=== PATIENT | male | born 1960 | race Caucasian/White ===

== ENCOUNTER 2020-07-30 06:42 | Day surgery (SDC) | payer BC, OTHER ==
[2020-07-23 13:14] LABS: Basophils % 0.6 % (0-1.3); Hematocrit 48.2 % (39.6-49.0); Lymphocytes % 13.7 % (15.3-44.8); MPV 10.3 fL (7.6-11.3); RBC Red Blood Cell Count 5.61 M/uL (4.33-5.43)
--- NOTE | 2020-07-23 13:14 | RAD REPORT ---
EXAM DESCRIPTION: RAD - Chest Pa And Lat (2 Views) - 07/23/2020 1:01 pm CLINICAL HISTORY: preoppatient pending right foot surgery, diabetes, dialysis patient COMPARISON: Portable July 2017, two view chest July 2014 TECHNIQUE: Frontal and lateral views of the chest were obtained. FINDINGS: The lungs are clear of failure, infiltrate or mass. Lung volumes are reduced compared to 2013 study. Interstitial pattern does not appear to be significantly different. Heart size is no rmal and central vasculature is within normal limits. No pleural effusion or pneumothorax seen. No acute bony finding noted. No aortic abnormality. No significant interval changes. IMPRESSION: No acute cardiopulmonary process.
[2020-07-23 13:22] LABS: Potassium 5.1 mmol/L (3.5-5.1)
--- NOTE | 2020-07-29 12:49 | PREOPHP ---
Date of Admission: 07/30/2020 History Of Present Illness: This patient presented to my office with a chief complaint of pain in th e plantar aspect of the right heel. Pain has been present for a number of months. The patient first presented earlier this year for this problem. Pain is throbbing in nature, relieved by rest, severe in severity, and the patient has tried modifying his shoe gear, orthotics, steroid injections, stret harrison, ice, and anti-inflammatory medications all to minimal avail. The patient requests surgical ma nagement at this time. Current Medical History: Includes history of hypertension and stroke. Medications: Includes Pepcid 20 mg, Sensipar 30 mg, tacrolimus 0.5 mg capsule, Toprol-XL 25 mg, meto prolol succinate ER 100 mg, hydralazine 50 mg, clonidine 0.3 mg, Prograf 1 mg capsule, and mycophenol ate 360 mg. Allergies: ANTI-INFLAMMATORY MEDICATIONS AND TYLENOL NO.3. Social History: The patient admits to dipping tobacco. No history of alcohol or IV drug use. Past Surgical History: Includes kidney transplant in August of 2015, surgery to his left arm and r ight patella. Physical Examination: General: The patient is healthy, well developed, well nourished, well oriented x3. Vascular: Evaluation for dorsalis pedis and posterior tibial pulses are 4/4 bilaterally. Capillary refill time is less than 3 seconds to all toes. Temperature gradient is within normal limits. There is no claudication complaint, varicosities, or signs of DVT bilaterally. Musculoskeletal: Evaluation reveals a semi flexible cavus foot type bilaterally. Subtalar joint bella ws normal position bilaterally. There are forefoot supinatus bilaterally. There is a medial eminenc e of the first metatarsal head bilaterally with a hallux valgus on the right. Equinus is noted to be -5 on the right and 0 on the left. Per goniometer measurement, digits on all are found to be in nor mal alignment. Muscle knee and ankle assessment is within normal limits. There is tenderness on pal pation of the right but not on the left plantar aponeurosis with no redness, swelling, or temp. No s ubcutaneous masses are palpated bilaterally. Skin evaluation reveals no rash, ulcer, tumor, or contr acture. There is abnormal thickened, brittle, crumbly, discolored nail growth present on the left franco llux. Neurologic: Exam reveals deep tendon reflexes for the patella and Achilles to be 5/5 bilaterally. V ibratory and sharp dull sensation within normal limits. Diagnostic Data: X-rays reviewed when the patient initially came in the office from a previous physi jason showed a posterior calcaneal spur with no fracture, tumor, or degenerative disease noted. Diagnosis: Calcaneal spur, right foot. Plantar fasciitis, right foot. Recommendation: The recommended treatment is for plantar fasciotomy due to the failure of conservati ve treatments mentioned earlier. The patient will be in a postop shoe for 2 weeks. No full work act ivity for 6-8 weeks if the patient is in a standing or strenuous job as he has been in the past. Cur rently, he is not working. The patient states he understands recommendations and requirements for he aling. The patient has been given a prescription for antibiotics due to his history of kidney transp lant prophylactically to take the night before and the day of surgery. A prescription for sophie Haq ch the patient states does not give him an issue as opposed to the codeine has been issued also for t he patient for postop pain. The patient understands risks, benefits, and alternatives of the above-m entioned procedure including, but not limited to the risk of pain, swelling, numbness, stiffness, inf ection, nonhealing of skin or soft tissue, and recurrence of the pain. Risk of DVT and PE have been explained to the patient as well as the signs and symptoms. The patient also was made aware of the i ncreased risk of complications due to the current pandemic due to COVID-19 and must maintain adequate precautions of mask wearing to prevent any infection postoperatively of COVID. Risks include an inc reased chance of blood clots. As mentioned, prophylactic antibiotics were given. Postop shoe will b e dispensed. The patient is scheduled for surgery on July 30, 2020 at [facility]. Preop erative labs have been performed. Medical H and P will be performed by Anesthesia. Abnormalities on the EKG were dressed with anesthesia and they feel it is not an adverse risk for the patient to have the surgery a s planned. TIA/EVERT Voice ID: [id number]
--- OUTSIDE RECORDS SUMMARY | 2020-07-30 06:44 | XMS REPORT | Summary of Care ---
:1960 Author Organization [facility] Address [address] [place] [id number] Care Team Providers Name Role Phone Francoise Dc RN Unavailable Unavailable Yokasta Edgar MD Primary Care Provider Reason for Visit Reason Comments LAB WORK Post Transplant Encounter Details Date Type Department Care Team Description 07/03/2020 Telephone [facility] Isai Taylor LAB WORK; Post Transplant-[place] MD [facility] [address] [facility] [address] [facility] [place] [address] [phone] Allergies No Known Allergiesdocumented as of this encounter (statuses as of 07/03/2020) Medications Medication Sig Dispensed Refills Start Date End Date Status multivitamin tablet Take 1 Tab by 0 Active mouth daily. FAMOTIDINE 20 mg TAKE 1 TABLET 90 tablet 3 09/12/2018 Active tabletIndications: DAILY Kidney replaced by transplant METOPROLOL SUCCINATE TAKE 1 TABLET 180 tablet 3 09/12/2018 Active XL 100 mg 24 hr tablet TWICE A DAY Diclofenac Sodium Take 2-4 grams 100 g 3 02/09/2018 Active (VOLTAREN) 1 % three times a gelIndications: day as needed Pleurisy, Back spasm for pain lidocaine 5 % ointment Apply to 35.44 g 2 04/18/2018 Active area(s) 2 (two) times daily as needed (pain). fluticasone 50 Use 1 [place] in 16 g 2 05/15/2018 Active mcg/actuation nasal each nostril 2 sprayIndications: (two) times Viral upper daily. respiratory tract infection metoprolol succinate Take 1 tablet by 180 tablet 3 10/17/2018 Active XL 100 mg 24 hr tablet mouth 2 (two) times daily. famotidine 20 mg Take 1 tablet by 90 tablet 0 12/18/2018 Active tabletIndications: mouth daily. No Kidney replaced by further refills transplant through transplant. Obtain through PCP urea 40 % Apply to 1 Tube 3 12/24/2018 Active creamIndications: area(s) daily. Stucco keratoses famotidine 10 mg Take 10 mg by 0 Active tablet mouth. hydralAZINE 25 mg Take 25 mg by 0 Active tablet mouth. magnesium oxide 400 mg Take 2 capsules 120 capsule 6 9 Active magnesium capsule by mouth 2 (two) times daily. tiZANidine 4 mg Take 1 tablet by 30 tablet 2 03/26/2019 Active tabletIndications: mouth every 8 Acute right flank pain (eight) hours as needed (muscle spasm/pain). Multivitamins-Minerals Take 1 tablet by 0 Active -Lutein (MULTIVITAMIN mouth daily. 50 PLUS) Tab CLONIDINE 0.3 mg TAKE 1 TABLET 180 tablet 4 08/06/2019 Active tabletIndications: TWICE A DAY Kidney replaced by transplant METOPROLOL SUCCINATE TAKE 1 TABLET 180 tablet 4 08/06/2019 Active XL 100 mg 24 hr tablet TWICE A DAY HYDRALAZINE 50 mg TAKE 1 TABLET 180 tablet 4 09/11/2019 Active tablet TWICE A DAY mycophenolate sodium TAKE 1 TABLET 60 tablet 11 11/27/2019 Active 360 mg EC tablet EVERY 12 HOURS CINACALCET 30 mg TAKE 1 TABLET 90 tablet 3 01/28/2020 Active tabletIndications: DAILY Kidney replaced by transplant cinacalcet 30 mg Take 1 tablet by 90 tablet 3 01/10/2020 Active tabletIndications: mouth daily. Kidney replaced by transplant PROGRAF 1 mg capsule TAKE 2 CAPSULES 90 capsule 11 02/20/2020 Active (2 MG) IN THE MORNING AND 1 CAPSULE (1 MG) IN THE EVENING triamcinolone Apply to 454 g 1 03/06/2020 Activ e acetonide 0.1 % area(s) 2 (two) creamIndications: Rash times daily. 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 10/19/2010 Overview: ICD10 Diagnosis 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 CVA (cerebral infarction) 09/25/2007 Hyperlipemia 09/25/2007 HTN (hypertension), malignant Basal cell carcinoma Squamous cell carcinoma documented as of this encounter (statuses as of 07/03/2020) Resolved Problems Problem Noted Date Resolved Date Anemia 09/18/2015 10/26/2015 Retention of urine 09/17/2015 10/26/2015 Organ transplant candidate 09/11/2015 09/13/2015 CKD (chronic kidney disease) stage V requiring chronic 12/2609/13/2015 dialysis Overview: 1st ever dialysis start date documented as of this encounter (statuses as of 07/03/2020) Immunizations Name Administration Dates Next Due Influenza High Dose 08/25/2016 (Deferred: Immunizations Up to Date) Influenza Virus Vaccine Quad ID [id number] 07/21/2016 YRS Influenza Virus Vaccine Quad IM 3+ 08/07/2017 YRS PPD (TB) 10/15/2014, 10/01/2014 Pneumococcal Polysaccharide, PPSV23 02/06/2015 (PNEUMOVAX) documented as of this encounter Social History Tobacco Use Types Packs/Day Years Used Date Former Smoker Smokeless Tobacco: Former User Q uit: 06/25/2015 Alcohol Use Drinks/Week oz/Week Comments No 0 Standard drinks or equivalent 0.0 Stopped in 2007 Sex Assigned at Date Recorded Not on file documented as of this encounter Last Filed Vital Signs Not on filedocumented in this encounter Miscellaneous Notes Telephone Encounter - Luciana Agrawal - 07/03/2020 10:07 AM CDTPatient [place] in [place], needs lab orders to be send to [facility] [phone] Patient stated that he feels like he is swollen everywhere, and his [facility] [place] is completely booked. Cindi is willing to see him if [facility] send orders immediately. Patient requested a call back from coordinator once it is completed documented in this encounter Plan of Treatment Health Maintenance Due Date Last Done Comments DTaP,Tdap,and Td Vaccines (1 - 1981 Tdap) COLON CANCER SCREENING ANNUAL 2012 FIT/FOBT COLON CANCER SCREENING FIT DNA 2012 EVERY 3 YEARS COLON CANCER SCREENING 2012 SIGMOIDOSCOPY EVERY 5 YEARS Zoster Recombinant Vaccine 2012 (SHINGRIX) (1 of 2) PNEUMOCOCCAL 0-64 YEARS COMBINED 02/07/2016 02/06/2015 SERIES (2 of 3 - PCV13) LUNG CANCER SCREEN: Recommended 02/14/2020 02/13/2019, 0505/2018, for age 55-80 with 30 + pack year 08/06/2017, Ad ditional history history exists INFLUENZA VACCINE (#1) 2020 08/21/2019, 08/07/2017 Depression Screening 07/11/2020 07/11/2019 COLONOSCOPY 01/07/2025 01/07/2015 (Previously completed) Colorectal Cancer Screening 01/07/2025 HEPATITIS C (HCV) SCREEN Completed 09/11/2015, 06/23/2015 documented as of this encounter Implants Implanted Type Area Project Manager Device Shelf Model / Identifier Expiration Date Ser ial / Lot Stent Ureteral Soft Flex Multi Length Cook #[id number] - [id number] STENT N/A: Ureter [employer] 06/04/2018 [id number] / Implanted: Qty: 1 on 09/11/2015 by Marisa Tamayo MD at [facility] 0000 / [id number] documented as of this encounter Results Not on filedocumented in this encounter Insurance Payer Benefit Plan Subscriber ID Effective Dates Phone Address Type / Group BCBS OF [facility] [id number] 2005-[place] [phone] [address] PPO/POS [place] - OUT OF t 7 [id number] [place] [address] documented as of this encounter
--- OUTSIDE RECORDS SUMMARY | 2020-07-30 06:44 | XMS REPORT | Continuity of Care Document ---
:1960 Author Organization [facility] t Address [address] [place] [address] Care Team Providers Name Role Phone Kay Palma MD N Attending Clinician Problems This patient has no known problems. Allergies, Adverse Reactions, Alerts This patient has no known allergies or adverse reactions. Medications This patient has no known medications. Procedures This patient has no known procedures. Encounters Start End Encounter Admission Attending Care Care Encounter Source Date/Time Date/Time Type Type Clinicians Facility Department ID 2020-07-27 2020-07-27 Office Cassie [facility] [id number] 09:45:42 11:13:09 Visit Sylvia schrader [facility] [id number] [facility] [id number] [facility] [phone] [facility] Results This patient has no known results.
--- OUTSIDE RECORDS SUMMARY | 2020-07-30 06:45 | XMS REPORT | Summary of Care ---
:1960 Author Organization [facility] Address [address] [place] [address] Care Team Providers Name Role Phone Francoise Dc RN Unavailable Unavailable Yokasta Edgar MD Primary Care Provider Encounter Details Date Type Department Care Team Description 04/07/2020 Orders Only [facility] Doctor Unassigned, No [address] [facility] [place] [address] [address] [place] [address] Allergies No Known Allergiesdocumented as of this encounter (statuses as of 07/13/2020) Medications Medication Sig Dispensed Refills Start Date [...] as needed (pain). fluticasone 50 Use 1 [place] in 16 g 2 05/15/2018 Active mcg/actuation [...] as of this encounter (statuses as of 07/13/2020) Active Problems Problem Noted Date Chest pain on breathing 08/17/2017 Costochondritis 08/17/2017 Essential hypertension 08/17/2017 Abnormal CXR 08/11/2017 Chest pain 08/06/2017 Diarrhea 10/26/2016 Renal osteodystrophy 02/04/2016 Immunosuppressive management encounter following kidne y transplant 12/17/2015 Hyperkalemia 09/28/2015 Kidney replaced by transplant 09/12/2015 Need for prophylactic immunotherapy 09/11/2015 Malignant neoplasm of skin of ear and regulatory auditor y canal 10/19/2010 Overview: ICD10 Diagnosis 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 CVA (cerebral infarction) 09/25/2007 Hyperlipemia 09/25/2007 HTN (hypertension), malignant Basal cell carcinoma Squamous cell carcinoma documented as of this encounter (statuses as of 07/13/2020) Resolved Problems Problem Noted Date Resolved Date Anemia 09/18/2015 10/26/2015 Retention of urine 09/17/2015 10/26/2015 Organ transplant candidate 09/11/2015 09/13/2015 CKD (chronic kidney disease) stage V requiring chronic 12/2609/13/2015 dialysis Overview: 1st ever dialysis start date documented as of this encounter (statuses as of 07/13/2020) Immunizations Name Administration Dates Next Due Influenza [...] Assigned at Date Recorded Not on file COVID-19 Exposure Response Date Recorded In the last month, have you been in contact with No / Unsure 04/28/2020 8:03 AM CDT someone who was confirmed or suspected to have Coronavirus / COVID-19? documented as of this encounter Last Filed Vital Signs Not on filedocumented in this encounter Plan of Treatment Health [...] PCV13) LUNG CANCER SCREEN: Recommended 02/14/2020 02/13/2019, 05/0 05/2018, for age 55-80 with 30 + pack year 08/06/2017, Ad ditional history history exists INFLUENZA VACCINE (#1) 2020 08/21/2019, 08/07/2017 Depression Screening 07/11/2020 07/11/2019 COLONOSCOPY 01/07/2025 01/07/2015 (Previously completed) Colorectal Cancer Screening 01/07/2025 HEPATITIS C (HCV) SCREEN Completed 09/11/2015, 06/23/2015 documented as of this encounter Implants Implanted Type Area Chief Of Hospital Medicine Device Shelf Model / Identifier Expiration Date Ser ial / Lot Stent Ureteral Soft Flex Multi Length Cook #[id number] - [id number] STENT N/A: Ureter [employer] 06/04/2018 [id number] / Implanted: Qty: 1 on 09/11/2015 by Marisa Tamayo MD at [facility] 0000 / [id number] documented as of this encounter Procedures Procedure Name Priority Date/Time Associated Diagnosis Comme nts REFERRAL- Routine 04/07/2020 12:01 AM CDT REQUEST/RESPONSE documented in this encounter Results Not on filedocumented in this encounter Additional Health Concerns Infection Onset Date Last Indicated Resolved Time COVID-19 Confirmed 04/13/2020 04/13/2020 05/13/2020 12 :59 AM CDT documented as of this encounter Insurance Payer Benefit Plan Subscriber ID Effective Dates Phone Address Type / Group BCBS OF [facility] [id number] 2005-[place] [phone] [address] PPO/POS [place] - OUT OF t 7 [id number] [place] [address] documented as of this encounter
--- OUTSIDE RECORDS SUMMARY | 2020-07-30 06:45 | XMS REPORT | Summary of Care ---
:1960 Author Organization [facility] Address [address] [place] [address] Care Team Providers Name Role Phone Francoise Dc RN Unavailable Unavailable Yokasta Edgar MD Primary Care Provider Encounter Details Date Type Department Care Team Description 07/21/2020 Orders Only [facility] Isai Taylor MD [address] [place] [address] [phone] Allergies No Known Allergiesdocumented as of this encounter (statuses as of 07/21/2020) Medications Medication Sig Dispensed Refills Start Date [...] as needed (pain). fluticasone 50 Use 1 [place] in 16 g 2 05/15/2018 Active mcg/actuation [...] as of this encounter (statuses as of 07/21/2020) Active Problems Problem Noted Date Chest pain on breathing 08/17/2017 Costochondritis 08/17/2017 Essential hypertension 08/17/2017 Abnormal CXR 08/11/2017 Chest pain 08/06/2017 Diarrhea 10/26/2016 Renal osteodystrophy 02/04/2016 Immunosuppressive management encounter following kidne y transplant 12/17/2015 Hyperkalemia 09/28/2015 Kidney replaced by transplant 09/12/2015 Need for prophylactic immunotherapy 09/11/2015 Malignant neoplasm of skin of ear and assurance auditor y canal 10/19/2010 Overview: ICD10 Diagnosis 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 CVA (cerebral infarction) 09/25/2007 Hyperlipemia 09/25/2007 HTN (hypertension), malignant Basal cell carcinoma Squamous cell carcinoma documented as of this encounter (statuses as of 07/21/2020) Resolved Problems Problem Noted Date Resolved Date Anemia 09/18/2015 10/26/2015 Retention of urine 09/17/2015 10/26/2015 Organ transplant candidate 09/11/2015 09/13/2015 CKD (chronic kidney disease) stage V requiring chronic 12/2609/13/2015 dialysis Overview: 1st ever dialysis start date documented as of this encounter (statuses as of 07/21/2020) Immunizations Name Administration Dates Next Due Influenza [...] filedocumented in this encounter Plan of Treatment Date Type Specialty Care Team Description 07/27/2020 Office Visit Nephrology Yokasta Palma MD [address] [place], [place] [address] Name Type Priority Associated Diagnoses Date/Ti me MAGNESIUM-Q LAB Routine 07/21/2020 7:2 0 AM CDT PHOSPHATE ( PHOSPHORUS)-Q LAB Routine 07/21/2020 7:20 AM CDT BASIC METABOLIC LAB Routine 07/21/2020 7:20 AM PANEL$W/EGFR-Q CDT URINALYSIS, COMPLETE W/RFL LAB Routine 1 7:20 AM CULTURE (REFL)-Q CDT B TYPE NATRIURETIC$PEPTIDE LAB Routine 1 7:20 AM (BNP)-Q CDT PROTEIN, TOTAL, RANDOM URINE LAB Routine 07/21/2020 7:20 AM (W/ CREATININE)-Q CDT TACROLIMUS, HIGHLY LAB Routine 0 7:20 AM SENSITIVE, LC/MS/MS-Q CDT CYTOMEGALOVIRUS DNA, QN REAL LAB Routine 07/21/2020 7:20 AM TIME PCR-Q CDT BK VIRUS DNA, QN PCR-Q LAB Routine 07/21 7:20 AM CDT BK VIRUS DNA, QN REAL TIME LAB Routine 1 7:20 AM PCR, URINE-Q CDT Health Maintenance Due Date Last Done Comments Depression Screening 1974 DTaP,Tdap,and Td Vaccines (1 - 1981 Tdap) [...] exists INFLUENZA VACCINE (#1) 2020 08/21/2019, 08/07/2017 COLONOSCOPY 01/07/2025 01/07/2015 (Previously completed) Colorectal Cancer Screening 01/07/2025 HEPATITIS C (HCV) SCREEN Completed 09/11/2015, 06/23/2015 documented as of this encounter Implants Implanted Type Area Permastone Applicator Device Shelf Model / Identifier Expiration Date Ser ial / Lot Stent Ureteral Soft Flex Multi Length Cook #[id number] - [id number] STENT N/A: Ureter [employer] 06/04/2018 [id number] / Implanted: Qty: 1 on 09/11/2015 by Marisa Tamayo MD at [facility] 0000 / [id number] documented as of this encounter Procedures Procedure Name Priority Date/Time Associated Diagnosis Comme nts CBC (INCLUDES Routine 07/21/2020 7:20 AM Results for this DIFF/PLT)-Q CDT procedure are i n the results section. documented in this encounter Results CBC (INCLUDES DIFF/PLT)-Q (07/21/2020 7:20 AM CDT) Pathologist Sig nature WHITE BLOOD CELL 6.5 3.8 - 10.8 [facility] ([facility]) COUNT-Q Thousand/uL RED BLOOD CELL COUNT-Q 5.65 4.20 - 5.80 [facility] ([facility]) Million/uL HEMOGLOBIN-Q 16.3 13.2 - 17.1 g/dL [facility] ([facility]) HEMATOCRIT-Q 48.8 38.5 - 50.0 % [facility] ([facility]) MCV-Q 86.4 80.0 - 100.0 fL [facility] ([facility]) MCH-Q 28.8 27.0 - 33.0 pg [facility] ([facility]) MCHC-Q 33.4 32.0 - 36.0 g/dL [facility] ([facility]) RDW-Q 13.2 11.0 - 15.0 % [facility] ([facility]) PLATELET COUNT-Q 187 140 - 400 [facility] ([facility]) Thousand/uL MPV-Q 13.0 (H) 7.5 - 12.5 fL [facility] ([facility]) ABSOLUTE NEUTROPHILS-Q 4596 1500 - 7800 [facility] ([facility]) cells/uL ABSOLUTE LYMPHOCYTES-Q 956 850 - 3900 [facility] ([facility]) cells/uL ABSOLUTE MONOCYTES-Q 767 200 - 950 cells/uL [facility] ([facility]) ABSOLUTE EOSINOPHILS-Q 150 15 - 500 cells/uL [facility] ([facility]) ABSOLUTE BASOPHILS-Q 33 0 - 200 cells/uL [facility] ([facility]) NEUTROPHILS-Q 70.7 % [facility] ([facility]) LYMPHOCYTES-Q 14.7 % [facility] ([facility]) MONOCYTES-Q 11.8 % [facility] ([facility]) EOSINOPHILS-Q 2.3 % [facility] ([facility]) BASOPHILS-Q 0.5 % [facility] ([facility]) Specimen Narrative Performed At [facility]; [address] [place] [address], [place] [facility] ([facility]) [phone]; LC ALLRED MD Performing Organization Address City/State/Zipcode Phone Number QST ([employer]) documented in this encounter Insurance Payer Benefit Plan Subscriber ID Effective Dates Phone Address Type / Group BCBS OF [facility] [id number] 2005-[place] [phone] [address] PPO/POS [place] - OUT OF t 7 [id number] [place] [address] documented as of this encounter
--- OUTSIDE RECORDS SUMMARY | 2020-07-30 06:45 | XMS REPORT | Summary of Care ---
:1960 Author Organization [facility] Address [address] [place] [address] Care Team Providers Name Role Phone Francoise Dc RN Unavailable Unavailable Yokasta Edgar MD Primary Care Provider Reason for Visit Reason Comments LAB WORK Post Transplant Encounter Details Date Type Department Care Team Description 07/03/2020 Telephone [facility] Isai Taylor LAB WORK; Post Transplant-Tehama MD Yokasta Transplant [facility] [address] [facility] [address] [place] [address] [phone] Allergies No Known Allergiesdocumented as of this [...] as needed (pain). 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 He will be in [place] until August. He will try to go to [facility] and call us a couple of days after labs are drawn. He did provide fax number for Cindi Sanchez F [phone] He was advised to go to local ED if symptoms worsened. Questions were encouraged and answered. Patient expressed understanding and acceptance. MEI Shirley RN [facility] Kidney/Pancreas Boomboat Operator [email or web address] Encounter - Luciana Agrawal - 07/03/2020 10:07 AM CDTPatient currently in [place], needs lab orders to be send to [facility] [phone] Patient stated that he feels like he is swollen everywhere, and his [facility] near him is completely booked. [place] is willing to see him if [facility] send orders immediately. Patient requested a call [...] of this encounter Implants Implanted Type Area Vb Net Programmer Device Shelf Model / Identifier Expiration Date Ser ial / Lot Stent Ureteral Soft Flex Multi Length Cook #[id number] - [id number] STENT N/A: Ureter [employer] 06/04/2018 [id number] / Implanted: Qty: 1 on 09/11/2015 by Marisa Tamayo MD at [facility] 0000 / [id number] documented as of this encounter Results Not on filedocumented in this encounter Insurance Payer Benefit Plan Subscriber ID Effective Dates Phone Address Type / Group [employer] [place] [id number] 2003-[place] [phone] [address] PPO/POS [place] - OUT OF t 7 [id number] [place] [address] documented as of this encounter
--- OUTSIDE RECORDS SUMMARY | 2020-07-30 06:45 | XMS REPORT | Summary of Care ---
:1960 Author Organization [facility] Address [address] [place] [address] Care Team Providers Name Role Phone Francoise Dc RN Unavailable Unavailable Yokasta Edgar MD Primary Care Provider Reason for Visit Reason Comments Assessment Post Transplant Encounter Details Date Type Department Care Team Description 07/03/2020 Telephone [facility] Transplant- Isai Taylor Assessment; Post [place] MD Yokasta Transplant [facility] [address] [facility] [address] [facility] [place] [phone] Allergies No Known Allergiesdocumented as of this [...] as needed (pain). 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 Patient reported he hasn't had labs recently and is experiencing some swelling BLE; no redness or pain. OC TC placed SO for routine labs in [facility] system and emailed patient requisition form as well. OC TC requested that if symptoms worsen or he develops pain, redness, increased swelling, decreased UOP; to please contact OC TC over the weekend. Miladis Whatley RN 07/03/2020 6:09 PM documented in this encounter Plan of Treatment [...] PCV13) LUNG CANCER SCREEN: Recommended 02/14/2020 02/13/2019, 05/05/2018, for age 55-80 with 30 + pack year 08/06/2017, Ad ditional history history exists INFLUENZA VACCINE (#1) 2020 08/21/2019, 08/07/2017 Depression Screening 07/11/2020 07/11/2019 COLONOSCOPY 01/07/2025 01/07/2015 (Previously completed) Colorectal Cancer Screening 01/07/2025 HEPATITIS C (HCV) SCREEN Completed 09/11/2015, 06/23/2015 documented as of this encounter Implants Implanted Type Area Director Of Health Care Marketing Device Shelf Model / Identifier Expiration Date Ser ial / Lot Stent Ureteral Soft Flex Multi Length Cook #[id number] - [id number] STENT N/A: Ureter Cook [employer] 06/04/2018 [id number] / Implanted: Qty: 1 on 09/11/2015 by Marisa Tamayo MD at [facility] 0000 / [id number] documented as of this encounter Results Not on filedocumented in this encounter Insurance Payer Benefit Plan Subscriber ID Effective Dates Phone Address Type / Group [facility] [id number] 2003-[place] [phone] [address] PPO/POS [place] - OUT OF t 7 [id number] [place] [address] documented as of this encounter
--- OUTSIDE RECORDS SUMMARY | 2020-07-30 06:46 | XMS REPORT | Summary of Care ---
:1960 Author Organization [facility] Address [address] [place] [address] Care Team Providers Name Role Phone Francoise Dc RN Unavailable Unavailable Yokasta Edgar MD Primary Care Provider Reason for Visit Reason Comments Post Transplant 09/11/2015 Follow-up Encounter Details Date Type Department Care Team Description 07/27/2020 Office Visit [facility] [place], Kidney replac ed by transplant (Primary Dx); Trans[place] Sylvia Yang MD Needs flu shot [facility] [address] [facility] [address] [place] [address], [id number] [place] [phone] Allergies No Known Allergiesdocumented as of this encounter (statuses as of 07/28/2020) Medications Medication Sig Dispensed Refills Start Date End Date Status Diclofenac Sodium Take 2-4 100 g 3 02/09/2018 A ctive (VOLTAREN) 1 % grams three gelIndications: times a day Pleurisy, Back as needed for spasm pain lidocaine 5 % Apply to 35.44 g 2 04/18/2018 Activ e ointment area(s) 2 (two) times daily as needed (pain). urea 40 % Apply to 1 Tube 3 12/24/2018 Active creamIndications: area(s) Stucco keratoses daily. Multivitamins-Mine Take 1 tablet 0 Active rals-Lutein by mouth (MULTIVITAMIN 50 daily. PLUS) Tab CLONIDINE 0.3 mg TAKE 1 TABLET 180 tablet 4 08/06/2019 Active tabletIndications: TWICE A DAY Kidney replaced by transplant METOPROLOL TAKE 1 TABLET 180 tablet 4 08/06/2019 Act nasim SUCCINATE XL 100 TWICE A DAY mg 24 hr tablet HYDRALAZINE 50 mg TAKE 1 TABLET 180 tablet 4 09/11/2019 Active tablet TWICE A DAY mycophenolate TAKE 1 TABLET 60 tablet 11 11/27/2019 A ctive sodium 360 mg EC EVERY 12 tablet HOURS PROGRAF 1 mg TAKE 2 90 capsule 11 02/20/2020 Activ e capsule CAPSULES (2 MG) IN THE MORNING AND 1 CAPSULE (1 MG) IN THE EVENING triamcinolone Apply to 454 g 1 03/06/2020 Activ e acetonide 0.1 % area(s) 2 creamIndications: (two) times Rash and other daily. nonspecific skin eruption multivitamin Take 1 Tab by 0 07/27/20 Dis continued tablet mouth daily. 20 (Duplic ate) FAMOTIDINE 20 mg TAKE 1 TABLET 90 tablet 3 09/12/2018 07/27/20 Discontinued tabletIndications: DAILY 20 ( Patient Kidney replaced by R eported) transplant METOPROLOL TAKE 1 TABLET 180 tablet 3 09/12/2018 07/27/20 Dis continued SUCCINATE XL 100 TWICE A DAY 20 ( Duplicate) mg 24 hr tablet fluticasone 50 Use 1 [place] 16 g 2 05/15/2018 07/27/20 Di scontinued mcg/actuation in each 20 (Patie nt nasal nostril 2 Reported) sprayIndications: (two) times Viral upper daily. respiratory tract infection metoprolol Take 1 tablet 180 tablet 3 10/17/2018 07/27/20 Dis continued succinate XL 100 by mouth 2 20 (D uplicate) mg 24 hr tablet (two) times daily. famotidine 20 mg Take 1 tablet 90 tablet 0 12/18/2018 07/27/20 Discontinued tabletIndications: by mouth 20 ( Patient Kidney replaced by daily. No R eported) transplant further refills through transplant. Obtain through PCP famotidine 10 mg Take 10 mg by 0 07/27/20 Discontinued tablet mouth. 20 (Patient Reported) hydralAZINE 25 mg Take 25 mg by 0 07/27/20 Discontinued tablet mouth. 20 (Duplicate ) magnesium oxide Take 2 120 capsule 6 03/25/2019 07/27/20 D iscontinued 400 mg magnesium capsules by 20 ( Patient capsule mouth 2 (two) Report ed) times daily. tiZANidine 4 mg Take 1 tablet 30 tablet 2 03/26/2019 07/27/20 Discontinued tabletIndications: by mouth 20 ( Patient Acute right flank every 8 Re ported) pain (eight) hours as needed (muscle spasm/pain). CINACALCET 30 mg TAKE 1 TABLET 90 tablet 3 01/28/2020 07/27/20 Discontinued tabletIndications: DAILY 20 ( Duplicate) Kidney replaced by transplant cinacalcet 30 mg Take 1 tablet 90 tablet 3 01/10/2020 07/27/20 Discontinued tabletIndications: by mouth 20 ( Condition no Kidney replaced by daily. 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 10/19/2010 Overview: ICD10 Diagnosis 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 CVA (cerebral infarction) 09/25/2007 Hyperlipemia 09/25/2007 HTN (hypertension), malignant Basal cell carcinoma Squamous cell carcinoma documented as of this encounter (statuses as of 07/28/2020) Resolved Problems Problem Noted Date Resolved Date Anemia 09/18/2015 10/26/2015 Retention of urine 09/17/2015 10/26/2015 Organ transplant candidate 09/11/2015 09/13/2015 CKD (chronic kidney disease) stage V requiring chronic 12/2609/13/2015 dialysis Overview: 1st ever dialysis start date documented as of this encounter (statuses as of 07/28/2020) Immunizations Name Administration Dates Next Due Influenza High Dose 08/25/2016 (Deferred: Immunizations Up to Date) Influenza Virus Vaccine Quad .5 mL IM 07/27/2020 6+ MO Influenza Virus Vaccine Quad ID [id number] 07/21/2016 [...] been in contact with No / Unsure 07/27/2020 9:45 AM 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 documented as of this encounter Last Filed Vital Signs Vital Sign Reading Time Taken Comments Blood Pressure 136/85 07/27/2020 9:59 AM TAKE AWAY WORKER Pulse 56 07/27/2020 9:59 AM TAKE AWAY WORKER Temperature 36.1 C (96.9 F) 07/27/2020 9:58 AM TAKE AWAY WORKER Respiratory Rate - - Oxygen Saturation 98% 07/27/2020 9:59 AM TAKE AWAY WORKER Inhaled Oxygen Concentration - - Weight 97.5 kg (215 lb) 07/27/2020 9:58 AM TAKE AWAY WORKER Height - - Body Mass Index 27.6 03/26/2019 11:46 AM CDT documented in this encounter Patient Instructions Patient InstructionsSylvia Palma MD - 07/27/2020 10:00 AM CSTStop sensipar Continue rest of your medications RTC in 6 months Labs before you leave for [place] Labs every 3 months AWAY WORKER documented in this encounter Progress Notes Sylvia Palma MD - 07/27/2020 10:00 AM CST Transplant Nephrology Note Date of Service: 07/27/2020 Date of transplant:09/11/15 Type of transplant:Kidney Chief Complaint: Follow up of kidney transplant status HPI: Gus Lambert is a 60 year old male s/p kidney transplant End Stage Kidney Disease due to HTN, recipient of kidney transplant, and stable from that perspective Allograft function is stable Blood pressure is controlled Immunosuppression use - On tac and myfortic. Patient not able to tolerate any Mg supplementation due to diarrhea UOP good. Some swelling towards the end of the day. Patient scheduled for left wrist ganglion cyst surgery on 08/06/2020. He will have plantar fasciitis surgery on 07/30/2020. He has been working in [place]. UOP good. Past Medical History Diagnosis Date CKD (chronic kidney disease) stage V requiring chronic dialysis 12/27/2007 1st ever dialysis start date HTN (hypertension) CVA (cerebral infarction) Squamous cell carcinoma Kidney transplanted Past Surgical History Procedure Laterality Date kidney transplant recipient (shx) N/A 09/11/2015 Surgeon: Marisa Arias MD; Location: [facility] Social History Social History Marital Status: Spouse Name: N/A Number of Children: N/A Years of Education: 12 Social History Main Topics Smoking status: Former Smoker Smokeless tobacco: Former User Quit date: 06/25/2015 Alcohol Use: No Comment: Stopped in 2007 Drug Use: No Sexual Activity: Partners: Female Other Topics Concern Service No Blood Transfusions No Caffeine Concern No Occupational Exposure No Hobby Hazards No Sleep Concern No Stress Concern No Weight Concern No Special Diet Yes renal Back Care Yes Exercise Yes Bike Helmet Yes Seat Belt Yes Self-Exams Yes Social History Narrative Family History Problem Relation Age of Onset Cancer Father Coronary Heart Disease Brother Current Outpatient Medications on File Prior to Visit Medication Sig Dispense Refill PROGRAF 1 mg capsule TAKE 2 CAPSULES (2 MG) IN THE MORNING AND 1 CAPSULE (1 MG) IN THE EVENING 90 capsule 11 mycophenolate sodium 360 mg EC tablet TAKE 1 TABLET EVERY 12 HOURS 60 tablet 11 HYDRALAZINE 50 mg tablet TAKE 1 TABLET TWICE A DAY 180 tablet 4 CLONIDINE 0.3 mg tablet TAKE 1 TABLET TWICE A DAY 180 tablet 4 METOPROLOL SUCCINATE XL 100 mg 24 hr tablet TAKE 1 TABLET TWICE A DAY 180 tablet 4 Wepwouxjvwezm-Yxecipaw-Eclkuc (MULTIVITAMIN 50 PLUS) Tab Take 1 tablet by mouth daily. triamcinolone acetonide 0.1 % cream Apply to area(s) 2 (two) times daily. 454 g 1 urea 40 % cream Apply to area(s) daily. 1 Tube 3 lidocaine 5 % ointment Apply to area(s) 2 (two) times daily as needed (pain). 35.44 g 2 Diclofenac Sodium (VOLTAREN) 1 % gel Take 2-4 grams three times a day as needed for pain 100 g 3 No current facility-administered medications on file prior to visit. No current facility-administered medications for this visit. No Known Allergies ROS: 12 point review of systems negative except as per HPI Physical Exam: General Exam: BP 136/85 (BP Location: Left arm, Patient Position: Standing, BP CUFF SIZE: Adult Medium) | Pulse 56 | Temp 36.1 C (96.9 F) (Tympanic) | Wt 215 lb (97.5 kg) | SpO2 98% | BMI 27.60 kg/m Appearance - Normal, in no apparent distress Eye Exam: Pupils react to light Conjunctival pallor - none ENT: External appearance of ear and nose: Normal Oral mucosa: Moist, no lesions Lymph Nodes: No cervical lymphadenopathy Other lymph node areas - Cardiovascular: Heart sounds heard, Regular rhythm no pericardial friction rub or murmur Extremity edema: - Respiratory System: Breathing pattern is normal clear to auscultation Abdomen: Surgical incision has healed well bowel sounds heard, no ventral hernia Neuro: Non focal exam Motor strength is grossly normal Psych: Alert and oriented to time, place and person no evidence of clinical depression Skin: Evidence of lesions: None Normal to touch: Yes Laboratory Data: Reviewed (or ordered the following labs): Drugs levels (Immunosuppresion monitoring) Complete Blood Count Metabolic Panel Urine testing for urinalysis and Urine Wtcqses-lq-Ekwhbudfel ratio Radiology testing (if any):None Assessment/Plan: 1. Graft Function/CKD - Creatinine is 1.09 .Allograft function is stable. 2. Overall Progress- Seems stable now. 3. Blood Pressure/HTN - Stable on the current regimen. Will closely monitor. 4. Anemia of CKD - Hgb is 16.3 Will closely monitor for now. 5. Immunosuppression - Prograf 6. Continue current dose. Target around 5-6. 6. Health Maintenance - Counseled regarding antibiotic prophylaxis and sunscreen use, age appropriate cancer screening, and annual vaccination. Flu vaccine today 7. Hypomagnesemia - start taking Mg oxide as prescribed. 8. Hypocalcemia - stop sensipar. Will continue to follow. Labs every 3 months RTC in 6 months Jennifer Love RN - 07/27/2020 10:00 AM CST Post Auto Tire Recapper Gus Lambert is a 60 year old male S/P DBDKTx 09/11/2015. Will have right plantar fascitis surgery , and left ganglion cyst removal on 08/06. Patient seen in transplant nephrology/surgery clinic today for routine follow up appointment. Patient reports feeling well overall. Hydrating well. Good UOP. Last labs complete: 07/21/2020, every 3 months. Component Latest Ref Rng & Units 07/21/2020 7:20 AM CALCIUM-Q 8.6 - 10.3 mg/dL 8.3 (L) Component Latest Ref Rng & Units 07/21/2020 7:20 AM MAGNESIUM-Q 1.5 - 2.5 mg/dL 1.3 (L) CONCERNS FOR MD: 1. Flu shot 2. Surgery on , has RX for prophylactic ABX Jennifer Vazquez RN 07/27/2020 9:58 AM Post Auto Tire Recapper After visit instructions: Stop sensipar Continue rest of your medications RTC in 6 months Labs before you leave for [place] Labs every 3 months Follow up clinic note: Medication orders updated. [facility] up to date. Requested follow-up appointment be scheduled by PSS. Milaids Javier MA - 07/27/2020 10:00 AM CST Gus Lambert came into clinic with no complaints and no distress noted. Chief Complaint Patient presents with Post Transplant 09/11/2015 Follow-up documented in this encounter Plan of Treatment Date Type Specialty Care Team Description 01/25/2021 Office Visit Nephrology Yokasta Palma MD [address] [place], [place] [address] 01/25/2021 Office Visit Nephrology Yokasta Palma MD [address] [place], [place] [address] Health Maintenance Due Date Last Done Comments Depression Screening 1974 DTaP,Tdap,and Td Vaccines (1 - 1981 Tdap) COLON CANCER SCREENING ANNUAL 2012 FIT/FOBT COLON CANCER SCREENING FIT DNA 2012 EVERY 3 YEARS COLON CANCER SCREENING 2012 SIGMOIDOSCOPY EVERY 5 YEARS PNEUMOCOCCAL 0-64 YEARS COMBINED 02/07/2016 02/06/2015 SERIES (2 of 3 - PCV13) LUNG CANCER SCREEN: Recommended 02/14/2020 02/13/2019, 0505/2018, for age 55-80 with 30 + pack year 08/06/2017, Ad ditional history history exists COLONOSCOPY 01/07/2025 01/07/2015 (Previously completed) Colorectal Cancer Screening 01/07/2025 HEPATITIS C (HCV) SCREEN Completed 09/11/2015, 06/23/2015 INFLUENZA VACCINE Completed 07/27/2020, 08/21/2019, 08/07/2017 Zoster Recombinant Vaccine Discontinued (SHINGRIX) documented as of this encounter Implants Implanted Type Area Director Of Early Childhood Device Shelf Model / Identifier Expiration Date Ser ial / Lot Stent Ureteral Soft Flex Multi Length Cook #[id number] - [id number] STENT N/A: Ureter [employer] 06/04/2018 [id number] / Implanted: Qty: 1 on 09/11/2015 by Marisa Tamayo MD at [facility] 0000 / [id number] documented as of this encounter Procedures Procedure Name Priority Date/Time Associated Diagnosis Comme nts FLU VACC ([id number]), Routine 07/27/2020 11:05 AM TAKE AWAY WORKER Needs fl u shot 6+ MONTHS, IM, QUAD documented in this encounter Results Not on filedocumented in this encounter Visit Diagnoses Diagnosis Kidney replaced by transplant - Primary Needs flu shot Need for prophylactic vaccination and in oculation against influenza documented in this encounter Insurance Payer Benefit Plan Subscriber ID Effective Dates Phone Address Type / Group [id number] 2003[place] [phone] [address] PPO/POS [place] - OUT OF t 7 [id number] [place] [address] documented as of this encounter"
--- OUTSIDE RECORDS SUMMARY | 2020-07-30 06:46 | XMS REPORT | Summary of Care ---
:1960 Author Organization [facility] Address [address] [place] [id number] Care Team Providers Name Role Phone Francoise Dc RN Unavailable Unavailable Yokasta Edgar MD Primary Care Provider Reason for Visit Reason Comments Post Transplant 09/11/2015 Follow-up Encounter Details Date Type Department Care Team Description 07/27/2020 Office Visit [facility], Kidney replac ed by transplant (Primary Dx); Transplant-[facility] Sylvia Yang MD Needs flu shot [facility] [address] [place] [address], [id number] [place] [id number] Allergies No Known Allergiesdocumented as of [...] 24 hr tablet fluticasone 50 Use 1 [place] 16 g 2 05/15/2018 07/27/20 Di scontinued [...] Malignant neoplasm of skin of ear and computer systems auditor y canal 10/19/2010 Overview: ICD10 Diagnosis 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 documented as of this encounter Last Filed Vital Signs Vital Sign Reading Time Taken Comments Blood Pressure 136/85 07/27/2020 9:59 AM PAINT COATING MACHINE OPERATOR Pulse 56 07/27/2020 9:59 AM PAINT COATING MACHINE OPERATOR Temperature 36.1 C (96.9 F) 07/27/2020 9:58 AM PAINT COATING MACHINE OPERATOR Respiratory Rate - - Oxygen Saturation 98% 07/27/2020 9:59 AM PAINT COATING MACHINE OPERATOR Inhaled Oxygen Concentration - - Weight 97.5 kg (215 lb) 07/27/2020 9:58 AM PAINT COATING MACHINE OPERATOR Height - - Body Mass Index 27.6 03/26/2019 11:46 AM CDT documented in this encounter Patient Instructions Patient InstructionsSylvia Palma MD - 07/27/2020 10:00 AM CSTStop sensipar Continue rest of your medications RTC in 6 months Labs before you leave for [place] Labs every 3 months T COATING MACHINE OPERATOR documented in this encounter Progress Notes Sylvia [...] on 07/30/2020. He has been working in [place]. UOP good. Past Medical History Diagnosis Date CKD (chronic kidney disease) stage V requiring chronic dialysis 12/27/2007 1st ever dialysis start date HTN (hypertension) CVA (cerebral infarction) Squamous cell carcinoma Kidney transplanted Past Surgical History Procedure Laterality Date kidney transplant recipient (shx) N/A 09/11/2015 Surgeon: Marisa Arias MD; Location: [facility] Social History Social History Marital Status: Spouse [...] TABLET TWICE A DAY 180 tablet 4 Qsyviqzljjbvs-Dudacffe-Jowths (MULTIVITAMIN 50 PLUS) Tab Take 1 tablet [...] Panel Urine testing for urinalysis and Urine Fqjelhh-me-Usllsjrobr ratio Radiology testing (if any):None Assessment/Plan: 1. [...] RN - 07/27/2020 10:00 AM CST Post Van Loader Gus Lambert is a 60 year old [...] Jennifer Vazquez RN 07/27/2020 9:58 AM Post Van Loader After visit instructions: Stop sensipar Continue rest of your medications RTC in 6 months Labs before you leave for [place] Labs every 3 months Follow up clinic note: Medication orders updated. [facility] up to date. Requested follow-up appointment be scheduled by PSS. Miladis Javier MA - 07/27/2020 10:00 AM CST Gus Lambert came into clinic with no complaints and no distress noted. Chief Complaint Patient presents with Post Transplant 09/11/2015 Follow-up documented in this encounter Plan of Treatment Date Type Specialty Care Team Description 01/25/2021 Office Visit Nephrology Yokasta Palma MD [address] [place], [place] [address] 01/25/2021 Office Visit Nephrology Yokasta Palma MD [address] [place], [place] [address] Health Maintenance Due Date [...] of this encounter Implants Implanted Type Area Criminal Justice Instructor Device Shelf Model / Identifier Expiration Date Ser ial / Lot Stent Ureteral Soft Flex Multi Length Cook #[id number] - [id number] STENT N/A: Ureter [employer] 06/04/2018 [id number] / Implanted: Qty: 1 on 09/11/2015 by Marisa Tamayo MD at [facility] 0000 / [id number] documented as of this encounter Procedures Procedure Name Priority Date/Time Associated Diagnosis Comme nts FLU VACC ([id number]), Routine 07/27/2020 11:05 AM PAINT COATING MACHINE OPERATOR Needs fl u shot 6+ MONTHS, IM, QUAD documented in this encounter Results Not on filedocumented in this encounter Visit Diagnoses Diagnosis Kidney replaced by transplant - Primary Needs flu shot Need for prophylactic vaccination and in oculation against influenza documented in this encounter Insurance Payer Benefit Plan Subscriber ID Effective Dates Phone Address Type / Group [facility] [id number] 2003-Raymond [phone] [address] [place] PPO/POS [place] - OUT OF t [id number] [place] [address] documented as of this encounter"
[2020-07-30] MEDS ORDERED: CEFAZOLIN/SWI 1gm 1 GM/10 ML SYR ONE (07:11)
[2020-07-30] MEDS ORDERED: KETOROLAC 30 MG/ML INJ ONE (07:13)
[2020-07-30] MEDS ORDERED: FENTANYL CITR 100 MCG/2 ML ONE (07:13)
[2020-07-30] MEDS ORDERED: MIDAZOLAM HCL 2 MG/2 ML INJ ONE (07:13)
[2020-07-30] MEDS ORDERED: propofoL 200 MG/20 ML VIAL IV ONE ×2 (07:13→07:45)
[2020-07-30] MEDS ORDERED: LIDOCAINE 2% MPF 5 ML VIAL ONE (07:13)
[2020-07-30] MEDS ORDERED: dexAMETHasone 4 MG/ML VIAL ONE (07:14)
[2020-07-30] MEDS ORDERED: ONDANSETRON 4 MG/2 ML VIAL ONE (07:14)
[2020-07-30] MEDS: Ringers Lactate 1,000 ML IV ONE ×2 (07:15→07:22)
[2020-07-30] MEDS ORDERED: LIDOCAINE 1% MPF 30 ML VIAL ONE (07:30)
[2020-07-30 08:37] VITALS: TEMP 96.9
--- NOTE | 2020-07-30 08:39 | OP ---
Date of Procedure: 07/30/2020 Surgeon: Mateusz Medina DPM Preoperative Diagnosis: Plantar fasciitis, right foot. Postoperative Diagnosis: Plantar fasciitis, right foot. Procedure: Plantar fasciotomy, right foot. Anesthesia: Via local anesthesia. Description Of Procedure: The patient was brought in to the operating room, placed on the operating table in supine position. Once adequate IV sedation was obtained, the patient was injected with a to anoop of 10 cc of 0.5% Marcaine plain. The patient was prepped and draped in usual sterile manner. Ri ght extremity was elevated to 60 degrees. An Esmarch bandage was applied to exsanguinate the blood s upply. Pneumatic ankle tourniquet was elevated to 250 mmHg. Attention was then directed to the plan tar aspect of the right foot at the plantar medial heel area just distal to the heel tuft. A 2.5 cm incision was made following the skin lines from medial plantar to laterally 2.5 cm. The incision was deepened via sharp and blunt dissection. There was superficial bleeding. Tourniquet was released. The foot was held up for an additional 3 minutes and Esmarch applied and then tourniquet was reinfla lizbeth. This provided better hemostasis. The incision was deepened via sharp and blunt dissection down to the level of the plantar fascia. Neurologic structures were avoided. All bleeders were clamped and bovied. The fascia was identified. Its medial border was identified with a Remus. Utilizing eunice interiano for separation, the plantar fascia was incised revealing the superior muscle belly, which was intact. The incision was carried medially to the end of the plantar fascia border thus i t. The incision was approximately 2 cm at this point. The area was flushed with copious amounts of sterile saline. Skin was reapproximated utilizing 3-0 nylon suture. The area was dressed with Adapt ic, dry sterile gauze, dry sterile Katie, Kerlix, and Waldemar bandage. Pneumatic ankle tourniquet was de flated and capillary return was seen to be instantaneous to all digits. The patient was discharged t o Recovery in satisfactory condition. Preoperative Diagnosis: Plantar fasciitis, right foot. Postoperative Diagnosis: Same. Procedure: Plantar fasciotomy, right foot. Hospital Course: The patient tolerated the procedure and anesthesia well. The patient was given pos top instructions in the written form as well as emergency phone number. Patient may ambulate in a po stop shoe, apropulsively, which has been demonstrated to the patient. The patient may resume normal diet. Will be discharged to home per anesthesia guidelines. CHARIS Voice ID: [id number] Report ID: [id number]
[2020-07-30] MEDS ORDERED: HYDROCODONE/APAP 10/325 TAB ONE (08:50)
[2020-07-30 09:12] VITALS: O2SAT 98
[2020-07-30 09:13] VITALS: BP 128/57
== END 2020-07-30 09:10 | disposition home or self-care (01) ==
LOC: OR 06:42
PROVIDERS: ATTEND Podiatrist
PROC: 0JNQ0ZZ Release Right Foot Subcutaneous Tissue and Fascia, Open Approach (ICD-10-PCS; principal; 2020-07-30 07:30)
DX: M72.2 Plantar fascial fibromatosis (principal); M77.31 Calcaneal spur, right foot; I10 Essential (primary) hypertension; Z86.73 Personal history of transient ischemic attack (TIA), and cerebral infarction without residual deficits; F17.290 Nicotine dependence, other tobacco product, uncomplicated; Z94.0 Kidney transplant status; Z20.828 Contact with and (suspected) exposure to other viral communicable diseases
CPT/HCPCS: 93005; 85025; 80048; 36415; 71046; 28008; U0002; J2704; J1100; J2250; J3010; J0690; J7120; J2405

== ENCOUNTER 2023-01-23 01:07 | Emergency (ER) | payer BC ==
--- OUTSIDE RECORDS SUMMARY | 2023-01-23 01:26 | XMS REPORT | Continuity of Care Document ---
:1960 Author Organization [facility] t Address [address] [place] [address] [address] [place] [address] Care Team Providers Name Role Phone Pcp, Patient Does Not Have A Primary Care Physician [phone] 00-0000 DONNIE RUTLEDGE Attending Clinician Unavailable JUSTIN PATTERSON Attending Clinician Unavailable Kay GRAJEDA Attending Clinician Unavailable Kay Gan Attending Clinician JANETTE CARREON Attending Clinician Unavailable Arnaldo GREER, Consuelo Narvaez Attending Clinician [phone] Janette Carreon MD Attending Clinician Hyun Ya MD Attending Clinician HYUN YA Attending Clinician Unavailable Doctor Unassigned, [place] Attending Clinician Unavailable Jarocho GREER, Miguel Gastelum Attending Clinician Minerva GREER, Samantha Yang Attending Clinician [phone] Justin Patterson MD Attending Clinician 2, [facility] Attending Clinician Unavailable Kaia Griggs MD Attending Clinician KAIA GRIGGS Attending Clinician Unavailable Anibal Fisher MD Attending Clinician Bijal Montgomery LVN Attending Clinician Unavailable Nusrat Johnson MA Attending Clinician Unavailable RYAN CRONIN Attending Clinician Unavailable Elan Mccracken MD Attending Clinician Ryan Croinn MD Attending Clinician Curt SIN, Clarisse Attending Clinician Unavailable Ham GREER, Tessie Attending Clinician Rachael GREER, Matt Attending Clinician [phone] Jane Flood Attending Clinician Maisha Turner MA Attending Clinician Unavailable Provider, Unknown Attending Clinician Unavailable Hernando Bower MD Attending Clinician DONNIE BLAKE JR Attending Clinician Unavailable Hayden Davis MD, Donnie Reilly Attending Clinician [phone] Sharon Echols MD Attending Clinician SAMANTHA YUAN Attending Clinician Unavailable [facility] Main Attending Clinician Unavailable Nicolle Edgar MD Attending Clinician [phone] Aissatou Ludwig MD Attending Clinician JOSH RINALDI Attending Clinician Unavailable [facility] Attending Clinician Unavailable Roseanna Gonzalez RN Attending Clinician MARTIN KENDRICK Attending Clinician Unavailable Didier Ta MD Attending Clinician Martin Kendrick MD Attending Clinician KEESHA CAMPBELL Attending Clinician Unavailable KEESHA CAMPBELL Attending Clinician Unavailable SHARON ECHOLS Attending Clinician Unavailable NICHOLAS LAROSE Attending Clinician Unavailable NICHOLAS LAROSE Attending Clinician Unavailable VICKY AQUINO Attending Clinician Unavailable RAFITA STACY Attending Clinician Unavailable DEON DÍAZ Attending Clinician Unavailable DONNIE RUTLEDGE Admitting Clinician Unavailable TESSIE CHEEK Admitting Clinician Unavailable JOSIE OLIVAS Admitting Clinician Unavailable MARTIN KENDRICK Admitting Clinician Unavailable Martin Kendrick MD Admitting Clinician Payers Payer Name Policy Type Policy Number Effective Date Expiration Date Aspen villar [facility] - [id number] 2005 00:00:00 OUT OF STATE Problems Condition Condition Condition Status Onset Resolution Last Treating Co mments Source Name Details Category Date Date Treatment Clinician Date Physical Physical Disease Active 2021-[address] rajat rajat 00:00: Hospita 00 l Hypertensi Hypertensi Disease Active 2021-09 M ethodi ve urgency ve urgency 11-22 00:00: Hospita 00 l S/P S/P Disease Active 2021-09 Methodi revision revision 11-21 st of total of total 00:00: Hospit a knee, left knee, left 00 l Primary Primary Disease Active 2021-09 Overview: Meth anuradha osteoarthr osteoarthr 10-[address] itis of itis of 00:00: g of this Hospi ta left knee left knee 00 note l might be different from the original. Added automatic ally from request for surgery [id number] Obesity Obesity Disease Active Univers (BMI (BMI 2-26 ity of 30-39.9) 30-39.9) 00:00: [place] [address] Medical Branch Screening Screening Disease Active 2019-09 Overview: Univers for for 11-02 Formattin ity of colorectal colorectal 00:00: g of this [place] cancer cancer 00 note Medical might be Branch different from the original. Added automatic ally from request for surgery [id number] Chest pain Chest pain Disease Active 2016-09 U nivers on on 10-17 [place] of breathing breathing [place] Costochond Costochond Disease Active 2016-09 U nivers ritis ritis 10-17 ity of 00:00: [place] [address] Medical Branch Essential Essential Disease Active 2016-09 Uni vers hypertensi hypertensi 10-17 it y of on on 00:00: [place] [facility] Abnormal Abnormal Disease Active 2016-09 Unive rs CXR CXR 10-11 ity of 00:00: [place] [facility] Chest pain Chest pain Disease Active 2016-09 U nivers 1-12 ity of 00:00: [place] 00 [facility] Branch Diarrhea Diarrhea Disease Active Unive rs 2-01 ity of 00:00: [place] [facility] Branch Renal Renal Disease Active Univers osteodystr osteodystr 5-12 it y of ophy ophy 00:00: [place] [facility] Branch Immunosupp Immunosupp Disease Active U nivers ressive ressive 3-24 it[place] of management [place] 00 [facility] parviz following following Bran ch kidney kidney transplant transplant Hyperkalem Hyperkalem Disease Recurre Univers ia ia nce 1-04 ity of 00:00: [place] 00 [facility] Branch Kidney Kidney Disease Recurre 2014-09 Univers replaced replaced nce 2-19 ity of by by 00:00: [place] transplant transplant 00 Me dical Branch Need for Need for Disease Recurre 2014-09 Univ ers prophylact prophylact nce 2-18 it y of ic ic 00:00: [place] immunother immunother 00 Il dical apy apy Branch Malignant Malignant Disease Recurre Overview: Univers neoplasm neoplasm nce 1-25 Formattin ity of of skin of of skin of 00:00: g of this [place] ear and ear and 00 note Medical external external might be Bran ch auditory auditory different canal canal from the original. ICD10 Diagnosis Term Block Sealer Utility CVA CVA Disease Recurre Univers (cerebral (cerebral nce 1- ity of infarction infarction [place] 00 [facility] Hyperlipem Hyperlipem Disease Recurre Univers ia ia nce 1- ity of 00:00: [place] 00 [facility] Branch HTN HTN Disease Recurre Univers (hypertens (hypertens nce it y of ion), ion), [place] malignant malignant [facility] Branch Basal cell Basal cell Disease Recurre Univers carcinoma carcinoma nce ity of [facility] Squamous Squamous Disease Recurre Univ ers cell cell nce ity of carcinoma carcinoma [facility] Allergies, Adverse Reactions, Alerts Allergy Allergy Status Severity Reaction(s) Onset Inactive Treating Comm ents Source Name Type Date Date Clinician NO KNOWN Drug Active Univers ALLERGIE Class ity of S [facility] Family History Family Member Diagnosis Comments Start Date Stop Date Source Natural father Heart attack [facility] Natural father Heart disease [facility] Natural mother [facility] Social History Social Habit Start Date Stop Date Quantity Comments Source Gender identity 2022-08-10 Identifies as male M ethodist 07:36:36 gender (finding) Hospital Sexual orientation 2022-08-10 Heterosexual Meth odist 07:36:36 (finding) Hospital History SDWI University o f Alcohol Frequency [place] M edical Branch History SDWI University o f Alcohol Std Drinks [place] [facility] History [facility] University o f Alcohol Binge [place] [facility] History of tobacco Occasional tobacco Jewish use smoker Hospital Exposure to 2023-01-11 2023-01-21 Not sure University of SARS-CoV-2 (event) 00:00:00 23:47:00 [facility] History of Social 2022-11-28 2022-11-[address] function 00:00:00 00:00:00 Hospital Alcohol intake 2022-10-31 2022-10-31 Current drinker of Me thodist 00:00:00 00:00:00 alcohol (finding) Hospita l Alcohol Comment 2022-09-08 2022-09-08 "socially" Jewish 00:00:00 00:00:00 Hospital Cigarettes smoked 2022-08-10 2022-08-10 [facility] ([facility] per 00:00:00 00:00:00 Hospita l day) - Reported Cigarette 2022-08-10 2022-08-10 [facility] pack-years 00:00:00 00:00:00 Hospital Tobacco use and 2022-08-10 2022-08-10 User of smokeless [facility] exposure 00:00:00 00:00:00 tobacco Hospital Sex Ass[birth year] At [birth year] M Jewish 00:00:00 00:00:00 Hospital Smoking Status Start Date Stop Date Source Occasional tobacco smoker 2022-08-10 00:00:00 [facility] Smokes tobacco daily 2022-07-14 00:00:00 Alejandro fossy [facility] Medications Ordered Filled Start Stop Current Ordering Indication Dosage Frequency Signature Comments Components Source Medication Medication Date Date Medication? Clinician (SIG) Name Name methylpredn No 125mg 125 mg, U nivers isolone sod 4-30 04-30 Intramuscu i ty of succ 08:00: 08:17 lar, ONCE, [place] (SOLU-MEDRO 00 :00 1 dose, On Me dical L) [place] Branch injection 01/22/23 at 125 mg 0300, MORENO azithromyci 2022-2022- No 500mg 500 mg, U nivers n -30 04-30 Oral, ity of (ZITHROMAX) 07:00: 08:17 [place]CE[place] 1 [place] tablet 500 00 :00 dose, On Medic al mg Sun Branch 01/22/23 at 0200, MORENO
Re ason for Anti-Infec tive: Documented Infection< br>Documen lizbeth Infection Site: Respirator y
Durat ion of Therapy: Other (see Comments) levalbutero 2022-2022- No 1.25mg 1.25 mg, Univers l (XOPENEX) 01-22 04-30 Inhalation i ty of nebulizer 06:30: 06:27 , [place]CE[place] 1 [place] solution 00 :00 dose, On Medical 1.25 mg Anita Branch 01/22/23 at 0130, Routine ipratropium 2022- No .5mg 0.5 mg, Un [place] (ATROVENT) 01-22 04-30 Inhalation it y of 0.02 % 06:30: 06:27 , ONCE, 1 [place] nebulizer 00 :00 dose, On Medica l solution Anita Branch 0.5 mg 01/22/23 at 0130, Routine azithromyci 2022-0 Yes [id number] 250mg Take 1 Univers n 4-30 tablet by ity of (ZITHROMAX 00:00: mouth [place] Z-ESTHELA) 250 00 SEE-INSTRU Med ical mg tablet CTIONS. Branch Take 500 mg day 1, then 250 mg days 2 to 5. predniSONE 2022-0 Yes [id number] 1 PO BID x Univers 20 mg 4-30 4 days ity of tablet 00:00: [place] 00 Medical Branch benzonatate 2022-0 Yes [id number] 200mg Take 1 Univers 200 mg 4-30 capsule by ity of capsule 00:00: mouth 3 [place] 00 (three) Medical times Branch daily as needed for Cough for up to 20 doses. albuterol 2022-0 Yes [id number] 2{puff} Inhale 2 Univers 90 4-30 Puffs ity of mcg/actuati 00:00: every 4 [place] as on inhaler 00 (four) Medical hours as Branch needed for Wheezing or Shortness of Breath. METOPROLOL 0 Yes TAKE 1 Unive rs SUCCINATE 2-27 TABLET ity of XL 100 mg 00:00: TWICE A Medical tablet Branch METOPROLOL 2022-0 Yes TAKE 1 Unive rs SUCCINATE 2-27 TABLET ity of XL 100 mg 00:00: TWICE A Medical tablet Branch METOPROLOL 2022-0 Yes TAKE 1 Unive rs SUCCINATE 2-27 TABLET ity of XL 100 mg 00:00: TWICE A Medical tablet Branch METOPROLOL 0 Yes TAKE 1 Unive rs SUCCINATE 2-27 TABLET ity of XL 100 mg 00:00: TWICE A Medical tablet Branch METOPROLOL 0 Yes TAKE 1 Unive rs SUCCINATE 2-27 TABLET ity of XL 100 mg 00:00: TWICE A Medical tablet Branch METOPROLOL 0 Yes TAKE 1 Unive rs SUCCINATE 2-27 TABLET ity of XL 100 mg 00:00: TWICE A Medical tablet Branch METOPROLOL 0 Yes TAKE 1 Unive rs SUCCINATE 2-27 TABLET ity of XL 100 mg 00:00: TWICE A Medical tablet Branch CLONIDINE 2022-0 Yes [id number] TAKE 1 U nivers 0.3 mg 2-20 TABLET ity of tablet 00:00: TWICE A Medical Branch CLONIDINE 3-0 Yes [id number] TAKE 1 U nivers 0.3 mg 2-20 TABLET ity of tablet 00:00: TWICE A Medical Branch CLONIDINE 3-0 Yes [id number] TAKE 1 U nivers 0.3 mg 2-20 TABLET ity of tablet 00:00: TWICE A Medical Branch CLONIDINE 2023-0 Yes [id number] TAKE 1 U nivers 0.3 mg 2-20 TABLET ity of tablet 00:00: TWICE A Medical Branch CLONIDINE 3-0 Yes [id number] TAKE 1 U nivers 0.3 mg 2-20 TABLET ity of tablet 00:00: TWICE A Medical Branch CLONIDINE 3-0 Yes [id number] TAKE 1 U nivers 0.3 mg 2-20 TABLET ity of tablet 00:00: TWICE A [place] [facility] CLONIDINE 2023-0 Yes [id number] TAKE 1 U nivers 0.3 mg 2-20 TABLET ity of tablet 00:00: TWICE A [place] [facility] CLONIDINE 2023-0 Yes [id number] TAKE 1 U nivers 0.3 mg 2-20 TABLET ity of tablet 00:00: TWICE A [place] [facility] magnesium 2023-0 Yes 400mg Take 1 Unive rs oxide 400 2-08 tablet by ity o f mg (241.3 00:00: [place] mg 00 the Medical magnesium) morning Branch tablet and 1 tablet in the evening. magnesium 2023-0 Yes 400mg Take 1 Unive rs oxide 400 2-08 tablet by ity o f mg (241.3 00:00: [place] mg 00 the Medical magnesium) morning Branch tablet and 1 tablet in the evening. magnesium 2023-0 Yes 400mg Take 1 Unive rs oxide 400 2-08 tablet by ity o f mg (241.3 00:00: [place] mg 00 the Medical magnesium) morning Branch tablet and 1 tablet in the evening. magnesium 2023-0 Yes 400mg Take 1 Unive rs oxide 400 2-08 tablet by ity o f mg (241.3 00:00: [place] mg 00 the Medical magnesium) morning Branch tablet and 1 tablet in the evening. magnesium 2023-0 Yes 400mg Take 1 Unive rs oxide 400 2-08 tablet by ity o f mg (241.3 00:00: [place] mg 00 the Medical magnesium) morning Branch tablet and 1 tablet in the evening. magnesium 2023-0 Yes 400mg Take 1 Unive rs oxide 400 2-08 tablet by ity o f mg (241.3 00:00: [place] mg 00 the Medical magnesium) morning Branch tablet and 1 tablet in the evening. magnesium 2023-0 Yes 400mg Take 1 Unive rs oxide 400 2-08 tablet by ity o f mg (241.3 00:00: [place] mg 00 the Medical magnesium) morning Branch tablet and 1 tablet in the evening. magnesium 2023-0 Yes 400mg Take 1 Unive rs oxide 400 2-08 tablet by ity o f mg (241.3 00:00: [place] mg 00 the Medical magnesium) morning Branch tablet and 1 tablet in the evening. magnesium 2023-0 Yes 400mg Take 1 Unive rs oxide 400 2-08 tablet by ity o f mg (241.3 00:00: [place] mg 00 the Medical magnesium) morning Branch tablet and 1 tablet in the evening. magnesium 2023-0 Yes 400mg Take 1 Unive rs oxide 400 2-08 tablet by ity o f mg (241.3 00:00: [place] mg 00 the Medical magnesium) morning Branch tablet and 1 tablet in the evening. magnesium 2023-0 Yes 400mg Take 1 Unive rs oxide 400 2-08 tablet by ity o f mg (241.3 00:00: [place] mg 00 the Medical magnesium) morning Branch tablet and 1 tablet in the evening. magnesium 2023-0 Yes 400mg Take 1 Unive rs oxide 400 2-08 tablet by ity o f mg (241.3 00:00: [place] mg 00 the Medical magnesium) morning Branch tablet and 1 tablet in the evening. magnesium 2023-0 Yes 400mg Take 1 Unive rs oxide 400 2-08 tablet by ity o f mg (241.3 00:00: [place] mg 00 the Medical magnesium) morning Branch tablet and 1 tablet in the evening. magnesium 2023-0 Yes 400mg Take 1 Unive rs oxide 400 2-08 tablet by ity o f mg (241.3 00:00: [place] mg 00 the Medical magnesium) morning Branch tablet and 1 tablet in the evening. multivitami 2023-0 Yes 1{tbl} QD Take 1 Me thodi n-minerals- 2-[address] lutein 14:45: mouth Hospita tablet 38 daily. l losartan 2023-0 Yes 100mg QD Take 1 Method i (COZAAR) 2-[address] 100 MG 14:45: (100 mg Hospita tablet 38 total) by l mouth daily. HYDROcodone 3-0 2023- No Postsurgic Method[facility] -acetaminop 20 11-[address] hen ([place]) 00:00: 05:59 one tablet Hospita 10-325 mg 00 :00 by mouth l per tablet every 6 hours NEEDED for pain. Must last for 4 weeks amoxicillin Yes Take 4 Meth anuradha (AMOXIL) 1-[address] 500 MG 00:00: one hour Hospita tablet 00 prior to l dental work mycophenola 2022- No 360mg Take 1 Un georgie te sodium 10-0822 tablet by ity of 360 mg EC 00:00: 05:59 mouth [place] tablet 00 :00 every 12 Medical (twelve) Branch hours for 7 days. clindamycin 2022- No 300mg [id number] Take 1 Methodi (CLEOCIN) 09-[id number] 300 MG 00:00: 05:59 3D (300 mg Hospita capsule 00 :00 total) by l mouth 3 (three) times a day for 10 days. amLODIPine 2021-09 No 10mg QD Take 1 Meth anuradha (NORVASC) - tablet (10 st 10 mg 00:00: 05:59 mg total) Hospit a tablet 00 :00 by mouth l daily for 30 days. furosemide 2021-09- No 20mg QD Take 1 Meth anuradha (LASIX) 20 2-30 12-30 tablet (20 st mg tablet 13:59: 00:00 mg total) Ho spita 48 :00 by mouth l daily. bisacodyL 2021-09 Yes 10mg Q24H Take 2 Method i (DULCOLAX) 2-[address] 5 mg EC 00:00: (10 mg Hospita tablet 00 total) by l mouth daily as needed for constipati on. hydrALAZINE 2021-09- No 100mg [id number] Take 1 Methodi (APRESOLINE 2-30 -[id number] ) 100 MG 00:00: 05:59 3D (100 mg Hospi ta tablet 00 :00 total) by l mouth every 8 (eight) hours for 30 days. gabapentin 2021-09 Yes 300mg QD Take 1 Meth anuradha (NEURONTIN) 2-[address] 300 mg 00:00: (300 mg Hospita capsule 00 total) by l mouth nightly. Discontinu e after 30 days. aspirin 325 2021-09- No 325mg QD Take 1 Me thodi MG tablet 11-[address] 00:00: 05:59 (325 mg Hospita 00 :00 total) by l mouth daily for 21 days. Discontinu e taking after 21 days. HYDROcodone 2021-09- No Postsurgic Methodi -acetaminop 11-[address] hen ([place]) 00:00: 05:59 one tablet Hospita 10-325 mg 00 :00 by mouth l per tablet every 6 hours NEEDED for pain. Must last for 2 weeks celecoxib 2021-09 No 200mg Q.5D Take 1 Meth anuradha (CeleBREX) 11-[address] 200 MG 00:00: 00:00 (200 mg Hospita capsule 00 :00 total) by l mouth 2 (two) times a day. HYDROcodone 2021-09 No Postsurgic Methodi -acetaminop 11-[address] hen ([place]) 00:00: 00:00 one tablet Hospita 10-325 mg 00 :00 by mouth l per tablet every 6 hours NEEDED for pain. Must last for 2 weeks mycophenola 2021-09 Yes 360mg Take 1 Uni vers te sodium 2-22 tablet by ity o f 360 mg EC 00:00: mouth [place] tablet 00 every 12 Medical (twelve) Branch hours. mycophenola 2021-09 Yes 360mg Take 1 Uni vers te sodium 2-22 tablet by ity o f 360 mg EC 00:00: mouth [place] tablet 00 every 12 Medical (twelve) Branch hours. mycophenola 2021-09 Yes 360mg Take 1 Uni vers te sodium 2-22 tablet by ity o f 360 mg EC 00:00: mouth [place] tablet 00 every 12 Medical (twelve) Branch hours. mycophenola 2021-09 Yes 360mg Take 1 Uni vers te sodium 2-22 tablet by ity o f 360 mg EC 00:00: mouth [place] tablet 00 every 12 Medical (twelve) Branch hours. mycophenola 2021-09 Yes 360mg Take 1 Uni vers te sodium 2-22 tablet by ity o f 360 mg EC 00:00: mouth [place] tablet 00 every 12 Medical (twelve) Branch hours. mycophenola 2022-1 Yes 360mg Take 1 Uni vers te sodium 2-22 tablet by ity o f 360 mg EC 00:00: mouth [place] tablet 00 every 12 Medical (twelve) Branch hours. mycophenola 2021-09 Yes 360mg Take 1 Uni vers te sodium 2-22 tablet by ity o f 360 mg EC 00:00: mouth [place] tablet 00 every 12 Medical (twelve) Branch hours. mycophenola 2021-09 Yes 360mg Take 1 Uni vers te sodium 2-22 tablet by ity o f 360 mg EC 00:00: mouth [place] tablet 00 every 12 Medical (twelve) Branch hours. mycophenola 2021-09 Yes 360mg Take 1 Uni vers te sodium 2-22 tablet by ity o f 360 mg EC 00:00: mouth [place] tablet 00 every 12 Medical (twelve) Branch hours. mycophenola 2021-09 Yes 360mg Take 1 Uni vers te sodium 2-22 tablet by ity o f 360 mg EC 00:00: mouth [place] tablet 00 every 12 Medical (twelve) Branch hours. mycophenola 2021-09 Yes 360mg Take 1 Uni vers te sodium 2-22 tablet by ity o f 360 mg EC 00:00: mouth [place] tablet 00 every 12 Medical (twelve) Branch hours. mycophenola 2021-09 Yes 360mg Take 1 Uni vers te sodium 2-22 tablet by ity o f 360 mg EC 00:00: mouth [place] tablet 00 every 12 Medical (twelve) Branch hours. mycophenola 2021-09 Yes 360mg Take 1 Uni vers te sodium 2-22 tablet by ity o f 360 mg EC 00:00: mouth [place] tablet 00 every 12 Medical (twelve) Branch hours. mycophenola 2021-09 Yes 360mg Take 1 Uni vers te sodium 2-22 tablet by ity o f 360 mg EC 00:00: mouth [place] tablet 00 every 12 Medical (twelve) Branch hours. mycophenola 2021-09 Yes 360mg Take 1 Uni vers te sodium 2-22 tablet by ity o f 360 mg EC 00:00: mouth [place] tablet 00 every 12 Medical (twelve) Branch hours. mycophenola 2021-09 Yes 360mg Take 1 Uni vers te sodium 2-22 tablet by ity o f 360 mg EC 00:00: mouth [place] tablet 00 every 12 Medical (twelve) Branch hours. mycophenola 2021-09 Yes 360mg Take 1 Uni vers te sodium 2-22 tablet by ity o f 360 mg EC 00:00: mouth [place] tablet 00 every 12 Medical (twelve) Branch hours. mycophenola 2021-09 Yes 360mg Take 1 Uni vers te sodium 2-22 tablet by ity o f 360 mg EC 00:00: mouth [place] tablet 00 every 12 Medical (twelve) Branch hours. mycophenola 2021-09 Yes 360mg Take 1 Uni vers te sodium 2-22 tablet by ity o f 360 mg EC 00:00: mouth [place] tablet 00 every 12 Medical (twelve) Branch hours. mycophenola 2021-09 Yes 360mg Take 1 Uni vers te sodium 2-22 tablet by ity o f 360 mg EC 00:00: mouth [place] tablet 00 every 12 Medical (twelve) Branch hours. mycophenola 2021-09 Yes 360mg Take 1 Uni vers te sodium 2-22 tablet by ity o f 360 mg EC 00:00: mouth [place] tablet 00 every 12 Medical (twelve) Branch hours. nut.tx.comp 2021-09- No 1{bottl Q.5D Take 1 Methodi . immune 2-22 12-30 e} Bottle by st syst,reg 00:00: 00:00 mouth 2 Hosp dami (Impact 00 :00 (two) l Advanced times a Recovery) day for 5 0.1 days. gram-1.12 kcal/mL liquid PROGRAF 2021-09 Yes 1mg Take 1 Univer s mg capsule 2-09 capsule by ity of 00:00: mouth [place] 00 every 12 Medical (twelve) Branch hours. Brand name medically necessary PROGRAF 2021-09 Yes 1mg Take 1 Univer s mg capsule 2-09 capsule by ity of 00:00: mouth [place] 00 every 12 Medical (twelve) Branch hours. Brand name medically necessary PROGRAF 2021-09 Yes 1mg Take 1 Univer s mg capsule 2-09 capsule by ity of 00:00: mouth [place] 00 every 12 Medical (twelve) Branch hours. Brand name medically necessary PROGRAF 2021-09 Yes 1mg Take 1 Univer s mg capsule 2-09 capsule by ity of 00:00: mouth [place] 00 every 12 Medical (twelve) Branch hours. Brand name medically necessary PROGRAF 2021-09 Yes 1mg Take 1 Univer s mg capsule 2-09 capsule by ity of 00:00: mouth [place] 00 every 12 Medical (twelve) Branch hours. Brand name medically necessary PROGRAF 1 2021-09 Yes 1mg Take 1 Univer s mg capsule 2-09 capsule by ity of 00:00: mouth [place] 00 every 12 Medical (twelve) Branch hours. Brand name medically necessary PROGRAF 1 2021-09 Yes 1mg Take 1 Univer s mg capsule 2-09 capsule by ity of 00:00: mouth [place] 00 every 12 Medical (twelve) Branch hours. Brand name medically necessary PROGRAF 1 2021-09 Yes 1mg Take 1 Univer s mg capsule 2-09 capsule by ity of 00:00: mouth [place] 00 every 12 Medical (twelve) Branch hours. Brand name medically necessary PROGRAF 1 2021-09 Yes 1mg Take 1 Univer s mg capsule 2-09 capsule by ity of 00:00: mouth [place] 00 every 12 Medical (twelve) Branch hours. Brand name medically necessary PROGRAF 1 2021-09 Yes 1mg Take 1 Univer s mg capsule 2-09 capsule by ity of 00:00: mouth [place] 00 every 12 Medical (twelve) Branch hours. Brand name medically necessary PROGRAF 1 2021-09 Yes 1mg Take 1 Univer s mg capsule 2-09 capsule by ity of 00:00: mouth [place] 00 every 12 Medical (twelve) Branch hours. Brand name medically necessary PROGRAF 1 2021-09 Yes 1mg Take 1 Univer s mg capsule 2-09 capsule by ity of 00:00: mouth [place] 00 every 12 Medical (twelve) Branch hours. Brand name medically necessary PROGRAF 1 2021-09 Yes 1mg Take 1 Univer s mg capsule 2-09 capsule by ity of 00:00: mouth [place] 00 every 12 Medical (twelve) Branch hours. Brand name medically necessary PROGRAF 1 2021-09 Yes 1mg Take 1 Univer s mg capsule 2-09 capsule by ity of 00:00: mouth [place] 00 every 12 Medical (twelve) Branch hours. Brand name medically necessary PROGRAF 1 2021-09 Yes 1mg Take 1 Univer s mg capsule 2-09 capsule by ity of 00:00: mouth [place] 00 every 12 Medical (twelve) Branch hours. Brand name medically necessary PROGRAF 1 2021-09 Yes 1mg Take 1 Univer s mg capsule 2-09 capsule by ity of 00:00: mouth [place] 00 every 12 Medical (twelve) Branch hours. Brand name medically necessary PROGRAF 1 2021-09 Yes 1mg Take 1 Univer s mg capsule 2-09 capsule by ity of 00:00: mouth [place] 00 every 12 Medical (twelve) Branch hours. Brand name medically necessary PROGRAF 1 2021-09 Yes 1mg Take 1 [facility] mg capsule 2-09 capsule by ity of 00:00: mouth [place] 00 every 12 Medical (twelve) Branch hours. Brand name medically necessary PROGRAF 1 2021-09 Yes 1mg Take 1 [facility] mg capsule 2-09 capsule by ity of 00:00: mouth [place] 00 every 12 Medical (twelve) Branch hours. Brand name medically necessary PROGRAF 1 2021-09 Yes 1mg Take 1 [facility] mg capsule 2-09 capsule by ity of 00:00: mouth [place] 00 every 12 Medical (twelve) Branch hours. Brand name medically necessary PROGRAF 1 2021-09 Yes 1mg Take 1 [facility] mg capsule 2-09 capsule by ity of 00:00: mouth [place] 00 every 12 Medical (twelve) Branch hours. Brand name medically necessary PROGRAF 1 2021-09 Yes 1mg Take 1 [facility] mg capsule 2-09 capsule by ity of 00:00: mouth [place] 00 every 12 Medical (twelve) Branch hours. Brand name medically necessary PROGRAF 1 2021-09 Yes 1mg Take 1 [facility] mg capsule 2-06 capsule by ity of 00:00: mouth [place] 00 every 12 Medical (twelve) Branch hours. PROGRAF 2021-09- No 1mg Take 1 [facility] mg capsule 2-06 12-09 capsule by it y of 00:00: 00:00 mouth [place] 00 :00 every 12 Medical (twelve) Branch hours. PROGRAF 1 2021-09 Yes 1mg Take 1 [facility] mg capsule 1-21 capsule by ity of 00:00: mouth [place] 00 every 12 Medical (twelve) Branch hours. PROGRAF 1 2021-09 Yes 1mg Take 1 [facility] mg capsule 1-21 capsule by ity of 00:00: mouth [place] 00 every 12 Medical (twelve) Branch hours. PROGRAF 1 2021-09 Yes 1mg Take 1 [facility] mg capsule 1-21 capsule by ity of 00:00: mouth [place] 00 every 12 Medical (twelve) Branch hours. PROGRAF 1 1 Yes 1mg Take 1 [facility] mg capsule 1-21 capsule by ity of 00:00: mouth [place] 00 every 12 Medical (twelve) Branch hours. PROGRAF 2021-09 Yes 1mg Take 1 [facility] mg capsule 1-21 capsule by ity of 00:00: mouth [place] 00 every 12 Medical (twelve) Branch hours. PROGRAF 2021-09 Yes 1mg Take 1 [facility] mg capsule 1-21 capsule by ity of 00:00: mouth [place] 00 every 12 Medical (twelve) Branch hours. PROGRAF 2021-09 Yes 1mg Take 1 [facility] mg capsule 1-21 capsule by ity of 00:00: mouth [place] 00 every 12 Medical (twelve) Branch hours. PROGRAF 2021-09 Yes 1mg Take 1 [facility] mg capsule 1-21 capsule by ity of 00:00: mouth [place] 00 every 12 Medical (twelve) Branch hours. PROGRAF 2021-09- No 1mg Take 1 [facility] mg capsule 1-21 12-06 capsule by it y of 00:00: 00:00 mouth [place] 00 :00 every 12 Medical (twelve) Branch hours. magnesium 2021-09 Yes 400mg Take 1 [facility] oxide 400 1-18 tablet by ity o f mg (241.3 00:00: mouth [place] mg 00 the Medical magnesium) morning Branch tablet and 1 tablet in the evening. magnesium 2021-09 Yes 400mg Take 1 [facility] oxide 400 1-18 tablet by ity o f mg (241.3 00:00: mouth [place] mg 00 the Medical magnesium) morning Branch tablet and 1 tablet in the evening. magnesium 2021-09 Yes 400mg Take 1 [facility] oxide 400 1-18 tablet by ity o f mg (241.3 00:00: mouth [place] mg 00 the Medical magnesium) morning Branch tablet and 1 tablet in the evening. magnesium 2021-09 Yes 400mg Take 1 [facility] oxide 400 1-18 tablet by ity o f mg (241.3 00:00: mouth [place] mg 00 the Medical magnesium) morning Branch tablet and 1 tablet in the evening. magnesium 2021-09 Yes 400mg Take 1 [facility] oxide 400 1-18 tablet by ity o f mg (241.3 00:00: mouth [place] mg 00 the Medical magnesium) morning Branch tablet and 1 tablet in the evening. magnesium 2022-1 Yes 400mg Take 1 [facility] oxide 400 1-18 tablet by ity o f mg (241.3 00:00: mouth [place] mg 00 the Medical magnesium) morning Branch tablet and 1 tablet in the evening. magnesium 2022-1 Yes 400mg Take 1 [facility] oxide 400 1-18 tablet by ity o f mg (241.3 00:00: mouth [place] mg 00 the Medical magnesium) morning Branch tablet and 1 tablet in the evening. magnesium 2022-1 Yes 400mg Take 1 [facility] oxide 400 1-18 tablet by ity o f mg (241.3 00:00: mouth [place] mg 00 the Medical magnesium) morning Branch tablet and 1 tablet in the evening. magnesium 2022-1 Yes 400mg Take 1 [facility] oxide 400 1-18 tablet by ity o f mg (241.3 00:00: mouth [place] mg 00 the Medical magnesium) morning Branch tablet and 1 tablet in the evening. magnesium 2022-1 Yes 400mg Take 1 [facility] oxide 400 1-18 tablet by ity o f mg (241.3 00:00: mouth [place] mg 00 the Medical magnesium) morning Branch tablet and 1 tablet in the evening. magnesium 2022-1 Yes 400mg Take 1 [facility] oxide 400 1-18 tablet by ity o f mg (241.3 00:00: mouth [place] mg 00 the Medical magnesium) morning Branch tablet and 1 tablet in the evening. magnesium 2022-1 Yes 400mg Take 1 [facility] oxide 400 1-18 tablet by ity o f mg (241.3 00:00: mouth [place] mg 00 the Medical magnesium) morning Branch tablet and 1 tablet in the evening. magnesium 2022-1 Yes 400mg Take 1 [facility] oxide 400 1-18 tablet by ity o f mg (241.3 00:00: mouth [place] mg 00 the Medical magnesium) morning Branch tablet and 1 tablet in the evening. magnesium 2022-1 Yes 400mg Take 1 [facility] oxide 400 1-18 tablet by ity o f mg (241.3 00:00: mouth [place] mg 00 the Medical magnesium) morning Branch tablet and 1 tablet in the evening. magnesium 2021-09 Yes 400mg Take 1 [facility] oxide 400 1-18 tablet by ity o f mg (241.3 00:00: mouth [place] mg 00 the Medical magnesium) morning Branch tablet and 1 tablet in the evening. magnesium 2021-09 Yes 400mg Take 1 [facility] oxide 400 1-18 tablet by ity o f mg (241.3 00:00: mouth [place] mg 00 the Medical magnesium) morning Branch tablet and 1 tablet in the evening. magnesium 2021-09 Yes 400mg Take 1 [facility] oxide 400 1-18 tablet by ity o f mg (241.3 00:00: mouth [place] mg 00 the Medical magnesium) morning Branch tablet and 1 tablet in the evening. magnesium 2021-09 Yes 400mg Take 1 [facility] oxide 400 1-18 tablet by ity o f mg (241.3 00:00: mouth [place] mg 00 the Medical magnesium) morning Branch tablet and 1 tablet in the evening. magnesium 2021-09- No 400mg Take 1 [facility] oxide 400 1-18 02-08 tablet by ity of mg (241.3 00:00: 00:00 mouth in [place] mg 00 :00 the Medical magnesium) morning Branch tablet and 1 tablet in the evening. tacrolimus 2021-09 Yes 1mg Take 1 [facility] (PROGRAF) 1 1-16 capsule by it y of mg capsule 00:00: mouth [place] 00 every 12 Medical (twelve) Branch hours. tacrolimus 2021-09 Yes 1mg Take 1 [facility] (PROGRAF) 1 1-16 capsule by it y of mg capsule 00:00: mouth [place] 00 every 12 Medical (twelve) Branch hours. tacrolimus 2021-09- No 1mg Take 1 [facility] (PROGRAF) 1 1-16 11-21 capsule by i ty of mg capsule 00:00: 00:00 mouth [place] 00 :00 every 12 Medical (twelve) Branch hours. MULTIVITAMI 2021-09 Yes Take by [facility] N ORAL 1-14 mouth. ity of 08:15: [address] Branch MULTIVITAMI 2021-09 Yes Take by [facility] N ORAL 1-14 mouth. ity of 08:15: [address] MULTIVITAMI 2021-09 Yes Take by [facility] N ORAL 1-14 mouth. ity of 08:15: [place] [address] Medical [place] MULTIVITAMI 2021-09 Yes Take by [facility] N ORAL 1-14 mouth. ity of 08:15: [place] [address] Medical Branch MULTIVITAMI 2021-09 Yes Take by [facility] N ORAL 1-14 mouth. ity of 08:15: [place] [address] Medical [place] MULTIVITAMI 2021-09 Yes Take by [facility] N ORAL 1-14 mouth. ity of 08:15: [place] [address] Medical Branch MULTIVITAMI 2021-09 Yes Take by [facility] N ORAL 1-14 mouth. ity of 08:15: [place] [address] Medical [place] MULTIVITAMI 2021-09 Yes Take by [facility] N ORAL 1-14 mouth. ity of 08:15: [address] MULTIVITAMI 2021-09 Yes Take by [facility] N ORAL 1-14 mouth. ity of 08:15: [address] MULTIVITAMI 2021-09 Yes Take by [facility] N ORAL 1-14 mouth. ity of 08:15: [address] MULTIVITAMI 2021-09 Yes Take by [facility] N ORAL 1-14 mouth. ity of 08:15: [address] MULTIVITAMI 2021-09 Yes Take by [facility] N ORAL 1-14 mouth. ity of 08:15: [address] MULTIVITAMI 2021-09 Yes Take by [facility] N ORAL 1-14 mouth. ity of 08:15: [address] MULTIVITAMI 2021-09 Yes Take by [facility] N ORAL 1-14 mouth. ity of 08:15: [place] [address] Medical [place] MULTIVITAMI 2021-09 Yes Take by [facility] vers N ORAL 1-14 mouth. ity of 08:15: [address] MULTIVITAMI 2021-09 Yes Take by [facility] N ORAL 1-14 mouth. ity of 08:15: [place] [address] Medical [place] MULTIVITAMI 2021-09 Yes Take by [facility] N ORAL 1-14 mouth. ity of 08:15: [address] MULTIVITAMI 2021-09 Yes Take by [facility] N ORAL 1-14 mouth. ity of 08:15: [place] [address] Medical [place] MULTIVITAMI 2021-09 Yes Take by [facility] N ORAL 1-14 mouth. ity of 08:15: [address] MULTIVITAMI 2021-09 Yes Take by [facility] N ORAL 1-14 mouth. ity of 08:15: [address] MULTIVITAMI 2021-09 Yes Take by [facility] N ORAL 1-14 mouth. ity of 08:15: [address] MULTIVITAMI 2021-09 Yes Take by [facility] N ORAL 1-14 mouth. ity of 08:15: [place] [address] Medical [place] MULTIVITAMI 2021-09 Yes Take by [facility] N ORAL 1-14 mouth. ity of 08:15: [place] [address] Medical [place] MULTIVITAMI 2021-09 Yes Take by [facility] N ORAL 1-14 mouth. ity of 08:15: [address] MULTIVITAMI 2021-09 Yes Take by [facility] N ORAL 1-14 mouth. ity of 08:15: [address] MULTIVITAMI 2021-09 Yes Take by [facility] N ORAL 1-14 mouth. ity of 08:15: [address] MULTIVITAMI 2021-09 Yes Take by [facility] N ORAL 1-14 mouth. ity of 08:15: [address] MULTIVITAMI 2021-09 Yes Take by [facility] N ORAL 1-14 mouth. ity of 08:15: [address] MULTIVITAMI 2021-09 Yes Take by [facility] N ORAL 1-14 mouth. ity of 08:15: [address] MULTIVITAMI 2021-09 Yes Take by [facility] N ORAL 1-14 mouth. ity of 08:15: [address] MULTIVITAMI 2021-09 Yes Take by [facility] N ORAL 1-14 mouth. ity of 08:15: [address] MULTIVITAMI 2021-09 Yes Take by [facility] N ORAL 1-14 mouth. ity of 08:15: [address] MULTIVITAMI 2021-09 Yes Take by [facility] N ORAL 1-14 mouth. ity of 08:15: [address] MULTIVITAMI 2021-09 Yes Take by [facility] N ORAL 1-14 mouth. ity of 08:15: [address] MULTIVITAMI 2021-09 Yes Take by [facility] N ORAL 1-14 mouth. ity of 08:15: [address] MULTIVITAMI 2021-09 Yes Take by [facility] vers N ORAL 1-14 mouth. ity of 08:15: [address] MULTIVITAMI 2021-09 Yes Take by [facility] vers N ORAL 1-14 mouth. ity of 08:15: [address] MULTIVITAMI 2021-09 Yes Take by Uni vers N ORAL 1-14 mouth. ity of 08:15: [address] Branch tacrolimus 2021-09 Yes 1mg Take 1 [facility] rs (PROGRAF) 1 1-10 capsule by it y of mg capsule 00:00: mouth [place] 00 every 12 Medical ([facility]) Branch hours. TAKE 2 CAPSULES IN THE MORNING AND 1 CAPSULE IN THE EVENING tacrolimus 2021-09 Yes 1mg Take 1 [facility] rs (PROGRAF) 1 1-10 capsule by it y of mg capsule 00:00: mouth [place] 00 every 12 Medical (twelve) Branch hours. TAKE 2 CAPSULES IN THE MORNING AND 1 CAPSULE IN THE EVENING tacrolimus 2021-09 Yes 1mg Take 1 [facility] (PROGRAF) 1 1-10 capsule by it y of mg capsule 00:00: mouth [place] 00 every 12 Medical ([facility]) Branch hours. TAKE 2 CAPSULES IN THE MORNING AND 1 CAPSULE IN THE EVENING tacrolimus 2021-09 Yes 1mg Take 1 [facility] (PROGRAF) 1 1-10 capsule by it y of mg capsule 00:00: mouth [place] 00 every 12 Medical ([facility]) Branch hours. TAKE 2 CAPSULES IN THE MORNING AND 1 CAPSULE IN THE EVENING tacrolimus 2021-09- No 1mg Take 1 [facility] ers (PROGRAF) 1 1-10 11-16 capsule by i ty of mg capsule 00:00: 00:00 mouth [place] 00 :00 every 12 [facility] (twelve) Branch hours. TAKE 2 CAPSULES IN THE MORNING AND 1 CAPSULE IN THE EVENING hydrALAZINE 2021-09 Yes 50mg Take 1 Univ ers 50 mg 1-09 tablet by ity of tablet 00:00: mouth in [place] 00 the Medical morning Branch and 1 tablet in the evening. hydrALAZINE 2021-09 Yes 50mg Take 1 [facility] ers 50 mg 1-09 tablet by ity of tablet 00:00: mouth in [place] 00 the Medical morning Branch and 1 tablet in the evening. hydrALAZINE 2021-09 Yes 50mg Take 1 [facility] ers 50 mg 1-09 tablet by ity of tablet 00:00: mouth in [place] [address] the Medical morning Branch and 1 tablet in the evening. hydrALAZINE 2022-1 Yes 50mg Take 1 [facility] ers 50 mg 1-09 tablet by ity of tablet 00:00: mouth in [place] 00 the Medical morning Branch and 1 tablet in the evening. hydrALAZINE 2022-1 Yes 50mg Take 1 [facility] 50 mg 1-09 tablet by ity of tablet 00:00: mouth in [place] 00 the Medical morning Branch and 1 tablet in the evening. hydrALAZINE 2022-1 Yes 50mg Take 1 [facility] ers 50 mg 1-09 tablet by ity of tablet 00:00: mouth in [place] 00 the Medical morning Branch and 1 tablet in the evening. hydrALAZINE 2-1 Yes 50mg Take 1 [facility] ers 50 mg 1-09 tablet by ity of tablet 00:00: mouth in [place] [address] the Medical morning Branch and 1 tablet in the evening. hydrALAZINE 2-1 Yes 50mg Take 1 [facility] ers 50 mg 1-09 tablet by ity of tablet 00:00: mouth in [place] [address] the Medical morning Branch and 1 tablet in the evening. hydrALAZINE 2-1 Yes 50mg Take 1 [facility] ers 50 mg 1-09 tablet by ity of tablet 00:00: mouth in [place] [address] the Medical morning Branch and 1 tablet in the evening. hydrALAZINE 2-1 Yes 50mg Take 1 [facility] 50 mg 1-09 tablet by ity of tablet 00:00: mouth in [place] [address] the Medical morning Branch and 1 tablet in the evening. hydrALAZINE 2-1 Yes 50mg Take 1 [facility] 50 mg 1-09 tablet by ity of tablet 00:00: mouth in [place] [address] the Medical morning Branch and 1 tablet in the evening. hydrALAZINE 2-1 Yes 50mg Take 1 [facility] 50 mg 1-09 tablet by ity of tablet 00:00: mouth in [place] [address] the Medical morning Branch and 1 tablet in the evening. hydrALAZINE 2022-1 Yes 50mg Take 1 [facility] 50 mg 1-09 tablet by ity of tablet 00:00: mouth in [place] [address] the Medical morning Branch and 1 tablet in the evening. hydrALAZINE 2022-1 Yes 50mg Take 1 [facility] 50 mg 1-09 tablet by ity of tablet 00:00: mouth in [place] [address] the Medical morning Branch and 1 tablet in the evening. hydrALAZINE 2-1 Yes 50mg Take 1 [facility] 50 mg 1-09 tablet by ity of tablet 00:00: mouth in [place] 00 the Medical morning Branch and 1 tablet in the evening. hydrALAZINE 2-1 Yes 50mg Take 1 [facility] 50 mg 1-09 tablet by ity of tablet 00:00: mouth in [place] 00 the Medical morning Branch and 1 tablet in the evening. hydrALAZINE 2-1 Yes 50mg Take 1 [facility] 50 mg 1-09 tablet by ity of tablet 00:00: mouth in [place] 00 the Medical morning Branch and 1 tablet in the evening. hydrALAZINE 2-1 Yes 50mg Take 1 [facility] ers 50 mg 1-09 tablet by ity of tablet 00:00: mouth in [place] 00 the Medical morning Branch and 1 tablet in the evening. hydrALAZINE 2-1 Yes 50mg Take 1 [facility] ers 50 mg 1-09 tablet by ity of tablet 00:00: mouth in [place] [address] the Medical morning Branch and 1 tablet in the evening. hydrALAZINE 2-1 Yes 50mg Take 1 [facility] ers 50 mg 1-09 tablet by ity of tablet 00:00: mouth in [place] [address] the Medical morning Branch and 1 tablet in the evening. hydrALAZINE 2-1 Yes 50mg Take 1 [facility] ers 50 mg 1-09 tablet by ity of tablet 00:00: mouth in [place] [address] the Medical morning Branch and 1 tablet in the evening. hydrALAZINE 2-1 Yes 50mg Take 1 [facility] 50 mg 1-09 tablet by ity of tablet 00:00: mouth in [place] [address] the Medical morning Branch and 1 tablet in the evening. hydrALAZINE 2-1 Yes 50mg Take 1 [facility] ers 50 mg 1-09 tablet by ity of tablet 00:00: mouth in [place] [address] the Medical morning Branch and 1 tablet in the evening. hydrALAZINE 2022-1 Yes 50mg Take 1 [facility] ers 50 mg 1-09 tablet by ity of tablet 00:00: mouth in [place] [address] the Medical morning Branch and 1 tablet in the evening. hydrALAZINE 2-1 Yes 50mg Take 1 [facility] ers 50 mg 1-09 tablet by ity of tablet 00:00: mouth in [place] [address] the Medical morning Branch and 1 tablet in the evening. hydrALAZINE 2-1 Yes 50mg Take 1 [facility] ers 50 mg 1-09 tablet by ity of tablet 00:00: mouth in [place] 00 the Medical morning Branch and 1 tablet in the evening. hydrALAZINE 2021-1 Yes 50mg Take 1 [facility] ers 50 mg 1-09 tablet by ity of tablet 00:00: mouth in [place] 00 the Medical morning Branch and 1 tablet in the evening. hydrALAZINE 2021-1 Yes 50mg Take 1 [facility] ers 50 mg 1-09 tablet by ity of tablet 00:00: mouth in [place] [address] the Medical morning Branch and 1 tablet in the evening. hydrALAZINE 2021-1 Yes 50mg Take 1 [facility] ers 50 mg 1-09 tablet by ity of tablet 00:00: mouth in [place] [address] the Medical morning Branch and 1 tablet in the evening. hydrALAZINE 2021-1 Yes 50mg Take 1 [facility] 50 mg 1-09 tablet by ity of tablet 00:00: mouth in [place] [address] the Medical morning Branch and 1 tablet in the evening. hydrALAZINE 2021-1 Yes 50mg Take 1 [facility] ers 50 mg 1-09 tablet by ity of tablet 00:00: mouth in [place] [address] the Medical morning Branch and 1 tablet in the evening. hydrALAZINE 2021-1 Yes 50mg Take 1 [facility] ers 50 mg 1-09 tablet by ity of tablet 00:00: mouth in [place] [address] the Medical morning Branch and 1 tablet in the evening. hydrALAZINE 2021-1 Yes 50mg Take 1 [facility] ers 50 mg 1-09 tablet by ity of tablet 00:00: mouth in [place] [address] the Medical morning Branch and 1 tablet in the evening. hydrALAZINE 2021-1 Yes 50mg Take 1 [facility] ers 50 mg 1-09 tablet by ity of tablet 00:00: mouth in [place] [address] the Medical morning Branch and 1 tablet in the evening. hydrALAZINE 2-1 Yes 50mg Take 1 [facility] ers 50 mg 1-09 tablet by ity of tablet 00:00: mouth in [place] [address] the Medical morning Branch and 1 tablet in the evening. hydrALAZINE 2-1 Yes 50mg Take 1 [facility] ers 50 mg 1-09 tablet by ity of tablet 00:00: mouth in [place] [address] the Medical morning [place] and 1 tablet in the evening. hydrALAZINE 2-1 Yes 50mg Take 1 [facility] ers 50 mg 1-09 tablet by ity of tablet 00:00: mouth in [place] [address] the Medical morning Branch and 1 tablet in the evening. hydrALAZINE 2021-1 Yes 50mg Take 1 [facility] ers 50 mg 1-09 tablet by ity of tablet 00:00: mouth in [place] [address] the Medical morning Branch and 1 tablet in the evening. hydrALAZINE 2021-1 Yes 50mg Take 1 [facility] ers 50 mg 1-09 tablet by ity of tablet 00:00: mouth in [place] [address] the Medical morning Branch and 1 tablet in the evening. hydrALAZINE 2021-1 Yes 50mg Take 1 [facility] ers 50 mg 1-09 tablet by ity of tablet 00:00: mouth in [place] [address] the Medical morning [place] and 1 tablet in the evening. hydrALAZINE 2021-1 Yes 50mg Take 1 [facility] ers 50 mg 1-09 tablet by ity of tablet 00:00: mouth in [place] [address] the Medical morning [place] and 1 tablet in the evening. hydrALAZINE 2021-1 Yes 50mg Take 1 [facility] ers 50 mg 1-09 tablet by ity of tablet 00:00: mouth in [address] morning [place] and 1 tablet in the evening. hydrALAZINE 2021- Yes 50mg Take 1 [facility] ers 50 mg 1-09 tablet by ity of tablet 00:00: mouth in [address] morning [place] and 1 tablet in the evening. hydrALAZINE 2021-2021- No 50mg Q.5D Take 1 Met [facility] (APRESOLINE 10-03 12-30 tablet (50 s t ) 50 MG 00:00: 00:00 mg total) [facility] tablet 00 :00 by mouth 2 l (two) times a day. hydrALAZINE 2021-1 Yes 50mg Take 1 [facility] ers 50 mg 1-07 tablet by ity of tablet 00:00: mouth in [address] morning [place] and 1 tablet in the evening. hydrALAZINE 2021-1 Yes 50mg Take 1 [facility] 50 mg 1-07 tablet by ity of tablet 00:00: mouth in [address] morning [place] and 1 tablet in the evening. hydrALAZINE 2021-1 Yes 50mg Take 1 [facility] ers 50 mg 1-07 tablet by ity of tablet 00:00: mouth in [address] morning [place] and 1 tablet in the evening. hydrALAZINE 2021-09 Yes 50mg Take 1 [facility] ers 50 mg 1-07 tablet by ity of tablet 00:00: mouth in [place] 00 the Medical morning Branch and 1 tablet in the evening. hydrALAZINE 2021-1 Yes 50mg Take 1 [facility] ers 50 mg 1-07 tablet by ity of tablet 00:00: mouth in [place] 00 the Medical morning Branch and 1 tablet in the evening. hydrALAZINE 2021- Yes 50mg Take 1 [facility] ers 50 mg 1-07 tablet by ity of tablet 00:00: mouth in [place] 00 the Medical morning Branch and 1 tablet in the evening. hydrALAZINE 2021-09 Yes 50mg Take 1 [facility] ers 50 mg 1-07 tablet by ity of tablet 00:00: mouth in [place] 00 the Medical morning Branch and 1 tablet in the evening. hydrALAZINE 2021-09 Yes 50mg Take 1 [facility] ers 50 mg 1-07 tablet by ity of tablet 00:00: mouth in [place] 00 the Medical morning Branch and 1 tablet in the evening. hydrALAZINE 2021-09 Yes 50mg Take 1 [facility] ers 50 mg 1-07 tablet by ity of tablet 00:00: mouth in [place] 00 the Medical morning Branch and 1 tablet in the evening. hydrALAZINE 2021-09 Yes 50mg Take 1 [facility] ers 50 mg 1-07 tablet by ity of tablet 00:00: mouth in [place] 00 the Medical morning Branch and 1 tablet in the evening. hydrALAZINE 2021-09- No 50mg Take 1 Uni vers 50 mg 1-07 11-14 tablet by ity of tablet 00:00: 00:00 mouth in [place] 00 :00 the Medical morning Branch and 1 tablet in the evening. hydrALAZINE 2021-09- No 50mg Take 1 Uni vers 50 mg 1-07 11-14 tablet by ity of tablet 00:00: 00:00 mouth in [place] 00 :00 the Medical morning Branch and 1 tablet in the evening. hydrALAZINE 2021-2021- No 50mg Take 1 Uni vers 50 mg 1-07 11-14 tablet by ity of tablet 00:00: 00:00 mouth in [place] 00 :00 the Medical morning Branch and 1 tablet in the evening. hydrALAZINE 2021-2021- No 50mg Take 1 Uni vers 50 mg 1-07 11-14 tablet by ity of tablet 00:00: 00:00 mouth in [place] 00 :00 the Medical morning Branch and 1 tablet in the evening. hydrALAZINE 2021-09 No 50mg Take 1 Uni vers 50 mg 10-01 tablet by ity of tablet 00:00: 00:00 mouth in [place] 00 :00 the Medical morning Branch and 1 tablet in the evening. calcipotrie 2021-09- No [id number] Apply to [facility] 024 10-29 area(s) 2 it y of acil cream 00:00: 04:59 (two) [place] 00 :00 times Medical daily for Branch 4 days. Apply to affected areas twice daily for 4 days. Stop use early if bleeding, blistering , or pain without touching occurs. Prograf 2021-09 Yes Q.5D Take by [facility] mg capsule 0-[address] 00:00: (two) [facility] 00 times a l day. losartan 2021-09 No [facility] (COZAAR) 25 0-04 12-15 st MG tablet 00:00: 00:00 Hospita 00 :00 l pantoprazol Yes 40mg QD 1 tablet Me thodi e 9-06 ([address] (PROTONIX) 00:00: total) Hospi ta 40 MG EC 00 daily. l tablet atorvastati Yes 40mg QD Take 1 Meth anuradha n (LIPITOR) 8-20 tablet (40 st 40 mg 00:00: mg total) Hospita tablet 00 by mouth l daily. PROGRAF Yes TAKE 2 Univer s mg capsule 7-20 CAPSULES ity o f 00:00: IN THE [place] MORNING Medical AND 1 Branch CAPSULE IN THE EVENING PROGRAF Yes TAKE 2 Univer s mg capsule 7-20 CAPSULES ity o f 00:00: IN THE [place] MORNING Medical AND 1 Branch CAPSULE IN THE EVENING PROGRAF Yes TAKE 2 Univer s mg capsule 7-20 CAPSULES ity o f 00:00: IN THE [place] MORNING Medical AND 1 Branch CAPSULE IN THE EVENING PROGRAF Yes TAKE 2 Univer s mg capsule 7-20 CAPSULES ity o f 00:00: IN THE [place] [address] MORNING Medical AND 1 Branch CAPSULE IN THE EVENING PROGRAF Yes TAKE 2 Univer s mg capsule 7-20 CAPSULES ity o f 00:00: IN THE [place] MORNING Medical AND 1 Branch CAPSULE IN THE EVENING PROGRAF Yes TAKE 2 Univer s mg capsule 7-20 CAPSULES ity o f 00:00: IN THE [place] MORNING Medical AND 1 Branch CAPSULE IN THE EVENING PROGRAF Yes TAKE 2 Univer s mg capsule 7-20 CAPSULES ity o f 00:00: IN THE [place] MORNING Medical AND 1 Branch CAPSULE IN THE EVENING PROGRAF Yes TAKE 2 Univer s mg capsule 7-20 CAPSULES ity o f 00:00: IN THE [place] MORNING Medical AND 1 Branch CAPSULE IN THE EVENING PROGRAF Yes TAKE 2 Univer s mg capsule 7-20 CAPSULES ity o f 00:00: IN THE [place] MORNING Medical AND 1 Branch CAPSULE IN THE EVENING PROGRAF Yes TAKE 2 Univer s mg capsule 7-20 CAPSULES ity o f 00:00: IN THE [place] MORNING Medical AND 1 Branch CAPSULE IN THE EVENING PROGRAF Yes TAKE 2 Univer s mg capsule 7-20 CAPSULES ity o f 00:00: IN THE [place] MORNING Medical AND 1 Branch CAPSULE IN THE EVENING PROGRAF Yes TAKE 2 Univer s mg capsule 7-20 CAPSULES ity o f 00:00: IN THE [place] MORNING Medical AND 1 Branch CAPSULE IN THE EVENING PROGRAF Yes TAKE 2 Univer s mg capsule 7-20 CAPSULES ity o f 00:00: IN THE [place] MORNING Medical AND 1 Branch CAPSULE IN THE EVENING PROGRAF 2021- No TAKE 2 Unive rs mg capsule 7-20 11-10 CAPSULES ity of 00:00: 00:00 IN THE [place] 00 :00 MORNING Medical AND 1 Branch CAPSULE IN THE EVENING PROGRAF 2021- No TAKE 2 Unive rs mg capsule 7-20 11-10 CAPSULES ity of 00:00: 00:00 IN THE [place] 00 :00 MORNING Medical AND 1 Branch CAPSULE IN THE EVENING PROGRAF 2021- No TAKE 2 [facility] mg capsule 7-20 11-10 CAPSULES ity of 00:00: 00:00 IN THE [place] 00 :00 MORNING Medical AND 1 Branch CAPSULE IN THE EVENING PROGRAF 1 2021- No TAKE 2 [facility] rs mg capsule 7-20 11-10 CAPSULES ity of 00:00: 00:00 IN THE [place] 00 :00 MORNING Medical AND 1 Branch CAPSULE IN THE EVENING PROGRAF 1 Yes TAKE 2 [facility] mg capsule 7-06 CAPSULES ity o f 00:00: IN THE [place] MORNING Medical AND 1 Branch CAPSULE IN THE EVENING PROGRAF 1 Yes TAKE 2 [facility] mg capsule 7-06 CAPSULES ity o f 00:00: IN THE [place] [address] MORNING Medical AND 1 Branch CAPSULE IN THE EVENING PROGRAF 1 Yes TAKE 2 [facility] mg capsule 7-06 CAPSULES ity o f 00:00: IN THE [place] [address] MORNING Medical AND 1 Branch CAPSULE IN THE EVENING ATORVASTATI Yes [id number] TAKE 1 [facility] N 40 mg 7-01 TABLET ity of tablet 00:00: EVERY [place] EVENING Medical Branch ATORVASTATI Yes [id number] TAKE 1 [facility] N 40 mg 7-01 TABLET ity of tablet 00:00: EVERY [place] EVENING Medical Branch ATORVASTATI 0 Yes [id number] TAKE 1 [facility] N 40 mg 7-01 TABLET ity of tablet 00:00: EVERY [place] EVENING Medical Branch ATORVASTATI 0 Yes [id number] TAKE 1 [facility] N 40 mg 7-01 TABLET ity of tablet 00:00: EVERY [place] EVENING Medical Branch ATORVASTATI 0 Yes [id number] TAKE 1 [facility] N 40 mg 7-01 TABLET ity of tablet 00:00: EVERY [place] EVENING Medical Branch ATORVASTATI 0 Yes [id number] TAKE 1 [facility] N 40 mg 7-01 TABLET ity of tablet 00:00: EVERY [place] EVENING Medical Branch ATORVASTATI 0 Yes [id number] TAKE 1 [facility] N 40 mg 7-01 TABLET ity of tablet 00:00: EVERY [place] EVENING Medical Branch ATORVASTATI 0 Yes [id number] TAKE 1 [facility] N 40 mg 7-01 TABLET ity of tablet 00:00: EVERY [place] EVENING Medical Branch ATORVASTATI 0 Yes [id number] TAKE 1 [facility] N 40 mg 7-01 TABLET ity of tablet 00:00: EVERY EVENING Medical Branch ATORVASTATI 0 Yes [id number] TAKE 1 [facility] N 40 mg 7-01 TABLET ity of tablet 00:00: EVERY EVENING Medical Branch ATORVASTATI Yes [id number] TAKE 1 [facility] N 40 mg 7-01 TABLET ity of tablet 00:00: EVERY EVENING Medical Branch ATORVASTATI 0 Yes [id number] TAKE 1 [facility] N 40 mg 7-01 TABLET ity of tablet 00:00: EVERY EVENING Medical Branch ATORVASTATI Yes [id number] TAKE 1 [facility] N 40 mg 7-01 TABLET ity of tablet 00:00: EVERY EVENING Medical Branch ATORVASTATI Yes [id number] TAKE 1 [facility] N 40 mg 7-01 TABLET ity of tablet 00:00: EVERY EVENING Medical Branch ATORVASTATI Yes [id number] TAKE 1 [facility] N 40 mg 7-01 TABLET ity of tablet 00:00: EVERY EVENING Medical Branch ATORVASTATI Yes [id number] TAKE 1 [facility] N 40 mg 7-01 TABLET ity of tablet 00:00: EVERY EVENING Medical Branch ATORVASTATI Yes [id number] TAKE 1 [facility] N 40 mg 7-01 TABLET ity of tablet 00:00: EVERY EVENING Medical Branch ATORVASTATI Yes [id number] TAKE 1 [facility] N 40 mg 7-01 TABLET ity of tablet 00:00: EVERY EVENING Medical Branch ATORVASTATI Yes [id number] TAKE 1 [facility] N 40 mg 7-01 TABLET ity of tablet 00:00: EVERY EVENING Medical Branch ATORVASTATI Yes [id number] TAKE 1 [facility] N 40 mg 7-01 TABLET ity of tablet 00:00: EVERY EVENING Medical Branch ATORVASTATI Yes [id number] TAKE 1 [facility] N 40 mg 7-01 TABLET ity of tablet 00:00: EVERY EVENING Medical Branch ATORVASTATI 0 Yes [id number] TAKE 1 [facility] N 40 mg 7-01 TABLET ity of tablet 00:00: EVERY EVENING Medical Branch ATORVASTATI Yes [id number] TAKE 1 [facility] 40 mg 7-01 TABLET ity of tablet 00:00: EVERY EVENING Medical Branch ATORVASTATI 2021-0 Yes [id number] TAKE 1 [facility] N 40 mg 7-01 TABLET ity of tablet 00:00: EVERY EVENING Medical Branch ATORVASTATI 0 Yes [id number] TAKE 1 [facility] 40 mg 7-01 TABLET ity of tablet 00:00: EVERY EVENING Medical Branch ATORVASTATI 2021-0 Yes [id number] TAKE 1 [facility] 40 mg 7-01 TABLET ity of tablet 00:00: EVERY EVENING Medical Branch ATORVASTATI 2021-0 Yes [id number] TAKE 1 [facility] 40 mg 7-01 TABLET ity of tablet 00:00: EVERY EVENING Medical Branch ATORVASTATI Yes [id number] TAKE 1 [facility] 40 mg 7-01 TABLET ity of tablet 00:00: EVERY EVENING Medical Branch ATORVASTATI Yes [id number] TAKE 1 [facility] 40 mg 7-01 TABLET ity of tablet 00:00: EVERY EVENING Medical Branch ATORVASTATI Yes [id number] TAKE 1 [facility] 40 mg 7-01 TABLET ity of tablet 00:00: EVERY EVENING Medical Branch ATORVASTATI 0 Yes [id number] TAKE 1 [facility] 40 mg 7-01 TABLET ity of tablet 00:00: EVERY EVENING Medical Branch ATORVASTATI 2021- Yes [id number] TAKE 1 [facility] 40 mg 7-01 TABLET ity of tablet 00:00: EVERY EVENING Medical Branch ATORVASTATI 2021- Yes [id number] TAKE 1 [facility] 40 mg 7-01 TABLET ity of tablet 00:00: EVERY EVENING Medical Branch ATORVASTATI 2021-0 Yes [id number] TAKE 1 [facility] 40 mg 7-01 TABLET ity of tablet 00:00: EVERY [place] EVENING Medical Branch ATORVASTATI 2021-0 Yes [id number] TAKE 1 [facility] N 40 mg 7-01 TABLET ity of tablet 00:00: EVERY [place] EVENING Medical Branch ATORVASTATI 2021-0 Yes [id number] TAKE 1 [facility] 40 mg 7-01 TABLET ity of tablet 00:00: EVERY EVENING Medical Branch ATORVASTATI 2021-0 Yes [id number] TAKE 1 [facility] N 40 mg 7-01 TABLET ity of tablet 00:00: EVERY EVENING Medical Branch ATORVASTATI 2021-0 Yes [id number] TAKE 1 [facility] N 40 mg 7-01 TABLET ity of tablet 00:00: EVERY EVENING Medical Branch ATORVASTATI 2021-0 Yes [id number] TAKE 1 [facility] 40 mg 7-01 TABLET ity of tablet 00:00: EVERY EVENING Medical Branch ATORVASTATI 2021-0 Yes [id number] TAKE 1 [facility] 40 mg 7-01 TABLET ity of tablet 00:00: EVERY EVENING Medical Branch ATORVASTATI 2021-0 Yes [id number] TAKE 1 [facility] 40 mg 7-01 TABLET ity of tablet 00:00: EVERY EVENING Medical Branch ATORVASTATI 2021- Yes [id number] TAKE 1 [facility] 40 mg 7-01 TABLET ity of tablet 00:00: EVERY EVENING Medical Branch ATORVASTATI 2021-0 Yes [id number] TAKE 1 [facility] 40 mg 7-01 TABLET ity of tablet 00:00: EVERY EVENING Medical Branch ATORVASTATI 2021- Yes [id number] TAKE 1 [facility] 40 mg 7-01 TABLET ity of tablet 00:00: EVERY EVENING Medical Branch ATORVASTATI 2021-0 Yes [id number] TAKE 1 [facility] 40 mg 7-01 TABLET ity of tablet 00:00: EVERY EVENING Medical Branch ATORVASTATI 2021-0 Yes [id number] TAKE 1 [facility] 40 mg 7-01 TABLET ity of tablet 00:00: EVERY EVENING Medical Branch ATORVASTATI 2021-0 Yes [id number] TAKE 1 [facility] 40 mg 7-01 TABLET ity of tablet 00:00: EVERY EVENING Medical Branch ATORVASTATI 2021-0 Yes [id number] TAKE 1 [facility] 40 mg 7-01 TABLET ity of tablet 00:00: EVERY EVENING Medical Branch ATORVASTATI 2021-0 Yes [id number] TAKE 1 [facility] 40 mg 7-01 TABLET ity of tablet 00:00: EVERY EVENING Medical Branch ATORVASTATI 2021-0 Yes [id number] TAKE 1 [facility] 40 mg 7-01 TABLET ity of tablet 00:00: EVERY EVENING Medical Branch ATORVASTATI 0 Yes [id number] TAKE 1 [facility] 40 mg 7-01 TABLET ity of tablet 00:00: EVERY [place] EVENING Medical Branch ATORVASTATI 2021-0 Yes [id number] TAKE 1 [facility] 40 mg 7-01 TABLET ity of tablet 00:00: EVERY [place] EVENING Medical Branch ATORVASTATI 2021-0 Yes [id number] TAKE 1 [facility] 40 mg 7-01 TABLET ity of tablet 00:00: EVERY [place] EVENING Medical Branch ATORVASTATI 2021-0 Yes [id number] TAKE 1 [facility] 40 mg 7-01 TABLET ity of tablet 00:00: EVERY [place] EVENING Medical Branch ATORVASTATI 0 Yes [id number] TAKE 1 [facility] 40 mg 7-01 TABLET ity of tablet 00:00: EVERY [place] EVENING Medical Branch ATORVASTATI 0 Yes [id number] TAKE 1 [facility] 40 mg 7-01 TABLET ity of tablet 00:00: EVERY [place] EVENING Medical Branch ATORVASTATI 0 Yes [id number] TAKE 1 [facility] 40 mg 7-01 TABLET ity of tablet 00:00: EVERY [place] EVENING Medical Branch magnesium 2-0 Yes 400mg Take 1 [facility] di oxide 4-[address] (MAG-OX) 00:00: (400 mg [facility] 400 mg 00 total) by l (241.3 mg mouth. magnesium) tablet magnesium 2021-0 Yes 400mg Take 400 [facility] oxide 400 4-21 mg by ity of mg 00:00: mouth 2 [place] magnesium 00 (two) Medical Tab times Branch daily. magnesium 2022-0 Yes 400mg Take 400 [facility] oxide 400 4-21 mg by ity of mg 00:00: mouth 2 [place] magnesium 00 (two) Medical Tab times Branch daily. magnesium 2022-0 Yes 400mg Take 400 [facility] oxide 400 4-21 mg by ity of mg 00:00: mouth 2 [place] magnesium 00 (two) Medical Tab times Branch daily. magnesium 2022-0 Yes 400mg Take 400 [facility] vers oxide 400 4-21 mg by ity of mg 00:00: mouth 2 [place] magnesium 00 (two) Medical Tab times Branch daily. magnesium 2022-0 Yes 400mg Take 400 [facility] vers oxide 400 4-21 mg by ity of mg 00:00: mouth 2 [place] magnesium 00 (two) Medical Tab times Branch daily. magnesium 2022-0 Yes 400mg Take 400 [facility] oxide 400 4-21 mg by ity of mg 00:00: mouth 2 [place] magnesium 00 (two) Medical Tab times Branch daily. magnesium 2022-0 Yes 400mg Take 400 [facility] vers oxide 400 4-21 mg by ity of mg 00:00: mouth 2 [place] magnesium 00 (two) Medical Tab times Branch daily. magnesium 2022-0 Yes 400mg Take 400 [facility] oxide 400 4-21 mg by ity of mg 00:00: mouth 2 [place] magnesium 00 (two) Medical Tab times Branch daily. magnesium 2022-0 Yes 400mg Take 400 [facility] oxide 400 4-21 mg by ity of mg 00:00: mouth 2 [place] magnesium 00 (two) Medical Tab times Branch daily. magnesium 2022-0 Yes 400mg Take 400 [facility] vers oxide 400 4-21 mg by ity of mg 00:00: mouth 2 [place] magnesium 00 (two) Medical Tab times Branch daily. magnesium 2022-0 Yes 400mg Take 400 [facility] vers oxide 400 4-21 mg by ity of mg 00:00: mouth 2 [place] magnesium 00 (two) Medical Tab times Branch daily. magnesium 2022-0 Yes 400mg Take 400 [facility] oxide 400 4-21 mg by ity of mg 00:00: mouth 2 [place] magnesium 00 (two) Medical Tab times Branch daily. magnesium 2022-0 Yes 400mg Take 400 [facility] vers oxide 400 4-21 mg by ity of mg 00:00: mouth 2 [place] magnesium 00 (two) Medical Tab times Branch daily. magnesium 2022-0 Yes 400mg Take 400 [facility] vers oxide 400 4-21 mg by ity of mg 00:00: mouth 2 [place] magnesium 00 (two) Medical Tab times Branch daily. magnesium 2022-0 Yes 400mg Take 400 [facility] oxide 400 4-21 mg by ity of mg 00:00: mouth 2 [place] magnesium 00 (two) Medical Tab times Branch daily. magnesium 2022-0 Yes 400mg Take 400 [facility] vers oxide 400 4-21 mg by ity of mg 00:00: mouth 2 [place] magnesium 00 (two) Medical Tab times Branch daily. magnesium 2022-0 Yes 400mg Take 400 [facility] vers oxide 400 4-21 mg by ity of mg 00:00: mouth 2 [place] magnesium 00 (two) Medical Tab times Branch daily. magnesium 2022-0 Yes 400mg Take 400 [facility] vers oxide 400 4-21 mg by ity of mg 00:00: mouth 2 [place] magnesium 00 (two) Medical Tab times Branch daily. magnesium 2022-0 Yes 400mg Take 400 [facility] vers oxide 400 4-21 mg by ity of mg 00:00: mouth 2 [place] magnesium 00 (two) Medical Tab times Branch daily. magnesium 2022-0 Yes 400mg Take 400 [facility] vers oxide 400 4-21 mg by ity of mg 00:00: mouth 2 [place] magnesium 00 (two) Medical Tab times Branch daily. magnesium 2022-0 Yes 400mg Take 400 [facility] vers oxide 400 4-21 mg by ity of mg 00:00: mouth 2 [place] magnesium 00 (two) Medical Tab times Branch daily. magnesium 2022-0 Yes 400mg Take 400 [facility] vers oxide 400 4-21 mg by ity of mg 00:00: mouth 2 [place] magnesium 00 (two) Medical Tab times Branch daily. magnesium 2022-0 Yes 400mg Take 400 [facility] vers oxide 400 4-21 mg by ity of mg 00:00: mouth 2 [place] magnesium 00 (two) Medical Tab times Branch daily. magnesium 2022-0 Yes 400mg Take 400 [facility] vers oxide 400 4-21 mg by ity of mg 00:00: mouth 2 [place] magnesium 00 (two) Medical Tab times Branch daily. magnesium 2022-0 2022- No 400mg Take 400 [facility] [place] oxide 400 4-21 11-18 mg by ity of mg 00:00: 00:00 mouth 2 [place] magnesium 00 :00 (two) Medical Tab times Branch daily. magnesium 2022-0 2022- No 400mg Take 400 [facility] [place] oxide 400 4-21 11-18 mg by ity of mg 00:00: 00:00 mouth 2 [place] magnesium 00 :00 (two) Medical Tab times Branch daily. pantoprazol 2021-0 Yes [id number] 40mg Take 1 [facility] 40 mg EC 3-28 tablet by ity of tablet 00:00: mouth [place] 00 daily. Medical Branch pantoprazol 2021-0 Yes [id number] 40mg Take 1 [facility] e 40 mg EC 3-28 tablet by ity of tablet 00:00: mouth [place] 00 daily. Medical Branch pantoprazol 2-0 Yes [id number] 40mg Take 1 [facility] e 40 mg EC 3-28 tablet by ity of tablet 00:00: mouth [place] 00 daily. Medical Branch pantoprazol 0 Yes [id number] 40mg Take 1 [facility] e 40 mg EC 3-28 tablet by ity of tablet 00:00: mouth [place] 00 daily. Medical Branch pantoprazol 0 Yes [id number] 40mg Take 1 [facility] e 40 mg EC 3-28 tablet by ity of tablet 00:00: mouth [place] 00 daily. Medical Branch pantoprazol 0 Yes [id number] 40mg Take 1 [facility] e 40 mg EC 3-28 tablet by ity of tablet 00:00: mouth [place] 00 daily. Medical Branch pantoprazol Yes [id number] 40mg Take 1 [facility] e 40 mg EC 3-28 tablet by ity of tablet 00:00: mouth [place] 00 daily. Medical Branch pantoprazol Yes [id number] 40mg Take 1 [facility] e 40 mg EC 3-28 tablet by ity of tablet 00:00: mouth [place] 00 daily. Medical Branch pantoprazol Yes [id number] 40mg Take 1 [facility] e 40 mg EC 3-28 tablet by ity of tablet 00:00: mouth [place] 00 daily. Medical Branch pantoprazol Yes [id number] 40mg Take 1 [facility] e 40 mg EC 3-28 tablet by ity of tablet 00:00: mouth [place] 00 daily. Medical Branch pantoprazol Yes [id number] 40mg Take 1 [facility] e 40 mg EC 3-28 tablet by ity of tablet 00:00: mouth [place] 00 daily. Medical Branch pantoprazol 2021- Yes [id number] 40mg Take 1 [facility] e 40 mg EC 3-28 tablet by ity of tablet 00:00: mouth [place] 00 daily. Medical Branch pantoprazol 2021-0 Yes [id number] 40mg Take 1 [facility] e 40 mg EC 3-28 tablet by ity of tablet 00:00: mouth [place] 00 daily. Medical Branch pantoprazol 2021-0 Yes [id number] 40mg Take 1 [facility] e 40 mg EC 3-28 tablet by ity of tablet 00:00: mouth [place] 00 daily. Medical Branch pantoprazol 2021-0 Yes [id number] 40mg Take 1 [facility] e 40 mg EC 3-28 tablet by ity of tablet 00:00: mouth [place] 00 daily. Medical Branch pantoprazol 2021-0 Yes [id number] 40mg Take 1 [facility] e 40 mg EC 3-28 tablet by ity of tablet 00:00: mouth [place] 00 daily. Medical Branch pantoprazol Yes [id number] 40mg Take 1 [facility] e 40 mg EC 3-28 tablet by ity of tablet 00:00: mouth [place] 00 daily. Medical Branch pantoprazol Yes [id number] 40mg Take 1 [facility] e 40 mg EC 3-28 tablet by ity of tablet 00:00: mouth [place] 00 daily. Medical Branch pantoprazol Yes [id number] 40mg Take 1 [facility] e 40 mg EC 3-28 tablet by ity of tablet 00:00: mouth [place] 00 daily. Medical Branch pantoprazol 2021- No [id number] 40mg Take 1 [facility] e 40 mg EC 3-28 11-14 tablet by ity of tablet 00:00: 00:00 mouth [place] 00 :00 daily. Medical Branch pantoprazol 2021- No [id number] 40mg Take 1 [facility] e 40 mg EC 3-28 11-14 tablet by ity of tablet 00:00: 00:00 mouth [place] 00 :00 daily. Medical Branch pantoprazol 2021- No [id number] 40mg Take 1 [facility] e 40 mg EC 3-28 11-14 tablet by ity of tablet 00:00: 00:00 mouth [place] 00 :00 daily. Medical Branch pantoprazol 2021- No [id number] 40mg Take 1 [facility] e 40 mg EC 3-28 11-14 tablet by ity of tablet 00:00: 00:00 mouth [place] 00 :00 daily. Medical Branch pantoprazol 2021- No [id number] 40mg Take 1 [facility] e 40 mg EC 3-28 11-14 tablet by ity of tablet 00:00: 00:00 mouth [place] 00 :00 daily. Medical Branch losartan 25 Yes 50mg Take 2 [facility] mg tablet 3-09 tablets by ity of 00:00: mouth [place] 00 daily. Medical Branch losartan 25 0 Yes 50mg Take 2 [facility] mg tablet 3-09 tablets by ity of 00:00: mouth [place] 00 daily. Medical Branch losartan 25 0 Yes 50mg Take 2 [facility] mg tablet 3-09 tablets by ity of 00:00: mouth [place] 00 daily. Medical Branch losartan 25 2021-0 Yes 50mg Take 2 [facility] mg tablet 3-09 tablets by ity of 00:00: mouth [place] 00 daily. Medical Branch losartan 25 2021-0 Yes 50mg Take 2 [facility] mg tablet 3-09 tablets by ity of 00:00: mouth [place] 00 daily. Medical Branch losartan 25 2021-0 Yes 50mg Take 2 [facility] mg tablet 3-09 tablets by ity of 00:00: mouth [place] 00 daily. Medical Branch losartan 25 2021-0 Yes 50mg Take 2 [facility] mg tablet 3-09 tablets by ity of 00:00: mouth [place] 00 daily. Medical Branch losartan 25 2021-0 Yes 50mg Take 2 [facility] mg tablet 3-09 tablets by ity of 00:00: mouth [place] 00 daily. Medical Branch losartan 25 2021-0 Yes 50mg Take 2 [facility] mg tablet 3-09 tablets by ity of 00:00: mouth [place] 00 daily. Medical Branch losartan 25 2021-0 Yes 50mg Take 2 [facility] mg tablet 3-09 tablets by ity of 00:00: mouth [place] 00 daily. Medical Branch losartan 25 2021-0 Yes 50mg Take 2 [facility] mg tablet 3-09 tablets by ity of 00:00: mouth [place] 00 daily. Medical Branch losartan 25 2021-0 Yes 50mg Take 2 [facility] mg tablet 3-09 tablets by ity of 00:00: mouth [place] 00 daily. Medical Branch losartan 25 2021-0 Yes 50mg Take 2 [facility] mg tablet 3-09 tablets by ity of 00:00: mouth [place] 00 daily. Medical Branch losartan 25 2021-0 Yes 50mg Take 2 [facility] mg tablet 3-09 tablets by ity of 00:00: mouth [place] 00 daily. Medical Branch losartan 25 2021-0 Yes 50mg Take 2 [facility] mg tablet 3-09 tablets by ity of 00:00: mouth [place] 00 daily. Medical Branch losartan 25 2021-0 Yes 50mg Take 2 [facility] mg tablet 3-09 tablets by ity of 00:00: mouth [place] 00 daily. Medical Branch losartan 25 2021-0 Yes 50mg Take 2 [facility] mg tablet 3-09 tablets by ity of 00:00: mouth [place] 00 daily. Medical Branch losartan 25 2021-0 Yes 50mg Take 2 [facility] mg tablet 3-09 tablets by ity of 00:00: mouth [place] 00 daily. Medical Branch losartan 25 2021-0 Yes 50mg Take 2 [facility] mg tablet 3-09 tablets by ity of 00:00: mouth [place] 00 daily. Medical Branch losartan 25 2021-0 Yes 50mg Take 2 [facility] mg tablet 3-09 tablets by ity of 00:00: mouth [place] 00 daily. Medical Branch losartan 25 2021-0 Yes 50mg Take 2 [facility] mg tablet 3-09 tablets by ity of 00:00: mouth [place] 00 daily. Medical Branch losartan 25 2021-0 Yes 50mg Take 2 [facility] mg tablet 3-09 tablets by ity of 00:00: mouth [place] 00 daily. Medical Branch losartan 25 2021-0 Yes 50mg Take 2 [facility] mg tablet 3-09 tablets by ity of 00:00: mouth [place] 00 daily. Medical Branch losartan 25 2021-0 Yes 50mg Take 2 [facility] mg tablet 3-09 tablets by ity of 00:00: mouth [place] 00 daily. Medical Branch losartan 25 2021-0 Yes 50mg Take 2 [facility] mg tablet 3-09 tablets by ity of 00:00: mouth [place] 00 daily. Medical Branch losartan 25 2021-0 Yes 50mg Take 2 [facility] mg tablet 3-09 tablets by ity of 00:00: mouth [place] 00 daily. Medical Branch losartan 25 2021-0 Yes 50mg Take 2 [facility] mg tablet 3-09 tablets by ity of 00:00: mouth [place] 00 daily. Medical Branch losartan 25 2021-0 Yes 50mg Take 2 [facility] mg tablet 3-09 tablets by ity of 00:00: mouth [place] 00 daily. Medical Branch losartan 25 2021-0 Yes 50mg Take 2 [facility] mg tablet 3-09 tablets by ity of 00:00: mouth [place] 00 daily. Medical Branch losartan 25 2021-0 Yes 50mg Take 2 [facility] mg tablet 3-09 tablets by ity of 00:00: mouth [place] 00 daily. Medical Branch losartan 25 2021-0 Yes 50mg Take 2 [facility] mg tablet 3-09 tablets by ity of 00:00: mouth [place] 00 daily. Medical Branch losartan 25 2021-0 Yes 50mg Take 2 [facility] mg tablet 3-09 tablets by ity of 00:00: mouth [place] 00 daily. Medical Branch losartan 25 2021-0 Yes 50mg Take 2 [facility] mg tablet 3-09 tablets by ity of 00:00: mouth [place] 00 daily. Medical Branch losartan 25 2021-0 Yes 50mg Take 2 [facility] mg tablet 3-09 tablets by ity of 00:00: mouth [place] 00 daily. Medical Branch losartan 25 2021-0 Yes 50mg Take 2 [facility] mg tablet 3-09 tablets by ity of 00:00: mouth [place] 00 daily. Medical Branch losartan 25 2021-0 Yes 50mg Take 2 [facility] mg tablet 3-09 tablets by ity of 00:00: mouth [place] 00 daily. Medical Branch losartan 25 2021-0 Yes 50mg Take 2 [facility] mg tablet 3-09 tablets by ity of 00:00: mouth [place] 00 daily. Medical Branch losartan 25 2021-0 Yes 50mg Take 2 [facility] mg tablet 3-09 tablets by ity of 00:00: mouth [place] 00 daily. Medical Branch losartan 25 2021-0 Yes 50mg Take 2 [facility] mg tablet 3-09 tablets by ity of 00:00: mouth [place] 00 daily. Medical Branch losartan 25 2021-0 Yes 50mg Take 2 [facility] mg tablet 3-09 tablets by ity of 00:00: mouth [place] 00 daily. Medical Branch losartan 25 2021-0 Yes 50mg Take 2 [facility] mg tablet 3-09 tablets by ity of 00:00: mouth [place] 00 daily. Medical Branch losartan 25 2021-0 Yes 50mg Take 2 [facility] mg tablet 3-09 tablets by ity of 00:00: mouth [place] 00 daily. Medical Branch losartan 25 2021-0 Yes 50mg Take 2 [facility] mg tablet 3-09 tablets by ity of 00:00: mouth [place] 00 daily. Medical Branch losartan 25 2021-0 Yes 50mg Take 2 [facility] mg tablet 3-09 tablets by ity of 00:00: mouth [place] 00 daily. Medical Branch losartan 25 2021-0 Yes 50mg Take 2 [facility] mg tablet 3-09 tablets by ity of 00:00: mouth [place] 00 daily. Medical Branch losartan 25 2021-0 Yes 50mg Take 2 [facility] mg tablet 3-09 tablets by ity of 00:00: mouth [place] 00 daily. Medical Branch losartan 25 2021-0 Yes 50mg Take 2 [facility] mg tablet 3-09 tablets by ity of 00:00: mouth [place] 00 daily. Medical Branch losartan 25 0 Yes 50mg Take 2 [facility] mg tablet 3-09 tablets by ity of 00:00: mouth [place] 00 daily. Medical Branch losartan 25 0 Yes 50mg Take 2 [facility] mg tablet 3-09 tablets by ity of 00:00: mouth [place] 00 daily. Medical Branch losartan 25 0 Yes 50mg Take 2 [facility] mg tablet 3-09 tablets by ity of 00:00: mouth [place] 00 daily. Medical Branch losartan 25 0 Yes 50mg Take 2 [facility] mg tablet 3-09 tablets by ity of 00:00: mouth [place] 00 daily. Medical Branch losartan 25 0 Yes 50mg Take 2 [facility] mg tablet 3-09 tablets by ity of 00:00: mouth [place] 00 daily. Medical Branch losartan 25 0 Yes 50mg Take 2 [facility] mg tablet 3-09 tablets by ity of 00:00: mouth [place] 00 daily. Medical Branch losartan 25 0 Yes 50mg Take 2 [facility] mg tablet 3-09 tablets by ity of 00:00: mouth [place] 00 daily. Medical Branch losartan 25 0 Yes 50mg Take 2 [facility] mg tablet 3-09 tablets by ity of 00:00: mouth [place] 00 daily. Medical Branch losartan 25 0 Yes 50mg Take 2 [facility] mg tablet 3-09 tablets by ity of 00:00: mouth [place] 00 daily. Medical Branch losartan 25 0 Yes 50mg Take 2 [facility] mg tablet 3-09 tablets by ity of 00:00: mouth [place] 00 daily. Medical Branch metoprolol Yes 100mg Q.5D Take 1 Meth anuradha succinate 3-[address] XL 00:00: (100 mg [facility] (TOPROL-XL) 00 total) by l 100 mg 24 mouth 2 hr tablet (two) times a day. METOPROLOL Yes TAKE 1 [facility] SUCCINATE 3-04 TABLET ity of XL 100 mg 00:00: TWICE A [place] 24 hr 00 DAY Medical tablet Branch METOPROLOL 0 Yes TAKE 1 [facility] SUCCINATE 3-04 TABLET ity of XL 100 mg 00:00: TWICE A [place] 24 hr 00 DAY Medical tablet Branch METOPROLOL Yes TAKE 1 [facility] SUCCINATE 3-04 TABLET ity of XL 100 mg 00:00: TWICE A Medical tablet Branch METOPROLOL 2021-0 Yes TAKE 1 [facility] SUCCINATE 3-04 TABLET ity of XL 100 mg 00:00: TWICE A Medical tablet Branch METOPROLOL 2021-0 Yes TAKE 1 [facility] SUCCINATE 3-04 TABLET ity of XL 100 mg 00:00: TWICE A Medical tablet Branch METOPROLOL 2021-0 Yes TAKE 1 [facility] SUCCINATE 3-04 TABLET ity of XL 100 mg 00:00: TWICE A Medical tablet Branch METOPROLOL 2021-0 Yes TAKE 1 [facility] SUCCINATE 3-04 TABLET ity of XL 100 mg 00:00: TWICE A Medical tablet Branch METOPROLOL 0 Yes TAKE 1 [facility] SUCCINATE 3-04 TABLET ity of XL 100 mg 00:00: TWICE A Medical tablet Branch METOPROLOL 2021-0 Yes TAKE 1 [facility] SUCCINATE 3-04 TABLET ity of XL 100 mg 00:00: TWICE A Medical tablet Branch METOPROLOL 2021-0 Yes TAKE 1 [facility] SUCCINATE 3-04 TABLET ity of XL 100 mg 00:00: TWICE A Medical tablet Branch METOPROLOL 2021-0 Yes TAKE 1 [facility] SUCCINATE 3-04 TABLET ity of XL 100 mg 00:00: TWICE A Medical tablet Branch METOPROLOL 2021-0 Yes TAKE 1 [facility] SUCCINATE 3-04 TABLET ity of XL 100 mg 00:00: TWICE A Medical tablet Branch METOPROLOL 2021-0 Yes TAKE 1 [facility] SUCCINATE 3-04 TABLET ity of XL 100 mg 00:00: TWICE A Medical tablet Branch METOPROLOL 2021-0 Yes TAKE 1 [facility] SUCCINATE 3-04 TABLET ity of XL 100 mg 00:00: TWICE A Medical tablet Branch METOPROLOL 2021-0 Yes TAKE 1 [facility] SUCCINATE 3-04 TABLET ity of XL 100 mg 00:00: TWICE A Medical tablet Branch METOPROLOL 2021-0 Yes TAKE 1 [facility] SUCCINATE 3-04 TABLET ity of XL 100 mg 00:00: TWICE A Medical tablet Branch METOPROLOL 2021-0 Yes TAKE 1 [facility] SUCCINATE 3-04 TABLET ity of XL 100 mg 00:00: TWICE A Medical tablet Branch METOPROLOL 2021-0 Yes TAKE 1 [facility] SUCCINATE 3-04 TABLET ity of XL 100 mg 00:00: TWICE A Medical tablet Branch METOPROLOL 2021-0 Yes TAKE 1 [facility] SUCCINATE 3-04 TABLET ity of XL 100 mg 00:00: TWICE A Medical tablet Branch METOPROLOL 2021-0 Yes TAKE 1 Unive rs SUCCINATE 3-04 TABLET ity of XL 100 mg 00:00: TWICE A Medical tablet Branch METOPROLOL 2021-0 Yes TAKE 1 Unive rs SUCCINATE 3-04 TABLET ity of XL 100 mg 00:00: TWICE A Medical tablet Branch METOPROLOL 2021-0 Yes TAKE 1 Unive rs SUCCINATE 3-04 TABLET ity of XL 100 mg 00:00: TWICE A Medical tablet Branch METOPROLOL 2021-0 Yes TAKE 1 Unive rs SUCCINATE 3-04 TABLET ity of XL 100 mg 00:00: TWICE A Medical tablet Branch METOPROLOL 2021-0 Yes TAKE 1 Unive rs SUCCINATE 3-04 TABLET ity of XL 100 mg 00:00: TWICE A Medical tablet Branch METOPROLOL 2021-0 Yes TAKE 1 Unive rs SUCCINATE 3-04 TABLET ity of XL 100 mg 00:00: TWICE A Medical tablet Branch METOPROLOL 2021-0 Yes TAKE 1 Unive rs SUCCINATE 3-04 TABLET ity of XL 100 mg 00:00: TWICE A Medical tablet Branch METOPROLOL 2021-0 Yes TAKE 1 Unive rs SUCCINATE 3-04 TABLET ity of XL 100 mg 00:00: TWICE A Medical tablet Branch METOPROLOL 2021-0 Yes TAKE 1 Unive rs SUCCINATE 3-04 TABLET ity of XL 100 mg 00:00: TWICE A Medical tablet Branch METOPROLOL 2021-0 Yes TAKE 1 Unive rs SUCCINATE 3-04 TABLET ity of XL 100 mg 00:00: TWICE A Medical tablet Branch METOPROLOL 0 Yes TAKE 1 Unive rs SUCCINATE 3-04 TABLET ity of XL 100 mg 00:00: TWICE A Medical tablet Branch METOPROLOL 0 Yes TAKE 1 Unive rs SUCCINATE 3-04 TABLET ity of XL 100 mg 00:00: TWICE A Medical tablet Branch METOPROLOL 0 Yes TAKE 1 Unive rs SUCCINATE 3-04 TABLET ity of XL 100 mg 00:00: TWICE A Medical tablet Branch METOPROLOL 0 Yes TAKE 1 Unive rs SUCCINATE 3-04 TABLET ity of XL 100 mg 00:00: TWICE A Medical tablet Branch METOPROLOL Yes TAKE 1 Unive rs SUCCINATE 3-04 TABLET ity of XL 100 mg 00:00: TWICE A Medical tablet Branch METOPROLOL Yes TAKE 1 Unive rs SUCCINATE 3-04 TABLET ity of XL 100 mg 00:00: TWICE A Medical tablet Branch METOPROLOL Yes TAKE 1 Unive rs SUCCINATE 3-04 TABLET ity of XL 100 mg 00:00: TWICE A Medical tablet Branch METOPROLOL 0 Yes TAKE 1 Unive rs SUCCINATE 3-04 TABLET ity of XL 100 mg 00:00: TWICE A Medical tablet Branch METOPROLOL 0 Yes TAKE 1 Unive rs SUCCINATE 3-04 TABLET ity of XL 100 mg 00:00: TWICE A Medical tablet Branch METOPROLOL 2021-0 Yes TAKE 1 [facility]ive rs SUCCINATE 3-04 TABLET ity of XL 100 mg 00:00: TWICE A Medical tablet Branch METOPROLOL 0 Yes TAKE 1 Unive rs SUCCINATE 3-04 TABLET ity of XL 100 mg 00:00: TWICE A Medical tablet Branch METOPROLOL 2021-0 Yes TAKE 1 Unive rs SUCCINATE 3-04 TABLET ity of XL 100 mg 00:00: TWICE A Medical tablet Branch METOPROLOL 2021-0 Yes TAKE 1 Unive rs SUCCINATE 3-04 TABLET ity of XL 100 mg 00:00: TWICE A Medical tablet Branch METOPROLOL 2022-0 Yes TAKE 1 Unive rs SUCCINATE 3-04 TABLET ity of XL 100 mg 00:00: TWICE A [place] 24 hr Medical tablet Branch METOPROLOL Yes TAKE 1 Unive rs SUCCINATE 3-04 TABLET ity of XL 100 mg 00:00: TWICE A 24 hr Medical tablet Branch METOPROLOL Yes TAKE 1 Unive rs SUCCINATE 3-04 TABLET ity of XL 100 mg 00:00: TWICE A hr Medical tablet Branch METOPROLOL Yes TAKE 1 Unive rs SUCCINATE 3-04 TABLET ity of XL 100 mg 00:00: TWICE A [place] hr Medical tablet Branch METOPROLOL Yes TAKE 1 Unive rs SUCCINATE 3-04 TABLET ity of XL 100 mg 00:00: TWICE A [place] hr Medical tablet Branch METOPROLOL Yes TAKE 1 Unive rs SUCCINATE 3-04 TABLET ity of XL 100 mg 00:00: TWICE A [place] hr Medical tablet Branch METOPROLOL Yes TAKE 1 Unive rs SUCCINATE 3-04 TABLET ity of XL 100 mg 00:00: TWICE A [place] hr Medical tablet Branch METOPROLOL Yes TAKE 1 Unive rs SUCCINATE 3-04 TABLET ity of XL 100 mg 00:00: TWICE A [place] hr Medical tablet Branch METOPROLOL 2022- No TAKE 1 Univ ers SUCCINATE 3-04 02-27 TABLET ity of XL 100 mg 00:00: 00:00 TWICE A [facility] 24 hr 00 :00 DAY Medical tablet Branch MULTIVITAMI Yes Take by Uni vers N ORAL 3-02 mouth. ity of 06:00: Medical Branch MULTIVITAMI Yes Take by Uni vers N ORAL 3-02 mouth. ity of 06:00: [place] [facility] MULTIVITAMI Yes Take by Uni vers N ORAL 3-02 mouth. ity of 06:00: Medical Branch MULTIVITAMI Yes Take by Uni vers N ORAL 3-02 mouth. ity of 06:00: Medical Branch MULTIVITAMI Yes Take by Uni vers N ORAL 3-02 mouth. ity of 06:00: [place] [address] Medical Branch MULTIVITAMI 0 Yes Take by Uni vers N ORAL 3-02 mouth. ity of 06:00: [place] [address] Medical Branch MULTIVITAMI 2021-0 Yes Take by Uni vers N ORAL 3-02 mouth. ity of 06:00: [place] [address] Medical Branch MULTIVITAMI 2021-0 Yes Take by Uni vers N ORAL 3-02 mouth. ity of 06:00: [place] [address] Medical Branch MULTIVITAMI 0 Yes Take by Uni vers N ORAL 3-02 mouth. ity of 06:00: [address] Branch MULTIVITAMI 2021-0 Yes Take by Uni vers N ORAL 3-02 mouth. ity of 06:00: [address] Branch MULTIVITAMI 0 Yes Take by Uni vers N ORAL 3-02 mouth. ity of 06:00: [place] [address] Medical Branch MULTIVITAMI 2021-0 Yes Take by Uni vers N ORAL 3-02 mouth. ity of 06:00: [place] [address] Medical Branch MULTIVITAMI 0 Yes Take by Uni vers N ORAL 3-02 mouth. ity of 06:00: [address] Branch MULTIVITAMI 2021-0 Yes Take by Uni vers N ORAL 3-02 mouth. ity of 06:00: [address] Branch MULTIVITAMI 0 Yes Take by Uni vers N ORAL 3-02 mouth. ity of 06:00: [address] Branch MULTIVITAMI 2021-0 Yes Take by Uni vers N ORAL 3-02 mouth. ity of 06:00: [address] Branch MULTIVITAMI 0 Yes Take by Uni vers N ORAL 3-02 mouth. ity of 06:00: [place] [address] Medical Branch MULTIVITAMI 2021-0 Yes Take by Uni vers N ORAL 3-02 mouth. ity of 06:00: [address] Branch MULTIVITAMI 2021-0 Yes Take by Uni vers N ORAL 3-02 mouth. ity of 06:00: [address] Branch Multivitami 2021-0 Yes 1{tbl} Take 1 Un georgie ns-Minerals 2-28 tablet by ity of -Lutein 18:19: mouth [place] (MULTIVITAM 37 daily. Medica l IN 50 PLUS) Branch Tab Multivitami 0 Yes 1{tbl} Take 1 Un georgie ns-Minerals 2-28 tablet by ity of -Lutein 18:19: mouth [place] (MULTIVITAM 37 daily. Medica l IN 50 PLUS) Branch Tab Multivitami Yes 1{tbl} Take 1 Un georgie ns-Minerals 2-28 tablet by ity of -Lutein 18:19: mouth [place] (MULTIVITAM 37 daily. Medica l IN 50 PLUS) Branch Tab Multivitami Yes 1{tbl} Take 1 Un georgie ns-Minerals 2-28 tablet by ity of -Lutein 18:19: mouth [place] (MULTIVITAM 37 daily. Medica l IN 50 PLUS) Branch Tab Multivitami Yes 1{tbl} Take 1 Un georgie ns-Minerals 2-28 tablet by ity of -Lutein 18:19: mouth [place] (MULTIVITAM 37 daily. Medica l IN 50 PLUS) Branch Tab Multivitami Yes 1{tbl} Take 1 Un georgie ns-Minerals 2-28 tablet by ity of -Lutein 18:19: mouth [place] (MULTIVITAM 37 daily. Medica l IN 50 PLUS) Branch Tab Multivitami Yes 1{tbl} Take 1 Un georgie ns-Minerals 2-28 tablet by ity of -Lutein 18:19: mouth [place] (MULTIVITAM 37 daily. Medica l IN 50 PLUS) Branch Tab Multivitami Yes 1{tbl} Take 1 Un georgie ns-Minerals 2-28 tablet by ity of -Lutein 18:19: mouth [place] (MULTIVITAM 37 daily. Medica l IN 50 PLUS) Branch Tab Multivitami Yes 1{tbl} Take 1 Un georgie ns-Minerals 2-28 tablet by ity of -Lutein 18:19: mouth [place] (MULTIVITAM 37 daily. Medica l IN 50 PLUS) Branch Tab Multivitami Yes 1{tbl} Take 1 Un georgie ns-Minerals 2-28 tablet by ity of -Lutein 18:19: mouth [place] (MULTIVITAM 37 daily. Medica l IN 50 PLUS) Branch Tab Multivitami Yes 1{tbl} Take 1 Un ge[place]ie ns-Minerals 2-28 tablet by ity of -Lutein 18:19: mouth [place] (MULTIVITAM 37 daily. Medica l IN 50 PLUS) Branch Tab Multivitami Yes 1{tbl} Take 1 Un georgie ns-Minerals 2-28 tablet by ity of -Lutein 18:19: mouth [place] (MULTIVITAM 37 daily. Medica l IN 50 PLUS) Branch Tab Multivitami Yes 1{tbl} Take 1 Un ge[place]ie ns-Minerals 2-28 tablet by ity of -Lutein 18:19: mouth [place] (MULTIVITAM 37 daily. Medica l IN 50 PLUS) Branch Tab Multivitami Yes 1{tbl} Take 1 Un georgie ns-Minerals 2-28 tablet by ity of -Lutein 18:19: mouth [place] (MULTIVITAM 37 daily. Medica l IN 50 PLUS) Branch Tab Multivitami Yes 1{tbl} Take 1 Un georgie ns-Minerals 2-28 tablet by ity of -Lutein 18:19: mouth [place] (MULTIVITAM 37 daily. Medica l IN 50 PLUS) Branch Tab Multivitami Yes 1{tbl} Take 1 Un ge[place]ie ns-Minerals 2-28 tablet by ity of -Lutein 18:19: mouth [place] (MULTIVITAM 37 daily. Medica l IN 50 PLUS) Branch Tab Multivitami Yes 1{tbl} Take 1 Un [facility]ie ns-Minerals 2-28 tablet by ity of -Lutein 18:19: mouth [place] (MULTIVITAM 37 daily. Medica l IN 50 PLUS) Branch Tab Multivitami Yes 1{tbl} Take 1 Un ge[place]ie ns-Minerals 2-28 tablet by ity of -Lutein 18:19: mouth [place] (MULTIVITAM 37 daily. Medica l IN 50 PLUS) Branch Tab Multivitami Yes 1{tbl} Take 1 Un ge[place]ie ns-Minerals 2-28 tablet by ity of -Lutein 18:19: mouth [place] (MULTIVITAM 37 daily. Medica l IN 50 PLUS) Branch Tab Multivitami Yes 1{tbl} Take 1 Un ge[place]ie ns-Minerals 2-28 tablet by ity of -Lutein 18:19: mouth [place] (MULTIVITAM 37 daily. Medica l IN 50 PLUS) Branch Tab Multivitami Yes 1{tbl} Take 1 Un ge[place]ie ns-Minerals 2-28 tablet by ity of -Lutein 18:19: mouth [place] (MULTIVITAM 37 daily. Medica l IN 50 PLUS) Branch Tab Multivitami Yes 1{tbl} Take 1 Un ge[place]ie ns-Minerals 2-28 tablet by ity of -Lutein 18:19: mouth [place] (MULTIVITAM 37 daily. Medica l IN 50 PLUS) Branch Tab Multivitami Yes 1{tbl} Take 1 Un ge[place]ie ns-Minerals 2-28 tablet by ity of -Lutein 18:19: mouth [place] (MULTIVITAM 37 daily. Medica l IN 50 PLUS) Branch Tab Multivitami Yes 1{tbl} Take 1 Un ge[place]ie ns-Minerals 2-28 tablet by ity of -Lutein 18:19: mouth [place] (MULTIVITAM 37 daily. Medica l IN 50 PLUS) Branch Tab Multivitami Yes 1{tbl} Take 1 Un ge[place]ie ns-Minerals 2-28 tablet by ity of -Lutein 18:19: mouth [place] (MULTIVITAM 37 daily. Medica l IN 50 PLUS) Branch Tab Multivitami Yes 1{tbl} Take 1 Un [facility]ie ns-Minerals 2-28 tablet by ity of -Lutein 18:19: mouth [place] (MULTIVITAM 37 daily. Medica l IN 50 PLUS) Branch Tab Multivitami Yes 1{tbl} Take 1 Un [facility]ie ns-Minerals 2-28 tablet by ity of -Lutein 18:19: mouth [place] (MULTIVITAM 37 daily. Medica l IN 50 PLUS) Branch Tab Multivitami Yes 1{tbl} Take 1 Un [facility]ie ns-Minerals 2-28 tablet by ity of -Lutein 18:19: mouth [place] (MULTIVITAM 37 daily. Medica l IN 50 PLUS) Branch Tab Multivitami Yes 1{tbl} Take 1 Un [facility]ie ns-Minerals 2-28 tablet by ity of -Lutein 18:19: mouth [place] (MULTIVITAM 37 daily. Medica l IN 50 PLUS) Branch Tab Multivitami Yes 1{tbl} Take 1 Un [facility]ie ns-Minerals 2-28 tablet by ity of -Lutein 18:19: mouth [place] (MULTIVITAM 37 daily. Medica l IN 50 PLUS) Branch Tab Multivitami Yes 1{tbl} Take 1 Un ge[place]ie ns-Minerals 2-28 tablet by ity of -Lutein 18:19: mouth [place] (MULTIVITAM 37 daily. Medica l IN 50 PLUS) Branch Tab Multivitami Yes 1{tbl} Take 1 Un ge[place]ie ns-Minerals 2-28 tablet by ity of -Lutein 18:19: mouth [place] (MULTIVITAM 37 daily. Medica l IN 50 PLUS) Branch Tab Multivitami Yes 1{tbl} Take 1 Un ge[place]ie ns-Minerals 2-28 tablet by ity of -Lutein 18:19: mouth [place] (MULTIVITAM 37 daily. Medica l IN 50 PLUS) Branch Tab Multivitami Yes 1{tbl} Take 1 Un [facility]ie ns-Minerals 2-28 tablet by ity of -Lutein 18:19: mouth [place] (MULTIVITAM 37 daily. Medica l IN 50 PLUS) Branch Tab Multivitami Yes 1{tbl} Take 1 Un ge[place]ie ns-Minerals 2-28 tablet by ity of -Lutein 18:19: mouth [place] (MULTIVITAM 37 daily. Medica l IN 50 PLUS) Branch Tab Multivitami Yes 1{tbl} Take 1 Un [facility]ie ns-Minerals 2-28 tablet by ity of -Lutein 18:19: mouth [place] (MULTIVITAM 37 daily. Medica l IN 50 PLUS) Branch Tab Multivitami Yes 1{tbl} Take 1 Un [facility]ie ns-Minerals 2-28 tablet by ity of -Lutein 18:19: mouth [place] (MULTIVITAM 37 daily. Medica l IN 50 PLUS) Branch Tab Multivitami Yes 1{tbl} Take 1 Un [facility]ie ns-Minerals 2-28 tablet by ity of -Lutein 18:19: mouth [place] (MULTIVITAM 37 daily. Medica l IN 50 PLUS) Branch Tab Multivitami Yes 1{tbl} Take 1 Un [facility]ie ns-Minerals 2-28 tablet by ity of -Lutein 18:19: mouth [place] (MULTIVITAM 37 daily. Medica l IN 50 PLUS) Branch Tab Multivitami Yes 1{tbl} Take 1 Un [facility]ie ns-Minerals 2-28 tablet by ity of -Lutein 18:19: mouth [place] (MULTIVITAM 37 daily. Medica l IN 50 PLUS) Branch Tab Multivitami Yes 1{tbl} Take 1 Un [facility]ie ns-Minerals 2-28 tablet by ity of -Lutein 18:19: mouth [place] (MULTIVITAM 37 daily. Medica l IN 50 PLUS) Branch Tab Multivitami Yes 1{tbl} Take 1 Un [facility]ie ns-Minerals 2-28 tablet by ity of -Lutein 18:19: mouth [place] (MULTIVITAM 37 daily. Medica l IN 50 PLUS) Branch Tab Multivitami Yes 1{tbl} Take 1 Un [facility]ie ns-Minerals 2-28 tablet by ity of -Lutein 18:19: mouth [place] (MULTIVITAM 37 daily. Medica l IN 50 PLUS) Branch Tab Multivitami Yes 1{tbl} Take 1 Un [facility]ie ns-Minerals 2-28 tablet by ity of -Lutein 18:19: mouth [place] (MULTIVITAM 37 daily. Medica l IN 50 PLUS) Branch Tab Multivitami Yes 1{tbl} Take 1 Un [facility]ie ns-Minerals 2-28 tablet by ity of -Lutein 18:19: mouth [place] (MULTIVITAM 37 daily. Medica l IN 50 PLUS) Branch Tab Multivitami Yes 1{tbl} Take 1 Un [facility]ie ns-Minerals 2-28 tablet by ity of -Lutein 18:19: mouth [place] (MULTIVITAM 37 daily. Medica l IN 50 PLUS) Branch Tab Multivitami Yes 1{tbl} Take 1 Un [facility]ie ns-Minerals 2-28 tablet by ity of -Lutein 18:19: mouth [place] (MULTIVITAM 37 daily. Medica l IN 50 PLUS) Branch Tab Multivitami Yes 1{tbl} Take 1 Un [facility]ie ns-Minerals 2-28 tablet by ity of -Lutein 18:19: mouth [place] (MULTIVITAM 37 daily. Medica l IN 50 PLUS) Branch Tab Multivitami Yes 1{tbl} Take 1 Un [facility]ie ns-Minerals 2-28 tablet by ity of -Lutein 18:19: mouth [place] (MULTIVITAM 37 daily. Medica l IN 50 PLUS) Branch Tab Multivitami Yes 1{tbl} Take 1 Un ge[place]ie ns-Minerals 2-28 tablet by ity of -Lutein 18:19: mouth [place] (MULTIVITAM 37 daily. Medica l IN 50 PLUS) Branch Tab Multivitami Yes 1{tbl} Take 1 Un ge[place]ie ns-Minerals 2-28 tablet by ity of -Lutein 18:19: mouth [place] (MULTIVITAM 37 daily. Medica l IN 50 PLUS) Branch Tab Multivitami Yes 1{tbl} Take 1 Un [facility]ie ns-Minerals 2-28 tablet by ity of -Lutein 18:19: mouth [place] (MULTIVITAM 37 daily. Medica l IN 50 PLUS) Branch Tab Multivitami Yes 1{tbl} Take 1 Un ge[place]ie ns-Minerals 2-28 tablet by ity of -Lutein 18:19: mouth [place] (MULTIVITAM 37 daily. Medica l IN 50 PLUS) Branch Tab Multivitami Yes 1{tbl} Take 1 Un [facility]ie ns-Minerals 2-28 tablet by ity of -Lutein 18:19: mouth [place] (MULTIVITAM 37 daily. Medica l IN 50 PLUS) Branch Tab Multivitami Yes 1{tbl} Take 1 Un [facility]ie ns-Minerals 2-28 tablet by ity of -Lutein 18:19: mouth [place] (MULTIVITAM 37 daily. Medica l IN 50 PLUS) Branch Tab Multivitami Yes 1{tbl} Take 1 Un [facility] ns-Minerals 2-28 tablet by ity of -Lutein 18:19: mouth [place] (MULTIVITAM 37 daily. Medica l IN 50 PLUS) Branch Tab Multivitami Yes 1{tbl} Take 1 Un [facility] ns-Minerals 2-28 tablet by ity of -Lutein 18:19: mouth [place] (MULTIVITAM 37 daily. Medica l IN 50 PLUS) Branch Tab CLONIDINE Yes [id number] TAKE 1 U nivers 0.3 mg 2-25 TABLET ity of tablet 00:00: TWICE A [place] 00 DAY Medical Branch CLONIDINE Yes [id number] TAKE 1 U nivers 0.3 mg 2-25 TABLET ity of tablet 00:00: TWICE A [facility] Branch CLONIDINE 2022-0 Yes [id number] TAKE 1 U nivers 0.3 mg 2-25 TABLET ity of tablet 00:00: TWICE A [facility] CLONIDINE 2022-0 Yes [id number] TAKE 1 U nivers 0.3 mg 2-25 TABLET ity of tablet 00:00: TWICE A [facility] CLONIDINE 2022-0 Yes [id number] TAKE 1 U nivers 0.3 mg 2-25 TABLET ity of tablet 00:00: TWICE A [facility] CLONIDINE 2022-0 Yes [id number] TAKE 1 U nivers 0.3 mg 2-25 TABLET ity of tablet 00:00: TWICE A [facility] CLONIDINE 2022-0 Yes [id number] TAKE 1 U nivers 0.3 mg 2-25 TABLET ity of tablet 00:00: TWICE A [facility] CLONIDINE 2022-0 Yes [id number] TAKE 1 U nivers 0.3 mg 2-25 TABLET ity of tablet 00:00: TWICE A [facility] CLONIDINE 2022-0 Yes [id number] TAKE 1 U nivers 0.3 mg 2-25 TABLET ity of tablet 00:00: TWICE A [facility] CLONIDINE 2022-0 Yes [id number] TAKE 1 U nivers 0.3 mg 2-25 TABLET ity of tablet 00:00: TWICE A [facility] CLONIDINE 2022-0 Yes [id number] TAKE 1 U nivers 0.3 mg 2-25 TABLET ity of tablet 00:00: TWICE A [facility] CLONIDINE 2022-0 Yes [id number] TAKE 1 U nivers 0.3 mg 2-25 TABLET ity of tablet 00:00: TWICE A [facility] CLONIDINE 2022-0 Yes [id number] TAKE 1 U nivers 0.3 mg 2-25 TABLET ity of tablet 00:00: TWICE A [facility] CLONIDINE 2022-0 Yes [id number] TAKE 1 U nivers 0.3 mg 2-25 TABLET ity of tablet 00:00: TWICE A [facility] CLONIDINE 2022-0 Yes [id number] TAKE 1 U nivers 0.3 mg 2-25 TABLET ity of tablet 00:00: TWICE A [facility] Branch CLONIDINE 2022-0 Yes [id number] TAKE 1 U nivers 0.3 mg 2-25 TABLET ity of tablet 00:00: TWICE A [facility] Branch CLONIDINE 2022-0 Yes [id number] TAKE 1 U nivers 0.3 mg 2-25 TABLET ity of tablet 00:00: TWICE A [facility] Branch CLONIDINE 2022-0 Yes [id number] TAKE 1 U nivers 0.3 mg 2-25 TABLET ity of tablet 00:00: TWICE A [facility] Branch CLONIDINE 2022-0 Yes [id number] TAKE 1 U nivers 0.3 mg 2-25 TABLET ity of tablet 00:00: TWICE A [facility] CLONIDINE 2022-0 Yes [id number] TAKE 1 U nivers 0.3 mg 2-25 TABLET ity of tablet 00:00: TWICE A [facility] CLONIDINE 2022-0 Yes [id number] TAKE 1 U nivers 0.3 mg 2-25 TABLET ity of tablet 00:00: TWICE A [facility] Branch CLONIDINE 2022-0 Yes [id number] TAKE 1 U nivers 0.3 mg 2-25 TABLET ity of tablet 00:00: TWICE A [facility] CLONIDINE 2022-0 Yes [id number] TAKE 1 U nivers 0.3 mg 2-25 TABLET ity of tablet 00:00: TWICE A [facility] CLONIDINE 2022-0 Yes [id number] TAKE 1 U nivers 0.3 mg 2-25 TABLET ity of tablet 00:00: TWICE A [facility] Branch CLONIDINE 2022-0 Yes [id number] TAKE 1 U nivers 0.3 mg 2-25 TABLET ity of tablet 00:00: TWICE A [facility] CLONIDINE 2022-0 Yes [id number] TAKE 1 U nivers 0.3 mg 2-25 TABLET ity of tablet 00:00: TWICE A [facility] CLONIDINE 2022-0 Yes [id number] TAKE 1 U nivers 0.3 mg 2-25 TABLET ity of tablet 00:00: TWICE A [facility] CLONIDINE 2022-0 Yes [id number] TAKE 1 U nivers 0.3 mg 2-25 TABLET ity of tablet 00:00: TWICE A Medical Branch CLONIDINE 2022-0 Yes [id number] TAKE 1 U nivers 0.3 mg 2-25 TABLET ity of tablet 00:00: TWICE A [facility] Branch CLONIDINE 2022-0 Yes [id number] TAKE 1 U nivers 0.3 mg 2-25 TABLET ity of tablet 00:00: TWICE A [facility] Branch CLONIDINE 2022-0 Yes [id number] TAKE 1 U nivers 0.3 mg 2-25 TABLET ity of tablet 00:00: TWICE A [facility] Branch CLONIDINE 2022-0 Yes [id number] TAKE 1 U nivers 0.3 mg 2-25 TABLET ity of tablet 00:00: TWICE A [facility] Branch CLONIDINE 2022-0 Yes [id number] TAKE 1 U nivers 0.3 mg 2-25 TABLET ity of tablet 00:00: TWICE A [facility] Branch CLONIDINE 2022-0 Yes [id number] TAKE 1 U nivers 0.3 mg 2-25 TABLET ity of tablet 00:00: TWICE A [facility] Branch CLONIDINE 2022-0 Yes [id number] TAKE 1 U nivers 0.3 mg 2-25 TABLET ity of tablet 00:00: TWICE A [facility] Branch CLONIDINE 2022-0 Yes [id number] TAKE 1 U nivers 0.3 mg 2-25 TABLET ity of tablet 00:00: TWICE A [facility] Branch CLONIDINE 2022-0 Yes [id number] TAKE 1 U nivers 0.3 mg 2-25 TABLET ity of tablet 00:00: TWICE A [facility] Branch CLONIDINE 2022-0 Yes [id number] TAKE 1 U nivers 0.3 mg 2-25 TABLET ity of tablet 00:00: TWICE A [facility] Branch CLONIDINE 2022-0 Yes [id number] TAKE 1 U nivers 0.3 mg 2-25 TABLET ity of tablet 00:00: TWICE A [facility] Branch CLONIDINE 2022-0 Yes [id number] TAKE 1 U nivers 0.3 mg 2-25 TABLET ity of tablet 00:00: TWICE A [facility] Branch CLONIDINE 2022-0 Yes [id number] TAKE 1 U nivers 0.3 mg 2-25 TABLET ity of tablet 00:00: TWICE A Medical Branch CLONIDINE 2021-0 Yes [id number] TAKE 1 U nivers 0.3 mg 2-25 TABLET ity of tablet 00:00: TWICE A Medical Branch CLONIDINE 2021-0 Yes [id number] TAKE 1 U nivers 0.3 mg 2-25 TABLET ity of tablet 00:00: TWICE A Medical Branch CLONIDINE 2021-0 Yes [id number] TAKE 1 U nivers 0.3 mg 2-25 TABLET ity of tablet 00:00: TWICE A Medical Branch CLONIDINE 2021-0 Yes [id number] TAKE 1 U nivers 0.3 mg 2-25 TABLET ity of tablet 00:00: TWICE A Medical Branch CLONIDINE 2021-0 Yes [id number] TAKE 1 U nivers 0.3 mg 2-25 TABLET ity of tablet 00:00: TWICE A Medical Branch CLONIDINE 2021-0 Yes [id number] TAKE 1 U nivers 0.3 mg 2-25 TABLET ity of tablet 00:00: TWICE A Medical Branch CLONIDINE 2021-0 Yes [id number] TAKE 1 U nivers 0.3 mg 2-25 TABLET ity of tablet 00:00: TWICE A [place] [facility] CLONIDINE 2021-0 Yes [id number] TAKE 1 U nivers 0.3 mg 2-25 TABLET ity of tablet 00:00: TWICE A [place] [facility] clonIDINE 2021-0 Yes .3mg Q.5D Take 1 [facility] HCl 2-[address] (CATAPRES) 00:00: (0.3 mg [facility] 0.3 MG 00 total) by l tablet mouth 2 (two) times a day. CLONIDINE 2021-0 2023- No [id number] TAKE 1 [facility] 0.3 mg 2-25 02-20 TABLET ity of tablet 00:00: 00:00 TWICE A [place] 00 Medical Branch furosemide 2021-0 Yes [id number] 20mg Take 1 U nivers (LASIX) 20 2-22 tablet by ity of mg tablet 00:00: mouth [place] every Medical morning Branch and evening. furosemide 2021-0 Yes 20mg Take 1 Unive rs 20 mg 2-22 tablet by ity of tablet 00:00: mouth [place] every Medical morning Branch and evening. furosemide 2021-0 Yes [id number] 20mg Take 1 U nivers (LASIX) 20 2-22 tablet by ity of mg tablet 00:00: mouth [place] 00 every Medical morning Branch and evening. furosemide 2022-0 Yes 20mg Take 1 Unive rs 20 mg 2-22 tablet by ity of tablet 00:00: mouth [place] 00 every Medical morning Branch and evening. furosemide 2022-0 Yes [id number] 20mg Take 1 U nivers (LASIX) 20 2-22 tablet by ity of mg tablet 00:00: mouth [place] 00 every Medical morning Branch and evening. furosemide 2022-0 Yes 20mg Take 1 Unive rs 20 mg 2-22 tablet by ity of tablet 00:00: mouth [place] 00 every Medical morning Branch and evening. furosemide 2022-0 Yes [id number] 20mg Take 1 U nivers (LASIX) 20 2-22 tablet by ity of mg tablet 00:00: mouth [place] 00 every Medical morning Branch and evening. furosemide 2022-0 Yes 20mg Take 1 Unive rs 20 mg 2-22 tablet by ity of tablet 00:00: mouth [place] 00 every Medical morning Branch and evening. furosemide 2022-0 Yes [id number] 20mg Take 1 U nivers (LASIX) 20 2-22 tablet by ity of mg tablet 00:00: mouth [place] 00 every Medical morning Branch and evening. furosemide 2022-0 Yes 20mg Take 1 Unive rs 20 mg 2-22 tablet by ity of tablet 00:00: mouth [place] 00 every Medical morning Branch and evening. furosemide 2022-0 Yes [id number] 20mg Take 1 U nivers (LASIX) 20 2-22 tablet by ity of mg tablet 00:00: mouth [place] 00 every Medical morning Branch and evening. furosemide 2022-0 Yes 20mg Take 1 Unive rs 20 mg 2-22 tablet by ity of tablet 00:00: mouth [place] 00 every Medical morning Branch and evening. furosemide 2022-0 Yes [id number] 20mg Take 1 U nivers (LASIX) 20 2-22 tablet by ity of mg tablet 00:00: mouth [place] 00 every Medical morning Branch and evening. furosemide 2022-0 Yes 20mg Take 1 Unive rs 20 mg 2-22 tablet by ity of tablet 00:00: mouth [place] 00 every Medical morning Branch and evening. furosemide 2022-0 Yes [id number] 20mg Take 1 U nivers (LASIX) 20 2-22 tablet by ity of mg tablet 00:00: mouth [place] 00 every Medical morning Branch and evening. furosemide 2022-0 Yes 20mg Take 1 Unive rs 20 mg 2-22 tablet by ity of tablet 00:00: mouth [place] 00 every Medical morning Branch and evening. furosemide 2022-0 Yes [id number] 20mg Take 1 [facility] nivers (LASIX) 20 2-22 tablet by [facility] of mg tablet 00:00: mouth [place] 00 every Medical morning Branch and evening. furosemide 2022-0 Yes 20mg Take 1 [facility] rs 20 mg 2-22 tablet by [facility] of tablet 00:00: mouth [place] 00 every Medical morning Branch and evening. furosemide 2022-0 Yes [id number] 20mg Take 1 [facility] nivers (LASIX) 20 2-22 tablet by [facility] of mg tablet 00:00: mouth [place] 00 every Medical morning Branch and evening. furosemide 2022-0 Yes 20mg Take 1 [facility] rs 20 mg 2-22 tablet by [facility] of tablet 00:00: mouth [place] 00 every Medical morning Branch and evening. furosemide 2022-0 Yes [id number] 20mg Take 1 [facility] (LASIX) 20 2-22 tablet by [facility] mg tablet 00:00: mouth [place] 00 every Medical morning Branch and evening. furosemide 2022-0 Yes 20mg Take 1 [facility] 20 mg 2-22 tablet by [facility] of tablet 00:00: mouth [place] 00 every Medical morning Branch and evening. furosemide 2022-0 Yes [id number] 20mg Take 1 [facility] (LASIX) 20 2-22 tablet by [facility] of mg tablet 00:00: mouth [place] 00 every Medical morning Branch and evening. furosemide 2022-0 Yes 20mg Take 1 [facility] 20 mg 2-22 tablet by [facility] of tablet 00:00: mouth [place] 00 every Medical morning Branch and evening. furosemide 2022-0 Yes [id number] 20mg Take 1 [facility] (LASIX) 20 2-22 tablet by [facility] of mg tablet 00:00: mouth [place] 00 every Medical morning Branch and evening. furosemide 2022-0 Yes 20mg Take 1 [facility] 20 mg 2-22 tablet by [facility] of tablet 00:00: mouth [place] 00 every Medical morning Branch and evening. furosemide 2022-0 Yes [id number] 20mg Take 1 [facility] (LASIX) 20 2-22 tablet by [facility] of mg tablet 00:00: mouth [place] 00 every Medical morning Branch and evening. furosemide 2022-0 Yes 20mg Take 1 [facility] 20 mg 2-22 tablet by [facility] of tablet 00:00: mouth [place] 00 every Medical morning Branch and evening. furosemide 2022-0 Yes [id number] 20mg Take 1 [facility] (LASIX) 20 2-22 tablet by [facility] of mg tablet 00:00: mouth [place] 00 every Medical morning Branch and evening. furosemide 2022-0 Yes 20mg Take 1 [facility] 20 mg 2-22 tablet by [facility] of tablet 00:00: mouth [place] 00 every Medical morning Branch and evening. furosemide 2022-0 Yes [id number] 20mg Take 1 [facility] (LASIX) 20 2-22 tablet by [facility] of mg tablet 00:00: mouth [place] 00 every Medical morning Branch and evening. furosemide 2022-0 Yes 20mg Take 1 [facility] 20 mg 2-22 tablet by [facility] of tablet 00:00: mouth [place] 00 every Medical morning Branch and evening. furosemide 2022-0 Yes [id number] 20mg Take 1 [facility] (LASIX) 20 2-22 tablet by [facility] of mg tablet 00:00: mouth [place] 00 every Medical morning Branch and evening. furosemide 2022-0 Yes 20mg Take 1 [facility] 20 mg 2-22 tablet by [facility] of tablet 00:00: mouth [place] 00 every Medical morning Branch and evening. furosemide 2022-0 Yes [id number] 20mg Take 1 [facility] (LASIX) 20 2-22 tablet by [facility] of mg tablet 00:00: mouth [place] 00 every Medical morning Branch and evening. furosemide 2022-0 Yes 20mg Take 1 [facility] 20 mg 2-22 tablet by [facility] of tablet 00:00: mouth [place] 00 every Medical morning Branch and evening. furosemide 2022-0 Yes [id number] 20mg Take 1 [facility] (LASIX) 20 2-22 tablet by [facility] of mg tablet 00:00: mouth [place] 00 every Medical morning Branch and evening. furosemide 2022-0 Yes 20mg Take 1 [facility] 20 mg 2-22 tablet by [facility] of tablet 00:00: mouth [place] 00 every Medical morning Branch and evening. furosemide 2022-0 Yes [id number] 20mg Take 1 [facility] (LASIX) 20 2-22 tablet by [facility] of mg tablet 00:00: mouth [place] 00 every Medical morning Branch and evening. furosemide 2022-0 Yes [id number] 20mg Take 1 [facility] (LASIX) 20 2-22 tablet by [facility] of mg tablet 00:00: mouth [place] 00 every Medical morning Branch and evening. furosemide 2022-0 Yes [id number] 20mg Take 1 [facility] (LASIX) 20 2-22 tablet by [facility] of mg tablet 00:00: mouth [place] 00 every Medical morning Branch and evening. furosemide 2022-0 Yes [id number] 20mg Take 1 [facility] (LASIX) 20 2-22 tablet by [facility] of mg tablet 00:00: mouth [place] 00 every Medical morning Branch and evening. furosemide 2022-0 Yes [id number] 20mg Take 1 [facility] (LASIX) 20 2-22 tablet by [facility] of mg tablet 00:00: mouth [place] 00 every Medical morning Branch and evening. furosemide 2022-0 Yes [id number] 20mg Take 1 [facility] (LASIX) 20 2-22 tablet by [facility] of mg tablet 00:00: mouth [place] 00 every Medical morning Branch and evening. furosemide 2022-0 Yes [id number] 20mg Take 1 [facility] (LASIX) 20 2-22 tablet by [facility] of mg tablet 00:00: mouth [place] 00 every Medical morning Branch and evening. furosemide 2022-0 Yes [id number] 20mg Take 1 [facility] (LASIX) 20 2-22 tablet by [facility] of mg tablet 00:00: mouth [place] 00 every Medical morning Branch and evening. furosemide 2022-0 Yes [id number] 20mg Take 1 [facility] (LASIX) 20 2-22 tablet by [facility] of mg tablet 00:00: mouth [place] 00 every Medical morning Branch and evening. furosemide 2022-0 Yes [id number] 20mg Take 1 [facility] (LASIX) 20 2-22 tablet by [facility] of mg tablet 00:00: mouth [place] 00 every Medical morning Branch and evening. furosemide 2022-0 Yes [id number] 20mg Take 1 [facility] (LASIX) 20 2-22 tablet by [facility] of mg tablet 00:00: mouth [place] 00 every Medical morning Branch and evening. furosemide 2022-0 Yes [id number] 20mg Take 1 [facility] (LASIX) 20 2-22 tablet by [facility] of mg tablet 00:00: mouth [place] 00 every Medical morning Branch and evening. furosemide 2022-0 Yes [id number] 20mg Take 1 [facility] (LASIX) 20 2-22 tablet by [facility] of mg tablet 00:00: mouth [place] 00 every Medical morning Branch and evening. furosemide 2022-0 Yes [id number] 20mg Take 1 [facility] (LASIX) 20 2-22 tablet by [facility] of mg tablet 00:00: mouth [place] 00 every Medical morning Branch and evening. furosemide 2022-0 Yes [id number] 20mg Take 1 [facility] (LASIX) 20 2-22 tablet by [facility] of mg tablet 00:00: mouth [place] 00 every Medical morning Branch and evening. furosemide 2021-0 Yes [id number] 20mg Take 1 [facility] (LASIX) 20 2-22 tablet by [facility] of mg tablet 00:00: mouth [place] 00 every Medical morning Branch and evening. furosemide 2021-0 Yes [id number] 20mg Take 1 [facility] (LASIX) 20 2-22 tablet by [facility] of mg tablet 00:00: mouth [place] 00 every Medical morning Branch and evening. furosemide 2021-0 Yes [id number] 20mg Take 1 [facility] (LASIX) 20 2-22 tablet by [facility] of mg tablet 00:00: mouth [place] 00 every Medical morning Branch and evening. furosemide 2022-0 Yes [id number] 20mg Take 1 [facility] (LASIX) 20 2-22 tablet by [facility] of mg tablet 00:00: mouth [place] 00 every Medical morning Branch and evening. furosemide 2022-0 Yes [id number] 20mg Take 1 [facility] (LASIX) 20 2-22 tablet by [facility] of mg tablet 00:00: mouth [place] 00 every Medical morning Branch and evening. furosemide 2022-0 Yes [id number] 20mg Take 1 [facility] (LASIX) 20 2-22 tablet by [facility] of mg tablet 00:00: mouth [place] 00 every Medical morning Branch and evening. furosemide 2022-0 Yes [id number] 20mg Take 1 [facility] (LASIX) 20 2-22 tablet by [facility] of mg tablet 00:00: mouth [place] 00 every Medical morning Branch and evening. furosemide 2022-0 Yes [id number] 20mg Take 1 [facility] (LASIX) 20 2-22 tablet by [facility] of mg tablet 00:00: mouth [place] 00 every Medical morning Branch and evening. furosemide 2022-0 Yes [id number] 20mg Take 1 [facility] (LASIX) 20 2-22 tablet by [facility] of mg tablet 00:00: mouth [place] 00 every Medical morning Branch and evening. furosemide 2022-0 Yes [id number] 20mg Take 1 [facility] (LASIX) 20 2-22 tablet by [facility] of mg tablet 00:00: mouth [place] 00 every Medical morning Branch and evening. furosemide 2022-0 Yes [id number] 20mg Take 1 [facility] (LASIX) 20 2-22 tablet by [facility] of mg tablet 00:00: mouth [place] 00 every Medical morning Branch and evening. furosemide 2022-0 Yes [id number] 20mg Take 1 [facility] (LASIX) 20 2-22 tablet by [facility] of mg tablet 00:00: mouth [place] 00 every Medical morning Branch and evening. furosemide 2022-0 Yes [id number] 20mg Take 1 [facility] (LASIX) 20 2-22 tablet by [facility] of mg tablet 00:00: mouth [place] 00 every Medical morning Branch and evening. furosemide 2022-0 Yes [id number] 20mg Take 1 [facility] (LASIX) 20 2-22 tablet by [facility] of mg tablet 00:00: mouth [place] 00 every Medical morning Branch and evening. furosemide 2022-0 Yes [id number] 20mg Take 1 [facility] (LASIX) 20 2-22 tablet by [facility] of mg tablet 00:00: mouth [place] 00 every Medical morning Branch and evening. furosemide 2022-0 Yes [id number] 20mg Take 1 [facility] (LASIX) 20 2-22 tablet by [facility] of mg tablet 00:00: mouth [place] 00 every Medical morning Branch and evening. furosemide 2022-0 Yes [id number] 20mg Take 1 [facility] (LASIX) 20 2-22 tablet by [facility] of mg tablet 00:00: mouth [place] 00 every Medical morning Branch and evening. furosemide 2022-0 Yes [id number] 20mg Take 1 [facility] (LASIX) 20 2-22 tablet by [facility] of mg tablet 00:00: mouth [place] 00 every Medical morning Branch and evening. furosemide 2022-0 Yes [id number] 20mg Take 1 [facility] (LASIX) 20 2-22 tablet by [facility] of mg tablet 00:00: mouth [place] 00 every Medical morning Branch and evening. furosemide 2022-0 Yes [id number] 20mg Take 1 [facility] (LASIX) 20 2-22 tablet by [facility] of mg tablet 00:00: mouth [place] 00 every Medical morning Branch and evening. furosemide 2022-0 Yes [id number] 20mg Take 1 [facility] (LASIX) 20 2-22 tablet by [facility] of mg tablet 00:00: mouth [place] 00 every Medical morning Branch and evening. furosemide 2022-0 Yes [id number] 20mg Take 1 [facility] (LASIX) 20 2-22 tablet by [facility] of mg tablet 00:00: mouth [place] 00 every Medical morning Branch and evening. furosemide 2022-0 Yes [id number] 20mg Take 1 [facility] (LASIX) 20 2-22 tablet by [facility] of mg tablet 00:00: mouth [place] 00 every Medical morning Branch and evening. furosemide 2022-0 2022- No 20mg Take 1 [facility] 20 mg 2-22 11-14 tablet by [facility] of tablet 00:00: 00:00 mouth [place] 00 :00 every Medical morning Branch and evening. furosemide 2022-0 2022- No 20mg Take 1 [facility] 20 mg 2-22 11-14 tablet by [facility] of tablet 00:00: 00:00 mouth [place] 00 :00 every Medical morning Branch and evening. furosemide 2022-0 2022- No 20mg Take 1 [facility] 20 mg 2-22 11-14 tablet by [facility] of tablet 00:00: 00:00 mouth [place] 00 :00 every Medical morning Branch and evening. furosemide 2022-0 2022- No 20mg Take 1 [facility] 20 mg 2-22 11-14 tablet by [facility] of tablet 00:00: 00:00 mouth [place] 00 :00 every Medical morning Branch and evening. furosemide 2022-0 2022- No 20mg Take 1 [facility] 20 mg 2-22 11-14 tablet by [facility] of tablet 00:00: 00:00 mouth [place] 00 :00 every Medical morning Branch and evening. MYCOPHENOLA 2-0 Yes TAKE 1 [facility] TE SODIUM 1-18 TABLET [facility] 360 mg EC 00:00: EVERY 12 [place] tablet 00 HOURS [facility] MYCOPHENOLA 2-0 Yes TAKE 1 [facility] TE SODIUM 1-18 TABLET [facility] 360 mg EC 00:00: EVERY 12 [place] tablet 00 HOURS [facility] MYCOPHENOLA 0 Yes TAKE 1 [facility] TE SODIUM 1-18 TABLET [facility] 360 mg EC 00:00: EVERY 12 [place] tablet 00 HOURS [facility] MYCOPHENOLA 0 Yes TAKE 1 [facility] TE SODIUM 1-18 TABLET [facility] of 360 mg EC 00:00: EVERY 12 [place] tablet 00 HOURS [facility] MYCOPHENOLA 0 Yes TAKE 1 [facility] TE SODIUM 1-18 TABLET [facility] of 360 mg EC 00:00: EVERY 12 [place] tablet 00 HOURS [facility] MYCOPHENOLA 0 Yes TAKE 1 [facility] TE SODIUM 1-18 TABLET [facility] of 360 mg EC 00:00: EVERY 12 [place] tablet 00 HOURS [facility] MYCOPHENOLA Yes TAKE 1 [facility] TE SODIUM 1-18 TABLET [facility] of 360 mg EC 00:00: EVERY 12 [place] tablet 00 HOURS [facility] MYCOPHENOLA Yes TAKE 1 [facility] TE SODIUM 1-18 TABLET [facility] of 360 mg EC 00:00: EVERY 12 [place] tablet 00 HOURS [facility] MYCOPHENOLA Yes TAKE 1 [facility] TE SODIUM 1-18 TABLET [facility] of 360 mg EC 00:00: EVERY 12 [place] tablet 00 HOURS [facility] MYCOPHENOLA 0 Yes TAKE 1 [facility] TE SODIUM 1-18 TABLET [facility] of 360 mg EC 00:00: EVERY 12 [place] tablet 00 HOURS [facility] MYCOPHENOLA 0 Yes TAKE 1 [facility] TE SODIUM 1-18 TABLET [facility] of 360 mg EC 00:00: EVERY 12 [place] tablet 00 HOURS [facility] MYCOPHENOLA 2021-0 Yes TAKE 1 [facility] TE SODIUM 1-18 TABLET [facility] of 360 mg EC 00:00: EVERY 12 [place] tablet 00 HOURS [facility] MYCOPHENOLA 2021-0 Yes TAKE 1 [facility] TE SODIUM 1-18 TABLET [facility] of 360 mg EC 00:00: EVERY 12 [place] tablet 00 HOURS [facility] MYCOPHENOLA 2021-0 Yes TAKE 1 [facility] TE SODIUM 1-18 TABLET [facility] of 360 mg EC 00:00: EVERY 12 [place] tablet 00 HOURS [facility] MYCOPHENOLA 2021-0 Yes TAKE 1 [facility] TE SODIUM 1-18 TABLET [facility] of 360 mg EC 00:00: EVERY 12 [place] tablet 00 HOURS [facility] MYCOPHENOLA Yes TAKE 1 [facility] TE SODIUM 1-18 TABLET [facility] of 360 mg EC 00:00: EVERY 12 [place] tablet 00 HOURS [facility] MYCOPHENOLA Yes TAKE 1 [facility] TE SODIUM 1-18 TABLET [facility] of 360 mg EC 00:00: EVERY 12 [place] tablet 00 HOURS [facility] MYCOPHENOLA Yes TAKE 1 [facility] TE SODIUM 1-18 TABLET [facility] of 360 mg EC 00:00: EVERY 12 [place] tablet 00 HOURS [facility] MYCOPHENOLA Yes TAKE 1 [facility] TE SODIUM 1-18 TABLET [facility] of 360 mg EC 00:00: EVERY 12 [place] tablet 00 HOURS [facility] MYCOPHENOLA Yes TAKE 1 [facility] TE SODIUM 1-18 TABLET [facility] of 360 mg EC 00:00: EVERY 12 [place] tablet 00 HOURS [facility] MYCOPHENOLA Yes TAKE 1 [facility] TE SODIUM 1-18 TABLET [facility] of 360 mg EC 00:00: EVERY 12 [place] tablet 00 HOURS [facility] MYCOPHENOLA Yes TAKE 1 [facility] TE SODIUM 1-18 TABLET [facility] of 360 mg EC 00:00: EVERY 12 [place] tablet 00 HOURS [facility] MYCOPHENOLA Yes TAKE 1 [facility] TE SODIUM 1-18 TABLET [facility] of 360 mg EC 00:00: EVERY 12 [place] tablet 00 HOURS [facility] MYCOPHENOLA Yes TAKE 1 [facility] TE SODIUM 1-18 TABLET [facility] of 360 mg EC 00:00: EVERY 12 [place] tablet 00 HOURS [facility] MYCOPHENOLA Yes TAKE 1 [facility] TE SODIUM 1-18 TABLET [facility] of 360 mg EC 00:00: EVERY 12 [place] tablet 00 HOURS [facility] MYCOPHENOLA Yes TAKE 1 [facility] TE SODIUM 1-18 TABLET [facility] of 360 mg EC 00:00: EVERY 12 [place] tablet 00 HOURS [facility] MYCOPHENOLA Yes TAKE 1 [facility] TE SODIUM 1-18 TABLET [facility] of 360 mg EC 00:00: EVERY 12 [place] tablet 00 HOURS [facility] MYCOPHENOLA Yes TAKE 1 [facility] TE SODIUM 1-18 TABLET [facility] of 360 mg EC 00:00: EVERY 12 [place] tablet 00 HOURS [facility] MYCOPHENOLA Yes TAKE 1 [facility] TE SODIUM 1-18 TABLET [facility] of 360 mg EC 00:00: EVERY 12 [place] tablet 00 HOURS [facility] MYCOPHENOLA Yes TAKE 1 [facility] TE SODIUM 1-18 TABLET [facility] of 360 mg EC 00:00: EVERY 12 [place] tablet 00 HOURS [facility] MYCOPHENOLA Yes TAKE 1 [facility] TE SODIUM 1-18 TABLET it[facility] of 360 mg EC 00:00: EVERY 12 [place] tablet 00 HOURS [facility] MYCOPHENOLA Yes TAKE 1 [facility] TE SODIUM 1-18 TABLET [facility] of 360 mg EC 00:00: EVERY 12 [place] tablet 00 HOURS [facility] MYCOPHENOLA Yes TAKE 1 [facility] TE SODIUM 1-18 TABLET [facility] of 360 mg EC 00:00: EVERY 12 [place] tablet 00 HOURS [facility] MYCOPHENOLA Yes TAKE 1 [facility] TE SODIUM 1-18 TABLET [facility] of 360 mg EC 00:00: EVERY 12 [place] tablet 00 HOURS [facility] MYCOPHENOLA Yes TAKE 1 [facility] TE SODIUM 1-18 TABLET it[facility] of 360 mg EC 00:00: EVERY 12 [place] tablet 00 HOURS [facility] MYCOPHENOLA Yes TAKE 1 [facility] TE SODIUM 1-18 TABLET [facility] of 360 mg EC 00:00: EVERY 12 [place] tablet 00 HOURS [facility] mycophenola Yes 360mg Q12H Take 1 [facility] (MYFORTIC) 00:00: (360 mg [facility] 360 MG 00 total) by l tablet,[facility] mouth yed release every 12 (DR/EC) EC (twelve) tablet hours. MYCOPHENOLA 2021- No TAKE 1 [facility] TE SODIUM 1-18 12-22 TABLET ity of 360 mg EC 00:00: 00:00 EVERY 12 [place] tablet 00 :00 HOURS [facility] Branch fluorouraci 2019-09 Yes Mix in a [facility] L 5 % cream 2-23 1:1 ratio ity of 00:00: with [place] 00 calcipotri Medical hoa and Branch apply to affected areas twice a day for 4 days calcipotrie 2019-09 Yes Mix in a [facility] ne 0.005 % 2-23 1:1 ratio ity of cream 00:00: with [place] 00 fluorourac Medical il and Branch apply to affected areas twice a day for 4 days fluorouraci 2020- Yes Mix in a [facility] L 5 % cream 2-23 1:1 ratio ity of 00:00: with [place] 00 calcipotri Medical hoa and Branch apply to affected areas twice a day for 4 days calcipotrie 2020- Yes Mix in a [facility] ne 0.005 % 2-23 1:1 ratio ity of cream 00:00: with [place] 00 fluorourac Medical il and Branch apply to affected areas twice a day for 4 days fluorouraci 2020- Yes Mix in a [facility] L 5 % cream 2-23 1:1 ratio ity of 00:00: with [place] 00 calcipotri Medical hoa and Branch apply to affected areas twice a day for 4 days calcipotrie 2020 Yes Mix in a [facility] ne 0.005 % 2-23 1:1 ratio ity of cream 00:00: with [place] 00 fluorourac Medical il and Branch apply to affected areas twice a day for 4 days fluorouraci 2020- Yes Mix in a [facility] L 5 % cream 2-23 1:1 ratio ity of 00:00: with [place] 00 calcipotri Medical hoa and Branch apply to affected areas twice a day for 4 days calcipotrie 2020 Yes Mix in a [facility] ne 0.005 % 2-23 1:1 ratio ity of cream 00:00: with [place] 00 fluorourac [facility] il and Branch apply to affected areas twice a day for 4 days fluorouraci 2020- Yes Mix in a [facility] L 5 % cream 2-23 1:1 ratio ity of 00:00: with [place] 00 calcipotri Medical hoa and Branch apply to affected areas twice a day for 4 days calcipotrie 2020- Yes [id number] Mix in a [facility] ne 0.005 % 2-23 1:1 ratio ity of cream 00:00: with [place] 00 fluorourac [facility] il and Branch apply to affected areas twice a day for 4 days fluorouraci 2020- Yes [id number] Mix in a [facility] L 5 % cream 2-23 1:1 ratio ity of 00:00: with [place] 00 calcipotri Medical hoa and Branch apply to affected areas twice a day for 4 days calcipotrie 2020- Yes Mix in a [facility] ne 0.005 % 2-23 1:1 ratio ity of cream 00:00: with [place] 00 fluorourac [facility] il and Branch apply to affected areas twice a day for 4 days fluorouraci 2020- Yes Mix in a [facility] L 5 % cream 2-23 1:1 ratio ity of 00:00: with [place] 00 calcipotri Medical hoa and Branch apply to affected areas twice a day for 4 days calcipotrie 2020- Yes Mix in a [facility] ne 0.005 % 2-23 1:1 ratio ity of cream 00:00: with [place] 00 fluorourac Medical il and Branch apply to affected areas twice a day for 4 days fluorouraci 2020- Yes Mix in a [facility] L 5 % cream 2-23 1:1 ratio ity of 00:00: with [place] 00 calcipotri Medical hoa and Branch apply to affected areas twice a day for 4 days calcipotrie 2020- Yes Mix in a [facility] ne 0.005 % 2-23 1:1 ratio ity of cream 00:00: with [place] 00 fluorourac [facility] il and Branch apply to affected areas twice a day for 4 days fluorouraci 2020- Yes Mix in a [facility] L 5 % cream 2-23 1:1 ratio ity of 00:00: with [place] 00 calcipotri Medical hoa and Branch apply to affected areas twice a day for 4 days calcipotrie 2020- Yes Mix in a [facility] ne 0.005 % 2-23 1:1 ratio ity of cream 00:00: with [place] 00 fluorourac [facility] il and Branch apply to affected areas twice a day for 4 days fluorouraci 2020- Yes Mix in a [facility] L 5 % cream 2-23 1:1 ratio ity of 00:00: with [place] 00 calcipotri [facility] hoa and Branch apply to affected areas twice a day for 4 days calcipotrie 2020- Yes [id number] Mix in a [facility] ne 0.005 % 2-23 1:1 ratio ity of cream 00:00: with [place] 00 fluor[facility]ac [facility] and Branch apply to affected areas twice a day for 4 days fluorouraci 2020- Yes Mix in a [facility] L 5 % cream 2-23 1:1 ratio ity of 00:00: with [place] 00 calcipotri Medical hoa and Branch apply to affected areas twice a day for 4 days calcipotrie 2020- Yes Mix in a [facility] ne 0.005 % 2-23 1:1 ratio ity of cream 00:00: with [place] 00 fluorourac [facility] il and Branch apply to affected areas twice a day for 4 days fluorouraci 2020- Yes Mix in a [facility] L 5 % cream 2-23 1:1 ratio ity of 00:00: with [place] 00 calcipotri Medical hoa and Branch apply to affected areas twice a day for 4 days calcipotrie 2020- Yes Mix in a [facility] ne 0.005 % 2-23 1:1 ratio ity of cream 00:00: with [place] 00 fluorourac [facility] il and Branch apply to affected areas twice a day for 4 days fluorouraci 2020- Yes Mix in a [facility] L 5 % cream 2-23 1:1 ratio ity of 00:00: with [place] 00 calcipotri Medical hoa and Branch apply to affected areas twice a day for 4 days calcipotrie 2020- Yes Mix in a [facility] ne 0.005 % 2-23 1:1 ratio ity of cream 00:00: with [place] 00 fluorourac [facility] il and Branch apply to affected areas twice a day for 4 days fluorouraci 2020- Yes Mix in a [facility] L 5 % cream 2-23 1:1 ratio ity of 00:00: with [place] 00 calcipotri Medical hoa and Branch apply to affected areas twice a day for 4 days calcipotrie 2020- Yes [id number] Mix in a [facility] ne 0.005 % 2-23 1:1 ratio ity of cream 00:00: with [place] 00 fluor[facility]ac [facility] il and Branch apply to affected areas twice a day for 4 days fluorouraci 2020- Yes [id number] Mix in a [facility] L 5 % cream 2-23 1:1 ratio ity of 00:00: with [place] 00 calcipotri Medical hoa and Branch apply to affected areas twice a day for 4 days calcipotrie 2020- Yes Mix in a [facility] ne 0.005 % 2-23 1:1 ratio ity of cream 00:00: with [place] 00 fluor[facility]ac [facility] and Branch apply to affected areas twice a day for 4 days fluorouraci 2020- Yes Mix in a [facility] L 5 % cream 2-23 1:1 ratio ity of 00:00: with [place] 00 calcipotri [facility] hoa and Branch apply to affected areas twice a day for 4 days calcipotrie 2020- Yes Mix in a [facility] ne 0.005 % 2-23 1:1 ratio ity of cream 00:00: with [place] 00 fluor[facility]ac [facility] and Branch apply to affected areas twice a day for 4 days fluorouraci 2020- Yes Mix in a [facility] L 5 % cream 2-23 1:1 ratio ity of 00:00: with [place] 00 calcipotri Medical hoa and Branch apply to affected areas twice a day for 4 days calcipotrie 2020- Yes Mix in a [facility] ne 0.005 % 2-23 1:1 ratio ity of cream 00:00: with [place] 00 fluor[facility]ac [facility] and Branch apply to affected areas twice a day for 4 days fluorouraci 2020- Yes Mix in a [facility] L 5 % cream 2-23 1:1 ratio ity of 00:00: with [place] 00 calcipotri Medical hoa and Branch apply to affected areas twice a day for 4 days calcipotrie 2020- Yes Mix in a [facility] ne 0.005 % 2-23 1:1 ratio ity of cream 00:00: with [place] 00 fluorourac [facility] il and Branch apply to affected areas twice a day for 4 days fluorouraci 2020- Yes Mix in a [facility] L 5 % cream 2-23 1:1 ratio ity of 00:00: with [place] 00 calcipotri [facility] hoa and Branch apply to affected areas twice a day for 4 days calcipotrie 2020- Yes [id number] Mix in a [facility] ne 0.005 % 2-23 1:1 ratio ity of cream 00:00: with [place] 00 fluor[facility]ac [facility] and Branch apply to affected areas twice a day for 4 days fluorouraci 2020- Yes Mix in a [facility] L 5 % cream 2-23 1:1 ratio ity of 00:00: with [place] 00 calcipotri [facility] hoa and Branch apply to affected areas twice a day for 4 days calcipotrie 2020- Yes Mix in a [facility] ne 0.005 % 2-23 1:1 ratio ity of cream 00:00: with [place] 00 fluor[facility]ac [facility] and Branch apply to affected areas twice a day for 4 days fluorouraci 2020- Yes Mix in a [facility] L 5 % cream 2-23 1:1 ratio ity of 00:00: with [place] 00 calcipotri [facility] hoa and Branch apply to affected areas twice a day for 4 days calcipotrie 2020- Yes Mix in a [facility] ne 0.005 % 2-23 1:1 ratio ity of cream 00:00: with [place] 00 [facility] and Branch apply to affected areas twice a day for 4 days fluorouraci 2020- Yes Mix in a [facility] L 5 % cream 2-23 1:1 ratio ity of 00:00: with [place] 00 calcipotri [facility] hoa and Branch apply to affected areas twice a day for 4 days calcipotrie 2020- Yes Mix in a [facility] ne 0.005 % 2-23 1:1 ratio ity of cream 00:00: with [place] 00 [facility] and Branch apply to affected areas twice a day for 4 days fluorouraci 2020- Yes Mix in a [facility] L 5 % cream 2-23 1:1 ratio ity of 00:00: with [place] 00 calcipotri [facility] hoa and Branch apply to affected areas twice a day for 4 days calcipotrie 2020- Yes Mix in a [facility] ne 0.005 % 2-23 1:1 ratio ity of cream 00:00: with [place] 00 [facility] and Branch apply to affected areas twice a day for 4 days fluorouraci 2020- Yes Mix in a [facility] L 5 % cream 2-23 1:1 ratio ity of 00:00: with [place] 00 calcipotri [facility] hoa and Branch apply to affected areas twice a day for 4 days calcipotrie 2020- Yes [id number] Mix in a [facility] ne 0.005 % 2-23 1:1 ratio ity of cream 00:00: with [place] 00 [facility] and Branch apply to affected areas twice a day for 4 days fluorouraci 2020- Yes Mix in a [facility] L 5 % cream 2-23 1:1 ratio ity of 00:00: with [place] 00 calcipotri [facility] hoa and Branch apply to affected areas twice a day for 4 days calcipotrie 2020- Yes Mix in a [facility] ne 0.005 % 2-23 1:1 ratio ity of cream 00:00: with [place] 00 [facility] and Branch apply to affected areas twice a day for 4 days fluorouraci 2020- Yes Mix in a [facility] L 5 % cream 2-23 1:1 ratio ity of 00:00: with [place] 00 calcipotri [facility] hoa and Branch apply to affected areas twice a day for 4 days calcipotrie 2020- Yes Mix in a [facility] ne 0.005 % 2-23 1:1 ratio ity of cream 00:00: with [place] 00 [facility] and Branch apply to affected areas twice a day for 4 days fluorouraci 2020 Yes Mix in a [facility] L 5 % cream 2-23 1:1 ratio ity of 00:00: with [place] 00 calcipotri [facility] hoa and Branch apply to affected areas twice a day for 4 days calcipotrie 2020- Yes Mix in a [facility] ne 0.005 % 2-23 1:1 ratio ity of cream 00:00: with [place] [facility] apply to affected areas twice a day for 4 days fluorouraci 2020- Yes [facility] 5 % cream 2-23 1:1 ratio ity of 00:00: with [place] [facility] apply to affected areas twice a day for 4 days calcipotrie 2020- Yes [facility] ne 0.005 % 2-23 1:1 ratio ity of cream 00:00: with [place] [facility] apply to affected areas twice a day for 4 days fluorouraci 2020- Yes [facility] L 5 % cream 2-23 1:1 ratio ity of 00:00: with [place] 00 [facility] apply to affected areas twice a day for 4 days calcipotrie 2020- Yes [facility] in [facility] ne 0.005 % 2-23 1:1 ratio ity of cream 00:00: with [place] [facility] apply to affected areas twice a day for 4 days fluorouraci 2020- Yes [facility] L 5 % cream 2-23 1:1 ratio ity of 00:00: with [place] 00 [facility] apply to affected areas twice a day for 4 days calcipotrie 2020- Yes [facility] ne 0.005 % 2-23 1:1 ratio ity of cream 00:00: with [place] [facility] apply to affected areas twice a day for 4 days fluorouraci 2020- Yes [facility] L 5 % cream 2-23 1:1 ratio ity of 00:00: with [place] 00 [facility] apply to affected areas twice a day for 4 days calcipotrie 2020- Yes [facility] in [facility] ne 0.005 % 2-23 1:1 ratio ity of cream 00:00: with [place] [facility] apply to affected areas twice a day for 4 days fluorouraci 2020 Yes [facility] L 5 % cream 2-23 1:1 ratio ity of 00:00: with [place] 00 [facility] apply to affected areas twice a day for 4 days calcipotrie 2020- Yes [id number] [facility] in a [facility] ne 0.005 % 2-23 1:1 ratio ity of cream 00:00: with [place] [facility] apply to affected areas twice a day for 4 days fluorouraci 2020- Yes [facility] L 5 % cream 2-23 1:1 ratio ity of 00:00: with [place] 00 [facility] apply to affected areas twice a day for 4 days calcipotrie 2020- Yes [id number] [facility] in [facility] ne 0.005 % 2-23 1:1 ratio ity of cream 00:00: with [place] [facility] apply to affected areas twice a day for 4 days fluorouraci 2020- Yes [facility] L 5 % cream 2-23 1:1 ratio ity of 00:00: with [place] 00 [facility] apply to affected areas twice a day for 4 days calcipotrie 2020- Yes [id number] [facility] ne 0.005 % 2-23 1:1 ratio ity of cream 00:00: with [place] [facility] apply to affected areas twice a day for 4 days fluorouraci 2020- Yes [facility] L 5 % cream 2-23 1:1 ratio ity of 00:00: with [place] 00 [facility] apply to affected areas twice a day for 4 days calcipotrie 2020- Yes [facility] ne 0.005 % 2-23 1:1 ratio ity of cream 00:00: with [place] [facility] apply to affected areas twice a day for 4 days fluorouraci 2020- Yes [facility] L 5 % cream 2-23 1:1 ratio ity of 00:00: with [place] 00 [facility] apply to affected areas twice a day for 4 days calcipotrie 2020- Yes [facility] ne 0.005 % 2-23 1:1 ratio ity of cream 00:00: with [place] [facility] apply to affected areas twice a day for 4 days fluorouraci 2020- Yes [facility] L 5 % cream 2-23 1:1 ratio ity of 00:00: with [place] 00 [facility] apply to affected areas twice a day for 4 days calcipotrie 2020- Yes [facility] ne 0.005 % 2-23 1:1 ratio ity of cream 00:00: with [place] [facility] apply to affected areas twice a day for 4 days fluorouraci 2020- Yes [id number] [facility] L 5 % cream 2-23 1:1 ratio ity of 00:00: with [place] 00 [facility] apply to affected areas twice a day for 4 days calcipotrie 2020- Yes [id number] [facility] ne 0.005 % 2-23 1:1 ratio ity of cream 00:00: with [place] [facility] apply to affected areas twice a day for 4 days fluorouraci 2020- Yes [facility] L 5 % cream 2-23 1:1 ratio ity of 00:00: with [place] 00 [facility] apply to affected areas twice a day for 4 days calcipotrie 2020- Yes [facility] in [facility] ne 0.005 % 2-23 1:1 ratio [facility] of cream 00:00: with [place] [facility] apply to affected areas twice a day for 4 days fluorouraci 2020- Yes [facility] L 5 % cream 2-23 1:1 ratio ity of 00:00: with [place] 00 [facility] apply to affected areas twice a day for 4 days calcipotrie 2020- Yes [facility] in [facility] ne 0.005 % 2-23 1:1 ratio ity of cream 00:00: with [place] [facility] apply to affected areas twice a day for 4 days fluorouraci 2020- Yes [facility] L 5 % cream 2-23 1:1 ratio ity of 00:00: with [place] 00 [facility] apply to affected areas twice a day for 4 days calcipotrie 2020- Yes [facility] in [facility] ne 0.005 % 2-23 1:1 ratio [facility] of cream 00:00: with [place] [facility] apply to affected areas twice a day for 4 days fluorouraci 2020- Yes [facility] L 5 % cream 2-23 1:1 ratio ity of 00:00: with [place] 00 [facility] apply to affected areas twice a day for 4 days calcipotrie 2020- Yes [id number] [facility] in [facility] ne 0.005 % 2-23 1:1 ratio ity of cream 00:00: with [place] [facility] apply to affected areas twice a day for 4 days fluorouraci 2020- Yes [id number] [facility] L 5 % cream 2-23 1:1 ratio ity of 00:00: with [place] 00 [facility] apply to affected areas twice a day for 4 days calcipotrie 2020- Yes [id number] [facility] in [facility] ne 0.005 % 2-23 1:1 ratio ity of cream 00:00: with [place] [facility] apply to affected areas twice a day for 4 days fluorouraci 2020- Yes [facility] L 5 % cream 2-23 1:1 ratio ity of 00:00: with [place] 00 [facility] apply to affected areas twice a day for 4 days calcipot[facility] 2020- Yes [facility] in [facility] ne 0.005 % 2-23 1:1 ratio [facility] of cream 00:00: with [place] [facility] apply to affected areas twice a day for 4 days fluorouraci 2020- Yes [facility] L 5 % cream 2-23 1:1 ratio ity of 00:00: with [place] 00 [facility] apply to affected areas twice a day for 4 days calcipotrie 2020- Yes [facility] in [facility] ne 0.005 % 2-23 1:1 ratio [facility]y of cream 00:00: with [place] [facility] apply to affected areas twice a day for 4 days fluorouraci 2020- Yes [facility] L 5 % cream 2-23 1:1 ratio ity of 00:00: with [place] 00 [facility] apply to affected areas twice a day for 4 days calcipot[facility] 2020- Yes [id number] [facility] ne 0.005 % 2-23 1:1 ratio [facility]y of cream 00:00: with [place] [facility] apply to affected areas twice a day for 4 days fluorouraci 2020- Yes [id number] [facility] L 5 % cream 2-23 1:1 ratio ity of 00:00: with [place] 00 [facility] apply to affected areas twice a day for 4 days calcipot[facility] 2020- Yes [id number] [facility] ne 0.005 % 2-23 1:1 ratio it[facility] of cream 00:00: with [place] [facility] apply to affected areas twice a day for 4 days fluorouraci 2020- Yes [facility] L 5 % cream 2-23 1:1 ratio ity of 00:00: with [place] 00 [facility] apply to affected areas twice a day for 4 days calcipot[facility] 2020- Yes [facility] in [facility] ne 0.005 % 2-23 1:1 ratio [facility]y of cream 00:00: with [place] [facility] apply to affected areas twice a day for 4 days fluorouraci 2020- Yes [facility] L 5 % cream 2-23 1:1 ratio ity of 00:00: with [place] 00 [facility] apply to affected areas twice a day for 4 days calcipot[facility] 2020- Yes [facility] in [facility] ne 0.005 % 2-23 1:1 ratio [facility] of cream 00:00: with [place] [facility] apply to affected areas twice a day for 4 days fluor[facility]aci 2020 Yes [facility] L 5 % cream 2-23 1:1 ratio ity of 00:00: with [place] 00 [facility] apply to affected areas twice a day for 4 days calcipotrie 2020 Yes [facility] in [facility] ne 0.005 % 2-23 1:1 ratio [facility] of cream 00:00: with [place] [facility] apply to affected areas twice a day for 4 days fluorouraci 2020- Yes [facility] L 5 % cream 2-23 1:1 ratio ity of 00:00: with [place] 00 [facility] apply to affected areas twice a day for 4 days calc[facility] 2020- Yes [facility] in [facility] ne 0.005 % 2-23 1:1 ratio [facility] of cream 00:00: with [place] [facility] apply to affected areas twice a day for 4 days fluor[facility]aci 2020- Yes [id number] [facility] L 5 % cream 2-23 1:1 ratio ity of 00:00: with [place] 00 [facility] apply to affected areas twice a day for 4 days calcipotrie 2020- Yes [facility] ne 0.005 % 2-23 1:1 ratio [facility] of cream 00:00: with [place] [facility] apply to affected areas twice a day for 4 days fluor[facility]aci 2020- Yes [facility] L 5 % cream 2-23 1:1 ratio ity of 00:00: with [place] 00 [facility] apply to affected areas twice a day for 4 days calcipot[facility] 2020- Yes [facility] in [facility] ne 0.005 % 2-23 1:1 ratio [facility] of cream 00:00: with [place] [facility] apply to affected areas twice a day for 4 days fluor[facility]aci 2020- Yes [facility] L 5 % cream 2-23 1:1 ratio ity of 00:00: with [place] 00 [facility] apply to affected areas twice a day for 4 days [facility] 2020 Yes [facility] ne 0.005 % 2-23 1:1 ratio [facility] of cream 00:00: with [place] [facility] apply to affected areas twice a day for 4 days [facility]aci 2020 Yes [facility] L 5 % cream 2-23 1:1 ratio ity of 00:00: with [place] 00 [facility] apply to affected areas twice a day for 4 days [facility] 2020 Yes [id number] [facility] in [facility] ne 0.005 % 2-23 1:1 ratio it[facility] of cream 00:00: with [place] [facility] apply to affected areas twice a day for 4 days fluor[facility]aci 2020- Yes [facility] L 5 % cream 2-23 1:1 ratio ity of 00:00: with [place] 00 [facility] apply to affected areas twice a day for 4 days calcipotrie 2020- Yes [id number] [facility] in [facility] ne 0.005 % 2-23 1:1 ratio ity of cream 00:00: with [place] [facility] apply to affected areas twice a day for 4 days fluorouraci 2020- Yes [id number] [facility] L 5 % cream 2-23 1:1 ratio ity of 00:00: with [place] 00 [facility] apply to affected areas twice a day for 4 days calcipotrie 2020-1 Yes [id number] [facility] ne 0.005 % 2-23 1:1 ratio ity of cream 00:00: with [place] [facility] apply to affected areas twice a day for 4 days triamcinolo 2020-0 Yes [id number] Apply to [facility] ne 6-12 area(s) 2 ity of acetonide 00:00: (two) [place] 0.1 % cream 00 times Medical daily. Branch triamcinolo 2020-0 Yes [id number] Apply to [facility] ne 6-12 area(s) 2 ity of acetonide 00:00: (two) [place] 0.1 % cream 00 times Medical daily. Branch triamcinolo 2020-0 Yes [id number] Apply to [facility] ne 6-12 area(s) 2 ity of acetonide 00:00: (two) [place] 0.1 % cream 00 times Medical daily. Branch triamcinolo 2020-0 Yes [id number] Apply to [facility] ne 6-12 area(s) 2 ity of acetonide 00:00: (two) [place] 0.1 % cream 00 times Medical daily. Branch triamcinolo 2020-0 Yes [id number] Apply to [facility] ne 6-12 area(s) 2 ity of acetonide 00:00: (two) [place] 0.1 % cream 00 times Medical daily. Branch triamcinolo 2020-0 Yes [id number] Apply to [facility] ne 6-12 area(s) 2 ity of acetonide 00:00: (two) [place] 0.1 % cream 00 times Medical daily. Branch triamcinolo 2020-0 Yes [id number] Apply to [facility] ne 6-12 area(s) 2 ity of acetonide 00:00: (two) [place] 0.1 % cream 00 times Medical daily. Branch triamcinolo 2020-0 Yes [id number] Apply to [facility] ne 6-12 area(s) 2 ity of acetonide 00:00: (two) [place] 0.1 % cream 00 times Medical daily. Branch triamcinolo 2020-0 Yes [id number] Apply to [facility] ne 6-12 area(s) 2 ity of acetonide 00:00: (two) [place] 0.1 % cream 00 times Medical daily. Branch triamcinolo 2020-0 Yes [id number] Apply to [facility] ne 6-12 area(s) 2 ity of acetonide 00:00: (two) [place] 0.1 % cream 00 times Medical daily. Branch triamcinolo 2020-0 Yes [id number] Apply to [facility] ne 6-12 area(s) 2 ity of acetonide 00:00: (two) [place] 0.1 % cream 00 times Medical daily. Branch triamcinolo 2020-0 Yes [id number] Apply to [facility] ne 6-12 area(s) 2 ity of acetonide 00:00: (two) [place] 0.1 % cream 00 times Medical daily. Branch triamcinolo 2020-0 Yes [id number] Apply to [facility] ne 6-12 area(s) 2 ity of acetonide 00:00: (two) [place] 0.1 % cream 00 times Medical daily. Branch triamcinolo 2020-0 Yes [id number] Apply to [facility] ne 6-12 area(s) 2 ity of acetonide 00:00: (two) [place] 0.1 % cream 00 times Medical daily. Branch triamcinolo 2020-0 Yes [id number] Apply to [facility] ne 6-12 area(s) 2 ity of acetonide 00:00: (two) [place] 0.1 % cream 00 times Medical daily. Branch triamcinolo 2020-0 Yes [id number] Apply to [facility] ne 6-12 area(s) 2 ity of acetonide 00:00: (two) [place] 0.1 % cream 00 times Medical daily. Branch triamcinolo 2020-0 Yes [id number] Apply to [facility] ne 6-12 area(s) 2 ity of acetonide 00:00: (two) [place] 0.1 % cream 00 times Medical daily. Branch triamcinolo 2020-0 Yes [id number] Apply to [facility] ne 6-12 area(s) 2 ity of acetonide 00:00: (two) [place] 0.1 % cream 00 times Medical daily. Branch triamcinolo 2020-0 Yes [id number] Apply to [facility] ne 6-12 area(s) 2 ity of acetonide 00:00: (two) [place] 0.1 % cream 00 times Medical daily. Branch triamcinolo 2020-0 Yes [id number] Apply to [facility] ne 6-12 area(s) 2 ity of acetonide 00:00: (two) [place] 0.1 % cream 00 times Medical daily. Branch triamcinolo 2020-0 Yes [id number] Apply to [facility] ne 6-12 area(s) 2 ity of acetonide 00:00: (two) [place] 0.1 % cream 00 times Medical daily. Branch triamcinolo 2020-0 Yes [id number] Apply to [facility] ne 6-12 area(s) 2 ity of acetonide 00:00: (two) [place] 0.1 % cream 00 times Medical daily. Branch triamcinolo 2020-0 Yes [id number] Apply to [facility] ne 6-12 area(s) 2 ity of acetonide 00:00: (two) [place] 0.1 % cream 00 times Medical daily. Branch triamcinolo 2020-0 Yes [id number] Apply to [facility] ne 6-12 area(s) 2 ity of acetonide 00:00: (two) [place] 0.1 % cream 00 times Medical daily. Branch triamcinolo 2020-0 Yes [id number] Apply to [facility] ne 6-12 area(s) 2 ity of acetonide 00:00: (two) [place] 0.1 % cream 00 times Medical daily. Branch triamcinolo 2020-0 Yes [id number] Apply to [facility] ne 6-12 area(s) 2 ity of acetonide 00:00: (two) [place] 0.1 % cream 00 times Medical daily. Branch triamcinolo 2020-0 Yes [id number] Apply to [facility] ne 6-12 area(s) 2 ity of acetonide 00:00: (two) [place] 0.1 % cream 00 times Medical daily. Branch triamcinolo 2020-0 Yes [id number] Apply to [facility] ne 6-12 area(s) 2 ity of acetonide 00:00: (two) [place] 0.1 % cream 00 times Medical daily. Branch triamcinolo 2020-0 Yes [id number] Apply to [facility] ne 6-12 area(s) 2 ity of acetonide 00:00: (two) [place] 0.1 % cream 00 times Medical daily. Branch triamcinolo 2020-0 Yes [id number] Apply to [facility] ne 6-12 area(s) 2 ity of acetonide 00:00: (two) [place] 0.1 % cream 00 times Medical daily. Branch triamcinolo 2020-0 Yes [id number] Apply to [facility] ne 6-12 area(s) 2 ity of acetonide 00:00: (two) [place] 0.1 % cream 00 times Medical daily. Branch triamcinolo 2020-0 Yes [id number] Apply to [facility] ne 6-12 area(s) 2 ity of acetonide 00:00: (two) [place] 0.1 % cream 00 times Medical daily. Branch triamcinolo 2020-0 Yes [id number] Apply to [facility] ne 6-12 area(s) 2 ity of acetonide 00:00: (two) [place] 0.1 % cream 00 times Medical daily. Branch triamcinolo 2020-0 Yes [id number] Apply to [facility] ne 6-12 area(s) 2 ity of acetonide 00:00: (two) [place] 0.1 % cream 00 times Medical daily. Branch triamcinolo 2020-0 Yes [id number] Apply to [facility] ne 6-12 area(s) 2 ity of acetonide 00:00: (two) [place] 0.1 % cream 00 times Medical daily. Branch triamcinolo 2020-0 Yes [id number] Apply to [facility] ne 6-12 area(s) 2 ity of acetonide 00:00: (two) [place] 0.1 % cream 00 times Medical daily. Branch triamcinolo 2020-0 Yes [id number] Apply to [facility] ne 6-12 area(s) 2 ity of acetonide 00:00: (two) [place] 0.1 % cream 00 times Medical daily. Branch triamcinolo 2020-0 Yes [id number] Apply to [facility] ne 6-12 area(s) 2 ity of acetonide 00:00: (two) [place] 0.1 % cream 00 times Medical daily. Branch triamcinolo 2020-0 Yes [id number] Apply to [facility] ne 6-12 area(s) 2 ity of acetonide 00:00: (two) [place] 0.1 % cream 00 times Medical daily. Branch triamcinolo 2020-0 Yes [id number] Apply to [facility] ne 6-12 area(s) 2 ity of acetonide 00:00: (two) [place] 0.1 % cream 00 times Medical daily. Branch triamcinolo 2020-0 Yes [id number] Apply to [facility] ne 6-12 area(s) 2 ity of acetonide 00:00: (two) [place] 0.1 % cream 00 times Medical daily. Branch triamcinolo 2020-0 Yes [id number] Apply to [facility] ne 6-12 area(s) 2 ity of acetonide 00:00: (two) [place] 0.1 % cream 00 times Medical daily. Branch triamcinolo 2020-0 Yes [id number] Apply to [facility] ne 6-12 area(s) 2 ity of acetonide 00:00: (two) [place] 0.1 % cream 00 times Medical daily. Branch triamcinolo 2020-0 Yes [id number] Apply to [facility] ne 6-12 area(s) 2 ity of acetonide 00:00: (two) [place] 0.1 % cream 00 times Medical daily. Branch triamcinolo 2020-0 Yes [id number] Apply to [facility] ne 6-12 area(s) 2 ity of acetonide 00:00: (two) [place] 0.1 % cream 00 times Medical daily. Branch triamcinolo 2020-0 Yes [id number] Apply to [facility] ne 6-12 area(s) 2 ity of acetonide 00:00: (two) [place] 0.1 % cream 00 times Medical daily. Branch triamcinolo 2020-0 Yes [id number] Apply to [facility] ne 6-12 area(s) 2 ity of acetonide 00:00: (two) [place] 0.1 % cream 00 times Medical daily. Branch triamcinolo 2020-0 Yes [id number] Apply to [facility] ne 6-12 area(s) 2 ity of acetonide 00:00: (two) [place] 0.1 % cream 00 times Medical daily. Branch triamcinolo 2020-0 Yes [id number] Apply to [facility] ne 6-12 area(s) 2 ity of acetonide 00:00: (two) [place] 0.1 % cream 00 times Medical daily. Branch triamcinolo 2020-0 Yes [id number] Apply to [facility] ne 6-12 area(s) 2 ity of acetonide 00:00: (two) [place] 0.1 % cream 00 times Medical daily. Branch triamcinolo 2020-0 Yes [id number] Apply to [facility] ne 6-12 area(s) 2 ity of acetonide 00:00: (two) [place] 0.1 % cream 00 times Medical daily. Branch triamcinolo 2020-0 Yes [id number] Apply to [facility] ne 6-12 area(s) 2 ity of acetonide 00:00: (two) [place] 0.1 % cream 00 times Medical daily. Branch triamcinolo 2020-0 Yes [id number] Apply to [facility] ne 6-12 area(s) 2 ity of acetonide 00:00: (two) [place] 0.1 % cream 00 times Medical daily. Branch triamcinolo 2020-0 Yes [id number] Apply to [facility] ne 6-12 area(s) 2 ity of acetonide 00:00: (two) [place] 0.1 % cream 00 times Medical daily. Branch triamcinolo 2020-0 Yes [id number] Apply to [facility] ne 6-12 area(s) 2 ity of acetonide 00:00: (two) [place] 0.1 % cream 00 times Medical daily. Branch triamcinolo 2020-0 Yes [id number] Apply to [facility] ne 6-12 area(s) 2 ity of acetonide 00:00: (two) [place] 0.1 % cream 00 times Medical daily. Branch triamcinolo 2020-0 Yes [id number] Apply to [facility] ne 6-12 area(s) 2 ity of acetonide 00:00: (two) [place] 0.1 % cream 00 times Medical daily. Branch urea 40 % 2019-0 Yes [id number] Apply to [facility] cream 4-01 area(s) ity of 00:00: daily. [facility] urea 40 % 2019-0 Yes [id number] Apply to [facility] cream 4-01 area(s) ity of 00:00: daily. [facility] urea 40 % 2019-0 Yes [id number] Apply to [facility] cream 4-01 area(s) ity of 00:00: daily. [facility] urea 40 % 2019-0 Yes [id number] Apply to [facility] cream 4-01 area(s) ity of 00:00: daily. [facility] urea 40 % 2019-0 Yes [id number] Apply to [facility] cream 4-01 area(s) ity of 00:00: daily. [facility] urea 40 % 2019-0 Yes [id number] Apply to [facility] cream 4-01 area(s) ity of 00:00: daily. [facility] urea 40 % 2019-0 Yes [id number] Apply to [facility] cream 4-01 area(s) ity of 00:00: daily. [facility] urea 40 % 2019-0 Yes [id number] Apply to [facility] cream 4-01 area(s) ity of 00:00: daily. [facility] urea 40 % 2019-0 Yes [id number] Apply to [facility] cream 4-01 area(s) ity of 00:00: daily. [facility] urea 40 % 2019-0 Yes [id number] Apply to [facility] cream 4-01 area(s) ity of 00:00: daily. [facility] urea 40 % 2019-0 Yes [id number] Apply to [facility] cream 4-01 area(s) ity of 00:00: daily. [facility] urea 40 % 2019-0 Yes [id number] Apply to [facility] cream 4-01 area(s) ity of 00:00: daily. [facility] urea 40 % 2019-0 Yes [id number] Apply to [facility] cream 4-01 area(s) ity of 00:00: daily. [facility] urea 40 % 2019-0 Yes [id number] Apply to [facility] cream 4-01 area(s) ity of 00:00: daily. [facility] urea 40 % 2019-0 Yes [id number] Apply to [facility] cream 4-01 area(s) ity of 00:00: daily. [facility] urea 40 % 2019-0 Yes [id number] Apply to [facility] cream 4-01 area(s) ity of 00:00: daily. [facility] urea 40 % 2019-0 Yes [id number] Apply to [facility] cream 4-01 area(s) ity of 00:00: daily. [facility] urea 40 % 2019-0 Yes [id number] Apply to [facility] cream 4-01 area(s) ity of 00:00: daily. [facility] urea 40 % 2019-0 Yes [id number] Apply to [facility] cream 4-01 area(s) ity of 00:00: daily. [facility] urea 40 % 2019-0 Yes [id number] Apply to [facility] cream 4-01 area(s) ity of 00:00: daily. [facility] urea 40 % 2019-0 Yes [id number] Apply to [facility] cream 4-01 area(s) ity of 00:00: daily. [facility] urea 40 % 2019-0 Yes [id number] Apply to [facility] cream 4-01 area(s) ity of 00:00: daily. [facility] urea 40 % 2019-0 Yes [id number] Apply to [facility] cream 4-01 area(s) ity of 00:00: daily. [facility] urea 40 % 2019-0 Yes [id number] Apply to [facility] cream 4-01 area(s) ity of 00:00: daily. [facility] urea 40 % 2019-0 Yes [id number] Apply to [facility] cream 4-01 area(s) ity of 00:00: daily. [facility] urea 40 % 2019-0 Yes [id number] Apply to [facility] cream 4-01 area(s) ity of 00:00: daily. [facility] urea 40 % 2019-0 Yes [id number] Apply to [facility] cream 4-01 area(s) ity of 00:00: daily. [facility] urea 40 % 2019-0 Yes [id number] Apply to [facility] cream 4-01 area(s) ity of 00:00: daily. [facility] urea 40 % 2019-0 Yes [id number] Apply to [facility] cream 4-01 area(s) ity of 00:00: daily. [facility] urea 40 % 2019-0 Yes [id number] Apply to [facility] cream 4-01 area(s) ity of 00:00: daily. [facility] urea 40 % 2019-0 Yes [id number] Apply to [facility] cream 4-01 area(s) ity of 00:00: daily. [facility] urea 40 % 2019-0 Yes [id number] Apply to [facility] cream 4-01 area(s) ity of 00:00: daily. [facility] urea 40 % 2019-0 Yes [id number] Apply to [facility] cream 4-01 area(s) ity of 00:00: daily. [facility] urea 40 % 2019-0 Yes [id number] Apply to [facility] cream 4-01 area(s) ity of 00:00: daily. [facility] urea 40 % 2019-0 Yes [id number] Apply to [facility] cream 4-01 area(s) ity of 00:00: daily. [facility] urea 40 % 2019-0 Yes [id number] Apply to [facility] cream 4-01 area(s) ity of 00:00: daily. [facility] urea 40 % 2019-0 Yes [id number] Apply to [facility] cream 4-01 area(s) ity of 00:00: daily. [facility] urea 40 % 2019-0 Yes [id number] Apply to [facility] cream 4-01 area(s) ity of 00:00: daily. [facility] urea 40 % 2019-0 Yes [id number] Apply to [facility] cream 4-01 area(s) ity of 00:00: daily. [facility] urea 40 % 2019-0 Yes [id number] Apply to [facility] cream 4-01 area(s) ity of 00:00: daily. [place] [facility] urea 40 % 2019-0 Yes [id number] Apply to [facility] cream 4-01 area(s) ity of 00:00: daily. [facility] urea 40 % 2019-0 Yes [id number] Apply to [facility] cream 4-01 area(s) ity of 00:00: daily. [facility] urea 40 % 2019-0 Yes [id number] Apply to [facility] cream 4-01 area(s) ity of 00:00: daily. [facility] urea 40 % 2019-0 Yes [id number] Apply to [facility] cream 4-01 area(s) ity of 00:00: daily. [facility] urea 40 % 2019-0 Yes [id number] Apply to [facility] cream 4-01 area(s) ity of 00:00: daily. [facility] urea 40 % 2019-0 Yes [id number] Apply to [facility] cream 4-01 area(s) ity of 00:00: daily. [facility] urea 40 % 2019-0 Yes [id number] Apply to [facility] cream 4-01 area(s) [facility] of 00:00: daily. [facility] urea 40 % 2019-0 Yes [id number] Apply to [facility] cream 4-01 area(s) ity of 00:00: daily. [facility] urea 40 % 2019-0 Yes [id number] Apply to [facility] cream 4-01 area(s) ity of 00:00: daily. [facility] urea 40 % 2019-0 Yes [id number] Apply to [facility] cream 4-01 area(s) ity of 00:00: daily. [facility] urea 40 % 2019-0 Yes [id number] Apply to [facility] cream 4-01 area(s) ity of 00:00: daily. [facility] urea 40 % 2019-0 Yes [id number] Apply to [facility] cream 4-01 area(s) ity of 00:00: daily. [facility] urea 40 % 2019-0 Yes [id number] Apply to [facility] cream 4-01 area(s) ity of 00:00: daily. [facility] urea 40 % 2019-0 Yes [id number] Apply to [facility] cream 4-01 area(s) ity of 00:00: daily. [facility] urea 40 % 2019-0 Yes [id number] Apply to [facility] cream 4-01 area(s) ity of 00:00: daily. [facility] urea 40 % 2019-0 Yes [id number] Apply to [facility] cream 4-01 area(s) ity of 00:00: daily. [facility] urea 40 % 2019-0 Yes [id number] Apply to [facility] cream 4-01 area(s) ity of 00:00: daily. [place] [facility] lidocaine 5 2018-0 Yes Apply to [facility] [place] % ointment 7-25 area(s) 2 ity of 00:00: (two) [place] 00 times Medical daily as Branch needed (pain). lidocaine 5 2018-0 Yes Apply to [facility] [place] % ointment 7-25 area(s) 2 ity of 00:00: (two) [place] 00 times Medical daily as Branch needed (pain). lidocaine 5 2018-0 Yes Apply to [facility] [place] % ointment 7-25 area(s) 2 ity of 00:00: (two) [place] 00 times Medical daily as Branch needed (pain). lidocaine 5 2018-0 Yes Apply to [facility] [place] % ointment 7-25 area(s) 2 ity of 00:00: (two) [place] 00 times Medical daily as Branch needed (pain). lidocaine 5 2018-0 Yes Apply to [facility] [place] % ointment 7-25 area(s) 2 ity of 00:00: (two) [place] 00 times Medical daily as Branch needed (pain). lidocaine 5 2018-0 Yes Apply to [facility] [place] % ointment 7-25 area(s) 2 ity of 00:00: (two) [place] 00 times Medical daily as Branch needed (pain). lidocaine 5 2018-0 Yes Apply to [facility] [place] % ointment 7-25 area(s) 2 ity of 00:00: (two) [place] 00 times Medical daily as Branch needed (pain). lidocaine 5 2018-0 Yes Apply to [facility] [place] % ointment 7-25 area(s) 2 ity of 00:00: (two) [place] 00 times Medical daily as Branch needed (pain). lidocaine 5 2018-0 Yes Apply to [facility] [place] % ointment 7-25 area(s) 2 ity of 00:00: (two) [place] 00 times Medical daily as Branch needed (pain). lidocaine 5 2018-0 Yes Apply to [facility] [place] % ointment 7-25 area(s) 2 ity of 00:00: (two) [place] 00 times Medical daily as Branch needed (pain). lidocaine 5 2018-0 Yes Apply to [facility] [place] % ointment 7-25 area(s) 2 ity of 00:00: (two) [place] 00 times Medical daily as Branch needed (pain). lidocaine 5 2018-0 Yes Apply to [facility] [place] % ointment 7-25 area(s) 2 ity of 00:00: (two) [place] 00 times Medical daily as Branch needed (pain). lidocaine 5 2018-0 Yes Apply to [facility] [place] % ointment 7-25 area(s) 2 ity of 00:00: (two) [place] 00 times Medical daily as Branch needed (pain). lidocaine 5 2018-0 Yes Apply to [facility] [place] % ointment 7-25 area(s) 2 ity of 00:00: (two) [place] 00 times Medical daily as Branch needed (pain). lidocaine 5 2018-0 Yes Apply to [facility] [place] % ointment 7-25 area(s) 2 ity of 00:00: (two) [place] 00 times Medical daily as Branch needed (pain). lidocaine 5 2018-0 Yes Apply to [facility] [place] % ointment 7-25 area(s) 2 ity of 00:00: (two) [place] 00 times Medical daily as Branch needed (pain). lidocaine 5 2018-0 Yes Apply to [facility] [place] % ointment 7-25 area(s) 2 ity of 00:00: (two) [place] 00 times Medical daily as Branch needed (pain). lidocaine 5 2018-0 Yes Apply to [facility] [place] % ointment 7-25 area(s) 2 ity of 00:00: (two) [place] 00 times Medical daily as Branch needed (pain). lidocaine 5 2018-0 Yes Apply to [facility] [place] % ointment 7-25 area(s) 2 ity of 00:00: (two) [place] 00 times Medical daily as Branch needed (pain). lidocaine 5 2018-0 Yes Apply to [facility] [place] % ointment 7-25 area(s) 2 ity of 00:00: (two) [place] 00 times Medical daily as Branch needed (pain). lidocaine 5 2018-0 Yes Apply to [facility] [place] % ointment 7-25 area(s) 2 ity of 00:00: (two) [place] 00 times Medical daily as Branch needed (pain). lidocaine 5 2018-0 Yes Apply to [facility] [place] % ointment 7-25 area(s) 2 ity of 00:00: (two) [place] 00 times Medical daily as Branch needed (pain). lidocaine 5 2018-0 Yes Apply to [facility] [place] % ointment 7-25 area(s) 2 ity of 00:00: (two) [place] 00 times Medical daily as Branch needed (pain). lidocaine 5 2018-0 Yes Apply to [facility] [place] % ointment 7-25 area(s) 2 ity of 00:00: (two) [place] 00 times Medical daily as Branch needed (pain). lidocaine 5 2018-0 Yes Apply to [facility] [place] % ointment 7-25 area(s) 2 ity of 00:00: (two) [place] 00 times Medical daily as Branch needed (pain). lidocaine 5 2018-0 Yes Apply to [facility] [place] % ointment 7-25 area(s) 2 ity of 00:00: (two) [place] 00 times Medical daily as Branch needed (pain). lidocaine 5 2018-0 Yes Apply to [facility] [place] % ointment 7-25 area(s) 2 ity of 00:00: (two) [place] 00 times Medical daily as Branch needed (pain). lidocaine 5 2018-0 Yes Apply to [facility] [place] [facility] ointment 7-25 area(s) 2 ity of 00:00: (two) [place] 00 times Medical daily as Branch needed (pain). lidocaine 5 2018-0 Yes Apply to [facility] [place] % ointment 7-25 area(s) 2 ity of 00:00: (two) [place] 00 times Medical daily as Branch needed (pain). lidocaine 5 2018-0 Yes Apply to [facility] [place] % ointment 7-25 area(s) 2 ity of 00:00: (two) [place] 00 times Medical daily as Branch needed (pain). lidocaine 5 2018-0 Yes Apply to [facility] [place] % ointment 7-25 area(s) 2 ity of 00:00: (two) [place] 00 times Medical daily as Branch needed (pain). lidocaine 5 2018-0 Yes Apply to [facility] [place] % ointment 7-25 area(s) 2 ity of 00:00: (two) [place] 00 times Medical daily as Branch needed (pain). lidocaine 5 2018-0 Yes Apply to [facility] [place] [facility] ointment 7-25 area(s) 2 ity of 00:00: (two) [place] 00 times Medical daily as Branch needed (pain). lidocaine 5 2018-0 Yes Apply to [facility] [place] [facility] ointment 7-25 area(s) 2 ity of 00:00: (two) [place] 00 times Medical daily as Branch needed (pain). lidocaine 5 2018-0 Yes Apply to [facility] [place] [facility] ointment 7-25 area(s) 2 ity of 00:00: (two) [place] 00 times Medical daily as Branch needed (pain). lidocaine 5 2018-0 Yes Apply to [facility] [place] % ointment 7-25 area(s) 2 ity of 00:00: (two) [place] 00 times Medical daily as Branch needed (pain). lidocaine 5 2018-0 Yes Apply to [facility] [place] % ointment 7-25 area(s) 2 ity of 00:00: (two) [place] 00 times Medical daily as Branch needed (pain). lidocaine 5 2018-0 Yes Apply to [facility] [place] % ointment 7-25 area(s) 2 ity of 00:00: (two) [place] 00 times Medical daily as Branch needed (pain). lidocaine 5 2018-0 Yes Apply to [facility] [place] % ointment 7-25 area(s) 2 ity of 00:00: (two) [place] 00 times Medical daily as Branch needed (pain). lidocaine 5 2018-0 Yes Apply to [facility] [place] % ointment 7-25 area(s) 2 ity of 00:00: (two) [place] 00 times Medical daily as Branch needed (pain). lidocaine 5 2018-0 Yes Apply to [facility] [place] % ointment 7-25 area(s) 2 ity of 00:00: (two) [place] 00 times Medical daily as Branch needed (pain). lidocaine 5 2018-0 Yes Apply to [facility] [place] % ointment 7-25 area(s) 2 ity of 00:00: (two) [place] 00 times Medical daily as Branch needed (pain). lidocaine 5 2018-0 Yes Apply to [facility] [place] % ointment 7-25 area(s) 2 ity of 00:00: (two) [place] 00 times Medical daily as Branch needed (pain). lidocaine 5 2018-0 Yes Apply to [facility] [place] % ointment 7-25 area(s) 2 ity of 00:00: (two) [place] 00 times Medical daily as Branch needed (pain). lidocaine 5 2018-0 Yes Apply to [facility] [place] % ointment 7-25 area(s) 2 ity of 00:00: (two) [place] 00 times Medical daily as Branch needed (pain). lidocaine 5 2018-0 Yes Apply to [facility] [place] % ointment 7-25 area(s) 2 ity of 00:00: (two) [place] 00 times Medical daily as Branch needed (pain). lidocaine 5 2018-0 Yes Apply to [facility] [place] % ointment 7-25 area(s) 2 ity of 00:00: (two) [place] 00 times Medical daily as Branch needed (pain). lidocaine 5 2018-0 Yes Apply to [facility] [place] % ointment 7-25 area(s) 2 ity of 00:00: (two) [place] 00 times Medical daily as Branch needed (pain). lidocaine 5 2018-0 Yes Apply to [facility] [place] % ointment 7-25 area(s) 2 ity of 00:00: (two) [place] 00 times Medical daily as Branch needed (pain). lidocaine 5 2018-0 Yes Apply to [facility] [place] % ointment 7-25 area(s) 2 ity of 00:00: (two) [place] 00 times Medical daily as Branch needed (pain). lidocaine 5 2018-0 Yes Apply to [facility] [place] % ointment 7-25 area(s) 2 ity of 00:00: (two) [place] 00 times Medical daily as Branch needed (pain). lidocaine 5 2018-0 Yes Apply to [facility] [place] % ointment 7-25 area(s) 2 ity of 00:00: (two) [place] 00 times Medical daily as Branch needed (pain). lidocaine 5 2018-0 Yes Apply to [facility] [place] % ointment 7-25 area(s) 2 ity of 00:00: (two) [place] 00 times Medical daily as Branch needed (pain). lidocaine 5 2018-0 Yes Apply to [facility] [place] % ointment 7-25 area(s) 2 ity of 00:00: (two) [place] 00 times Medical daily as Branch needed (pain). lidocaine 5 2018-0 Yes Apply to [facility] [place] % ointment 7-25 area(s) 2 ity of 00:00: (two) [place] 00 times Medical daily as Branch needed (pain). lidocaine 5 2018-0 Yes Apply to [facility] [place] % ointment 7-25 area(s) 2 ity of 00:00: (two) [place] 00 times Medical daily as Branch needed (pain). lidocaine 5 2018-0 Yes Apply to [facility] [place] % ointment 7-25 area(s) 2 ity of 00:00: (two) [place] 00 times Medical daily as Branch needed (pain). Diclofenac 2018-0 Yes [id number] Take 2-4 [facility] Sodium 5-18 grams ity of (VOLTAREN) 00:00: three [place] 1 % gel 00 times a Medical day as Branch needed for pain Diclofenac 2018-0 Yes [id number] Take 2-4 [facility] Sodium 5-18 grams ity of (VOLTAREN) 00:00: three [place] 1 % gel 00 times a Medical day as Branch needed for pain Diclofenac 2018-0 Yes [id number] Take 2-4 [facility] Sodium 5-18 grams ity of (VOLTAREN) 00:00: three [place] 1 % gel 00 times a Medical day as Branch needed for pain Diclofenac 2018-0 Yes [id number] Take 2-4 [facility] Sodium 5-18 grams ity of (VOLTAREN) 00:00: three [place] 1 % gel 00 times a Medical day as Branch needed for pain Diclofenac 2018-0 Yes [id number] Take 2-4 [facility] Sodium 5-18 grams ity of (VOLTAREN) 00:00: three [place] 1 % gel 00 times a Medical day as Branch needed for pain Diclofenac 2018-0 Yes [id number] Take 2-4 [facility] Sodium 5-18 grams ity of (VOLTAREN) 00:00: three [place] 1 % gel 00 times a Medical day as Branch needed for pain Diclofenac 2018-0 Yes [id number] Take 2-4 [facility] Sodium 5-18 grams ity of (VOLTAREN) 00:00: three [place] 1 % gel 00 times a Medical day as Branch needed for pain Diclofenac 2018-0 Yes [id number] Take 2-4 [facility] Sodium 5-18 grams ity of (VOLTAREN) 00:00: three [place] 1 % gel 00 times a Medical day as Branch needed for pain Diclofenac 2018-0 Yes [id number] Take 2-4 [facility] Sodium 5-18 grams ity of (VOLTAREN) 00:00: three [place] 1 % gel 00 times a Medical day as Branch needed for pain Diclofenac 2018-0 Yes [id number] Take 2-4 [facility] Sodium 5-18 grams ity of (VOLTAREN) 00:00: three [place] 1 % gel 00 times a Medical day as Branch needed for pain Diclofenac 2018-0 Yes [id number] Take 2-4 [facility] Sodium 5-18 grams ity of (VOLTAREN) 00:00: three [place] 1 % gel 00 times a Medical day as Branch needed for pain Diclofenac 2018-0 Yes [id number] Take 2-4 [facility] Sodium 5-18 grams ity of (VOLTAREN) 00:00: three [place] 1 % gel 00 times a Medical day as Branch needed for pain Diclofenac 2018-0 Yes [id number] Take 2-4 [facility] Sodium 5-18 grams ity of (VOLTAREN) 00:00: three [place] 1 % gel 00 times a Medical day as Branch needed for pain Diclofenac 2018-0 Yes [id number] Take 2-4 [facility] Sodium 5-18 grams ity of (VOLTAREN) 00:00: three [place] 1 % gel 00 times a Medical day as Branch needed for pain Diclofenac 2018-0 Yes [id number] Take 2-4 [facility] Sodium 5-18 grams ity of (VOLTAREN) 00:00: three [place] 1 % gel 00 times a Medical day as Branch needed for pain Diclofenac 2018-0 Yes [id number] Take 2-4 [facility] Sodium 5-18 grams ity of (VOLTAREN) 00:00: three [place] 1 % gel 00 times a Medical day as Branch needed for pain Diclofenac 2018-0 Yes [id number] Take 2-4 [facility] Sodium 5-18 grams ity of (VOLTAREN) 00:00: three [place] 1 % gel 00 times a Medical day as Branch needed for pain Diclofenac 2018-0 Yes [id number] Take 2-4 [facility] Sodium 5-18 grams ity of (VOLTAREN) 00:00: three [place] 1 % gel 00 times a Medical day as Branch needed for pain Diclofenac 2018-0 Yes [id number] Take 2-4 [facility] Sodium 5-18 grams ity of (VOLTAREN) 00:00: three [place] 1 % gel 00 times a Medical day as Branch needed for pain Diclofenac 2018-0 Yes [id number] Take 2-4 [facility] Sodium 5-18 grams ity of (VOLTAREN) 00:00: three [place] 1 % gel 00 times a Medical day as Branch needed for pain Diclofenac 2018-0 Yes [id number] Take 2-4 [facility] Sodium 5-18 grams ity of (VOLTAREN) 00:00: three [place] 1 % gel 00 times a Medical day as Branch needed for pain Diclofenac 2018-0 Yes [id number] Take 2-4 [facility] Sodium 5-18 grams ity of (VOLTAREN) 00:00: three [place] 1 % gel 00 times a Medical day as Branch needed for pain Diclofenac 2018-0 Yes [id number] Take 2-4 [facility] Sodium 5-18 grams ity of (VOLTAREN) 00:00: three [place] 1 % gel 00 times a Medical day as Branch needed for pain Diclofenac 2018-0 Yes [id number] Take 2-4 [facility] Sodium 5-18 grams ity of (VOLTAREN) 00:00: three [place] 1 % gel 00 times a Medical day as Branch needed for pain Diclofenac 2018-0 Yes [id number] Take 2-4 [facility] Sodium 5-18 grams ity of (VOLTAREN) 00:00: three [place] 1 % gel 00 times a Medical day as Branch needed for pain Diclofenac 2018-0 Yes [id number] Take 2-4 [facility] Sodium 5-18 grams ity of (VOLTAREN) 00:00: three [place] 1 % gel 00 times a Medical day as Branch needed for pain Diclofenac 2018-0 Yes [id number] Take 2-4 [facility] Sodium 5-18 grams ity of (VOLTAREN) 00:00: three [place] 1 % gel 00 times a Medical day as Branch needed for pain Diclofenac 2018-0 Yes [id number] Take 2-4 [facility] Sodium 5-18 grams ity of (VOLTAREN) 00:00: three [place] 1 % gel 00 times a Medical day as Branch needed for pain Diclofenac 2018-0 Yes [id number] Take 2-4 [facility] Sodium 5-18 grams ity of (VOLTAREN) 00:00: three [place] 1 % gel 00 times a Medical day as Branch needed for pain Diclofenac 2018-0 Yes [id number] Take 2-4 [facility] Sodium 5-18 grams ity of (VOLTAREN) 00:00: three [place] 1 % gel 00 times a Medical day as Branch needed for pain Diclofenac 2018-0 Yes [id number] Take 2-4 [facility] Sodium 5-18 grams ity of (VOLTAREN) 00:00: three [place] 1 % gel 00 times a Medical day as Branch needed for pain Diclofenac 2018-0 Yes [id number] Take 2-4 [facility] Sodium 5-18 grams ity of (VOLTAREN) 00:00: three [place] 1 % gel 00 times a Medical day as Branch needed for pain Diclofenac 2018-0 Yes [id number] Take 2-4 [facility] Sodium 5-18 grams ity of (VOLTAREN) 00:00: three [place] 1 % gel 00 times a Medical day as Branch needed for pain Diclofenac 2018-0 Yes [id number] Take 2-4 [facility] Sodium 5-18 grams ity of (VOLTAREN) 00:00: three [place] 1 % gel 00 times a Medical day as Branch needed for pain Diclofenac 2018-0 Yes [id number] Take 2-4 [facility] Sodium 5-18 grams ity of (VOLTAREN) 00:00: three [place] 1 % gel 00 times a Medical day as Branch needed for pain Diclofenac 2018-0 Yes [id number] Take 2-4 [facility] Sodium 5-18 grams ity of (VOLTAREN) 00:00: three [place] 1 % gel 00 times a Medical day as Branch needed for pain Diclofenac 2018-0 Yes [id number] Take 2-4 [facility] Sodium 5-18 grams ity of (VOLTAREN) 00:00: three [place] 1 % gel 00 times a Medical day as Branch needed for pain Diclofenac 2018-0 Yes [id number] Take 2-4 [facility] Sodium 5-18 grams ity of (VOLTAREN) 00:00: three [place] 1 % gel 00 times a Medical day as Branch needed for pain Diclofenac 2018-0 Yes [id number] Take 2-4 [facility] Sodium 5-18 grams ity of (VOLTAREN) 00:00: three [place] 1 % gel 00 times a Medical day as Branch needed for pain Diclofenac 2018-0 Yes [id number] Take 2-4 [facility] Sodium 5-18 grams ity of (VOLTAREN) 00:00: three [place] 1 % gel 00 times a Medical day as Branch needed for pain Diclofenac 2018-0 Yes [id number] Take 2-4 [facility] Sodium 5-18 grams ity of (VOLTAREN) 00:00: three [place] 1 % gel 00 times a Medical day as Branch needed for pain Diclofenac 2018-0 Yes [id number] Take 2-4 [facility] Sodium 5-18 grams ity of (VOLTAREN) 00:00: three [place] 1 % gel 00 times a Medical day as Branch needed for pain Diclofenac 2018-0 Yes [id number] Take 2-4 [facility] Sodium 5-18 grams ity of (VOLTAREN) 00:00: three [place] 1 % gel 00 times a Medical day as Branch needed for pain Diclofenac 2018-0 Yes [id number] Take 2-4 [facility] Sodium 5-18 grams ity of (VOLTAREN) 00:00: three [place] 1 % gel 00 times a Medical day as Branch needed for pain Diclofenac 2018-0 Yes [id number] Take 2-4 [facility] Sodium 5-18 grams ity of (VOLTAREN) 00:00: three [place] 1 % gel 00 times a Medical day as Branch needed for pain Diclofenac 2018-0 Yes [id number] Take 2-4 [facility] Sodium 5-18 grams ity of (VOLTAREN) 00:00: three [place] 1 % gel 00 times a Medical day as Branch needed for pain Diclofenac 2018-0 Yes [id number] Take 2-4 [facility] Sodium 5-18 grams ity of (VOLTAREN) 00:00: three [place] 1 % gel 00 times a Medical day as Branch needed for pain Diclofenac 2018-0 Yes [id number] Take 2-4 [facility] Sodium 5-18 grams ity of (VOLTAREN) 00:00: three [place] 1 % gel 00 times a Medical day as Branch needed for pain Diclofenac 2018-0 Yes [id number] Take 2-4 [facility] Sodium 5-18 grams ity of (VOLTAREN) 00:00: three [place] 1 % gel 00 times a Medical day as Branch needed for pain Diclofenac 2018-0 Yes [id number] Take 2-4 [facility] Sodium 5-18 grams ity of (VOLTAREN) 00:00: three [place] 1 % gel 00 times a Medical day as Branch needed for pain Diclofenac 2018-0 Yes [id number] Take 2-4 [facility] Sodium 5-18 grams ity of (VOLTAREN) 00:00: three [place] 1 % gel 00 times a Medical day as Branch needed for pain Diclofenac 2018-0 Yes [id number] Take 2-4 [facility] Sodium 5-18 grams ity of (VOLTAREN) 00:00: three [place] 1 % gel 00 times a Medical day as Branch needed for pain Diclofenac 2018-0 Yes [id number] Take 2-4 [facility] Sodium 5-18 grams ity of (VOLTAREN) 00:00: three [place] 1 % gel 00 times a Medical day as Branch needed for pain Diclofenac 2018-0 Yes [id number] Take 2-4 [facility] Sodium 5-18 grams ity of (VOLTAREN) 00:00: three [place] 1 % gel 00 times a Medical day as Branch needed for pain Diclofenac 2018-0 Yes [id number] Take 2-4 [facility] Sodium 5-18 grams ity of (VOLTAREN) 00:00: three [place] 1 % gel 00 times a Medical day as Branch needed for pain Diclofenac 2018-0 Yes [id number] Take 2-4 [facility] Sodium 5-18 grams ity of (VOLTAREN) 00:00: three [place] 1 % gel 00 times a Medical day as Branch needed for pain Diclofenac 2018-0 Yes [id number] Take 2-4 [facility] Sodium 5-18 grams ity of (VOLTAREN) 00:00: three [place] 1 % gel 00 times a Medical day as Branch needed for pain Immunizations Ordered Filled Immunization Date Status Comments [facility] e Immunization Name Name Pneumococcal 2022-08-04 Completed [place] [facility] f Polysaccharide, 00:00:00 [place] [facility] PPSV23 (PNEUMOVAX) Branch Pneumococcal 2022-08-04 Completed [place] [facility] f Polysaccharide, 00:00:00 [place] [facility] PPSV23 (PNEUMOVAX) Branch Pneumococcal 2022-08-04 Completed [facility] Polysaccharide, 00:00:00 [place] [facility] ical PPSV23 (PNEUMOVAX) Branch Pneumococcal 2022-08-04 Completed [facility] o f Polysaccharide, 00:00:00 [place] [facility] ical PPSV23 (PNEUMOVAX) Branch Pneumococcal 2022-08-04 Completed [facility] o f Polysaccharide, 00:00:00 [place] [facility] ical PPSV23 (PNEUMOVAX) Branch Pneumococcal 2022-08-04 Completed [facility] o f Polysaccharide, 00:00:00 [place] [facility] PPSV23 (PNEUMOVAX) Branch Pneumococcal 2022-08-04 Completed [facility] o f Polysaccharide, 00:00:00 [place] [facility] PPSV23 (PNEUMOVAX) Branch Pneumococcal 2022-08-04 Completed [facility] o f Polysaccharide, 00:00:00 [place] [facility] ical PPSV23 (PNEUMOVAX) Branch Pneumococcal 2022-08-04 Completed [facility] o f Polysaccharide, 00:00:00 [place] [facility] PPSV23 (PNEUMOVAX) Branch Pneumococcal 2022-08-04 Completed [facility] o f Polysaccharide, 00:00:00 [place] [facility] PPSV23 (PNEUMOVAX) Branch Pneumococcal 2022-08-04 Completed [facility] o f Polysaccharide, 00:00:00 [place] [facility] PPSV23 (PNEUMOVAX) Branch Pneumococcal 2022-08-04 Completed [facility] o f Polysaccharide, 00:00:00 [place] [facility] PPSV23 (PNEUMOVAX) Branch Pneumococcal 2022-08-04 Completed [facility] o f Polysaccharide, 00:00:00 [place] [facility] PPSV23 (PNEUMOVAX) Branch Pneumococcal 2022-08-04 Completed [facility] o f Polysaccharide, 00:00:00 [place] [facility] PPSV23 (PNEUMOVAX) Branch Pneumococcal 2022-08-04 Completed [facility] o f Polysaccharide, 00:00:00 [place] [facility] PPSV23 (PNEUMOVAX) Branch Pneumococcal 2022-08-04 Completed [facility] o f Polysaccharide, 00:00:00 [place] [facility] PPSV23 (PNEUMOVAX) Branch Pneumococcal 2022-08-04 Completed [facility] o f Polysaccharide, 00:00:00 [place] [facility] PPSV23 (PNEUMOVAX) Branch Pneumococcal 2022-08-04 Completed [facility] o f Polysaccharide, 00:00:00 [place] [facility] PPSV23 (PNEUMOVAX) Branch Pneumococcal 2022-08-04 Completed [facility] o f Polysaccharide, 00:00:00 [place] [facility] PPSV23 (PNEUMOVAX) Branch Pneumococcal 2022-08-04 Completed [facility] o f Polysaccharide, 00:00:00 [place] [facility] PPSV23 (PNEUMOVAX) Branch Pneumococcal 2022-08-04 Completed [facility] o f Polysaccharide, 00:00:00 [place] [facility] PPSV23 (PNEUMOVAX) Branch Pneumococcal 2022-08-04 Completed [facility] o f Polysaccharide, 00:00:00 [place] [facility] PPSV23 (PNEUMOVAX) Branch Pneumococcal 2022-08-04 Completed [facility] o f Polysaccharide, 00:00:00 [place] [facility] PPSV23 (PNEUMOVAX) Branch Pneumococcal 2022-08-04 Completed [facility] o f Polysaccharide, 00:00:00 [place] [facility] PPSV23 (PNEUMOVAX) Branch Pneumococcal 2022-08-04 Completed [facility] o f Polysaccharide, 00:00:00 [place] [facility] PPSV23 (PNEUMOVAX) Branch Pneumococcal 2022-08-04 Completed [facility] o f Polysaccharide, 00:00:00 [place] [facility] PPSV23 (PNEUMOVAX) Branch Pneumococcal 2022-08-04 Completed [facility] o f Polysaccharide, 00:00:00 [place] [facility] PPSV23 (PNEUMOVAX) Branch Pneumococcal 2022-08-04 Completed [facility] o f Polysaccharide, 00:00:00 [place] [facility] PPSV23 (PNEUMOVAX) Branch Pneumococcal 2022-08-04 Completed [facility] o f Polysaccharide, 00:00:00 [place] [facility] PPSV23 (PNEUMOVAX) Branch Pneumococcal 2022-08-04 Completed [facility] o f Polysaccharide, 00:00:00 [place] [facility] PPSV23 (PNEUMOVAX) Branch Pneumococcal 2022-08-04 Completed [facility] o f Polysaccharide, 00:00:00 [place] [facility] PPSV23 (PNEUMOVAX) Branch Pneumococcal 2022-08-04 Completed [facility] o f Polysaccharide, 00:00:00 [place] [facility] PPSV23 (PNEUMOVAX) Branch Pneumococcal 2022-08-04 Completed [facility] o f Polysaccharide, 00:00:00 [place] [facility] PPSV23 (PNEUMOVAX) Branch Pneumococcal 2022-08-04 Completed [facility] o f Polysaccharide, 00:00:00 [place] [facility] PPSV23 (PNEUMOVAX) Branch Pneumococcal 2022-08-04 Completed [facility] o f Polysaccharide, 00:00:00 [place] [facility] PPSV23 (PNEUMOVAX) Branch Pneumococcal 2022-08-04 Completed [facility] o f Polysaccharide, 00:00:00 [place] [facility] PPSV23 (PNEUMOVAX) Branch Pneumococcal 2022-08-04 Completed [facility] o f Polysaccharide, 00:00:00 [place] [facility] PPSV23 (PNEUMOVAX) Branch Pneumococcal 2022-08-04 Completed [facility] o f Polysaccharide, 00:00:00 [place] [facility] PPSV23 (PNEUMOVAX) Branch Pneumococcal 2022-08-04 Completed [facility] o f Polysaccharide, 00:00:00 [place] [facility] PPSV23 (PNEUMOVAX) Branch Pneumococcal 2022-08-04 Completed [facility] o f Polysaccharide, 00:00:00 [place] [facility] PPSV23 (PNEUMOVAX) Branch Influenza Virus 2022-07-18 Completed [facility] Vaccine [facility]:00 [facility] Td 2022-07-18 Completed [facility] of 00:00:00 [facility] Influenza Virus 2022-07-18 Completed [facility] Vaccine 00:00:00 [facility] Td 2022-07-18 Completed [facility] of 00:00:00 [facility] Influenza Virus 2022-07-18 Completed [facility] Vaccine 00:00:00 [facility] Td 2022-07-18 Completed [facility] of 00:00:00 [facility] Influenza Virus 2022-07-18 Completed [facility] Vaccine 00:00:00 [facility] Td 2022-07-18 Completed [facility] of 00:00:00 [facility] Influenza Virus 2022-07-18 Completed [facility] Vaccine [facility]:00 [facility] Td 2022-07-18 Completed [facility] 00:[facility]00 [facility] Influenza Virus 2022-07-18 Completed [facility] Vaccine 00:00:00 [facility] Td 2022-07-18 Completed [facility] 00:00:00 [facility] Influenza Virus 2022-07-18 Completed [facility] Vaccine 00:00:00 [facility] Td 2022-07-18 Completed [facility] 00:00:00 [facility] Influenza Virus 2022-07-18 Completed [facility] Vaccine 00:00:00 [facility] Td 2022-07-18 Completed [facility] 00:00: [facility] Influenza Virus 2022-07-18 Completed [facility] Vaccine 00:00:00 [facility] Td 2022-07-18 Completed [facility] 00:00:00 [facility] Influenza Virus 2022-07-18 Completed [facility] Vaccine 00:00:00 [facility] Td 2022-07-18 Completed [facility] 00:00:00 [facility] Influenza Virus 2022-07-18 Completed [facility] Vaccine 00:00:00 [facility] Td 2022-07-18 Completed [facility] 00:00:00 [facility] Influenza Virus 2022-07-18 Completed [facility] Vaccine 00:00:00 [facility] Td 2022-07-18 Completed [facility] 00:00:00 [facility] Influenza Virus 2022-07-18 Completed [facility] Vaccine 00:00:00 [facility] Td 2022-07-18 Completed [facility] 00:00:00 [facility] Influenza Virus 2022-07-18 Completed [facility] Vaccine 00:00:00 [facility] Td 2022-07-18 Completed [facility] 00:00:00 [facility] Influenza Virus 2022-07-18 Completed [facility] Vaccine 00:00:00 [facility] Td 2022-07-18 Completed [facility] 00:00:00 [facility] Influenza Virus 2022-07-18 Completed [facility] Vaccine 00:00:00 [facility] Td 2022-07-18 Completed [facility] 00:00:00 [facility] Influenza Virus 2022-07-18 Completed [facility] Vaccine 00:00:00 [facility] Td 2022-07-18 Completed [facility] 00:00:00 [facility] Influenza Virus 2022-07-18 Completed [facility] Vaccine 00:00:00 [facility] Td 2022-07-18 Completed [facility] 00:00:00 [facility] Influenza Virus 2022-07-18 Completed [facility] Vaccine 00:00:00 [facility] Td 2022-07-18 Completed [facility] 00:00:00 [facility] Influenza Virus 2022-07-18 Completed [facility] Vaccine 00:00:00 [facility] Td 2022-07-18 Completed [facility] 00:00:00 [facility] Influenza Virus 2022-07-18 Completed [facility] Vaccine 00:00:00 [facility] TD, NOS 2022-07-18 Completed [facility] 00:00:00 [facility] Influenza Virus 2022-07-18 Completed [facility] Vaccine 00:00:00 [facility] TD, NOS 2022-07-18 Completed [facility] 00:00:00 [facility] Influenza Virus 2022-07-18 Completed [facility] Vaccine 00:00:00 [facility] TD, NOS 2022-07-18 Completed [facility] 00:00:00 [facility] Influenza Virus 2022-07-18 Completed [facility] Vaccine 00:00:00 [facility] TD, NOS 2022-07-18 Completed [facility] 00:00:00 [facility] Influenza Virus 2022-07-18 Completed [facility] Vaccine 00:00:00 [facility] TD, NOS 2022-07-18 Completed [facility] 00:00:00 [facility] Influenza Virus 2022-07-18 Completed [facility] Vaccine 00:00:00 [facility] TD, NOS 2022-07-18 Completed [facility] 00:00:00 [facility] Influenza Virus 2022-07-18 Completed [facility] Vaccine 00:00:00 [facility] TD, NOS 2022-07-18 Completed [facility] 00:00:00 [facility] Influenza Virus 2022-07-18 Completed [facility] Vaccine 00:00:00 [facility] TD, NOS 2022-07-18 Completed [facility] 00:00:00 [facility] Influenza Virus 2022-07-18 Completed [facility] Vaccine 00:00:00 [facility] TD, NOS 2022-07-18 Completed [facility] 00:00:00 [facility] Influenza Virus 2022-07-18 Completed [facility] Vaccine 00:00:00 [facility] TD, NOS 2022-07-18 Completed [facility] 00:00:00 [facility] Influenza Virus 2022-07-18 Completed [facility] Vaccine 00:00:00 [facility] TD, NOS 2022-07-18 Completed [facility] 00:00:00 [facility] Influenza Virus 2022-07-18 Completed [facility] Vaccine 00:00:00 [facility] TD, NOS 2022-07-18 Completed [facility] 00:00:00 [facility] Influenza Virus 2022-07-18 Completed [facility] Vaccine 00:00:00 [facility] TD, NOS 2022-07-18 Completed [facility] 00:00:00 [facility] Influenza Virus 2022-07-18 Completed [facility] Vaccine 00:00:00 [facility] TD, NOS 2022-07-18 Completed [facility] 00:00:00 [facility] Influenza Virus 2022-07-18 Completed [facility] Vaccine 00:00:00 [facility] TD, NOS 2022-07-18 Completed [facility] 00:00:00 [facility] Influenza Virus 2022-07-18 Completed [facility] Vaccine 00:00:00 [facility] TD, NOS 2022-07-18 Completed [facility] 00:00:00 [facility] Influenza Virus 2022-07-18 Completed [facility] Vaccine 00:00:00 [facility] TD, NOS 2022-07-18 Completed [facility] 00:00:00 [facility] Influenza Virus 2022-07-18 Completed [facility] Vaccine 00:00:00 [facility] TD, NOS 2022-07-18 Completed [facility] 00:00:00 [facility] Influenza Virus 2022-07-18 Completed [facility] Vaccine 00:00:00 [facility] TD, NOS 2022-07-18 Completed [facility] 00:00:00 [facility] Influenza Virus 2022-07-18 Completed [facility] Vaccine 00:00:00 [facility] TD, NOS 2022-07-18 Completed [facility] 00:00:00 [facility] Influenza Virus 2022-07-18 Completed [facility] Vaccine 00:00:00 [facility] TD, NOS 2022-07-18 Completed [facility] 00:00:00 [facility] Influenza Virus 2020-07-27 Completed [facility] Vaccine Quad .5 mL 00:00:00 [facility] 6[facility] Influenza Virus 2020-07-27 Completed [facility] Vaccine 00:00:00 [facility] Influenza Virus 2020-07-27 Completed [facility] Vaccine Quad .5 mL 00:00:00 [facility] 6[facility] Influenza Virus 2020-07-27 Completed [facility] Vaccine 00:00:00 [facility] Influenza Virus 2020-07-27 Completed [facility] Vaccine Quad .5 mL 00:00:00 [facility] Influenza Virus 2020-07-27 Completed [facility] Vaccine 00:00:00 [facility] Influenza Virus 2020-07-27 Completed [facility] Vaccine Quad .5 mL 00:00:00 [facility] 6[facility] Influenza Virus 2020-07-27 Completed [facility] Vaccine 00:00:00 [facility] Influenza Virus 2020-07-27 Completed [facility] Vaccine Quad .5 mL 00:00:00 [facility] 6[facility] Influenza Virus 2020-07-27 Completed [facility] Vaccine 00:00:00 [facility] Influenza Virus 2020-07-27 Completed [facility] Vaccine Quad .5 mL 00:00:00 [facility] 6[facility] Influenza Virus 2020-07-27 Completed [facility] Vaccine 00:00:00 [facility] Influenza Virus 2020-07-27 Completed [facility] Vaccine Quad .5 mL 00:00:00 [facility] 6[facility] Influenza Virus 2020-07-27 Completed [facility] Vaccine 00:00:00 [facility] Influenza Virus 2020-07-27 Completed [facility] Vaccine Quad .5 mL 00:00:00 [facility] 6+ [place] Influenza Virus 2020-07-27 Completed [facility] Vaccine 00:00:00 [facility] Influenza Virus 2020-07-27 Completed [facility] Vaccine Quad .5 mL 00:00:00 [facility] 6+ [place] Influenza Virus 2020-07-27 Completed [facility] Vaccine 00:00:00 [facility] Influenza Virus 2020-07-27 Completed [facility] Vaccine (3+ yrs) 00:00:00 [facility] Influenza Virus 2020-07-27 Completed [facility] Vaccine Quad .5 mL 00:00:00 [facility] 6+ [place] Influenza Virus 2020-07-27 Completed [facility] Vaccine 00:00:00 [facility] Influenza Virus 2020-07-27 Completed [facility] Vaccine (3+ yrs) 00:00:00 [facility] Influenza Virus 2020-07-27 Completed [facility] Vaccine Quad .5 mL 00:00:00 [facility] 6+ [place] Influenza Virus 2020-07-27 Completed [facility] Vaccine 00:00:00 [facility] Influenza Virus 2020-07-27 Completed [facility] Vaccine (3+ yrs) 00:00:00 [facility] Influenza Virus 2020-07-27 Completed [facility] Vaccine Quad .5 mL 00:00:00 [facility] 6[facility] Influenza Virus 2020-07-27 Completed [facility] Vaccine 00:00:00 [facility] Influenza Virus 2020-07-27 Completed [facility] Vaccine (3+ yrs) 00:00:00 [facility] Influenza Virus 2020-07-27 Completed [facility] Vaccine Quad .5 mL 00:00:00 [facility] 6[facility] Influenza Virus 2020-07-27 Completed [facility] Vaccine 00:00:00 [facility] Influenza Virus 2020-07-27 Completed [facility] Vaccine (3+ yrs) 00:00:00 [facility] Influenza Virus 2020-07-27 Completed [facility] Vaccine Quad .5 mL 00:00:00 [facility] 6[facility] Influenza Virus 2020-07-27 Completed [facility] Vaccine 00:00:00 [facility] Influenza Virus 2020-07-27 Completed [facility] Vaccine (3+ yrs) 00:00:00 [facility] Influenza Virus 2020-07-27 Completed [facility] Vaccine Quad .5 mL 00:00:00 [facility] 6[facility] Influenza Virus 2020-07-27 Completed [facility] Vaccine 00:00:00 [facility] Influenza Virus 2020-07-27 Completed [facility] Vaccine (3+ yrs) 00:00:00 [facility] Influenza Virus 2020-07-27 Completed [facility] Vaccine Quad .5 mL 00:00:00 [facility] 6[facility] Influenza Virus 2020-07-27 Completed [facility] Vaccine 00:00:00 [facility] Influenza Virus 2020-07-27 Completed [facility] Vaccine (3+ yrs) 00:00:00 [facility] Influenza Virus 2020-07-27 Completed [facility] Vaccine Quad .5 mL 00:00:00 [facility] 6[facility] Influenza Virus 2020-07-27 Completed [facility] Vaccine 00:00:00 [facility] Influenza Virus 2020-07-27 Completed [facility] Vaccine (3+ yrs) 00:00:00 [facility] Influenza Virus 2020-07-27 Completed [facility] Vaccine Quad .5 mL 00:00:00 [facility] 6[facility] Influenza Virus 2020-07-27 Completed [facility] Vaccine 00:00:00 [facility] Influenza Virus 2020-07-27 Completed [facility] Vaccine (3+ yrs) 00:00:00 [facility] Influenza Virus 2020-07-27 Completed [facility] Vaccine Quad .5 mL 00:00:00 [facility] 6[facility] Influenza Virus 2020-07-27 Completed [facility] Vaccine 00:00:00 [facility] Influenza Virus 2020-07-27 Completed [facility] Vaccine (3+ yrs) 00:00:00 [facility] Influenza Virus 2020-07-27 Completed [facility] Vaccine Quad .5 mL 00:00:00 [facility] 6[facility] Influenza Virus 2020-07-27 Completed [facility] Vaccine 00:00:00 [facility] Influenza Virus 2020-07-27 Completed [facility] Vaccine (3+ yrs) 00:00:00 [facility] Influenza Virus 2020-07-27 Completed [facility] Vaccine Quad .5 mL 00:00:00 [facility] 6[facility] Influenza Virus 2020-07-27 Completed [facility] Vaccine 00:00:00 [facility] Influenza Virus 2020-07-27 Completed [facility] Vaccine (3+ yrs) 00:00:00 [facility] Influenza Virus 2020-07-27 Completed [facility] Vaccine Quad .5 mL 00:00:00 [facility] 6[facility] Influenza Virus 2020-07-27 Completed [facility] Vaccine 00:00:00 [facility] Influenza Virus 2020-07-27 Completed [facility] Vaccine (3+ yrs) 00:00:00 [facility] Influenza Virus 2020-07-27 Completed [facility] Vaccine Quad .5 mL 00:00:00 [facility] 6[facility] Influenza Virus 2020-07-27 Completed [facility] Vaccine 00:00:00 [facility] Influenza Virus 2020-07-27 Completed [facility] Vaccine (3+ yrs) 00:00:00 [facility] Influenza Virus 2020-07-27 Completed [facility] Vaccine Quad .5 mL 00:00:00 [facility] 6[facility] Influenza Virus 2020-07-27 Completed [facility] Vaccine 00:00:00 [facility] Influenza Virus 2020-07-27 Completed [facility] Vaccine (3+ yrs) 00:00:00 [facility] Influenza Virus 2020-07-27 Completed [facility] Vaccine Quad .5 mL 00:00:00 [facility] 6[facility] Influenza Virus 2020-07-27 Completed [facility] Vaccine 00:00:00 [facility] Influenza Virus 2020-07-27 Completed [facility] Vaccine (3+ yrs) 00:00:00 [facility] Influenza Virus 2020-07-27 Completed [facility] Vaccine Quad .5 mL 00:00:00 [facility] 6[facility] Influenza Virus 2020-07-27 Completed [facility] Vaccine 00:00:00 [facility] Influenza Virus 2020-07-27 Completed [facility] Vaccine (3+ yrs) 00:00:00 [facility] Influenza Virus 2020-07-27 Completed [facility] Vaccine Quad .5 mL 00:00:00 [facility] 6[facility] Influenza Virus 2020-07-27 Completed [facility] Vaccine 00:00:00 [facility] Influenza Virus 2020-07-27 Completed [facility] Vaccine (3+ yrs) 00:00:00 [facility] Influenza Virus 2020-07-27 Completed [facility] Vaccine Quad .5 mL 00:00:00 [facility] 6[facility] Influenza Virus 2020-07-27 Completed [facility] Vaccine 00:00:00 [facility] Influenza Virus 2020-07-27 Completed [facility] Vaccine (3+ yrs) 00:00:00 [facility] Influenza Virus 2020-07-27 Completed [facility] Vaccine Quad .5 mL 00:00:00 [facility] 6[facility] Influenza Virus 2020-07-27 Completed [facility] Vaccine 00:00:00 [facility] Influenza Virus 2020-07-27 Completed [facility] Vaccine (3+ yrs) 00:00:00 [facility] Influenza Virus 2020-07-27 Completed [facility] Vaccine Quad .5 mL 00:00:00 [facility] 6[facility] Influenza Virus 2020-07-27 Completed [facility] Vaccine 00:00:00 [facility] Influenza Virus 2020-07-27 Completed [facility] Vaccine (3+ yrs) 00:00:00 [facility] Influenza Virus 2020-07-27 Completed [facility] Vaccine Quad .5 mL 00:00:00 [facility] 6[facility] Influenza Virus 2020-07-27 Completed [facility] Vaccine 00:00:00 [facility] Influenza Virus 2020-07-27 Completed [facility] Vaccine (3+ yrs) 00:00:00 [facility] Influenza Virus 2020-07-27 Completed [facility] Vaccine Quad .5 mL 00:00:00 [facility] 6[facility] Influenza Virus 2020-07-27 Completed [facility] Vaccine 00:00:00 [facility] Influenza Virus 2020-07-27 Completed [facility] Vaccine (3+ yrs) 00:00:00 [facility] Influenza Virus 2020-07-27 Completed [facility] Vaccine Quad .5 mL 00:00:00 [facility] 6[facility] Influenza Virus 2020-07-27 Completed [facility] Vaccine 00:00:00 [facility] Influenza Virus 2020-07-27 Completed [facility] Vaccine (3+ yrs) 00:00:00 [facility] Influenza Virus 2020-07-27 Completed [facility] Vaccine Quad .5 mL 00:00:00 [facility] 6[facility] Influenza Virus 2020-07-27 Completed [facility] Vaccine 00:00:00 [facility] Influenza Virus 2020-07-27 Completed [facility] Vaccine (3+ yrs) 00:00:00 [facility] Influenza Virus 2020-07-27 Completed [facility] Vaccine Quad .5 mL 00:00:00 [facility] 6[facility] Influenza Virus 2020-07-27 Completed [facility] Vaccine 00:00:00 [facility] Influenza Virus 2020-07-27 Completed [facility] Vaccine (3+ yrs) 00:00:00 [facility] Influenza Virus 2020-07-27 Completed [facility] Vaccine Quad .5 mL 00:00:00 [facility] 6[facility] Influenza Virus 2020-07-27 Completed [facility] Vaccine 00:00:00 [facility] Influenza Virus 2020-07-27 Completed [facility] Vaccine (3+ yrs) 00:00:00 [facility] Influenza Virus 2020-07-27 Completed [facility] Vaccine Quad .5 mL 00:00:00 [facility] 6[facility] Influenza Virus 2020-07-27 Completed [facility] Vaccine 00:00:00 [facility] Influenza Virus 2020-07-27 Completed [facility] Vaccine (3+ yrs) 00:00:00 [facility] Influenza Virus 2020-07-27 Completed [facility] Vaccine Quad .5 mL 00:00:00 [facility] 6[facility] Influenza Virus 2020-07-27 Completed [facility] Vaccine 00:00:00 [facility] Influenza Virus 2020-07-27 Completed [facility] Vaccine (3+ yrs) 00:00:00 [facility] Influenza Virus 2020-07-27 Completed [facility] Vaccine Quad .5 mL 00:00:00 [facility] 6[facility] Influenza Virus 2020-07-27 Completed [facility] Vaccine 00:00:00 [facility] Influenza Virus 2020-07-27 Completed [facility] Vaccine (3+ yrs) 00:00:00 [facility] Influenza Virus 2020-07-27 Completed [facility] Vaccine Quad .5 mL 00:00:00 [facility] 6[facility] Influenza Virus 2020-07-27 Completed [facility] Vaccine 00:00:00 [facility] Influenza Virus 2020-07-27 Completed [facility] Vaccine (3+ yrs) 00:00:00 [facility] Influenza Virus 2020-07-27 Completed [facility] Vaccine Quad .5 mL 00:00:00 [facility] 6[facility] Influenza Virus 2020-07-27 Completed [facility] Vaccine 00:00:00 [facility] Influenza Virus 2020-07-27 Completed [facility] Vaccine (3+ yrs) 00:00:00 [facility] Influenza Virus 2020-07-27 Completed [facility] Vaccine Quad .5 mL 00:00:00 [facility] 6[facility] Influenza Virus 2020-07-27 Completed [facility] Vaccine 00:00:00 [facility] Influenza Virus 2020-07-27 Completed [facility] Vaccine (3+ yrs) 00:00:00 [facility] Influenza Virus 2020-07-27 Completed [facility] Vaccine Quad .5 mL 00:00:00 [facility] 6[facility] Influenza Virus 2020-07-27 Completed [facility] Vaccine 00:00:00 [facility] Influenza Virus 2020-07-27 Completed [facility] Vaccine (3+ yrs) 00:00:00 [facility] Influenza Virus 2020-07-27 Completed [facility] Vaccine Quad .5 mL 00:00:00 [facility] 6[facility] Influenza Virus 2020-07-27 Completed [facility] Vaccine 00:00:00 [facility] Influenza Virus 2020-07-27 Completed [facility] Vaccine (3+ yrs) 00:00:00 [facility] Influenza Virus 2020-07-27 Completed [facility] Vaccine Quad .5 mL 00:00:00 [facility] 6[facility] Influenza Virus 2020-07-27 Completed [facility] Vaccine 00:00:00 [facility] Influenza Virus 2020-07-27 Completed [facility] Vaccine (3+ yrs) 00:00:00 [facility] Influenza Virus 2020-07-27 Completed [facility] Vaccine Quad .5 mL 00:00:00 [facility] 6[facility] Influenza Virus 2020-07-27 Completed [facility] Vaccine 00:00:00 [facility] Influenza Virus 2020-07-27 Completed [facility] Vaccine (3+ yrs) 00:00:00 [facility] Influenza Virus 2020-07-27 Completed [facility] Vaccine Quad .5 mL 00:00:00 [facility] 6[facility] Influenza Virus 2020-07-27 Completed [facility] Vaccine 00:00:00 [facility] Influenza Virus 2020-07-27 Completed [facility] Vaccine (3+ yrs) 00:00:00 [facility] Influenza Virus 2020-07-27 Completed [facility] Vaccine Quad .5 mL 00:00:00 [facility] 6[facility] [place] [facility] Influenza Virus 2020-07-27 Completed [facility] Vaccine 00:00:00 [facility] Influenza Virus 2020-07-27 Completed [facility] Vaccine (3+ yrs) 00:00:00 [facility] Influenza Virus 2020-07-27 Completed [facility] Vaccine Quad .5 mL 00:00:00 [facility] 6[facility] [place] [facility] Influenza Virus 2020-07-27 Completed [facility] Vaccine 00:00:00 [facility] Influenza Virus 2020-07-27 Completed [facility] Vaccine (3+ yrs) 00:00:00 [facility] Influenza Virus 2020-07-27 Completed [facility] Vaccine Quad .5 mL 00:00:00 [facility] Influenza Virus 2020-07-27 Completed [facility]00 [facility] Influenza Virus 2020-07-27 Completed [facility] Vaccine (3+ yrs) 00:00:00 [facility] Influenza Virus 2020-07-27 Completed [facility] Vaccine Quad .5 mL 00:00:00 [facility] 6+ [facility] Influenza Virus 2020-07-27 Completed [facility] Vaccine 00:00:00 [facility] Influenza Virus 2020-07-27 Completed [facility] Vaccine (3+ yrs) 00:00:00 [facility] Influenza Virus 2020-07-27 Completed [facility] Vaccine Quad .5 mL 00:00:00 [facility] 6+ MO [facility] Influenza Virus 2020-07-27 Completed [facility] Vaccine 00:00:00 [facility] Influenza Virus 2020-07-27 Completed [facility] Vaccine (3+ yrs) 00:00:00 [facility] Influenza Virus 2020-07-27 Completed [facility] Vaccine Quad .5 mL 00:00:00 [facility] 6+ [facility] Influenza Virus 2020-07-27 Completed [facility] Vaccine 00[facility]00:00 [facility] Influenza Virus 2020-07-27 Completed [facility] Vaccine (3+ yrs) 00:00:00 [facility] Influenza Virus 2020-07-27 Completed [facility] Vaccine Quad .5 mL 00:00:00 [facility] 6+ [facility] Influenza Virus 2020-07-27 Completed [facility] Vaccine 00:00:00 [facility] Influenza Virus 2020-07-27 Completed [facility] Vaccine (3+ yrs) 00:00:00 [facility] Influenza Virus 2020-07-27 Completed [facility] Vaccine Quad .5 mL 00:00:00 [facility] 6+ [facility] Influenza Virus 2020-07-27 Completed [facility] Vaccine 00:00:00 [facility] Influenza Virus 2020-07-27 Completed [facility] Vaccine (3+ yrs) 00:00:00 [facility] Influenza Virus 2020-07-27 Completed [facility] Vaccine Quad .5 mL 00:00:00 [facility] 6+ [facility] Influenza Virus 2020-07-27 Completed [facility] Vaccine 00:00:00 [facility] Influenza Virus 2020-07-27 Completed [facility] Vaccine (3+ yrs) 00:00:00 [facility] [place] Influenza Virus 2020-07-27 Completed [facility] Vaccine Quad .5 mL 00:00:00 [facility] 6+ MO [facility] Influenza Virus 2020-07-27 Completed [facility] Vaccine 00:00:00 [facility] Influenza Virus 2020-07-27 Completed [facility] Vaccine (3+ yrs) 00:00:00 [facility] Influenza Virus 2019-08-21 Completed [facility] Vaccine 00:00:00 [facility] Influenza Virus 2019-08-21 Completed [facility] Vaccine 00[facility]00:00 [facility] Influenza Virus 2019-08-21 Completed [facility] Vaccine 00[facility]00:00 [facility] Influenza Virus 2019-08-21 Completed [facility] Vaccine 00:00:00 [facility] Influenza Virus 2019-08-21 Completed [facility] Vaccine 00[facility]00:00 [facility] Influenza Virus 2019-08-21 Completed [facility] Vaccine 00:00:00 [facility] Influenza Virus 2019-08-21 Completed [facility] Vaccine 00[facility]00:00 [facility] Influenza Virus 2019-08-21 Completed [facility] Vaccine 00:00:00 [facility] Influenza Virus 2019-08-21 Completed [facility] Vaccine 00[facility]00:00 [facility] Influenza Virus 2019-08-21 Completed [facility] Vaccine 00:00:00 [facility] Influenza Virus 2019-08-21 Completed [facility] Vaccine 00[facility]00:00 [facility] Influenza Virus 2019-08-21 Completed [facility] Vaccine 00[facility]00:00 [facility] Influenza Virus 2019-08-21 Completed [facility] Vaccine 00[facility]00:00 [facility] Influenza Virus 2019-08-21 Completed [facility] Vaccine 00[facility]00:00 [facility] Influenza Virus 2019-08-21 Completed [facility] Vaccine 00:00:00 [facility] Influenza Virus 2019-08-21 Completed [facility] Vaccine 00[facility]00:00 [facility] Influenza Virus 2019-08-21 Completed [facility] Vaccine 00[facility]00:00 [facility] Influenza Virus 2019-08-21 Completed [facility] Vaccine 00[facility]00:00 [facility] Influenza Virus 2019-08-21 Completed [facility] Vaccine 00:00:00 [facility] Influenza Virus 2019-08-21 Completed [facility] Vaccine 00[facility]00:00 [facility] Influenza Virus 2019-08-21 Completed [facility] Vaccine 00:00:00 [facility] Influenza Virus 2019-08-21 Completed [facility] Vaccine 00[facility]00:00 [facility] Influenza Virus 2019-08-21 Completed [facility] Vaccine 00:00:00 [facility] Influenza Virus 2019-08-21 Completed [facility] Vaccine 00[facility]00:00 [facility] Influenza Virus 2019-08-21 Completed [facility] Vaccine 00[facility]00:00 [facility] Influenza Virus 2019-08-21 Completed [facility] Vaccine 00:00:00 [facility] Influenza Virus 2019-08-21 Completed [facility] Vaccine 00[facility]00:00 [facility] Influenza Virus 2019-08-21 Completed [facility] Vaccine 00[facility]00:00 [facility] Influenza Virus 2019-08-21 Completed [facility] Vaccine 00[facility]00:00 [facility] Influenza Virus 2019-08-21 Completed [facility] Vaccine 00[facility]00:00 [facility] Influenza Virus 2019-08-21 Completed [facility] Vaccine 00[facility]00:00 [facility] Influenza Virus 2019-08-21 Completed [facility] Vaccine 00:00:00 [facility] Influenza Virus 2019-08-21 Completed [facility] Vaccine 00[facility]00:00 [facility] Influenza Virus 2019-08-21 Completed [facility] Vaccine 00:00:00 [facility] Influenza Virus 2019-08-21 Completed [facility] Vaccine 00[facility]00:00 [facility] Influenza Virus 2019-08-21 Completed [facility] Vaccine 00:00:00 [facility] Influenza Virus 2019-08-21 Completed [facility] Vaccine 00[facility]00:00 [facility] Influenza Virus 2019-08-21 Completed [facility] Vaccine 00[facility]00:00 [facility] Influenza Virus 2019-08-21 Completed [facility] Vaccine 00[facility]00:00 [facility] Influenza Virus 2019-08-21 Completed [facility] Vaccine 00[facility]00:00 [facility] Influenza Virus 2019-08-21 Completed [facility] Vaccine 00[facility]00:00 [facility] Influenza Virus 2019-08-21 Completed [facility] Vaccine 00[facility]00:00 [facility] Influenza Virus 2019-08-21 Completed [facility] Vaccine 00[facility]00:00 [facility] Influenza Virus 2019-08-21 Completed [facility] Vaccine 00[facility]00:00 [facility] Influenza Virus 2019-08-21 Completed [facility] Vaccine 00:00:00 [facility] Influenza Virus 2019-08-21 Completed [facility] Vaccine 00[facility]00:00 [facility] Influenza Virus 2019-08-21 Completed [facility] Vaccine 00[facility]00:00 [facility] Influenza Virus 2019-08-21 Completed [facility] Vaccine 00[facility]00:00 [facility] Influenza Virus 2019-08-21 Completed [facility] Vaccine 00[facility]00:00 [facility] Influenza Virus 2019-08-21 Completed [facility] Vaccine 00:00:00 [facility] Influenza Virus 2019-08-21 Completed [facility] Vaccine 00[facility]00:00 [facility] Influenza Virus 2019-08-21 Completed [facility] Vaccine 00:00:00 [facility] Influenza Virus 2019-08-21 Completed [facility] Vaccine 00:00:00 [facility] Influenza Virus 2019-08-21 Completed [facility] Vaccine 00:00:00 [facility] Influenza Virus 2019-08-21 Completed [facility] Vaccine 00:00:00 [facility] Influenza Virus 2019-08-21 Completed [facility] Vaccine 00[facility]00:00 [facility] Influenza Virus 2019-08-21 Completed [facility] Vaccine 00:00:00 [facility] Influenza Virus 2017-08-07 Completed [facility] Vaccine Quad IM 3+ 00:00:00 [facility] Influenza Virus 2017-08-07 Completed [facility] Vaccine 00:00:00 [facility] Influenza Virus 2017-08-07 Completed [facility] of Vaccine Quad IM 3+ 00:00:00 [facility] Influenza Virus 2017-08-07 Completed [facility] Vaccine 00:00:00 [facility] Influenza Virus 2017-08-07 Completed [facility] Vaccine Quad IM 3+ 00:00:00 [facility] Influenza Virus 2017-08-07 Completed [facility] Vaccine 00:00:00 [facility] Influenza Virus 2017-08-07 Completed [facility] of Vaccine Quad IM 3+ 00:00:00 [facility] Influenza Virus 2017-08-07 Completed [facility] Vaccine 00:00:00 [facility] Influenza Virus 2017-08-07 Completed [facility] Vaccine Quad IM 3+ 00:00:00 [facility] Influenza Virus 2017-08-07 Completed [facility] Vaccine 00:00:00 [facility] Influenza Virus 2017-08-07 Completed [facility] Vaccine Quad IM 3+ 00:00:00 [facility] Influenza Virus 2017-08-07 Completed [facility] Vaccine 00:00:00 [facility] Influenza Virus 2017-08-07 Completed [facility] of Vaccine Quad IM 3+ 00:00:00 [facility] Influenza Virus 2017-08-07 Completed [facility] Vaccine 00:00:00 [facility] Influenza Virus 2017-08-07 Completed [facility] of Vaccine Quad IM 3+ 00:00:00 [facility] Influenza Virus 2017-08-07 Completed [facility] Vaccine 00:00:00 [facility] Influenza Virus 2017-08-07 Completed [facility] of Vaccine Quad IM 3+ 00:00:00 [facility] Influenza Virus 2017-08-07 Completed [facility] Vaccine 00:00:00 [facility] Influenza Virus 2017-08-07 Completed [facility] Vaccine (3+ yrs) 00:00:00 [facility] Influenza Virus 2017-08-07 Completed [facility] of Vaccine Quad IM 3+ 00:00:00 [facility] Influenza Virus 2017-08-07 Completed [facility] Vaccine 00:00:00 [facility] Influenza Virus 2017-08-07 Completed [facility] Vaccine (3+ yrs) 00:00:00 [facility] Influenza Virus 2017-08-07 Completed [facility] of Vaccine Quad IM 3+ 00:00:00 [facility] Influenza Virus 2017-08-07 Completed [facility] Vaccine 00:00:00 [facility] Influenza Virus 2017-08-07 Completed [facility] Vaccine (3+ yrs) 00:00:00 [facility] Influenza Virus 2017-08-07 Completed [facility] Vaccine Quad IM 3+ 00:00:00 [facility] Influenza Virus 2017-08-07 Completed [facility] Vaccine 00:00:00 [facility] Influenza Virus 2017-08-07 Completed [facility] Vaccine (3+ yrs) 00:00:00 [facility] Influenza Virus 2017-08-07 Completed [facility] of Vaccine Quad IM 3+ 00:00:00 [facility] Influenza Virus 2017-08-07 Completed [facility] Vaccine 00:00:00 [facility] Influenza Virus 2017-08-07 Completed [facility] Vaccine (3+ yrs) 00:00:00 [facility] Influenza Virus 2017-08-07 Completed [facility] of Vaccine Quad IM 3+ 00:00:00 [facility] Influenza Virus 2017-08-07 Completed [facility] Vaccine 00:00:00 [facility] Influenza Virus 2017-08-07 Completed [facility] Vaccine (3+ yrs) 00:00:00 [facility] Influenza Virus 2017-08-07 Completed [facility] of Vaccine Quad IM 3+ 00:00:00 [facility] Influenza Virus 2017-08-07 Completed [facility] Vaccine 00:00:00 [facility] Influenza Virus 2017-08-07 Completed [facility] Vaccine (3+ yrs) 00:00:00 [facility] Influenza Virus 2017-08-07 Completed [facility] of Vaccine Quad IM 3+ 00:00:00 [facility] Influenza Virus 2017-08-07 Completed [facility] Vaccine 00:00:00 [facility] Influenza Virus 2017-08-07 Completed [facility] Vaccine (3+ yrs) 00:00:00 [facility] Influenza Virus 2017-08-07 Completed [facility] of Vaccine Quad IM 3+ 00:00:00 [facility] Influenza Virus 2017-08-07 Completed [facility] Vaccine 00:00:00 [facility] Influenza Virus 2017-08-07 Completed [facility] Vaccine (3+ yrs) 00:00:00 [facility] Influenza Virus 2017-08-07 Completed [facility] of Vaccine Quad IM 3+ 00:00:00 [facility] Influenza Virus 2017-08-07 Completed [facility] Vaccine 00:00:00 [facility] Influenza Virus 2017-08-07 Completed [facility] Vaccine (3+ yrs) 00:00:00 [facility] Influenza Virus 2017-08-07 Completed [facility] Vaccine Quad IM 3+ 00:00:00 [facility] Influenza Virus 2017-08-07 Completed [facility] Vaccine 00:00:00 [facility] Influenza Virus 2017-08-07 Completed [facility] Vaccine (3+ yrs) 00:00:00 [facility] Influenza Virus 2017-08-07 Completed [facility] of Vaccine Quad IM 3+ 00:00:00 [facility] Influenza Virus 2017-08-07 Completed [facility] Vaccine 00:00:00 [facility] Influenza Virus 2017-08-07 Completed [facility] Vaccine (3+ yrs) 00:00:00 [facility] Influenza Virus 2017-08-07 Completed [facility] of Vaccine Quad IM 3+ 00:00:00 [facility] Influenza Virus 2017-08-07 Completed [facility] Vaccine 00:00:00 [facility] Influenza Virus 2017-08-07 Completed [facility] Vaccine (3+ yrs) 00:00:00 [facility] Influenza Virus 2017-08-07 Completed [facility] of Vaccine Quad IM 3+ 00:00:00 [facility] Influenza Virus 2017-08-07 Completed [facility] Vaccine 00:00:00 [facility] Influenza Virus 2017-08-07 Completed [facility] Vaccine (3+ yrs) 00:00:00 [facility] Influenza Virus 2017-08-07 Completed [facility] of Vaccine Quad IM 3+ 00:00:00 [facility] Influenza Virus 2017-08-07 Completed [facility] Vaccine 00:00:00 [facility] Influenza Virus 2017-08-07 Completed [facility] Vaccine (3+ yrs) 00:00:00 [facility] Influenza Virus 2017-08-07 Completed [facility] of Vaccine Quad IM 3+ 00:00:00 [facility] Influenza Virus 2017-08-07 Completed [facility] Vaccine 00:00:00 [facility] Influenza Virus 2017-08-07 Completed [facility] Vaccine (3+ yrs) 00:00:00 [facility] Influenza Virus 2017-08-07 Completed [facility] of Vaccine Quad IM 3+ 00:00:00 [facility] Influenza Virus 2017-08-07 Completed [facility] Vaccine 00:00:00 [facility] Influenza Virus 2017-08-07 Completed [facility] Vaccine (3+ yrs) 00:00:00 [facility] Influenza Virus 2017-08-07 Completed [facility] of Vaccine Quad IM 3+ 00:00:00 [facility] Influenza Virus 2017-08-07 Completed [facility] Vaccine 00:00:00 [facility] Influenza Virus 2017-08-07 Completed [facility] Vaccine (3+ yrs) 00:00:00 [facility] Influenza Virus 2017-08-07 Completed [facility] of Vaccine Quad IM 3+ 00:00:00 [facility] Influenza Virus 2017-08-07 Completed [facility] Vaccine 00:00:00 [facility] Influenza Virus 2017-08-07 Completed [facility] Vaccine (3+ yrs) 00:00:00 [facility] Influenza Virus 2017-08-07 Completed [facility] of Vaccine Quad IM 3+ 00:00:00 [facility] Influenza Virus 2017-08-07 Completed [facility] Vaccine 00:00:00 [facility] Influenza Virus 2017-08-07 Completed [facility] Vaccine (3+ yrs) 00:00:00 [facility] Influenza Virus 2017-08-07 Completed [facility] of Vaccine Quad IM 3+ 00:00:00 [facility] Influenza Virus 2017-08-07 Completed [facility] Vaccine 00:00:00 [facility] Influenza Virus 2017-08-07 Completed [facility] Vaccine (3+ yrs) 00:00:00 [facility] Influenza Virus 2017-08-07 Completed [facility] of Vaccine Quad IM 3+ 00:00:00 [facility] Influenza Virus 2017-08-07 Completed [facility] Vaccine 00:00:00 [facility] Influenza Virus 2017-08-07 Completed [facility] Vaccine (3+ yrs) 00:00:00 [facility] Influenza Virus 2017-08-07 Completed [facility] of Vaccine Quad IM 3+ 00:00:00 [facility] Influenza Virus 2017-08-07 Completed [facility] Vaccine 00:00:00 [facility] Influenza Virus 2017-08-07 Completed [facility] Vaccine (3+ yrs) 00:00:00 [facility] Influenza Virus 2017-08-07 Completed [facility] of Vaccine Quad IM 3+ 00:00:00 [facility] Influenza Virus 2017-08-07 Completed [facility] Vaccine 00:00:00 [facility] Influenza Virus 2017-08-07 Completed [facility] Vaccine (3+ yrs) 00:00:00 [facility] Influenza Virus 2017-08-07 Completed [facility] of Vaccine Quad IM 3+ 00:00:00 [facility] Influenza Virus 2017-08-07 Completed [facility] Vaccine 00:00:00 [facility] Influenza Virus 2017-08-07 Completed [facility] Vaccine (3+ yrs) 00:00:00 [facility] Influenza Virus 2017-08-07 Completed [facility] of Vaccine Quad IM 3+ 00:00:00 [facility] Influenza Virus 2017-08-07 Completed [facility] Vaccine 00:00:00 [facility] Influenza Virus 2017-08-07 Completed [facility] Vaccine (3+ yrs) 00:00:00 [facility] Influenza Virus 2017-08-07 Completed [facility] of Vaccine Quad IM 3+ 00:00:00 [facility] Influenza Virus 2017-08-07 Completed [facility] Vaccine 00:00:00 [facility] Influenza Virus 2017-08-07 Completed [facility] Vaccine (3+ yrs) 00:00:00 [facility] Influenza Virus 2017-08-07 Completed [facility] of Vaccine Quad IM 3+ 00:00:00 [facility] Influenza Virus 2017-08-07 Completed [facility] Vaccine 00:00:00 [facility] Influenza Virus 2017-08-07 Completed [facility] Vaccine (3+ yrs) 00:00:00 [facility] Influenza Virus 2017-08-07 Completed [facility] of Vaccine Quad IM 3+ 00:00:00 [facility] Influenza Virus 2017-08-07 Completed [facility] Vaccine 00:00:00 [facility] Influenza Virus 2017-08-07 Completed [facility] Vaccine (3+ yrs) 00:00:00 [facility] Influenza Virus 2017-08-07 Completed [facility] of Vaccine Quad IM 3+ 00:00:00 [facility] Influenza Virus 2017-08-07 Completed [facility] Vaccine 00:00:00 [facility] Influenza Virus 2017-08-07 Completed [facility] Vaccine (3+ yrs) 00:00:00 [facility] Influenza Virus 2017-08-07 Completed [facility] of Vaccine Quad IM 3+ 00:00:00 [facility] Influenza Virus 2017-08-07 Completed [facility] Vaccine 00:00:00 [facility] Influenza Virus 2017-08-07 Completed [facility] Vaccine (3+ yrs) 00:00:00 [facility] Influenza Virus 2017-08-07 Completed [facility] of Vaccine Quad IM 3+ 00:00:00 [facility] Influenza Virus 2017-08-07 Completed [facility] Vaccine 00:00:00 [facility] Influenza Virus 2017-08-07 Completed [facility] Vaccine (3+ yrs) 00:00:00 [facility] Influenza Virus 2017-08-07 Completed [facility] of Vaccine Quad IM 3+ 00:00:00 [facility] Influenza Virus 2017-08-07 Completed [facility] Vaccine 00:00:00 [facility] Influenza Virus 2017-08-07 Completed [facility] Vaccine (3+ yrs) 00:00:00 [facility] Influenza Virus 2017-08-07 Completed [facility] of Vaccine Quad IM 3+ 00:00:00 [facility] Influenza Virus 2017-08-07 Completed [facility] Vaccine 00:00:00 [facility] Influenza Virus 2017-08-07 Completed [facility] Vaccine (3+ yrs) 00:00:00 [facility] Influenza Virus 2017-08-07 Completed [facility] of Vaccine Quad IM 3+ 00:00:00 [facility] Influenza Virus 2017-08-07 Completed [facility] Vaccine 00:00:00 [facility] Influenza Virus 2017-08-07 Completed [facility] Vaccine (3+ yrs) 00:00:00 [facility] Influenza Virus 2017-08-07 Completed [facility] of Vaccine Quad IM 3+ 00:00:00 [facility] Influenza Virus 2017-08-07 Completed [facility] Vaccine 00:00:00 [facility] Influenza Virus 2017-08-07 Completed [facility] Vaccine (3+ yrs) 00:00:00 [facility] Influenza Virus 2017-08-07 Completed [facility] of Vaccine Quad IM 3+ 00:00:00 [facility] Influenza Virus 2017-08-07 Completed [facility] Vaccine 00:00:00 [facility] Influenza Virus 2017-08-07 Completed [facility] Vaccine (3+ yrs) 00:00:00 [facility] Influenza Virus 2017-08-07 Completed [facility] of Vaccine Quad IM 3+ 00:00:00 [facility] Influenza Virus 2017-08-07 Completed [facility] Vaccine 00:00:00 [facility] Influenza Virus 2017-08-07 Completed [facility] Vaccine (3+ yrs) 00:00:00 [facility] Influenza Virus 2017-08-07 Completed [facility] of Vaccine Quad IM 3+ 00:00:00 [facility] Influenza Virus 2017-08-07 Completed [facility] Vaccine 00:00:00 [facility] Influenza Virus 2017-08-07 Completed [facility] Vaccine (3+ yrs) 00:00:00 [facility] Influenza Virus 2017-08-07 Completed [facility] of Vaccine Quad IM 3+ 00:00:00 [facility] Influenza Virus 2017-08-07 Completed [facility] Vaccine 00:00:00 [facility] Influenza Virus 2017-08-07 Completed [facility] Vaccine (3+ yrs) 00:00:00 [facility] Influenza Virus 2017-08-07 Completed [facility] Vaccine Quad IM 3+ 00:00:00 [facility] Influenza Virus 2017-08-07 Completed [facility] Vaccine 00:00:00 [facility] Influenza Virus 2017-08-07 Completed [facility] Vaccine (3+ yrs) 00:00:00 [facility] Influenza Virus 2017-08-07 Completed [facility] Vaccine Quad IM 3+ 00:00:00 [facility] Influenza Virus 2017-08-07 Completed [facility] Vaccine 00:00:00 [facility] Influenza Virus 2017-08-07 Completed [facility] Vaccine (3+ yrs) 00:00:00 [facility] Influenza Virus 2017-08-07 Completed [facility] Vaccine Quad IM 3+ 00:00:00 [facility] Influenza Virus 2017-08-07 Completed [facility] Vaccine 00:00:00 [facility] Influenza Virus 2017-08-07 Completed [facility] Vaccine (3+ yrs) 00:00:00 [facility] Influenza Virus 2017-08-07 Completed [facility] Vaccine Quad IM 3+ 00:00:00 [facility] Influenza Virus 2017-08-07 Completed [facility] Vaccine 00[facility]00:00 [facility] Influenza Virus 2017-08-07 Completed [facility] Vaccine (3+ yrs) 00:00:00 [facility] Influenza Virus 2017-08-07 Completed [facility] Vaccine Quad IM 3+ 00:00:00 [facility] Influenza Virus 2017-08-07 Completed [facility] Vaccine 00:00:00 [facility] Influenza Virus 2017-08-07 Completed [facility] Vaccine (3+ yrs) 00:00:00 [facility] Influenza Virus 2017-08-07 Completed [facility] Vaccine Quad IM 3+ 00:00:00 [facility] Influenza Virus 2017-08-07 Completed [facility] Vaccine 00:00:00 [facility] Influenza Virus 2017-08-07 Completed [facility] Vaccine (3+ yrs) 00:00:00 [facility] Influenza Virus 2017-08-07 Completed [facility] Vaccine Quad IM 3+ 00:00:00 [facility] Influenza Virus 2017-08-07 Completed [facility] Vaccine 00:00:00 [facility] Influenza Virus 2017-08-07 Completed [facility] Vaccine (3+ yrs) 00:00:00 [facility] Influenza Virus 2017-08-07 Completed [facility] Vaccine Quad IM 3+ 00:00:00 [facility] Influenza Virus 2017-08-07 Completed [facility] Vaccine 00:00:00 [facility] Influenza Virus 2017-08-07 Completed [facility] Vaccine (3+ yrs) 00:00:00 [facility] Influenza Virus 2017-08-07 Completed [facility] Vaccine Quad IM 3+ 00:00:00 [facility] Influenza Virus 2017-08-07 Completed [facility] Vaccine 00:00:00 [facility] Influenza Virus 2017-08-07 Completed [facility] Vaccine (3+ yrs) 00:00:00 [facility] Influenza Virus 2016-07-21 Completed [facility] Vaccine Quad ID 00:00:00 [place] [facility] Influenza Virus 2016-07-21 Completed [facility] Vaccine Quad IM 00:00:00 [place] [facility] 6[facility] Influenza Virus 2016-07-21 Completed [facility] Vaccine Quad ID 00:00:00 [place] [facility] 18-64 Y[facility] Influenza Virus 2016-07-21 Completed [facility] Vaccine Quad IM 00:00:00 [place] [facility] 6[facility] MO [facility] Influenza Virus 2016-07-21 Completed [facility] Vaccine Quad ID 00:00:00 [place] [facility] 18-64 Y[facility] Influenza Virus 2016-07-21 Completed [facility] Vaccine Quad IM 00:00:00 [place] [facility] 6[facility] MO [facility] Influenza Virus 2016-07-21 Completed [facility] Vaccine Quad ID 00:00:00 [place] [facility] 18-64 Y[facility] Influenza Virus 2016-07-21 Completed [facility] Vaccine Quad IM 00:00:00 [place] [facility] 6[facility] MO [facility] Influenza Virus 2016-07-21 Completed [facility] Vaccine Quad ID 00:00:00 [place] [facility] 18-64 Y[facility] Influenza Virus 2016-07-21 Completed [facility] Vaccine Quad IM 00:00:00 [place] [facility] 6[facility] MO [facility] Influenza Virus 2016-07-21 Completed [facility] Vaccine Quad ID 00:00:00 [place] [facility] 18-64 Y[facility] Influenza Virus 2016-07-21 Completed [facility] Vaccine Quad IM 00:00:00 [place] [facility] 6[facility] MO [facility] Influenza Virus 2016-07-21 Completed [facility] Vaccine Quad ID 00:00:00 [place] [facility] 18-64 Y[facility] Influenza Virus 2016-07-21 Completed [facility] Vaccine Quad IM 00:00:00 [place] [facility] 6[facility] MO [facility] Influenza Virus 2016-07-21 Completed [facility] Vaccine Quad ID 00:00:00 [place] [facility] 18-64 Y[facility] Influenza Virus 2016-07-21 Completed [facility] Vaccine Quad IM 00:00:00 [place] [facility] 6[facility] MO [facility] Influenza Virus 2016-07-21 Completed [facility] Vaccine Quad ID 00:00:00 [place] [facility] 18-64 Y[facility] Influenza Virus 2016-07-21 Completed [facility] Vaccine Quad IM 00:00:00 [place] [facility] 6[facility] MO [facility] Influenza Virus 2016-07-21 Completed [facility] Vaccine Quad ID 00:00:00 [place] [facility] 18-64 Y[facility] Influenza Virus 2016-07-21 Completed [facility] Vaccine Quad IM 00:00:00 [place] [facility] 6[facility] MO [facility] Influenza Virus 2016-07-21 Completed [facility] Vaccine Quad ID 00:00:00 [place] [facility] 18-64 Y[facility] Influenza Virus 2016-07-21 Completed [facility] Vaccine Quad IM 00:00:00 [place] [facility] 6[facility] MO [facility] Influenza Virus 2016-07-21 Completed [facility] Vaccine Quad ID 00:00:00 [place] [facility] 18-64 Y[facility] Influenza Virus 2016-07-21 Completed [facility] Vaccine Quad IM 00:00:00 [place] [facility] 6[facility] MO [facility] Influenza Virus 2016-07-21 Completed [facility] Vaccine Quad ID 00:00:00 [place] [facility] 18-64 Y[facility] Influenza Virus 2016-07-21 Completed [facility] Vaccine Quad IM 00:00:00 [place] [facility] 6[facility] MO [facility] Influenza Virus 2016-07-21 Completed [facility] Vaccine Quad ID 00:00:00 [place] [facility] 18-64 Y[facility] Influenza Virus 2016-07-21 Completed [facility] Vaccine Quad IM 00:00:00 [place] [facility] 6[facility] MO [facility] Influenza Virus 2016-07-21 Completed [facility] Vaccine Quad ID 00:00:00 [place] [facility] 18-64 Y[facility] Influenza Virus 2016-07-21 Completed [facility] Vaccine Quad IM 00:00:00 [place] [facility] 6[facility] MO [facility] Influenza Virus 2016-07-21 Completed [facility] Vaccine Quad ID 00:00:00 [place] [facility] 18-64 Y[facility] Influenza Virus 2016-07-21 Completed [facility] Vaccine Quad IM 00:00:00 [place] [facility] 6[facility] MO [facility] Influenza Virus 2016-07-21 Completed [facility] Vaccine Quad ID 00:00:00 [place] [facility] 18-64 Y[facility] Influenza Virus 2016-07-21 Completed [facility] Vaccine Quad IM 00:00:00 [place] [facility] 6[facility] MO [facility] Influenza Virus 2016-07-21 Completed [facility] Vaccine Quad ID 00:00:00 [place] [facility] 18-64 Y[facility] Influenza Virus 2016-07-21 Completed [facility] Vaccine Quad IM 00:00:00 [place] [facility] 6[facility] MO [facility] Influenza Virus 2016-07-21 Completed [facility] Vaccine Quad ID 00:00:00 [place] [facility] 18-64 YRS [facility] Influenza Virus 2016-07-21 Completed [facility] Vaccine Quad IM 00:00:00 [place] [facility] 6[facility] MO [facility] Influenza Virus 2016-07-21 Completed [facility] Vaccine Quad ID 00:00:00 [place] [facility] 18-64 YRS [facility] Influenza Virus 2016-07-21 Completed [facility] Vaccine Quad IM 00:00:00 [place] [facility] 6[facility] MO [facility] Influenza Virus 2016-07-21 Completed [facility] Vaccine Quad ID 00:00:00 [place] [facility] 18-64 YRS [facility] Influenza Virus 2016-07-21 Completed [facility] Vaccine Quad IM 00:00:00 [place] [facility] 6[facility] MO [facility] Influenza Virus 2016-07-21 Completed [facility] Vaccine Quad ID 00:00:00 [place] [facility] 18-64 YRS [facility] Influenza Virus 2016-07-21 Completed [facility] Vaccine Quad IM 00:00:00 [place] [facility] 6[facility] MO [facility] Influenza Virus 2016-07-21 Completed [facility] Vaccine Quad ID 00:00:00 [place] [facility] 18-64 Y[facility] Influenza Virus 2016-07-21 Completed [facility] Vaccine Quad IM 00:00:00 [place] [facility] 6[facility] MO [facility] Influenza Virus 2016-07-21 Completed [facility] Vaccine Quad ID 00:00:00 [place] [facility] 18-64 Y[facility] Influenza Virus 2016-07-21 Completed [facility] Vaccine Quad IM 00:00:00 [place] [facility] 6[facility] MO [facility] Influenza Virus 2016-07-21 Completed [facility] Vaccine Quad ID 00:00:00 [place] [facility] 18-64 Y[facility] Influenza Virus 2016-07-21 Completed [facility] Vaccine Quad IM 00:00:00 [place] [facility] 6[facility] MO [facility] Influenza Virus 2016-07-21 Completed [facility] Vaccine Quad ID 00:00:00 [place] [facility] 18-64 Y[facility] Influenza Virus 2016-07-21 Completed [facility] Vaccine Quad IM 00:00:00 [place] [facility] 6[facility] MO [facility] Influenza Virus 2016-07-21 Completed [facility] Vaccine Quad ID 00:00:00 [place] [facility] 18-64 Y[facility] Influenza Virus 2016-07-21 Completed [facility] Vaccine Quad IM 00:00:00 [place] [facility] 6[facility] MO [facility] Influenza Virus 2016-07-21 Completed [facility] Vaccine Quad ID 00:00:00 [place] [facility] 18-64 Y[facility] Influenza Virus 2016-07-21 Completed [facility] Vaccine Quad IM 00:00:00 [place] [facility] 6[facility] MO [facility] Influenza Virus 2016-07-21 Completed [facility] Vaccine Quad ID 00:00:00 [place] [facility] 18-64 YRS [facility] Influenza Virus 2016-07-21 Completed [facility] Vaccine Quad IM 00:00:00 [place] [facility] 6[facility] MO [facility] Influenza Virus 2016-07-21 Completed [facility] Vaccine Quad ID 00:00:00 [place] [facility] 18-64 YRS [facility] Influenza Virus 2016-07-21 Completed [facility] Vaccine Quad IM 00:00:00 [place] [facility] 6[facility] MO [facility] Influenza Virus 2016-07-21 Completed [facility] Vaccine Quad ID 00:00:00 [place] [facility] 18-64 Y[facility] Influenza Virus 2016-07-21 Completed [facility] Vaccine Quad IM 00:00:00 [place] [facility] 6[facility] MO [facility] Influenza Virus 2016-07-21 Completed [facility] Vaccine Quad ID 00:00:00 [place] [facility] 18-64 YRS [facility] Influenza Virus 2016-07-21 Completed [facility] Vaccine Quad IM 00:00:00 [place] [facility] 6[facility] MO [facility] Influenza Virus 2016-07-21 Completed [facility] Vaccine Quad ID 00:00:00 [place] [facility] 18-64 Y[facility] Influenza Virus 2016-07-21 Completed [facility] Vaccine Quad IM 00:00:00 [place] [facility] 6[facility] MO [facility] Influenza Virus 2016-07-21 Completed [facility] Vaccine Quad ID 00:00:00 [place] [facility] 18-64 Y[facility] Influenza Virus 2016-07-21 Completed [facility] Vaccine Quad IM 00:00:00 [place] [facility] 6[facility]35 MO [facility] Influenza Virus 2016-07-21 Completed [facility] Vaccine Quad ID 00:00:00 [place] [facility] 18-64 YRS [facility] Influenza Virus 2016-07-21 Completed [facility] Vaccine Quad IM 00:00:00 [place] [facility] 6[facility]35 MO [facility] Influenza Virus 2016-07-21 Completed [facility] Vaccine Quad ID 00:00:00 [place] [facility] 18-64 YRS [facility] Influenza Virus 2016-07-21 Completed [facility] Vaccine Quad IM 00:00:00 [place] [facility] 6[facility] MO [facility] Influenza Virus 2016-07-21 Completed [facility] Vaccine Quad ID 00:00:00 [place] [facility] 18-64 Y[facility] Influenza Virus 2016-07-21 Completed [facility] Vaccine Quad IM 00:00:00 [place] [facility] 6[facility] MO [facility] Influenza Virus 2016-07-21 Completed [facility] Vaccine Quad ID 00:00:00 [place] [facility] 18-64 YRS [facility] Influenza Virus 2016-07-21 Completed [facility] Vaccine Quad IM 00:00:00 [place] [facility] 6[facility]35 MO [facility] Influenza Virus 2016-07-21 Completed [facility] Vaccine Quad ID 00:00:00 [place] [facility] 18-64 YRS [facility] Influenza Virus 2016-07-21 Completed [facility] Vaccine Quad IM 00:00:00 [place] [facility] 6[facility]35 MO [facility] Influenza Virus 2016-07-21 Completed [facility] Vaccine Quad ID 00:00:00 [place] [facility] 18-64 YRS [facility] Influenza Virus 2016-07-21 Completed [facility] Vaccine Quad IM 00:00:00 [place] [facility] 6-35 MO [facility] Influenza Virus 2016-07-21 Completed [facility] Vaccine Quad ID 00:00:00 [place] [facility] 18-64 YRS [facility] Influenza Virus 2016-07-21 Completed [facility] Vaccine Quad IM 00:00:00 [place] [facility] 6-35 MO [facility] Influenza Virus 2016-07-21 Completed [facility] Vaccine Quad ID 00:00:00 [place] [facility] 18-64 YRS [facility] Influenza Virus 2016-07-21 Completed [facility] Vaccine Quad IM 00:00:00 [place] [facility] 6-35 MO [facility] Influenza Virus 2016-07-21 Completed [facility] Vaccine Quad ID 00:00:00 [place] [facility] 18-64 YRS [facility] Influenza Virus 2016-07-21 Completed [facility] Vaccine Quad IM 00:00:00 [place] [facility] 6-35 MO [facility] Influenza Virus 2016-07-21 Completed [facility] Vaccine Quad ID 00:00:00 [place] [facility] 18-64 YRS [facility] Influenza Virus 2016-07-21 Completed [facility] Vaccine Quad IM 00:00:00 [place] [facility] 6-35 MO [facility] Influenza Virus 2016-07-21 Completed [facility] Vaccine Quad ID 00:00:00 [place] [facility] 18-64 YRS [facility] Influenza Virus 2016-07-21 Completed [facility] Vaccine Quad IM 00:00:00 [place] [facility] 6[facility]35 MO [facility] Influenza Virus 2016-07-21 Completed [facility] Vaccine Quad ID 00:00:00 [place] [facility] 18-64 YRS [facility] Influenza Virus 2016-07-21 Completed [facility] Vaccine Quad IM 00:00:00 [place] [facility] 6-35 MO [facility] Influenza Virus 2016-07-21 Completed [facility] Vaccine Quad ID 00:00:00 [place] [facility] 18-64 YRS [facility] Influenza Virus 2016-07-21 Completed [facility] Vaccine Quad IM 00:00:00 [place] [facility] 6-35 MO [facility] Influenza Virus 2016-07-21 Completed [facility] Vaccine Quad ID 00:00:00 [place] [facility] 18-64 YRS [facility] Influenza Virus 2016-07-21 Completed [facility] Vaccine Quad IM 00:00:00 [place] [facility] 6[facility]35 MO [facility] Influenza Virus 2016-07-21 Completed [facility] Vaccine Quad ID 00:00:00 [place] [facility] 18-64 YRS [facility] Influenza Virus 2016-07-21 Completed [facility] Vaccine Quad IM 00:00:00 [place] [facility] 6[facility]35 MO [facility] Influenza Virus 2016-07-21 Completed [facility] Vaccine Quad ID 00:00:00 [place] [facility] 18-64 YRS [facility] Influenza Virus 2016-07-21 Completed [facility] Vaccine Quad IM 00:00:00 [place] [facility] 6[facility]35 MO [facility] Influenza Virus 2016-07-21 Completed [facility] Vaccine Quad ID 00:00:00 [place] [facility] 18-64 YRS [facility] Influenza Virus 2016-07-21 Completed [facility] Vaccine Quad IM 00:00:00 [place] [facility] 6-35 MO [facility] Influenza Virus 2016-07-21 Completed [facility] Vaccine Quad ID 00:00:00 [place] [facility] 18-64 YRS [facility] Influenza Virus 2016-07-21 Completed [facility] Vaccine Quad IM 00:00:00 [place] [facility] 6-35 MO [facility] Influenza Virus 2016-07-21 Completed [facility] Vaccine Quad ID 00:00:00 [place] [facility] 18-64 YRS [facility] Influenza Virus 2016-07-21 Completed [facility] Vaccine Quad IM 00:00:00 [place] [facility] 6-35 MO [facility] Influenza Virus 2016-07-21 Completed [facility] Vaccine Quad ID 00:00:00 [place] [facility] 18-64 YRS [facility] Influenza Virus 2016-07-21 Completed [facility] Vaccine Quad IM 00:00:00 [place] [facility] 6-35 MO [facility] Influenza Virus 2016-07-21 Completed [facility] Vaccine Quad ID 00:00:00 [place] [facility] 18-64 YRS [facility] Influenza Virus 2016-07-21 Completed [facility] Vaccine Quad IM 00:00:00 [place] [facility] 6-35 MO [facility] Influenza Virus 2016-07-21 Completed [facility] Vaccine Quad ID 00:00:00 [place] [facility] 18-64 YRS [facility] Influenza Virus 2016-07-21 Completed [facility] Vaccine Quad IM 00:00:00 [place] [facility] 6-35 MO [facility] Influenza Virus 2016-07-21 Completed [facility] Vaccine Quad ID 00:00:00 [place] [facility] 18-64 YRS [facility] Influenza Virus 2016-07-21 Completed [facility] Vaccine Quad IM 00:00:00 [place] [facility] 6[facility] MO [facility] Pneumococcal 2015-02-06 Completed [facility] f Polysaccharide, 00:00:00 [place] [facility] PPSV23 (PNEUMOVAX) Branch Pneumococcal 2015-02-06 Completed [facility] f Polysaccharide, 00:00:00 [place] [facility] PPSV23 (PNEUMOVAX) Branch Pneumococcal 2015-02-06 Completed [facility] f Polysaccharide, 00:00:00 [place] [facility] PPSV23 (PNEUMOVAX) Branch Pneumococcal 2015-02-06 Completed [facility] f Polysaccharide, 00:00:00 [place] [facility] PPSV23 (PNEUMOVAX) Branch Pneumococcal 2015-02-06 Completed [facility] f Polysaccharide, 00:00:00 [place] [facility] PPSV23 (PNEUMOVAX) Branch Pneumococcal 2015-02-06 Completed [facility] f Polysaccharide, 00:00:00 [place] [facility] PPSV23 (PNEUMOVAX) Branch Pneumococcal 2015-02-06 Completed [facility] f Polysaccharide, 00:00:00 [place] [facility] PPSV23 (PNEUMOVAX) Branch Pneumococcal 2015-02-06 Completed [facility] f Polysaccharide, 00:00:00 [place] [facility] PPSV23 (PNEUMOVAX) Branch Pneumococcal 2015-02-06 Completed [facility] f Polysaccharide, 00:00:00 [place] [facility] PPSV23 (PNEUMOVAX) Branch Pneumococcal 2015-02-06 Completed [facility] f Polysaccharide, 00:00:00 [place] [facility] PPSV23 (PNEUMOVAX) Branch Pneumococcal 2015-02-06 Completed [facility] f Polysaccharide, 00:00:00 [place] [facility] PPSV23 (PNEUMOVAX) Branch Pneumococcal 2015-02-06 Completed [facility] f Polysaccharide, 00:00:00 [place] [facility] PPSV23 (PNEUMOVAX) Branch Pneumococcal 2015-02-06 Completed [facility] f Polysaccharide, 00:00:00 [place] [facility] PPSV23 (PNEUMOVAX) Branch Pneumococcal 2015-02-06 Completed [facility] f Polysaccharide, 00:00:00 [place] [facility] PPSV23 (PNEUMOVAX) Branch Pneumococcal 2015-02-06 Completed [facility] f Polysaccharide, 00:00:00 [place] [facility] PPSV23 (PNEUMOVAX) Branch Pneumococcal 2015-02-06 Completed [facility] f Polysaccharide, 00:00:00 [place] [facility] PPSV23 (PNEUMOVAX) Branch Pneumococcal 2015-02-06 Completed [facility] f Polysaccharide, 00:00:00 [place] [facility] PPSV23 (PNEUMOVAX) Branch Pneumococcal 2015-02-06 Completed [facility] f Polysaccharide, 00:00:00 [place] [facility] PPSV23 (PNEUMOVAX) Branch Pneumococcal 2015-02-06 Completed [facility] f Polysaccharide, 00:00:00 [place] [facility] PPSV23 (PNEUMOVAX) Branch Pneumococcal 2015-02-06 Completed [facility] f Polysaccharide, 00:00:00 [place] [facility] PPSV23 (PNEUMOVAX) Branch Pneumococcal 2015-02-06 Completed [facility] f Polysaccharide, 00:00:00 [place] [facility] PPSV23 (PNEUMOVAX) Branch Pneumococcal 2015-02-06 Completed [facility] f Polysaccharide, 00:00:00 [place] [facility] PPSV23 (PNEUMOVAX) Branch Pneumococcal 2015-02-06 Completed [facility] f Polysaccharide, 00:00:00 [place] [facility] PPSV23 (PNEUMOVAX) Branch Pneumococcal 2015-02-06 Completed [facility] f Polysaccharide, 00:00:00 [place] [facility] PPSV23 (PNEUMOVAX) Branch Pneumococcal 2015-02-06 Completed [facility] f Polysaccharide, 00:00:00 [place] [facility] PPSV23 (PNEUMOVAX) Branch Pneumococcal 2015-02-06 Completed [facility] f Polysaccharide, 00:00:00 [place] [facility] PPSV23 (PNEUMOVAX) Branch Pneumococcal 2015-02-06 Completed [facility] f Polysaccharide, 00:00:00 [place] [facility] PPSV23 (PNEUMOVAX) Branch Pneumococcal 2015-02-06 Completed [facility] f Polysaccharide, 00:00:00 [place] [facility] PPSV23 (PNEUMOVAX) Branch Pneumococcal 2015-02-06 Completed [facility] f Polysaccharide, 00:00:00 [place] [facility] PPSV23 (PNEUMOVAX) Branch Pneumococcal 2015-02-06 Completed [facility] f Polysaccharide, 00:00:00 [place] [facility] PPSV23 (PNEUMOVAX) Branch Pneumococcal 2015-02-06 Completed [facility] f Polysaccharide, 00:00:00 [place] [facility] PPSV23 (PNEUMOVAX) Branch Pneumococcal 2015-02-06 Completed [facility] f Polysaccharide, 00:00:00 [place] [facility] PPSV23 (PNEUMOVAX) Branch Pneumococcal 2015-02-06 Completed [facility] f Polysaccharide, 00:00:00 [place] [facility] PPSV23 (PNEUMOVAX) Branch Pneumococcal 2015-02-06 Completed [facility] f Polysaccharide, 00:00:00 [place] [facility] PPSV23 (PNEUMOVAX) Branch Pneumococcal 2015-02-06 Completed [facility] f Polysaccharide, 00:00:00 [place] [facility] PPSV23 (PNEUMOVAX) Branch Pneumococcal 2015-02-06 Completed [facility] f Polysaccharide, 00:00:00 [place] [facility] PPSV23 (PNEUMOVAX) Branch Pneumococcal 2015-02-06 Completed [facility] f Polysaccharide, 00:00:00 [place] [facility] PPSV23 (PNEUMOVAX) Branch Pneumococcal 2015-02-06 Completed [facility] f Polysaccharide, 00:00:00 [place] [facility] PPSV23 (PNEUMOVAX) Branch Pneumococcal 2015-02-06 Completed [facility] f Polysaccharide, 00:00:00 [place] [facility] PPSV23 (PNEUMOVAX) Branch Pneumococcal 2015-02-06 Completed [facility] f Polysaccharide, 00:00:00 [place] [facility] PPSV23 (PNEUMOVAX) Branch Pneumococcal 2015-02-06 Completed [facility] f Polysaccharide, 00:00:00 [place] [facility] PPSV23 (PNEUMOVAX) Branch Pneumococcal 2015-02-06 Completed [facility] f Polysaccharide, 00:00:00 [place] [facility] PPSV23 (PNEUMOVAX) Branch Pneumococcal 2015-02-06 Completed [facility] f Polysaccharide, 00:00:00 [place] [facility] PPSV23 (PNEUMOVAX) Branch Pneumococcal 2015-02-06 Completed [facility] f Polysaccharide, 00:00:00 [place] [facility] PPSV23 (PNEUMOVAX) Branch Pneumococcal 2015-02-06 Completed [facility] f Polysaccharide, 00:00:00 [place] [facility] PPSV23 (PNEUMOVAX) Branch Pneumococcal 2015-02-06 Completed [facility] o f Polysaccharide, 00:00:00 [place] [facility] PPSV23 (PNEUMOVAX) Branch Pneumococcal 2015-02-06 Completed [facility] o f Polysaccharide, 00:00:00 [place] [facility] PPSV23 (PNEUMOVAX) Branch Pneumococcal 2015-02-06 Completed [facility] f Polysaccharide, 00:00:00 [place] [facility] PPSV23 (PNEUMOVAX) Branch Pneumococcal 2015-02-06 Completed [facility] o f Polysaccharide, 00:00:00 [place] [facility] PPSV23 (PNEUMOVAX) Branch Pneumococcal 2015-02-06 Completed [facility] f Polysaccharide, 00:00:00 [place] [facility] PPSV23 (PNEUMOVAX) Branch Pneumococcal 2015-02-06 Completed [facility] f Polysaccharide, 00:00:00 [place] [facility] PPSV23 (PNEUMOVAX) Branch Pneumococcal 2015-02-06 Completed [facility] o f Polysaccharide, 00:00:00 [place] [facility] PPSV23 (PNEUMOVAX) Branch Pneumococcal 2015-02-06 Completed [facility] o f Polysaccharide, 00:00:00 [place] [facility] PPSV23 (PNEUMOVAX) Branch Pneumococcal 2015-02-06 Completed [facility] o f Polysaccharide, 00:00:00 [place] [facility] PPSV23 (PNEUMOVAX) Branch Pneumococcal 2015-02-06 Completed [facility] o f Polysaccharide, 00:00:00 [place] [facility] PPSV23 (PNEUMOVAX) Branch Pneumococcal 2015-02-06 Completed [facility] o f Polysaccharide, 00:00:00 [place] [facility] PPSV23 (PNEUMOVAX) Branch Pneumococcal 2015-02-06 Completed [facility] o f Polysaccharide, 00:00:00 [place] [facility] PPSV23 (PNEUMOVAX) Branch PPD (TB) 2014-10-15 Completed [facility] 00:00:00 [facility] PPD (TB) 2014-10-15 Completed [facility] of 00[facility]00:00 [facility] PPD (TB) 2014-10-15 Completed [facility] of 00[facility]00:00 [facility] PPD (TB) 2014-10-15 Completed [facility] of 00[facility]00:00 [facility] PPD (TB) 2014-10-15 Completed [facility] of 00:00:00 [facility] PPD (TB) 2014-10-15 Completed [facility] of 00[facility]00:00 [facility] PPD (TB) 2014-10-15 Completed [facility] of 00[facility]00:00 [facility] PPD (TB) 2014-10-15 Completed [facility] of 00:00:00 [facility] PPD (TB) 2014-10-15 Completed [facility] of 00:00:00 [facility] PPD (TB) 2014-10-15 Completed [facility] of 00:00:00 [facility] PPD (TB) 2014-10-15 Completed [facility] of 00:00:00 [facility] PPD (TB) 2014-10-15 Completed [facility] of 00:00:00 [facility] PPD (TB) 2014-10-15 Completed [facility] of 00:00:00 [facility] PPD (TB) 2014-10-15 Completed [facility] of 00:00:00 [facility] PPD (TB) 2014-10-15 Completed [facility] of 00:00:00 [facility] PPD (TB) 2014-10-15 Completed [facility] of 00:00:00 [facility] PPD (TB) 2014-10-15 Completed [facility] of 00:00:00 [facility] PPD (TB) 2014-10-15 Completed [facility] of 00:00:00 [facility] PPD (TB) 2014-10-15 Completed [facility] of 00[facility]00:00 [facility] PPD (TB) 2014-10-15 Completed [facility] of 00:00:00 [facility] PPD (TB) 2014-10-15 Completed [facility] of 00:00:00 [facility] PPD (TB) 2014-10-15 Completed [facility] of 00:00:00 [facility] PPD (TB) 2014-10-15 Completed [facility] of 00:00:00 [facility] PPD (TB) 2014-10-15 Completed [facility] of 00:00:00 [facility] PPD (TB) 2014-10-15 Completed [facility] 00:00:00 [facility] PPD (TB) 2014-10-15 Completed [facility] 00:00:00 [facility] PPD (TB) 2014-10-15 Completed [facility] 00:00:00 [facility] PPD (TB) 2014-10-15 Completed [facility] 00:00:00 [facility] PPD (TB) 2014-10-15 Completed [facility] 00:00:00 [facility] PPD (TB) 2014-10-15 Completed [facility] 00:00:00 [facility] PPD (TB) 2014-10-15 Completed [facility] 00:00:00 [facility] PPD (TB) 2014-10-15 Completed [facility] 00:00:00 [facility] PPD (TB) 2014-10-15 Completed [facility] 00:00:00 [facility] PPD (TB) 2014-10-15 Completed [facility] 00:00:00 [facility] PPD (TB) 2014-10-15 Completed [facility] 00:00:00 [facility] PPD (TB) 2014-10-15 Completed [facility] 00:00:00 [facility] PPD (TB) 2014-10-15 Completed [facility] 00:00:00 [facility] PPD (TB) 2014-10-15 Completed [facility] 00:00:00 [facility] PPD (TB) 2014-10-15 Completed [facility] 00:00:00 [facility] PPD (TB) 2014-10-15 Completed [facility] 00:00:00 [facility] PPD (TB) 2014-10-15 Completed [facility] 00:00:00 [facility] PPD (TB) 2014-10-15 Completed [facility] 00:00:00 [facility] PPD (TB) 2014-10-15 Completed [facility] 00:00:00 [facility] PPD (TB) 2014-10-15 Completed [facility] 00:00:00 [facility] PPD (TB) 2014-10-15 Completed [facility] 00:00:00 [facility] PPD (TB) 2014-10-15 Completed [facility] 00:00:00 [facility] PPD (TB) 2014-10-15 Completed [facility] 00:00:00 [facility] PPD (TB) 2014-10-15 Completed [facility] 00:00:00 [facility] PPD (TB) 2014-10-15 Completed [facility] of 00:00:00 [facility] PPD (TB) 2014-10-15 Completed [facility] 00:00:00 [facility] PPD (TB) 2014-10-15 Completed [facility] 00:00:00 [facility] PPD (TB) 2014-10-15 Completed [facility] 00:00:00 [facility] PPD (TB) 2014-10-15 Completed [facility] 00:00:00 [facility] PPD (TB) 2014-10-15 Completed [facility] 00:00:00 [facility] PPD (TB) 2014-10-15 Completed [facility] 00:00:00 [facility] PPD (TB) 2014-10-15 Completed [facility] 00:00:00 [facility] PPD (TB) 2014-10-15 Completed [facility] 00:00:00 [facility] PPD (TB) 2014-10-01 Completed [facility] 00:00:00 [facility] PPD (TB) 2014-10-01 Completed [facility] 00:00:00 [facility] PPD (TB) 2014-10-01 Completed [facility] 00:00:00 [facility] PPD (TB) 2014-10-01 Completed [facility] 00:00:00 [facility] PPD (TB) 2014-10-01 Completed [facility] 00:00:00 [facility] PPD (TB) 2014-10-01 Completed [facility] 00:00:00 [facility] PPD (TB) 2014-10-01 Completed [facility] of 00:00:00 [facility] PPD (TB) 2014-10-01 Completed [facility] 00:00:00 [facility] PPD (TB) 2014-10-01 Completed [facility] 00:00:00 [facility] PPD (TB) 2014-10-01 Completed [facility] 00:00:00 [facility] PPD (TB) 2014-10-01 Completed [facility] 00:00:00 [facility] PPD (TB) 2014-10-01 Completed [facility] 00:00:00 [facility] PPD (TB) 2014-10-01 Completed [facility] 00:00:00 [facility] PPD (TB) 2014-10-01 Completed [facility] of 00:00:00 [facility] PPD (TB) 2014-10-01 Completed [facility] of 00:00:00 [facility] PPD (TB) 2014-10-01 Completed [facility] of 00:00:00 [facility] PPD (TB) 2014-10-01 Completed [facility] 00:00:00 [facility] PPD (TB) 2014-10-01 Completed [facility] of 00:00:00 [facility] PPD (TB) 2014-10-01 Completed [facility] of 00:00:00 [facility] PPD (TB) 2014-10-01 Completed [facility] 00:00:00 [facility] PPD (TB) 2014-10-01 Completed [facility] 00:00:00 [facility] PPD (TB) 2014-10-01 Completed [facility] 00:00:00 [facility] PPD (TB) 2014-10-01 Completed [facility] of 00:00:00 [facility] PPD (TB) 2014-10-01 Completed [facility] 00:00:00 [facility] PPD (TB) 2014-10-01 Completed [facility] 00:00:00 [facility] PPD (TB) 2014-10-01 Completed [facility] of 00:00:00 [facility] PPD (TB) 2014-10-01 Completed [facility] 00:00:00 [facility] PPD (TB) 2014-10-01 Completed [facility] of 00:00:00 [facility] PPD (TB) 2014-10-01 Completed [facility] of 00:00:00 [facility] PPD (TB) 2014-10-01 Completed [facility] of 00:00:00 [facility] PPD (TB) 2014-10-01 Completed [facility] of 00:00:00 [facility] PPD (TB) 2014-10-01 Completed [facility] of 00:00:00 [facility] PPD (TB) 2014-10-01 Completed [facility] of 00:00:00 [facility] PPD (TB) 2014-10-01 Completed [facility] 00:00:00 [facility] PPD (TB) 2014-10-01 Completed [facility] 00:00:00 [facility] PPD (TB) 2014-10-01 Completed [facility] 00:00:00 [facility] PPD (TB) 2014-10-01 Completed [facility] of 00:00:00 [facility] PPD (TB) 2014-10-01 Completed [facility] 00:00:00 [facility] PPD (TB) 2014-10-01 Completed [facility] of 00:00:00 [facility] PPD (TB) 2014-10-01 Completed [facility] of 00:00:00 [facility] PPD (TB) 2014-10-01 Completed [facility] of 00:00:00 [facility] PPD (TB) 2014-10-01 Completed [facility] of 00:00:00 [facility] PPD (TB) 2014-10-01 Completed [facility] of 00:00:00 [facility] PPD (TB) 2014-10-01 Completed [facility] 00:00:00 [facility] PPD (TB) 2014-10-01 Completed [facility] of 00:00:00 [facility] PPD (TB) 2014-10-01 Completed [facility] of 00:00:00 [facility] PPD (TB) 2014-10-01 Completed [facility] of 00:00:00 [facility] PPD (TB) 2014-10-01 Completed [facility] of 00:00:00 [facility] PPD (TB) 2014-10-01 Completed [facility] 00:00:00 [facility] PPD (TB) 2014-10-01 Completed [facility] 00:00:00 [facility] PPD (TB) 2014-10-01 Completed [facility] 00:00:00 [facility] PPD (TB) 2014-10-01 Completed [facility] of 00:00:00 [facility] PPD (TB) 2014-10-01 Completed [facility] 00:00:00 [facility] PPD (TB) 2014-10-01 Completed [facility] 00:00:00 [facility] PPD (TB) 2014-10-01 Completed [facility] 00:00:00 [facility] PPD (TB) 2014-10-01 Completed [facility] 00:00:00 [facility] PPD (TB) 2014-10-01 Completed [facility] 00:00:00 [facility] Vital Signs Vital Name Observation Time Observation Value Comments Source Systolic blood 2023-01-22 04:41:00 156 mm[Hg] Univer sity of pressure [facility] Diastolic blood 2023-01-22 04:41:00 75 mm[Hg] Unive rsity of [facility] Heart rate 2023-01-22 04:41:00 66 /min [facility] Body temperature 2023-01-22 04:41:00 36.72 [facility] Respiratory rate 2023-01-22 04:41:00 17 /min Univ [facility] Body height 2023-01-22 04:41:00 185.4 cm [facility] Body weight 2023-01-22 04:41:00 104.327 kg [facility] BMI 2023-01-22 04:41:00 30.34 kg/m2 [facility] Oxygen saturation in 2023-01-22 04:41:00 95 /min [facility] Arterial blood by [facility] Pulse oximetry Branch Systolic blood 2022-08-17 19:52:00 139 mm[Hg] Univer sity of pressure [facility] Diastolic blood 2022-08-17 19:52:00 83 mm[Hg] Unive rsity of pressure [facility] Heart rate 2022-08-17 19:52:00 58 [facility] 2022-08-17 19:52:00 16 /min [facility] height 2022-08-17 19:52:00 185.4 cm [facility] Body weight 2022-08-17 19:52:00 104.327 kg Universi ty [facility] BMI 2022-08-17 19:52:00 30.34 kg/m2 Universi ty [facility] Oxygen saturation in 2022-08-17 19:52:00 97 /min University of Arterial blood by [facility] Pulse oximetry Branch Systolic blood 2022-08-08 14:05:00 166 mm[Hg] Univer sity of pressure [facility] Diastolic blood 2022-08-08 14:05:00 94 mm[Hg] Unive rsity of pressure [facility] Heart rate 2022-08-08 14:05:00 52 /min Universi ty of [facility] Oxygen saturation in 2022-08-08 14:05:00 99 /min University of Arterial blood by [facility] Pulse oximetry Branch Body temperature 2022-08-08 14:02:00 36.56 Clara [address] of [facility] Body height 2022-08-08 14:02:00 185.4 cm Universi ty [facility] Body weight 2022-08-08 14:02:00 106.777 kg Universi ty [facility] BMI 2022-08-08 14:02:00 31.06 kg/m2 Universi ty [facility] Body height 2022-07-14 14:44:00 185.4 cm Universi ty [facility] Body height 2022-09-29 22:17:00 185.4 cm [facility] Body weight 2022-09-29 22:17:00 107.502 kg [facility] BMI 2022-09-29 22:17:00 31.27 kg/m2 [facility] Systolic blood 2022-09-23 13:21:13 137 mm[Hg] [facility] Diastolic blood 2022-09-23 13:21:13 67 mm[Hg] [facility] pressure Heart rate 2022-09-23 13:21:13 72 /min [facility] Body temperature 2022-09-23 13:21:13 36 Clara [facility] Respiratory rate 2022-09-23 13:21:13 18 /min [facility] Oxygen saturation in 2022-09-23 13:21:13 96 /min [facility] Arterial blood by Pulse oximetry Procedures Procedure Date / Time Performing Clinician Source Performed COVID-19 (ID NOW RAPID 2023-01-22 06:14:00 [facility] Medical Branch XR CHEST 1 VW 2023-01-22 05:52:09 Kay Grajeda [place] o [facility] NOTICE OF PRIVACY 2023-01-22 04:44:31 Doctor Unassigned, [facility] PRACTICES [place] [facility] CONSENT/REFUSAL FOR 2023-01-22 04:41:34 Doctor Unassbriana, [facility] DIAGNOSIS AND TREATMENT [place] [facility] PATIENT FINANCIAL 2023-01-04 20:43:34 Doctor Unassbriana, [facility] POLICY [place] [facility] DERMATOPATHOLOGY TISSUE 2022-10-06 00:00:00 [facility] KNEE 3 VW LEFT 2022-10-05 20:13:54 [facility] 1 VW PORTABLE 2022-09-23 11:26:37 Remy Richardson [facility] COMPREHENSIVE METABOLIC 2022-09-23 10:27:00 Remy Richardson [facility] PANEL CBC WITH PLATELET AND 2022-09-23 10:27:00 Remy Richardson [facility] DIFFERENTIAL MAGNESIUM LEVEL 2022-09-23 10:27:00 [facility] PHOSPHORUS LEV[facility] 2022-09-23 10:27:00 Dylan [facility] IONIZED CALCIUM 2022-09-23 10:27:00 [facility] PROTHROMBIN TIME WITH INR 2022-09-23 10:27:00 Remy Richardson [facility] PARTIAL THROMBOPLASTIN 2022-09-23 10:27:00 [facility] TIME (PTT) ESTIMATED GFR 2022-09-23 10:27:00 Remy Richardson [facility] ospital XR CHEST 1 VW PORTABLE 2022-09-22 13:25:58 Dylan [facility] COMPREHENSIVE METABOLIC 2022-09-22 11:03:00 Remy Richardson [facility] PANEL CBC WITH PLATELET AND 2022-09-22 11:03:00 Dylan, [facility] DIFFERENTIAL MAGNESIUM LEVEL 2022-09-22 11:03:00 [facility] PHOSPHORUS LEVEL 2022-09-22 11:03:00 Dylan [facility] IONIZED CALCIUM 2022-09-22 11:03:00 [facility]ital PROTHROMBIN TIME WITH INR 2022-09-22 11:03:00 [facility] PARTIAL THROMBOPLASTIN 2022-09-22 11:03:00 Dylan, [facility] TIME (PTT) ESTIMATED GFR 2022-09-22 11:03:00 Ryan Selby nils Benavides MAGNESIUM LEVEL 2022-09-21 17:45:00 [facility] CHEST 1 VW PORTABLE 2022-09-21 12:14:39 Dylan, [facility] [id number] TACROLIMUS LEVEL, 2022-09-21 10:01:00 Ryan Selby [facility] TROUGH Chenzira COMPREHENSIVE METABOLIC 2022-09-21 09:48:00 Remy Richardson [facility] PANEL CBC WITH PLATELET AND 2022-09-21 09:48:00 [facility]NESIUM LEVEL 2022-09-21 09:48:00 [facility] PHOSPHORUS LEVEL 2022-09-21 09:48:00 [facility]UM 2022-09-21 09:48:00 Dylan [facility] ospital PROTHROMBIN TIME WITH INR 2022-09-21 09:48:00 Dylan [facility] PARTIAL THROMBOPLASTIN 2022-09-21 09:48:00 Dylan, [facility] TIME (PTT) ESTIMATED GFR 2022-09-21 09:48:00 Ryan Selby spianoop Benavides CBC WITH PLATELET AND 2022-09-21 02:59:00 Bal, [facility] DIFFERENTIAL [facility] COMPREHENSIVE METABOLIC 2022-09-21 02:59:00 Bal [facility] PANEL [facility] IONIZED CALCIUM 2022-09-21 02:59:00 Ryan Selby [facility] LACTIC ACID LEVEL 2022-09-21 02:59:00 Bal [facility] MAGNESIUM LEVEL 2022-09-21 02:59:00 Ryan Selby [facility] PHOSPHORUS LEVEL 2022-09-21 02:59:00 Ryan Selby ospital [facility] PROTHROMBIN TIME WITH INR 2022-09-21 02:59:00 [facility] TH[facility]IN 2022-09-21 02:59:00 Bal [facility] TIME (PTT) [facility] ESTIMATED GFR 2022-09-21 02:59:00 Ryan Selby [facility] XR CHEST 1 VW PORTABLE 2022-09-21 02:57:43 Bal [facility] ECG 12-LEAD 2022-09-21 02:48:27 Ryan Selby spital [facility] POC GLUCOSE 2022-09-21 02:26:[address] [facility] ARTHROPLASTY, KNEE, TOTAL 2022-09-20 15:47:00 Phillip [facility] HC NERVE BLOCK INJ OTHER 2022-09-20 15:14:23 [facility] PERIPHERAL Matt HC NERVE BLOCK INJ FEMORAL 2022-09-20 15:13:56 [facility]entinaU[facility] - [facility] HospitalJean Pierre, [facility] SINGLE W IMG GUID Matt ANESTHESIA SPINAL BLOCK 2022-09-20 15:13:02 [facility] POC GLUCOSE 2022-09-20 14:51:00 Phillip [facility] COVID-19 QUALITATIVE 2022-09-15 18:00:00 Jane Olivas [facility] RT-PCR TYPE AND SCREEN 2022-09-08 14:25:00 [facility] WITH PLATELET AND 2022-09-08 14:17:00 Anibal Fisher [facility] DIFFERENTIAL COMPREHENSIVE METABOLIC 2022-09-08 14:17:00 [facility] PANEL HEMOGLOBIN A1C 2022-09-08 14:17:00 Anibal Fisher [facility] ESTIMATED GFR 2022-09-08 14:17:00 [facility] key [facility] ASSIGNMENT OF BENEFITS 2022-08-26 14:07:12 Doctor Unassigned, [facility] Name Medical Branch XR KNEE 3 VW LEFT 2022-08-10 14:28:34 [facility] KNEE AP STANDING 2022-08-10 14:28:15 Anibal Fisher [facility] BILATERAL REFERRAL- REQUEST/RESPONSE 2022-08-03 06:01:00 Doctor Unassbriana , [facility] [place] [facility] EXTERNAL PROVIDER RECORDS 2022-07-18 05:01:00 Doctor Elizabethssbriana, [facility] Name [facility] Plan of Care Planned Activity Planned Date Details Comments Source Future Scheduled 2023-01-21 COVID-19 VACCINE (#1) [facility] Test 23:41:42 [code = COVID-19 VACCINE (#1)] Future Scheduled 2023-01-21 Pneumococcal Vaccine: [facility] Test 23:41:42 Pediatrics (0 to 5 Years) and At-Risk Patients (6 to 64 Years) (1 - PCV) [code = Pneumococcal Vaccine: Pediatrics (0 to 5 Years) and At-Risk Patients (6 to 64 Years) (1 - PCV)] Future Scheduled 2023-01-21 Hepatitis C screening [facility] Test 23:41:42 (procedure) [code = 688949864] Future Scheduled 2023-01-21 SHINGLES VACCINES (1 [facility] Test 23:41:42 of 2) [code = SHINGLES VACCINES (1 of 2)] Future Scheduled 2023-01-21 COLONOSCOPY SCREENING [facility] Test 23:41:42 [code = COLONOSCOPY SCREENING] Future Scheduled 2023-01-21 Screening for [facility] Test 23:41:42 malignant neoplasm of lung (procedure) [code = 074450798] Future Scheduled 2023-01-21 INFLUENZA VACCINE [facility] 23:41:42 [code = INFLUENZA VACCINE] Encounters Start End Encounter Admission Attending Care Care Encounter Source Date/Time Date/Time Type Type Clinicians Facility Department ID 2021-11-[address] [facility] [id number] Common 07:54:02 [facility] 2021-07-24 Outpatient R MATY [facility] MED [id number] Univers 10:01:[address] [facility] 2023-02-02 2023-02-02 Outpatient R YESENIASELECT MEDICAL [facility] [id number] Univers 16:00:00 16:00:00 ANDERSON ity o f [facility] 2023-01-27 2023-01-27 Outpatient R YESENIASELECT MEDICAL [facility] [id number] Univers 07:30:00 07:30:00 ANDERSON joni o f [facility] 2023-01-21 2023-01-22 Emergency X Kay GRAJEDA [facility] ERT [id number] Univers 23:50:00 03:37:[address] [facility] 2023-01-21 2023-01-22 Emergency Kay Grajeda [facility] 1.2.840.114 [id number] Univers 23:50:00 03:37:00 Jane VALDIVIA 350.1.13.10 i ty [facility] 4.2.7.2.686 [facility] [id number] [facility] 084 Branch 2023-01-18 2023-01-18 Outpatient R JANETTE CARREON [facility] [id number] Univers 16:30:00 17:11:[address] [facility] 2023-01-18 2023-01-18 Office Consuelo Mcintosh [facility] 1.2.840.114 [id number] Univers 16:30:00 17:11:29 [facility] 350.1.13.10 ity [facility] 4.2.7.2.686 [facility] [id number] [facility] AND RAMOS 027 Branch [facility] 2023-01-04 2023-01-04 Office Consuelo Mcintosh [facility] 1.2.840.114 [id number] Univers 16:00:00 16:15:00 Visit Hyun Ya MULTISPEC 350.1.13.10 ity of IALTY 4.2.7.2.686 [facility] [place] [id number] [facility] [address] [place] [facility] 2023-01-04 2023-01-04 Outpatient R BHAKTI [facility] [id number] Univers 16:00:00 16:00:[address] o f [facility] 2023-01-04 2023-01-04 Orders Doctor JEAN PAUL 1.2.840.114 [id number] [facility] 00:00:00 00:00:00 Only Unassigned, BBAAR 350.1.13.10 ity of [place] [facility] 4.2.7.2.686 [facility] [id number] [address] 2022-11-20 2022-11-20 Refluke Avenda[facility] 1.2.840.114 [id number] Univers 00:00:00 00:00:00 Miguel Nirav MULTISPEC 350.1.13.10 ity of [place] 4.2.7.2.686 [facility] [place] [id number] [address] [facility] 2022-11-13 2022-11-13 [facility] 1.2.840.114 [id number] Univers 00:00:00 00:00:00 Samantha machado MULTISPEC 350.1.13.10 ity of [place] 4.2.7.2.686 [facility] [place] [id number] [address] [facility] 2022-11-04 2022-11-04 Telephone [facility] 1.2.840.114 [id number] Univers 00:00:00 00:00:00 Justin Templeton MULTISPEC 350.1.13.10 ity of [place] 4.2.7.2.686 [facility] [id number] [address] DI[facility]ETES [facility]IC 2022-11-03 2022-11-03 [facility]phone [facility] 1.2.840.114 [id number] Univers 00:00:00 00:00:00 Samantha machado MULTISPEC 350.1.13.10 ity of [place]2.7.2.686 [place] [id number] [facility] 189 Branch DIABETES [facility]IC 2022-11-02 2022-11-02 Outdoor Adventure Instructor 2, Adc Lab [facility] 1.2.840.114 [id number] Univers 08:00:00 08:10:12 Visit Kaia Griggs 350.1.13. 10 ity [facility] 4.2.7.2.686 [place] [facility] [id number] Il dical [address] 2022-11-02 2022-11-02 Outpatient R KAIA GRIGGS [facility] [id number] [facility] 08:00:00 08:00:[address] [facility] 2022-11-02 2022-11-02 Telephone Yesenia [facility] 1.2.840.114 [id number] [facility] 00:00:00 00:00:00 Justin Templeton MULTISPEC 350.1.13.10 ity [place].686 [place] [id number] [facility] 312 Branch DIABETES CLINIC 2022-10-31 2022-10-31 Office Sitter, 1.2.840.1 [id number] Methodi 14:40:00 15:05:02 Visit Anibal Hammer 33965.1.1 722 s t 3.430.2.7 Hospit a .3.371675 l .8 2022-10-31 2022-10-31 Travel 1.2.840.1 1.2.601.015 [id number] Methodi 00:00:00 00:00:[address] 3.430.2.7 0.2.7.3.698 Ho spita .3.018735 084.8 l .8 2022-10-31 2022-10-31 Outpatient SITTER, [facility] [id number] [address] [place] 00:00:00 00:00:00 ANIBAL Mike Method i st 2022-10-19 2022-10-19 Telephone [place], 1.2.840.1 [id number] [id number] Methodi 00:00:00 00:00:[address] 3.430.2.7 Hospit a .3.049385 l .8 2022-10-14 2022-10-14 Telephone [place], 1.2.840.1 [id number] 2100 [id number] Methodi 00:00:00 00:00:[address] 3.430.2.7 Hospit a .3.317492 l .8 2022-10-12 2022-10-12 Telephone [place], 1.2.840.1 [id number] 2099 [id number] Methodi 00:00:00 00:00:[address] 3.430.2.7 Hospit a .3.888097 l .8 2022-10-12 2022-10-12 Orders Alex, 1.2.840.1 [id number] 2099 [id number] Methodi 00:00:00 00:00:00 Only Nusrat [address]04.1.[address] 3.430.2.7 Hospit a .3.412974 l .8 2022-10-11 2022-10-11 Refill Sitter, 1.2.840.1 [id number] 9051 Methodi 00:00:00 00:00:00 Anibal C. 45799.1.1 634 s t 3.430.2.7 Hospit a .3.331290 l .8 2022-10-10 2022-10-10 Office Sitter, 1.2.840.1 [id number] 6855 Methodi 13:40:00 14:14:40 Visit Anibal C. 79525.1.1 335 s t 3.430.2.7 Hospit a .3.329171 l .8 2022-10-10 2022-10-10 Travel 1.2.840.1 1.2.632.222 [id number] Methodi 00:00:00 00:00:[address] 3.430.2.7 0.2.7.3.698 Ho spita .3.862959 084.8 l .8 2022-10-10 2022-10-10 Outpatient SITTER, [facility] [id number] [address] [place] 00:00:00 00:00:00 ANIBAL Issa Method i st 2022-10-08 2022-10-08 Telephone [facility] 1.2.840.114 [id number] [facility] 00:00:00 00:00:00 Samantha machado MULTISPEC 350.1.13.10 ity of IALTY 4.2.7.2.686 [facility] s [place] [id number] [address] [facility] 2022-10-06 2022-10-06 Outpatient [facility] [id number] Univers 15:30:00 16:40:14 RYAN quinones [facility] 2022-10-06 2022-10-06 Office Elan Mccracken [facility] 1.2.840.11 4 [id number] Univers 15:30:00 16:40:14 Visit Ryan Cronin MULTISPEC 350.1.13.1 0 ity of IALTY 4.2.7.2.686 [facility] [id number] [address] [facility]IC 2022-10-05 2022-10-05 Office Sitter, 1.2.840.1 [id number] 603288 9472 Methodi 13:40:00 14:27:58 Visit Anibal Hammer 81733.1.1 136 s t 3.430.2.7 Hospit a .3.492416 l .8 2022-10-05 2022-10-05 Travel 1.2.840.1 1.2.507.501 6156 998300 Methodi 00:00:00 00:00:[address] 3.430.2.7 0.2.7.3.698 Ho spita .3.835663 084.8 l .8 2022-10-05 2022-10-05 Outpatient SITTER, [facility] [id number] 469 [place] 00:00:00 00:00:00 ANIBAL [address] 2022-10-05 2022-10-05 Outpatient SITTER, [facility] [id number] 470 [place] 00:00:00 00:00:00 ANIBAL [address] 2022-09-29 2022-09-29 Office Sitter, 1.2.840.1 [id number] 424849 6840 Methodi 16:00:00 16:33:47 Visit Anibal Hammer 59995.1.1 409 s t 3.430.2.7 Hospit a .3.487055 l .8 2022-09-29 2022-09-29 Travel 1.2.840.1 1.2.480.038 6092 859955 Methodi 00:00:00 00:00:[address] 3.430.2.7 0.2.7.3.698 Ho spita .3.512808 084.8 l .8 2022-09-29 2022-09-29 Outpatient SITTER, [facility] [id number] 985 [place] 00:00:00 00:00:00 ANIBAL [address] 2022-09-27 2022-09-27 Orders Alex, 1.2.840.1 [id number] 2100 847489 Methodi 00:00:00 00:00:00 Only [place] [address]347.1.[address] 3.430.2.7 Hospit a .3.997767 l .8 2022-09-27 2022-09-27 Telephone Alex 1.2.840.1 [id number] 21 [id number] Methodi 00:00:00 00:00:[address] [place] [address] 3.430.2.7 Hospit a .3.868508 l .8 2022-09-27 2022-09-27 Patient Clarisse Elias 1.2.840.1 [id number] Methodi 00:00:00 00:00:[address] 3.430.2.7 Hospit a .3.570298 l .8 2022-09-20 2022-09-23 Hospital Anibal Fisher 1.2.840.1 1041 83137 [id number] Methodi 07:36:00 13:59:00 Encounter Tessie Cheek 99386.1.[address] 3.430.2.7 Hospit a .3.481053 l .8 2022-09-20 2022-09-23 Inpatient [facility] [id number] 89 [place] 00:00:00 00:00:00 POANNI [address] 2022-09-20 2022-09-20 Surgery Sitter, 1.2.840.1 [id number] 517797 3583 Methodi 09:55:00 12:05:00 Anibal C. 17822.1.1 366 s t 3.430.2.7 Hospit a .3.209566 l .8 2022-09-20 2022-09-20 Anesthesia RenMatt [place] 1.2.8 40.1 [id number] [id number] Methodi 09:47:00 11:24:[address]Jane [address]563.1.[address] 3.430.2.7 Hospit a .3.479710 l .8 2022-09-20 2022-09-20 Orders [facility], 1.2.840.1 [id number] 131556 1497 Methodi 00:00:00 00:00:00 Only Anibal GambleMary 28522.1.1 535 s t 3.430.2.7 Hospit a .3.602343 l .8 2022-09-15 2022-09-15 Telephone [facility] 1.2.840.114 [id number] Univers 00:00:00 00:00:00 Samantha machado MULTISPEC 350.1.13.10 ity of [place] 4.2.7.2.686 [facility] [phone] [facility] [place] [address] [address] [facility] 2022-09-15 2022-09-15 Travel 1.2.840.1 1.2.465.121 3323 441840 Methodi 00:00:00 00:00:[address] 3.430.2.7 0.2.7.3.698 Ho spita .3.845299 084.8 l .8 2022-09-15 2022-09-15 Orders Sitter, 1.2.840.1 [id number] 417672 2176 Methodi 00:00:00 00:00:00 Only Anibal Gamble. 18626.1.1 655 s t 3.430.2.7 Hospit a .3.116006 l .8 2022-09-15 2022-09-15 Outpatient SITTER, [facility] [id number] [address] [place] [address] 00:00:00 00:00:00 ANIBAL [address] 2022-09-08 2022-09-08 Pre-Admiss Sitter, 1.2.840.1 [id number] 898 0900242 Methodi 07:30:00 08:30:00 ion Anibal Hammer 45757.1.1 675 s t Testing 3.430.2.7 Hospit a .3.831776 l .8 2022-09-08 2022-09-08 Travel 1.2.840.1 1.2.744.527 9348 067277 Methodi 00:00:00 00:00:[address] 3.430.2.7 0.2.7.3.698 Ho spita .3.101544 084.8 l .8 2022-09-08 2022-09-08 Outpatient SITTER, [facility] [id number] [address] [place] [address] 00:00:00 00:00:00 ANIBAL [address] 2022-09-02 2022-09-02 Orders Johnny, 1.2.840.1 096343019 2100 756769 Methodi 00:00:00 00:00:00 Only Maisha 44519.1.[address] 3.430.2.7 Hospit a .3.396445 l .8 2022-09-01 2022-09-01 Telephone LEOBARDO Patterson 1.2.840.114 989 57964 [facility] 00:00:00 00:00:00 Justin Templeton MULTISPEC 350.1.13.10 it[place] of [place]2.686 [place] [id number] [address] [facility]IC 2022-08-30 2022-08-30 Documentat Provider, 1.2.840.1 [id number] 2 [id number] Methodi 00:00:00 00:00:00 ion Unknown 66368.1.[address] 3.430.2.7 Hospit a .3.655719 l .8 2022-08-30 2022-08-30 Travel 1.2.840.1 1.2.428.932 0482 228311 Methodi 00:00:00 00:00:[address] 3.430.2.7 0.2.7.3.698 Ho spita .3.382273 084.8 l .8 2022-08-30 2022-08-30 Transcribe Sitter, 1.2.840.1 [id number] 839 4853230 Methodi 00:00:00 00:00:00 Orders Anibal Gamble. 17662.1.1 017 s t 3.430.2.7 Hospit a .3.041316 l .8 2022-08-29 2022-08-29 Telephone Watson-Esthela [facility] 1.2.840.114 [id number] Univers 00:00:00 00:00:00 Samantha machado MULTISPEC 350.1.13.10 it[place] [id number] [address] [facility]INIC 2022-08-26 2022-08-26 Outdoor Adventure Instructor 2, Adc Lab [facility] 1.2.840.114 [id number] Univers 08:00:00 08:15:00 Visit Kaia Griggs 350.1.13. 10 ity of [place].2.686 [place] [phone] [address] 2022-08-26 2022-08-26 Outpatient R KAIA GRIGGS [facility] 594 [id number] Univers 08:00:00 08:00:[address] [facility] 2022-08-26 2022-08-26 Orders Doctor JEAN PAUL 1.2.840.114 [id number] Univers 00:00:00 00:00:00 Only Unassigned, BABAR 350.1.13.10 ity of [place] [facility] 4.2.7.2.686 Darryl as [id number] [facility] [address] 2022-08-24 2022-08-24 Telephone [facility] 1.2.840.114 9 [id number] Univers 00:00:00 00:00:00 Hernando VALDIVIA 350.1.13.10 i ty of [place]2.7.2.686 [place] 565.5259346 Il dical [address] 2022-08-17 2022-08-17 Outpatient R HAYDEN BABB, [facility] 1042 [id number] Univers 14:30:00 14:34:[address] [facility] 2022-08-17 2022-08-17 Office TERESA Blake 1.2.878.400 6166 3661 [facility] 14:30:00 14:34:51 Visit Donnie [facility] 350.1.13.10 ity of CL[place].2.7.2.686 [place] [id number] [address] 2022-08-15 2022-08-15 Telephone [facility] 1.2.840.114 [id number] Univers 00:00:00 00:00:00 Samantha machado MULTISPEC 350.1.13.10 it[place] 4.2.[place]2.[place] 820.6884675 [address] [facility]ES [facility]INIC 2022-08-11 2022-08-11 Refill [facility] 1.2.840.114 98 [id number] Univers 00:00:00 00:00:00 Samantha machado MULTISPEC 350.1.13.10 it[place]2.[place] [id number] [address] [facility]ES CLINIC 2022-08-10 2022-08-10 Office Phillip 1.2.840.1 [id number] 524035 2566 Methodi 08:10:00 08:54:29 Visit Anibal GambleMary 80975.1.1 553 s t 3.430.2.7 Hospit a .3.832770 l .8 2022-08-10 2022-08-10 Telephone Sharon Echols [facility] 1.2.840.114 [id number] [facility] 00:00:00 00:00:00 MULTISPEC 350.1.13.10 ity of IALTY 4.2.7.2.686 [facility] [id number] [address] DIABETES CLINIC 2022-08-10 2022-08-10 Travel 1.2.840.1 1.2.844.309 9495 252340 Methodi 00:00:00 00:00:[address] 3.430.2.7 0.2.7.3.698 Ho spita .3.219609 084.8 l .8 2022-08-10 2022-08-10 Outpatient SITTER, [facility] [id number] 663 [place] 00:00:00 00:00:00 ANIBAL 553 Method i 2022-08-10 2022-08-10 Outpatient SITTER, [facility] [id number] 865 [place] 00:00:00 00:00:00 ANIBAL 928 Method i 2022-08-10 2022-08-10 Outpatient SITTER, [facility] [id number] 865 [place] 00:00:00 00:00:00 ANIBAL 944 Method i 2022-08-08 2022-08-08 Outpatient R WATSON-CRU [facility] 906 [id number] [facility] 08:00:00 09:05:[address] [facility] 2022-08-08 2022-08-08 Office [facility] 1.2.840.114 98 [id number] [facility] 08:00:00 09:05:04 Visit Samantha machado MULTISPEC 350.1.13.10 ity of IAL[place] 4.2.7.2.686 [facility] [place] [id number] [address] [facility]ES CLINIC 2022-08-04 2022-08-04 Outdoor Adventure Instructor Ezio, Adc Lab Main [facility] 1.2.8 40.114 [id number] Univers 09:15:00 09:30:00 Visit Silvino Pattersonjarrod Templeton [place] 350.1.13. 10 ity of [place].7.2.[place] [phone] [facility] [address] [facility] 2022-08-04 2022-08-04 Outpatient R [facility]LECT [facility] [id number] Univers 09:15:00 09:15:00 JUSTIN fossy o f [facility] 2022-08-04 2022-08-04 Telephone [facility] 1.2.840.114 9 [id number] Univers 00:00:00 00:00:00 Nicolle VALDIVIA 350.1.13.10 ity of [place].7.2.[place] [id number] [facility] [address] [facility] 2022-08-04 2022-08-04 Telephone Sharon Echols [facility] 1.2.840.114 [id number] Univers 00:00:00 00:00:00 MULTISPEC 350.1.13.10 it[place] of [place] 4.2.7.2.686 [place] [id number] [address] [facility]ES [facility]INIC 2022-08-03 2022-08-03 Outdoor Adventure Instructor Ezio, Adc Lab Main [facility] 1.2.8 40.114 [id number] Univers 08:15:00 08:30:00 Visit Jen Pattersonsivakumar VALDIVIA 350.1.13. 10 ity of [place] 4.2.7.2.686 [place] [phone] [facility] [address] [facility] 2022-08-03 2022-08-03 Outpatient R YESEN[facility]LECT [facility] [id number] Univers 08:15:00 08:15:00 ANDERSON ity o f [facility] 2022-08-03 2022-08-03 Telephone Sharon Echols [facility]ERS[facility] 1.2.840.11 4 [id number] Univers 00:00:00 00:00:00 Y HEALTH 350.1.13.10 i ty of CL[place] 4[place]2.7.2.[place] 377.9950054 [facility] [address] 2022-08-03 2022-08-03 Orders Doctor JEAN PAUL 1.2.840.114 [id number] Univers 00:00:00 00:00:00 Only Unassigned, BABAR 350.1.13.10 ity of [place] [facility] 4.2.7.2.686 Darryl as [id number] [facility] [address] 2022-08-02 2022-08-02 Outpatient R WATSON-ESTHELA [facility] 764 [id number] Univers 16:00:00 16:00:00 SAMANTHA MACHADO ity [facility] 2022-07-31 2022-07-31 Telephone Sharon Echols [facility] 1.2.840.11 4 [id number] Univers 00:00:00 00:00:00 Y HEALTH 350.1.13.10 i ty of CL[place] 4[place]2.7.2.[place] 189.1992738 [facility] [address] 2022-07-25 2022-07-25 Travel 1.2.840.1 1.2.798.373 5291 075617 Methodi 00:00:00 00:00:[address] 3.430.2.7 0.2.7.3.698 Ho spita .3.832842 084.8 l .8 2022-07-18 2022-07-18 Telephone [facility] 1.2.840.114 977 00131 Univers 00:00:00 00:00:00 Justin Templeton MULTISPEC 350.1.13.10 ity of IALTY 4.2.7.2.686 [facility] [place] [id number] [place] [address] [address] [facility] 2022-07-18 2022-07-18 Telephone [facility] 1.2.982.435 5987 9739 Univers 00:00:00 00:00:00 Aissatou MULTISPEC 350.1.13.10 ity of IAL[place] 4.2.7.2.686 [facility] [place] [id number] [address] [facility]IC 2022-07-18 2022-07-18 Orders Doctor JEAN PAUL 1.2.840.114 [id number] Univers 00:00:00 00:00:00 Only Unassigned, BABAR 350.1.13.10 ity of [place] [facility] 4.2.7.2.686 Darryl [id number] [address] 2022-07-14 2022-07-14 Outpatient R JANETTE CARREON [facility] 096 [id number] Univers 09:30:00 10:08:[address] [facility] 2022-07-14 2022-07-14 Office Aissatou Ludwig [facility] 1.2.840.114 [id number] Univers 09:30:00 10:08:09 Visit Janette Carreon MULTISPEC 350.1.13.10 ity of IAL[place] 4.2.7.2.686 [facility] [place] [id number] [address] [facility]ES CLINIC 2022-07-13 2022-07-13 Travel 1.2.840.1 1.2.651.206 2076 340635 Methodi 00:00:00 00:00:[address] 3.430.2.7 0.2.7.3.698 Ho spita .3.584729 084.8 l .8 2022-07-01 2022-07-01 Refill Adrianilla[facility] 1.2.840.114 97 [id number] Univers 00:00:00 00:00:00 Samantha machado MULTISPEC 350.1.13.10 ity of IAL[place] 4.2.7.2.686 [facility] [place] [id number] [facility] [address] [facility] 2022-05-24 2022-05-24 Outpatient R GAMILLA-CRU [facility] [id number] [id number] Univers 13:00:00 13:00:00 SAMANTHA MACHADO [facility] 2022-05-24 2022-05-24 Outpatient R GAMILLA-CRU [facility] 636 [id number] Univers 13:00:00 13:00:00 SAMANTHA MACHADO [facility] 2022-05-24 2022-05-24 Outpatient R WAT[facility] 477 [id number] Univers 13:00:00 13:00:00 SAMANTHA MACHADO [facility] 2022-04-19 2022-04-19 Outdoor Adventure Instructor Vtc-Lab [facility] 1.2.840.114 [id number] [id number] Univers 13:30:00 13:45:00 Visit Justin Patterson MULTISPEC 350.1.13 .10 ity of IAL[place] 4.2.7.2.686 [facility] [place] [id number] [address] [facility]IC 2022-04-19 2022-04-19 Outpatient R YESENIA [facility] [id number] Univers 13:30:00 13:30:00 JUSTIN ity o f [facility] 2022-04-13 2022-04-13 Telephone [facility] 1..840.114 951 [id number] Univers 00:00:00 00:00:00 Justin Templeton MULTISPEC 350.1.13.10 ity of IALTY 4.2.7.2.686 [facility] [place] [id number] [address] [facility]ES CLINIC 2022-04-05 2022-04-05 Outpatient R [facility] [id number] [id number] Univers 11:00:00 11:00:00 SAMANTHA MACHADO [facility] 2022-04-05 2022-04-05 [facility] 1.2.840.114 [id number] Univers 00:00:00 00:00:00 doSamantha MULTISPEC 350.1.13.10 ity of IALTY 4.2.7.2.686 [facility] [place] [id number] [address] [facility]ES [facility]INIC 2022-04-05 2022-04-05 Telephone Sharon Echols [facility] 1.2.840.114 [id number] Univers 00:00:00 00:00:00 MULTISPEC 350.1.13.10 ity of [place] 4.2.7.2.686 [place] [id number] [facility] AND [address] DIABETES CLINIC 2022-04-04 2022-04-04 Orders Yesenia [facility] 1.2.840.114 [id number] [id number] Univers 00:00:00 00:00:00 Only Anderson A BABAR 350.1.13.10 ity of [facility] 4.2.7.2.686 Darryl as [id number] [address] 2022-03-30 2022-03-30 Telephone [facility] 1.2.840.114 947 [id number] Univers 00:00:00 00:00:00 Anderson A MULTISPEC 350.1.13.10 ity of [facility] 4.2.7.2.686 [facility] [place] [id number] [address] [facility]IC 2022-03-24 2022-03-24 [facility]ill [facility] 1.2.840.114 94 [id number] Univers 00:00:00 00:00:00 Samantha machado MULTISPEC 350.1.13.10 ity of [place] 4.2.7.2.686 [facility] [place] [id number] [address] [facility] 2022-03-23 2022-03-23 Telephone [facility] 1.2.840.114 946 [id number] Univers 00:00:00 00:00:00 Anderson A MULTISPEC 350.1.13.10 ity of IALTY 4.2.7.2.686 [facility] [place] [id number] [address] [facility] 2022-03-23 2022-03-23 Telephone [facility] 1.2.840.114 946 [id number] Univers 00:00:00 00:00:00 Anderson A MULTISPEC 350.1.13.10 ity of IALTY 4.2.7.2.686 [facility] [id number] [address] [facility]ES [facility]INIC 2022-03-08 2022-03-08 [facility] 1.2.840.114 [id number] [id number] Univers 00:00:00 00:00:00 Anderson A MULTISPEC 350.1.13.10 it[place] of [place]2.7.2.[place] [id number] [facility] AND [address] [facility]ES [facility]IC 2022-01-13 2022-01-13 Telephone [facility] 1.2.840.114 929 [id number] Univers 00:00:00 00:00:00 Anderson A MULTISPEC 350.1.13.10 ity of [place] 4[place]2.7.2.[place] [id number] [address] [facility]IC 2022-01-12 2022-01-12 Orders [facility] 1.2.840.114 [id number] Univers 00:00:00 00:00:00 Only Justin Templeton [place]AB[place] 350.1.13.10 ity of HOSPITAL 4.2.7.2.686 Darryl as [id number] [address] 2021-12-20 2021-12-20 Telephone [facility] 1.2.840.114 [id number] Univers 00:00:00 00:00:00 Samantha machado MULTISPEC 350.1.13.10 ity of [place]2.[place].2.[place] [id number] [address] [facility] 2021-12-15 2021-12-15 Telephone [facility] 1.2.840.114 921 [id number] Univers 00:00:00 00:00:00 Anderson A MULTISPEC 350.1.13.10 ity of [place] 4[place]2.7.2.[place] [id number] [address] [facility] 2021-11-29 2021-11-29 Refill [facility] 1.2.840.114 91 [id number] Univers 00:00:00 00:00:00 Samantha machado MULTISPEC 350.1.13.10 ity of [place] 4[place]2.7.2.[place] 196.1529482 [address] [facility] 2021-11-25 2021-11-25 Telephone Yesenia [facility] 1.2.840.114 917 [id number] Univers 00:00:00 00:00:00 Anderson A MULTISPEC 350.1.13.10 ity of [place] 4.2.7.2.[place] [id number] [address] [facility]ES [facility]INIC 2021-11-24 2021-11-24 Juan Avendaño [facility] 1.2.840.114 [id number] Univers 00:00:00 00:00:00 Miguelsherrie Gastelum MULTISPEC 350.1.13.10 ity of [place].2.[place] [id number] [facility] AND [address] [facility]IC 2021-11-23 2021-11-23 Transition CATRACHITA Gonzalez 1.2.840.114 [id number] [id number] Univers 00:00:00 00:00:00 of Care Roseanna COOPER 350.1.13.10 i ty of [place]2.7.2.686 [place] [id number] [facility] [address] 2021-11-19 2021-11-22 In[address]IN KEN[address]ICK [facility] [id number] Univers 19:42:00 18:00:[address] [facility] 2021-11-19 2021-11-22 [facility] Didier Ta 1.2.840.1 14 [id number] Univers 19:42:00 18:00:00 Encounter Martin Kendrick 350.1.13.10 ity of [facility] 4.2.7.2.686 Darryl as [id number] [facility] [address] 2021-11-19 2021-11-19 Inpatient X MARTIN KENDRICK [facility] 94313 08511 Univers 19:42:00 19:42:[address] [facility] 2021-11-19 2021-11-19 Telephone Cassie [facility] 1.2.840.114 [id number] Univers 00:00:00 00:00:00 Samantha machado MULTISPEC 350.1.13.10 ity of [place] [id number] [facility] AND [address] DI[facility]ETES CLINIC 2021-11-19 2021-11-19 Telephone BrandonEsthela [facility] 1.2.840.114 [id number] Univers 00:00:00 00:00:00 Samantha machado MULTISPEC 350.1.13.10 ity of IAL[place] 4.2.7.2.686 [facility] [place] [id number] [address] [facility] 2021-11-18 2021-11-18 Telephone [facility] 1.2.840.114 915 [id number] Univers 00:00:00 00:00:00 Justin Templeton MULTISPEC 350.1.13.10 ity of IALTY 4.2.7.2.686 [facility] [place] [id number] [address] [facility]INIC 2021-11-17 2021-11-17 Outpatient R KEESHA CAMPBELL [facility] [id number] Univers 10:40:00 11:25:07 KEESHA CAMPBELL it y of [facility] 2021-11-17 2021-11-17 Office Keesha Campbell [facility] 1..840.114 [id number] Univers 10:40:00 11:25:07 Visit MULTISPEC 350.1.13.10 ity of [place] 4.2.7.2.686 [facility] [place] [id number] [address] [facility] 2021-11-17 2021-11-17 Juan Avendaño [facility] 1.2.840.114 [id number] Univers 00:00:00 00:00:00 Miguel Nirav MULTISPEC 350.1.13.10 ity of [place] 4.2.7.2.686 [facility] [id number] [address] [facility] 2021-11-17 2021-11-17 [facility]phone [facility] 1.2.840.114 [id number] Univers 00:00:00 00:00:00 Justin Templeton MULTISPEC 350.1.13.10 ity of [place] 4.2.7.2.686 [facility] [id number] [address] [facility] 2021-11-17 2021-11-17 Telephone Cassie [facility] 1.2.840.114 [id number] Univers 00:00:00 00:00:00 Samantha machado MULTISPEC 350.1.13.10 [place] [id number] [address] [facility] 2021-11-17 2021-11-17 Telephone Yesenia [facility] 1.2.840.114 [id number] Univers 00:00:00 00:00:00 Justin Templeton MULTISPEC 350.1.13.10 [place] [id number] [address] [facility] 2021-11-16 2021-11-16 Outpatient R ONESIMO [facility] [id number] Univers 10:00:00 12:25:[address] [facility] 2021-11-16 2021-11-16 Office Onesimo [facility] 1.2.840.114 [id number] Univers 10:00:00 12:25:46 Visit Samantha Yuan MULTISPEC 350.1 .13.10 ity of [place] 4.2.7.2.686 [facility] [place] [id number] [address] [facility] 2021-11-16 2021-11-16 Outpatient [facility] [id number] Univers 10:00:00 12:25:[address] [facility] 2021-11-16 2021-11-16 Outpatient R ONESIMO [facility] [id number] Univers 10:00:00 12:25:[address] [facility] 2021-11-15 2021-11-15 Outdoor Adventure Instructor Clair Holguin [facility] Main [facility] 1.2.8 40.114 [id number] Univers 09:45:00 10:00:00 Visit Justin Patterson [place] 350.1.13. 10 [place] 4[place]2.7.2.[place] [id number] Il dical [address] 2021-11-15 2021-11-15 [facility] [id number] Univers 09:45:00 09:45:00 ANDERSON ity o f [facility] 2021-11-15 2021-11-15 Outpatient R [facility]OLAS [facility] [id number] Univers 09:45:00 09:45:00 ANDERSON ity o f [facility] 2021-11-12 2021-11-12 Telephone [facility] 1.2.840.114 [id number] Univers 00:00:00 00:00:00 Justin Templeton MULTISPEC 350.1.13.10 ity of [place] 4.2.7.2.686 [facility] [id number] [address] [facility] 2021-11-09 2021-11-09 Telephone Onesimo [facility] 1.2.840.114 [id number] Univers 00:00:00 00:00:00 MULTISPEC 350.1.13.10 [place] [id number] [facility] AND [address] [facility] 2021-11-09 2021-11-09 Telephone Onesimo [facility] 1.2.840.114 [id number] Univers 00:00:00 00:00:00 MULTISPEC 350.1.13.10 ity of [place] 4.2.7.2.686 [facility] [id number] [address] [facility] 2021-11-08 2021-11-08 Telephone Jarocho [facility] 1.2.840.114 [id number] Univers 00:00:00 00:00:00 Miguel [facility] MULTISPEC 350.1.13.10 [place] [id number] [address] [facility] 2021-11-01 2021-11-01 [facility]phone [facility] 1.2.840.114 [id number] Univers 00:00:00 00:00:00 Justin Templeton MULTISPEC 350.1.13.10 [place] [phone] [facility] AND [address] [facility] 2021-10-12 2021-10-12 Refill Jarocho [facility] 1.2.840.114 [id number] Univers 00:00:00 00:00:00 Miguel Gastelum MULTISPEC 350.1.13.10 [place] [phone] [facility] AND [address] [facility] 2021-10-10 2021-10-10 Refill Cassie [facility] 1.2.840.114 [id number] Univers 00:00:00 00:00:00 Samantha machado MULTISPEC 350.1.13.10 [place] [id number] [facility] [address] [facility] 2021-10-07 2021-10-07 Outdoor Adventure Instructor [facility] 1.2.840.114 [id number] Univers 12:15:00 12:30:00 Visit Justin Patterson MULTISPEC 350.1.13 .10 [place] [id number] [address] [facility] 2021-10-07 2021-10-07 Outpatient R YESENIA [facility] [id number] Univers 12:15:00 12:15:00 JUSTIN ity o f [facility] 2021-10-04 2021-10-04 Telephone [facility] [id number] Univers 00:00:00 00:00:00 MULTISPEC 350.1.13.10 [place] [id number] [address] [facility] 2021-10-01 2021-10-01 Telephone Sharon Echols [facility] 1.2.840.114 [id number] Univers 00:00:00 00:00:00 MULTISPEC 350.1.13.10 [place] [id number] [facility] [address] [facility] 2021-09-16 2021-09-16 Outpatient R [facility] [id number] Univers 10:00:00 10:00:[address] [facility] 2021-09-13 2021-09-13 Orders Doctor REAVES 1.2.840.114 [id number] Univers 00:00:00 00:00:00 Only Unassigned, BABAR 350.1.13.10 ity of [place] [facility] 4.2.7.2.686 Darryl [id number] [address] 2021-08-24 2021-08-24 Telephone Yesenia FLARON 1.2.840.114 [id number] Univers 00:00:00 00:00:00 Justin Templeton MULTISPEC 350.1.13.10 ity of [place] 4.2.7.2.686 [facility] [place] [phone] [address] [facility] 2021-08-18 2021-08-18 Office Justin Patterson [facility] 1.2.84 0.114 [id number] Univers 08:17:03 10:20:30 Visit Samantha Yuan MULTISPEC 350.1 .13.10 ity of [place] 4.2.7.2.686 [facility] [place] [id number] [address] [facility] 2021-08-18 2021-08-18 Outpatient [facility] [id number] Univers 08:00:00 10:20:30 SAMANTHA MACHADO ity [facility] 2021-08-18 2021-08-18 Outpatient R ADRIANILLA-CRU [facility] [id number] Univers 08:00:00 08:00:00 SAMANTHA MACHADO ity [facility] 2021-08-13 2021-08-13 Orders JEAN PAUL Patterson 1.2.840.114 [id number] Univers 00:00:00 00:00:00 Only Anderson A BABAR 350.1.13.10 ity of HOSPITAL 4.2.7.2.686 Darryl [place] [phone] [place] [address] [address] 2021-07-09 2021-07-09 Telephone [facility] 1.2.840.114 [id number] Univers 00:00:00 00:00:00 Anderson A MULTISPEC 350.1.13.10 [place] [id number] [facility] [address] [facility] 2021-06-22 2021-06-22 Telephone [facility] 1.2.840.114 [id number] Univers 00:00:00 00:00:00 Anderson A MULTISPEC 350.1.13.10 [place] [id number] [address] [facility] 2021-06-22 2021-06-22 Orders Doctor JEAN PAUL 1.2.840.114 [id number] Univers 00:00:00 00:00:00 Only Unassigned, BABAR 350.1.13.10 ity of [place] [facility] 4.2.7.2.686 Darryl as [id number] [place] [address] [place] 2021-04-30 2021-04-30 Outpatient R [facility] [id number] Univers 08:15:00 08:15:[facility] 2021-01-25 2021-01-25 Outpatient R CASSIE [facility] [id number] Univers 09:00:00 09:00:00 SAMANTHA MACHADO [facility] 2020-12-02 2020-12-02 Outpatient R NICHOLAS LAROSE [facility] [id number] Univers 16:00:00 16:00:00 NICHOLAS LAROSE i [facility] 2020-09-16 2020-09-16 Outpatient R MILES [facility] [id number] Univers 10:45:00 10:45:00 VICKY [facility] 2020-09-04 2020-09-04 Outpatient R MATY [facility] [id number] Univers 12:15:00 12:15:00 DONNIE quinones [facility] 2020-09-01 2020-09-01 Out[facility] [id number] Univers 10:00:00 10:00:00 RAFITA quinones [facility] 2020-07-27 2020-07-27 [facility] 1.2.840.114 [id number] 09:45:42 11:13:09 Visit Sam[facility] 350.1.13.10 [place] 4.2.7.2.686 [place] [id number] AND RACHEL Khan [facility] 2020-07-27 2020-07-27 Outpatient R ADRIANILLA-CRU [facility] [id number] Univers 10:00:00 10:00:00 [facility]ACH[facility] 2020-07-20 2020-07-20 Outpatient R [facility] [id number] Univers 08:00:00 08:00:00 ANDERSON ity o [facility] 2020-07-20 2020-07-20 [facility] [id number] Univers 08:00:00 08:00:00 ANDERSON ity o f [facility] 2020-04-28 2020-04-28 Outpatient R [facility] [id number] Univers 08:00:00 08:00:00 [facility] 2020-04-15 2020-04-15 Outpatient R [facility] [id number] Univers 08:15:00 08:15:00 ANDERSON ity o f [facility] 2020-04-13 2020-04-13 Outpatient R [facility] [id number] Univers 10:30:00 10:30:00 DEON [facility] 2020-04-03 2020-04-03 Outpatient R BH[facility]LECT [facility] [id number] Univers 16:40:00 16:40:00 HYUN [address] o f [facility] 2020-03-06 2020-03-06 Outpatient R BH[facility]ISELECT [facility] [id number] Univers 16:45:00 16:45:00 HYUN it[address] o f [facility] 2019-12-27 2019-12-27 Outpatient R YESENIA [facility] [id number] Univers 07:30:00 07:30:[address] [facility] Results Test Description Test Time Test Comments Results Result Comments Source ECG 12 lead 2022-09-21 14:20:50 Test Item Value Reference Range Interpretation Comme nts Ventricular rate (test code = 253) 71 Atrial rate (test code = 255) 71 AL interval (test code = 266) 186 QRSD interval (test code = 260) 114 QT interval (test code = 264) 382 QTC interval (test code = 265) 415 P axis 1 (test code = 267) 67 QRS axis 1 (test code = 268) 52 T wave axis (test code = 270) 102 EKG impression (test code = 273) Normal sinus rhythm-Possible Left atrial enlargement-Minimal voltage criteria for LVH, may be normal variant ( Albaro product )-Nonspecific ST abnormality-Abnormal ECG-In automated comparison with ECG of 30-SEP-2009 09:39,-Non-specific change in ST segment in Lateral leads-Nonspecific T wave abnormality, improved in Lateral leads- [facility] [id number] 02:27:00 Test Item Value Reference Range Interpretation Comments POC glucose (test code 140 mg/dL 65-99 H Opera tor Name: Jc = 83596-5) David ID: [id number] able: RN Notified Lab Interpretation Abnormal (test code = 44875-5) [facility] [Presence] in Respiratory specimen by PAULINA with probe [id number] 19:27:59 Test Item Value Reference Range Interpretation Comments SARS-CoV-2 (COVID-19) RNA Not detected [Presence] in Respiratory specimen by PAULINA with probe detection (test code = 08575-7) Whether patient is employed in a Unknown healthcare setting (test code = 85749-0) Whether the patient has symptoms Unknown related to condition of interest (test code = 04030-9) Whether the patient was Unknown hospitalized for condition of interest (test code = 37148-5) Whether the patient was admitted Unknown to intensive care unit (ICU) for condition of interest (test code = 21529-0) Whether patient resides in a Unknown congregate care setting (test code = 27189-2) status (test code = Unknown 07664-0) Date and time of symptom onset Unknown (test code = 24156-1) [facility]
[2023-01-23] MEDS ORDERED: METOCLOPRAMIDE 10 MG/2mL INJ ONE (01:40)
[2023-01-23] MEDS ORDERED: LORazepam 2 MG/ML VIAL ONE (01:41)
[2023-01-23] MEDS ORDERED: MORPHINE 4 MG/ML SYR ONE ×2 (01:41→04:33)
[2023-01-23 02:25] LABS: Albumin 3.6 g/dL (3.4-5.0); Bilirubin Total 0.3 mg/dL (0.2-1.0); Potassium 4.2 mEq/L (3.5-5.1); Protein, Total 7.2 g/dL (6.4-8.2)
[2023-01-23] MEDS ORDERED: PROMETHAZINE 25 MG TABLET ONE (04:33)
--- NOTE | 2023-01-23 04:35 | ER ---
Nurse's Notes [facility] Name: Gus Lambert Age: 62 yrs Sex: Male : 1960 Arrival Date: 01/23/2023 Time: 01:07 Bed 7 Private MD: Diagnosis: Episodic tension-type headache;Hypertensive urgency, history of renal transplant, patent AV fistula right arm Presentation: 01/23 01:21 Chief complaint: EMS states: Pt reports swelling to his fistula and high blood pressure jb4 tonight. Reports distended veins and discoloration. Coronavirus screen: At this time, the client does not indicate any symptoms associated with coronavirus-19. Ebola Screen: No symptoms or risks identified at this time. Initial Sepsis Screen: Does the patient meet any 2 criteria? No. Patient's initial sepsis screen is negative. Does the patient have a suspected source of infection? No. Patient's initial sepsis screen is negative. Risk Assessment: Do you want to hurt yourself or someone else? Patient reports no desire to harm self or others. Onset of symptoms was January 23, 2023. Transition of care: patient was not received from another setting of care. 01:21 Method Of Arrival: EMS: [facility] jb4 01:21 Acuity: MARIA EUGENIA 3 jb4 Historical: - Allergies: 01:26 No Known Allergies; jb4 - PMHx: 01:26 Hypertension; kidney failure; viral meningitis; jb4 - PSHx: 01:26 kidney transplant; knee replacement.; jb4 - Immunization history:: Adult Immunizations up to date. - Social history:: Smoking status: Patient denies any tobacco usage or history of. - Family history:: not pertinent. Screenin:56 [facility] ED Fall Risk Assessment (Adult) History of falling in the last 3 months, jb4 including since admission No falls in past 3 months (0 pts) Confusion or Disorientation No (0 pts) Score/Fall Risk Level 0 - 2 = Low Risk Oriented to surroundings, Maintained a safe environment. Abuse screen: Denies threats or abuse. Nutritional screening: No deficits noted. Tuberculosis screening: No symptoms or risk factors identified. Assessment: 01:30 General: Appears in no apparent distress. comfortable, Behavior is calm, cooperative, jb4 appropriate for age. Pain: Complains of pain in headache, Pain does not radiate. Pain currently is 8 out of 10 on a pain scale. Neuro: Level of Consciousness is awake, alert, obeys commands, Oriented to person, place, time, situation. Cardiovascular: Patient's skin is warm and dry. Trill palpated to right arm fistula. Respiratory: Airway is patent Respiratory effort is even, unlabored, Respiratory pattern is regular, symmetrical. GI: No signs and/or symptoms were reported involving the gastrointestinal system. : No signs and/or symptoms were reported regarding the genitourinary system. EENT: No signs and/or symptoms were reported regarding the EENT system. Derm: Skin is intact, Skin is pink, warm \T\ dry. Musculoskeletal: Circulation, motion, and sensation intact. Range of motion: intact in all extremities. 03:35 Reassessment: Patient appears in no apparent distress at this time. Patient and/or jb4 family updated on plan of care and expected duration. Pain level reassessed. Patient is alert, oriented x 3, equal unlabored respirations, skin warm/dry/pink. 04:56 Reassessment: Patient appears in no apparent distress at this time. Patient and/or jb4 family updated on plan of care and expected duration. Pain level reassessed. Patient is alert, oriented x 3, equal unlabored respirations, skin warm/dry/pink. Vital Signs: 01:21 BP 166 / 84; Pulse 62; Resp 16; Temp 98.8; Pulse Ox 98% on R/A; Weight 104.33 kg (R); jb4 Height 6 ft. 1 in. ; Pain 8/10; 02:23 BP 135 / 77; Pulse 55; Resp 16; Pulse Ox 97% ; jb4 03:35 BP 140 / 88; Pulse 56; Resp 16; Pulse Ox 98% on R/A; jb4 01:21 Body Mass Index 30.34 (104.33 kg, 185.42 cm) jb4 01:21 Pain Scale: Adult jb4 ED Course: 01:12 Patient arrived in ED. rv1 01:21 Rafael Barraza MD is Attending Physician. sp4 01:26 Triage completed. jb4 01:26 Arm band placed on right wrist. jb4 01:30 Patient has correct armband on for positive identification. Call light in reach. Side jb4 rails up X 1. Client placed on continuous cardiac and pulse oximetry monitoring. NIBP monitoring applied. color consultant on. 02:36 UPPER EXTREMITY VENOUS UNILATE In Process Unspecified. EDMS 02:37 Upper Ext Artery Uni Grant In Process Unspecified. EDMS 02:47 CT Head Brain wo Cont In Process Unspecified. EDMS 03:35 Gus Garcia, RN is Primary Nurse. jb4 04:57 No provider procedures requiring assistance completed. IV discontinued, intact, jb4 bleeding controlled, No redness/swelling at site. Pressure dressing applied. Administered Medications: 01:55 Drug: morphine IVP or IV 4 mg Route: IVP; Infused Over: 4 mins; Site: left wrist; jb4 01:55 Drug: Ativan IVP 1 mg Route: IVP; Site: left wrist; jb4 01:55 Drug: metoCLOPramide IVP 10 mg Route: IVP; Site: left wrist; jb4 04:31 Drug: morphine IVP or IV 4 mg Route: IVP; Infused Over: 4 mins; Site: left hand; jb4 04:31 Drug: Promethazine PO 25 mg Route: PO; jb4 Outcome: 04:34 Discharge ordered by . sp4 04:57 Discharged to home ambulatory. jb4 04:57 Condition: stable 04:57 Discharge instructions given to patient, Instructed on discharge instructions, follow up and referral plans. Demonstrated understanding of instructions, follow-up care. 04:58 Patient left the ED. jb4 Signatures: Dispatcher [employer] EDGus Corona RN RN jb4 Donna Taylor rv1 Rafael Barraza MD MD sp4 Corrections: (The following items were deleted from the chart) 02:36 02:25 In radiology for Extremity Venous Uni Ltd+US.RAD.BRZ. EDMS EDMS 02:37 02:25 In radiology for Lower Extremity Artery Uni Ltd+US.RAD.BRZ. EDMS EDMS
--- NOTE | 2023-01-23 04:35 | EDPHYS ---
Physician Documentation [facility] Name: Gus Lambert Age: 62 yrs Sex: Male : 1960 Arrival Date: 01/23/2023 Time: 01:07 Bed 7 Private MD: ED Physician Rafael Barraza HPI: 01/23 01:24 This 62 yrs old Male presents to ER via Unassigned with complaints of Head sp4 ache, dialysis fistula complaint . 01:24 62-year-old male with history of renal transplant presents with acute fistula sp4 discoloration on the right side and report of the right forearm dialysis fistula was enlarged and expanded. Patient also reports acute onset of global headache that is moderate to severe. Patient reported elevated blood pressure at home he has taken his blood pressure medicines and by presentation to the ER blood pressure is 150 over 90. Historical: - Allergies: 01: No Known Allergies; jb4 - PMHx: :26 Hypertension; kidney failure; viral meningitis; jb4 - PSHx: :26 kidney transplant; knee replacement.; jb4 - Immunization history:: Adult Immunizations up to date. - Social history:: Smoking status: Patient denies any tobacco usage or history of. - Family history:: not pertinent. ROS: 04:27 Constitutional: Negative for fever, chills, and weight loss, positive for acute sp4 headache, elevated blood pressure Eyes: Negative for injury, pain, redness, and discharge, ENT: Negative for injury, pain, and discharge, Neck: Negative for injury, pain, and swelling, Cardiovascular: Negative for chest pain, palpitations, and edema, positive for swelling and discoloration of the right forearm hemodialysis fistula. Respiratory: Negative for shortness of breath, cough, wheezing, and pleuritic chest pain, Abdomen/GI: Negative for abdominal pain, nausea, vomiting, diarrhea, and constipation, Back: Negative for injury and pain, : Negative for injury, bleeding, discharge, and swelling, MS/Extremity: Negative for injury and deformity, Skin: Negative for injury, rash, and discoloration, Neuro: Negative for weakness, numbness, tingling, and seizure, positive for acute headache Psych: Negative for depression, anxiety, Allergy/Immunology: Negative for hives, rash, and allergies Endocrine: Negative for neck swelling, polydipsia, polyuria, polyphagia, and weight changes Hematologic/Lymphatic: Negative for swollen nodes, abnormal bleeding, and unusual bruising Exam: 04:27 Constitutional: This is a well developed, well nourished patient who is awake, alert, sp4 and in no acute distress. Head/Face: Normocephalic, atraumatic. Eyes: Pupils equal round and reactive to light, extra-ocular motions intact. Lids and lashes normal. Conjunctiva and sclera are not injected. Cornea within normal limits. Periorbital areas with no swelling, redness, or edema. ENT: Nares patent. No nasal discharge, no septal abnormalities noted. Tympanic membranes are normal and external auditory canals are clear. Oropharynx with no redness, swelling, or masses, exudates, or evidence of obstruction, uvula midline. Mucous membranes moist. Neck: Trachea midline, no thyromegaly or masses palpated, and no cervical lymphadenopathy. Supple, full range of motion without nuchal rigidity, or vertebral point tenderness. No Meningismus. Chest/axilla: Normal chest wall appearance and motion. Nontender with no deformity. No lesions are appreciated. Cardiovascular: Regular rate and rhythm with a normal S1 and S2. No gallops, murmurs, or rubs. Normal PMI, no JVD. No pulse deficits. Right forearm hemodialysis fistula with palpable thrill, no signs of swelling or discoloration at this time. Respiratory: Lungs have equal breath sounds bilaterally, clear to auscultation and percussion. No rales, rhonchi or wheezes noted. No increased work of breathing, no retractions or nasal flaring. Abdomen/GI: Soft, non-tender, with normal bowel sounds. No distension or tympany. No guarding or rebound. No evidence of tenderness throughout. Back: No spinal tenderness. No costovertebral tenderness. Skin: Warm, dry with normal turgor. Normal color with no rashes, no lesions, and no evidence of cellulitis. MS/ Extremity: Pulses equal, no cyanosis. Neurovascular intact. Full, normal range of motion. Neuro: Awake and alert, GCS 15, oriented to person, place, time, and situation. Cranial nerves II-XII grossly intact. Motor strength 5/5 in all extremities. Sensory grossly intact. Psych: Awake, alert, with orientation to person, place and time. Behavior, mood, and affect are within normal limits Vital Signs: 01:21 BP 166 / 84; Pulse 62; Resp 16; Temp 98.8; Pulse Ox 98% on R/A; Weight 104.33 kg (R); jb4 Height 6 ft. 1 in. ; Pain 8/10; 02:23 BP 135 / 77; Pulse 55; Resp 16; Pulse Ox 97% ; jb4 03:35 BP 140 / 88; Pulse 56; Resp 16; Pulse Ox 98% on R/A; jb4 01:21 Body Mass Index 30.34 (104.33 kg, 185.42 cm) jb4 01:21 Pain Scale: Adult jb4 MDM: 01:24 Patient medically screened. sp4 04:27 Differential Diagnosis altered mental status, Hemodialysis fistula clot. Data reviewed: 4 vital signs, nurses notes, EMS record, old medical records, lab test result(s), electrolytes, hepatic panel, radiologic studies, CT scan, ultrasound. ED course: Renal function today fairly well glucose 139, BUN 27, creatinine 1.04, this is fairly unremarkable renal function panel for renal transplant patient.. ED course: Upper extremity venous Doppler, no evidence of deep venous thrombosis in the right upper extremity, widely patent AV fistula. Upper extremity arterial Doppler -patent AV fistula over the right upper extremity, no evidence for occlusion or significant stenosis, monophasic waveform below the level of the AV fistula with no definitive signs of steal. CT head without IV contrast reveals no acute intracranial hemorrhage or otherwise unremarkable CT head without contrast. . 01/23 01:22 Order name: CMP; Complete Time: 03:53 4 01/23 01:22 Order name: CT Head Brain wo Cont 4 01/23 02:36 Order name: UPPER EXTREMITY VENOUS UNILATE [facility] 01/23 02:37 Order name: Upper Ext Artery Uni Grant EDTN 01/23 01:22 Order name: Saline Lock; Complete Time: 01:27 4 Administered Medications: 01:55 Drug: morphine IVP or IV 4 mg Route: IVP; Infused Over: 4 mins; Site: left wrist; jb4 01:55 Drug: Ativan IVP 1 mg Route: IVP; Site: left wrist; jb4 01:55 Drug: metoCLOPramide IVP 10 mg Route: IVP; Site: left wrist; jb4 04:31 Drug: morphine IVP or IV 4 mg Route: IVP; Infused Over: 4 mins; Site: left hand; jb4 04:31 Drug: Promethazine PO 25 mg Route: PO; jb4 Disposition Summary: 01/23/23 04:34 Discharge Ordered Location: Home sp4 Problem: new sp4 Symptoms: have improved sp4 Condition: Stable sp4 Diagnosis - Episodic tension-type headache sp4 - Hypertensive urgency, history of renal transplant, patent AV fistula right arm sp4 Followup: sp4 - With: Private Physician - When: 7 - 10 days - Reason: Recheck today's complaints Discharge Instructions: - Discharge Summary Sheet sp4 - Tension Headache, Adult, Juvi-uf-Iyan sp4 Forms: - Thank You Letter sp4 Signatures: Dispatcher [employer] Gus Garcia RN RN jb4 Rafael Barraza MD MD sp4 Corrections: (The following items were deleted from the chart) 02:36 01:25 Extremity Venous Uni Ltd+US.RAD.BRZ ordered. EDMS EDMS 02:37 01:25 Lower Extremity Artery Uni Ltd+US.RAD.BRZ ordered. EDMS EDMS
[2023-01-23 05:03] VITALS: TEMP 98.8
[2023-01-23 05:05] VITALS: BP 140/88; O2SAT 98
--- NOTE | 2023-01-23 14:59 | RAD REPORT ---
EXAM DESCRIPTION: CT - Head Brain Wo Cont - 01/23/2023 6:37 am CLINICAL HISTORY: 62 years, Male, acute headache COMPARISON: None. FINDINGS: Multiple transaxial tomograms of the brain were obtained from the base of the skull to the vertex without contrast. 2-D multiplanar reformats and the coronal and sagittal plane were performed and reviewed. This exam was performed according to our departmental dose-optimization protocol, which includes auto mated exposure control, adjustment of the mA and/or kV according to patient size and/or use of iterat nasim reconstruction technique. Brain parenchyma as well as the fuentes and white matter differentiation demonstrate to be unremarkable. There is no midline shift and/or mass effect. There is no evidence for acute hemorrhage. There are n o focal areas of hypodensities. Lateral ventricles and cisterns displace normal appearance. No intr a or extra axial fluid collections were seen. The calvarium is intact with no evidence for fracture. The visualized portions of the paranasal sinuses and orbits demonstrate to be clear. IMPRESSION: No acute intracranial hemorrhage identified. Unremarkable CT scan of the head without contrast. Electronically signed by: Shaheed Ng MD 01/23/2023 3:03 AM CDT Due to temporary technical issues with the PACS/Fluency reporting system, reports are being signed by the in house radiologist without review as a courtesy to ensure prompt reporting. The interpreting r adiologist is fully responsible for the content of the report.
--- NOTE | 2023-01-23 15:00 | RAD REPORT ---
EXAM DESCRIPTION: US - Upper Ext Artery Uni Grant - 01/23/2023 2:35 am CLINICAL HISTORY: 62 years, Male, Right upper extremity fistula discoloration Upper Ext Artery Uni Grant COMPARISON: None FINDINGS: Multiple grayscale images and duplex Doppler ultrasound of the right upper extremity arter ial system was performed with color flow, spectral waveform and peak systolic velocities. There is a AV fistula within the right forearm area. Right subclavian artery peak systolic velocity of 77 cm/sec. triphasic waveform Right axillary artery peak systolic velocity 89 cm/sec. triphasic waveform Right brachial artery proximal peak systolic velocity of 126 cm/sec. biphasic waveform Right radial artery peak systolic velocity of 89 cm/sec. monophasic waveform with spectral broadening Right ulnar artery peak systolic velocity of 123 cm/sec. monophasic waveform with spectral broadening There is a right AV fistula with normal flow. IMPRESSION: Patent AV fistula right upper extremity. No evidence for occlusion/or significant stenosis. Monophasic waveform below level of the AV fistula with no definitive signs steal. Electronically signed by: Shaheed Ng MD 01/23/2023 3:02 AM CDT Due to temporary technical issues with the PACS/Fluency reporting system, reports are being signed by the in house radiologist without review as a courtesy to ensure prompt reporting. The interpreting r adiologist is fully responsible for the content of the report.
--- NOTE | 2023-01-23 15:05 | RAD REPORT ---
EXAM DESCRIPTION: US - UPPER EXTREMITY VENOUS UNILATE - 01/23/2023 2:34 am CLINICAL HISTORY: Fistula discoloration UPPER EXTREMITY VENOUS UNILATE TECHNIQUE: Real-time Duplex ultrasound of the right upper extremity veins with 2-D fuentes scale, color Doppler flow, and spectral waveform analysis. COMPARISON: None available for comparison. FINDINGS: Right deep veins: The internal jugular, subclavian, axillary, and brachial veins are paten t without thrombus. Normal compressibility, augmentation response, and Doppler waveforms. AV fistula is widely patent. Right superficial veins: The visualized basilic and cephalic veins are patent without thrombus. IMPRESSION: No evidence of deep venous thrombosis in the right upper extremity. Widely patent AV fis faith. Electronically signed by: Thomas Lea MD 01/23/2023 2:47 AM CDT Due to temporary technical issues with the PACS/Fluency reporting system, reports are being signed by the in house radiologist without review as a courtesy to ensure prompt reporting. The interpreting r adiologist is fully responsible for the content of the report.
== END 2023-01-23 04:58 | disposition home or self-care (01) ==
LOC: ER 01:07
DX: G44.219 Episodic tension-type headache, not intractable (principal); I16.0 Hypertensive urgency; Z94.0 Kidney transplant status; T82.598A Other mechanical complication of other cardiac and vascular devices and implants, initial encounter
CPT/HCPCS: 36415; 80053; 70450; 93971; 93931; 99285; Q0169; J2765